=== PATIENT | female | born 1955 | race Caucasian/White ===

== ENCOUNTER 2025-01-21 02:40 | Inpatient (IN) | payer MEDICARE ==
--- NOTE | 2025-01-21 03:13 | ED ---
SOB HPI - General Chief Complaint: Shortness of Breath Stated Complaint: SOB,Chest Pain Time Seen by Provider: 01/21/25 02:54 Source: patient Mode of arrival: wheelchair Limitations: no limitations - History of Present Illness Initial Comments: This patient is a 69-year-old woman who arrives here to have shortness of breath. The patient states that the symptoms have been going on proximately 2 weeks, more or less since she had been admitted in the hospital to have stent graft of abdominal aortic aneurysm. This was reportedly performed at [facility] by . The patient has not noticed any difficulty with the graft. Patient's daughter is a nurse who states that the wounds have been clean and dry. No fevers. Patient denies abdominal pain. The patient does have some occasional cough but is a smoker. She has not noted change in sputum. No leg pain or swelling. No chest pain. MD Complaint: shortness of breath Onset/Timin -: week(s) Consistency: constant Improves With: nothing Worsens With: nothing Known History Of: COPD Associated Symptoms: fever, cough, sputum production Treatments Prior to Arrival: none - Related Data Home Oxygen Therapy: No Home Medications Medication Instructions Recorded Confirmed Aspirin EC [Ecotrin Low Dose] 81 mg PO DAILY 01/21/25 01/31/25 Cyclobenzaprine [Flexeril] 5 - 10 mg PO Q8H PRN 01/21/25 01/31/25 Fluticasone/Umeclidin/Vilanter 1 puff INHALATION RT-DAILY 01/21/25 01/31/25 [Trelegy Ellipta 200-62.5-25] Diclofenac Sodium [Voltaren] 75 mg PO BID PRN 01/31/25 01/31/25 HYDROcodone/APAP 7.5-325MG [[place] 1 tab PO Q6H PRN 01/31/25 01/31/25 7.5-325] Lidocaine 5% Patch [Lidoderm] 1 patch TRANSDERM DAILY PRN 01/31/25 01/31/25 Ondansetron [Zofran] 4 mg PO Q8H PRN 01/31/25 01/31/25 clonazePAM [KlonoPIN ODT] 0.25 mg PO DAILY PRN 01/31/25 01/31/25 Previous Rx's Medication Instructions Recorded Nicotine 14Mg/24Hr Patch [Habitrol] 1 patch TRANSDERM DAILY #10 patch 01/23/25 Pantoprazole [Protonix] 40 mg PO AC-BRKFST #30 01/23/25 Allergies Allergy/AdvReac Type Severity Reaction Status Date / Time No Known Allergies Allergy Verified 01/31/25 08:49 Review of Systems ROS Statement: Those systems with pertinent positive or pertinent negative responses have been documented in the HPI. ROS Other: All systems not noted in ROS Statement are negative. Constitutional: Reports: weakness. Denies: fever, chills Respiratory: Reports: cough, dyspnea, wheezes. Denies: hemoptysis Cardiovascular: Reports: orthopnea. Denies: chest pain, palpitations, edema Gastrointestinal: Denies: abdominal pain, nausea, vomiting, diarrhea Genitourinary: Denies: dysuria, hematuria Musculoskeletal: Denies: back pain Skin: Denies: rash Neurological: Reports: weakness. Denies: headache Psychiatric: Reports: anxiety. Denies: depression Past Medical History Past Medical History: COPD, Hypertension Additional Past Surgical History / Comment(s): Aortic Aneurysm Repair 2024 Smoking Status: Former smoker Past Alcohol Use History: None Reported Past Drug Use History: None Reported - Past Family History Mother Additional Family Medical History / Comment(s): respiratory failure, probably cancer but unsure. Father Additional Family Medical History / Comment(s): from stomach cancer General Exam General appearance: alert, in distress Head exam: Present: atraumatic, normocephalic Eye exam: Present: normal appearance. Absent: scleral icterus, conjunctival injection ENT exam: Present: mucous membranes dry Neck exam: Present: normal inspection, full ROM Respiratory exam: Present: respiratory distress, wheezes, accessory muscle use. Absent: rales, rhonchi, stridor Cardiovascular Exam: Present: regular rate, tachycardia, systolic murmur. Absent: diastolic murmur, rubs, gallop GI/Abdominal exam: Present: soft. Absent: distended, tenderness, guarding, rebound, rigid Extremities exam: Present: normal inspection, normal capillary refill. Absent: pedal edema, calf tenderness Back exam: Present: normal inspection. Absent: CVA tenderness (R), CVA tenderness (L) Neurological exam: Present: alert, CN II-XII intact. Absent: motor sensory deficit Skin exam: Present: warm, dry, intact, mottled. Absent: rash Course Vital Signs 01/21/25 01/21/25 01/21/25 02:42 04:14 06:14 Temperature 97.2 F L Pulse Rate 131 H 117 H 105 H Respiratory 24 22 18 Rate Blood Pressure 119/70 95/61 101/64 O2 Sat by Pulse 96 97 96 Oximetry 01/21/25 01/21/25 08:18 09:17 Temperature 97.8 F Pulse Rate 100 102 H Respiratory 16 Rate Blood Pressure 101/64 O2 Sat by Pulse 100 Oximetry Medical Decision Making - Medical Decision Making This patient is a 69-year-old woman presenting with dyspnea going on approximately 2 weeks. Exam does show probable exacerbation of COPD and the workup shows possible small infiltrate on the chest x-ray. The patient also with elevated D-dimer. The patient sent for CT scan that shows probable right lung mass, also some suspected bony metastases. Discussed findings with the patient and family and they are hoping to see oncology. The patient had chest x-ray that I interpreted as negative for acute infiltrate, pneumothorax, congestive heart failure CT scan by radiology Was pt. sent in by a medical professional or institution ([facility], [employer], urgent care, hospital, or care home...) When possible be specific @ -[No] Did you speak to anyone other than the patient for history (EMS, parent, family, police, friend...)? What history was obtained from this source @ -[No] Did you review nursing and triage notes (agree or disagree)? Why? @ -[I reviewed and agree with nursing and triage notes] Were old charts reviewed (outside hosp., previous admission, EMS record, old EKG, old radiological studies, urgent care reports/EKG's, care home records)? Report findings @ -[No old charts were reviewed] Differential Diagnosis (chest pain, altered mental status, abdominal pain women, abdominal pain men, vaginal bleeding, weakness, fever, dyspnea, syncope, headache, dizziness, GI bleed, back pain, seizure, CVA, palpatations, mental health, musculoskeletal)? @ -[Differential Dyspnea: Coronary syndrome, arrhythmia, tamponade, asthma, COPD, pulmonary embolism, pneumonia, pneumothorax, pulmonary effusion, anaphylaxis, diabetic ketoacidosis, flailed chest, pulmonary contusion, diaphragmatic rupture, anemia, neuromuscular, this is not meant to be an all-inclusive list. EKG interpreted by me (3pts min.). @ -[I interpreted as above] X-rays interpreted by me (1pt min.). @ -[I interpreted as above CT interpreted by me (1pt min.). @ -[None done] U/S interpreted by me (1pt. min.). @ -[None done] What testing was considered but not performed or refused? (CT, X-rays, U/S, labs)? Why? @ -[None] What meds were considered but not given or refused? Why? @ -[None] Did you discuss the management of the patient with other professionals (professionals i.e. DrFrederick, PA, [employer], lab, RT, psych nurse, health care social worker, executive vp, teacher, special weapons unit officer, telehealth case manager)? Give summary @ -[Case discussed with admitting physician and treatment recommendations are incorporated Was smoking cessation discussed for >3mins.? @ -[No] Was critical care preformed (if so, how long)? @ -[No] Were there social determinants of health that impacted care today? How? (Homelessness, low income, unemployed, alcoholism, drug addiction, transportation, low edu. Level, literacy, decrease access to med. care, halfway, rehab)? @ -[No] Was there de-escalation of care discussed even if they declined (Discuss DNR or withdrawal of care, Hospice)? DNR status @ -[No] What co-morbidities impacted this encounter? (DM, HTN, Smoking, COPD, CAD, Cancer, CVA, ARF, Chemo, Hep., AIDS, mental health diagnosis, sleep apnea, morbid obesity)? @ -COPD, smoking history Was patient admitted / discharged? Hospital course, mention meds given and route, prescriptions, significant lab abnormalities, going to OR and other pertinent info. @ -[As above Undiagnosed new problem with uncertain prognosis? @ -[No] Drug Therapy requiring intensive monitoring for toxicity (Heparin, Nitro, Insulin, Cardizem)? @ -[No] Were any procedures done? @ -[No] Diagnosis/symptom? @ -[Acute dyspnea Exacerbation of COPD Suspected metastatic lung cancer Acute, or Chronic, or Acute on Chronic? @ -[Acute dyspnea Uncomplicated (without systemic symptoms) or Complicated (systemic symptoms)? @ -[default] Side effects of treatment? @ -[No] Exacerbation, Progression, or Severe Exacerbation? @ -[COPD exacerbation Poses a threat to life or bodily function? How? (Chest pain, [place], [place], pneumonia, PE, COPD, DKA, ARF, appy, cholecystitis, CVA, Diverticulitis, Homicidal, Suicidal, threat to staff... and all critical care pts) @ -[Yes there is suspected cancer with threat to life All treatments are based on ideal body weight as in ED triage - Lab Data Result diagrams: 01/23/25 06:24 01/23/25 06:24 Lab Results 01/21/25 01/21/25 01/21/25 Range/Units 03:14 03:14 03:14 WBC 21.36 H (4.50-10.00) 10*3/uL RBC 4.09 L (4.10-5.20) 10*6/uL Hgb 11.8 L (12.0-15.0) g/dL Hct 36.6 L (37.2-46.3) % MCV 89.5 (80.0-97.0) fL MCH 28.9 (27.0-32.0) pg MCHC 32.2 (32.0-37.0) g/dL RDW (11.5-14.5) % Plt Count 358 (140-440) 10*3/uL MPV 10.2 (9.5-12.2) fL Immature Gran % (Auto) 1.3 % Absolute Nucleated RBC % Neutrophils % 79.3 % Lymphocytes % 9.6 % Monocytes % 7.4 % Eosinophils % 1.8 % Basophils % 0.6 % Immature Gran # 0.27 H (0.00-0.04) 10*3/uL Neutrophils # 16.95 H (1.80-7.70) 10*3/uL Lymphocytes # 2.06 (0.90-5.00) 10*3/uL Monocytes # 1.57 H (0.20-1.00) 10*3/uL Eosinophils # 0.39 H (0.04-0.35) 10*3/uL Basophils # 0.12 H (0.00-0.10) 10*3/uL NRBC/100 WBC Diff (0.00-0.01) X 10*3/uL PT 12.0 (10.0-12.5) sec INR 1.1 (<1.2) APTT 23.7 (22.0-30.0) sec D-Dimer 13.27 H (<0.60) mg/L FEU VBG pH (7.31-7.41) VBG pCO2 (37-51) mmHg VBG HCO3 (24-28) mmol/L Sodium 136 L (137-145) mmol/L Potassium 5.6 H (3.5-5.1) mmol/L Chloride 106 (98-107) mmol/L Carbon Dioxide 19 L (22-30) mmol/L Anion Gap 11 mmol/L BUN 21 H (7-17) mg/dL Creatinine 0.91 (0.52-1.04) mg/dL Est GFR (CKD-EPI) (>=60) Est GFR (CKD-EPI)AfAm 75 (>60 ml/min/1.73 sqM) Est GFR (CKD-EPI)NonAf 65 (>60 ml/min/1.73 sqM) BUN/Creatinine Ratio (12.00-20.00) Ratio Glucose 127 H (74-99) mg/dL Lactic Ac Sepsis Rflx Plasma Lactic Acid [place] (0.7-2.0) mmol/L Calcium 9.6 (8.4-10.2) mg/dL Magnesium (1.5-2.4) mg/dL Total Bilirubin 1.3 (0.2-1.3) mg/dL AST 30 (14-36) U/L ALT 13 (4-34) U/L Alkaline Phosphatase 174 H (38-126) U/L Troponin I (0.000-0.034) ng/mL NT-Pro-B Natriuret Pep 999 pg/mL Total Protein 7.3 (6.3-8.2) g/dL Albumin 3.3 L (3.5-5.0) g/dL Procalcitonin (0.02-0.50) ng/mL Urine Color Urine Appearance (Clear) Urine pH (5.0-8.0) Ur Specific [place] (1.001-1.035) Urine Protein (Negative) Urine Glucose (UA) (Negative) Urine Ketones (Negative) Urine Blood (Negative) Urine Nitrite (Negative) Urine Bilirubin (Negative) Urine Urobilinogen (<2.0) mg/dL Ur Leukocyte Esterase (Negative) Urine RBC (0-5) /hpf Urine WBC (0-5) /hpf Ur Squamous Epith Cells (0-4) /hpf Cellular Casts (0) /lpf Hyaline Casts (0-2) /lpf Granular Casts (0) /lpf Urine Mucus (None) /hpf Urine Yeast (Budding) (None) /hpf Urine Legionella Ag (Negative) 01/21/25 01/21/25 01/21/25 Range/Units 03:14 03:14 03:52 WBC (4.50-10.00) 10*3/uL RBC (4.10-5.20) 10*6/uL Hgb (12.0-15.0) g/dL Hct (37.2-46.3) % MCV (80.0-97.0) fL MCH (27.0-32.0) pg MCHC (32.0-37.0) g/dL RDW (11.5-14.5) % Plt Count (140-440) 10*3/uL MPV (9.5-12.2) fL Immature Gran % (Auto) % Absolute Nucleated RBC % Neutrophils % % Lymphocytes % % Monocytes % % Eosinophils % % Basophils % % Immature Gran # (0.00-0.04) 10*3/uL Neutrophils # (1.80-7.70) 10*3/uL Lymphocytes # (0.90-5.00) 10*3/uL Monocytes # (0.20-1.00) 10*3/uL Eosinophils # (0.04-0.35) 10*3/uL Basophils # (0.00-0.10) 10*3/uL NRBC/100 WBC Diff (0.00-0.01) X 10*3/uL PT (10.0-12.5) sec INR (<1.2) APTT (22.0-30.0) sec D-Dimer (<0.60) mg/L FEU VBG pH 7.42 H (7.31-7.41) VBG pCO2 30 L (37-51) mmHg VBG HCO3 19 L (24-28) mmol/L Sodium (137-145) mmol/L Potassium (3.5-5.1) mmol/L Chloride (98-107) mmol/L Carbon Dioxide (22-30) mmol/L Anion Gap mmol/L BUN (7-17) mg/dL Creatinine (0.52-1.04) mg/dL Est GFR (CKD-EPI) (>=60) Est GFR (CKD-EPI)AfAm (>60 ml/min/1.73 sqM) Est GFR (CKD-EPI)NonAf (>60 ml/min/1.73 sqM) BUN/Creatinine Ratio (12.00-20.00) Ratio Glucose (74-99) mg/dL Lactic Ac Sepsis Rflx Plasma Lactic Acid [place] 2.2 H* (0.7-2.0) mmol/L Calcium (8.4-10.2) mg/dL Magnesium (1.5-2.4) mg/dL Total Bilirubin (0.2-1.3) mg/dL AST (14-36) U/L ALT (4-34) U/L Alkaline Phosphatase (38-126) U/L Troponin I <0.012 (0.000-0.034) ng/mL NT-Pro-B Natriuret Pep pg/mL Total Protein (6.3-8.2) g/dL Albumin (3.5-5.0) g/dL Procalcitonin (0.02-0.50) ng/mL Urine Color Urine Appearance (Clear) Urine pH (5.0-8.0) Ur Specific [place] (1.001-1.035) Urine Protein (Negative) Urine Glucose (UA) (Negative) Urine Ketones (Negative) Urine Blood (Negative) Urine Nitrite (Negative) Urine Bilirubin (Negative) Urine Urobilinogen (<2.0) mg/dL Ur Leukocyte Esterase (Negative) Urine RBC (0-5) /hpf Urine WBC (0-5) /hpf Ur Squamous Epith Cells (0-4) /hpf Cellular Casts (0) /lpf Hyaline Casts (0-2) /lpf Granular Casts (0) /lpf Urine Mucus (None) /hpf Urine Yeast (Budding) (None) /hpf Urine Legionella Ag (Negative) 01/21/25 01/21/25 01/21/25 Range/Units 04:19 05:02 08:16 WBC (4.50-10.00) 10*3/uL RBC (4.10-5.20) 10*6/uL Hgb (12.0-15.0) g/dL Hct (37.2-46.3) % MCV (80.0-97.0) fL MCH (27.0-32.0) pg MCHC (32.0-37.0) g/dL RDW (11.5-14.5) % Plt Count (140-440) 10*3/uL MPV (9.5-12.2) fL Immature Gran % (Auto) % Absolute Nucleated RBC % Neutrophils % % Lymphocytes % % Monocytes % % Eosinophils % % Basophils % % Immature Gran # (0.00-0.04) 10*3/uL Neutrophils # (1.80-7.70) 10*3/uL Lymphocytes # (0.90-5.00) 10*3/uL Monocytes # (0.20-1.00) 10*3/uL Eosinophils # (0.04-0.35) 10*3/uL Basophils # (0.00-0.10) 10*3/uL NRBC/100 WBC Diff (0.00-0.01) X 10*3/uL PT (10.0-12.5) sec INR (<1.2) APTT (22.0-30.0) sec D-Dimer (<0.60) mg/L FEU VBG pH (7.31-7.41) VBG pCO2 (37-51) mmHg VBG HCO3 (24-28) mmol/L Sodium (137-145) mmol/L Potassium (3.5-5.1) mmol/L Chloride (98-107) mmol/L Carbon Dioxide (22-30) mmol/L Anion Gap mmol/L BUN (7-17) mg/dL Creatinine (0.52-1.04) mg/dL Est GFR (CKD-EPI) (>=60) Est GFR (CKD-EPI)AfAm (>60 ml/min/1.73 sqM) Est GFR (CKD-EPI)NonAf (>60 ml/min/1.73 sqM) BUN/Creatinine Ratio (12.00-20.00) Ratio Glucose (74-99) mg/dL Lactic Ac Sepsis Rflx Y Plasma Lactic Acid [place] (0.7-2.0) mmol/L Calcium (8.4-10.2) mg/dL Magnesium (1.5-2.4) mg/dL Total Bilirubin (0.2-1.3) mg/dL AST (14-36) U/L ALT (4-34) U/L Alkaline Phosphatase (38-126) U/L Troponin I (0.000-0.034) ng/mL NT-Pro-B Natriuret Pep pg/mL Total Protein (6.3-8.2) g/dL Albumin (3.5-5.0) g/dL Procalcitonin (0.02-0.50) ng/mL Urine Color Yellow Urine Appearance Cloudy H (Clear) Urine pH 5.5 (5.0-8.0) Ur Specific [place] 1.030 (1.001-1.035) Urine Protein 1+ H (Negative) Urine Glucose (UA) Negative (Negative) Urine Ketones Negative (Negative) Urine Blood Trace H (Negative) Urine Nitrite Negative (Negative) Urine Bilirubin Negative (Negative) Urine Urobilinogen 2.0 (<2.0) mg/dL Ur Leukocyte Esterase Negative (Negative) Urine RBC 3 (0-5) /hpf Urine WBC 22 H (0-5) /hpf Ur Squamous Epith Cells 4 (0-4) /hpf Cellular Casts 1 (0) /lpf Hyaline Casts 21 H (0-2) /lpf Granular Casts 1 (0) /lpf Urine Mucus Rare H (None) /hpf Urine Yeast (Budding) Rare H (None) /hpf Urine Legionella Ag Negative (Negative) 01/21/25 01/21/25 01/22/25 Range/Units 08:50 08:50 06:15 WBC 10.91 H (4.50-10.00) 10*3/uL RBC 3.26 L (4.10-5.20) 10*6/uL Hgb 9.2 L (12.0-15.0) g/dL Hct 30.5 L (37.2-46.3) % MCV 93.6 (80.0-97.0) fL MCH 28.2 (27.0-32.0) pg MCHC 30.2 L (32.0-37.0) g/dL RDW 15.7 H (11.5-14.5) % Plt Count 195 (140-440) 10*3/uL MPV 10.5 (9.5-12.2) fL Immature Gran % (Auto) % Absolute Nucleated RBC 0 % Neutrophils % % Lymphocytes % % Monocytes % % Eosinophils % % Basophils % % Immature Gran # (0.00-0.04) 10*3/uL Neutrophils # (1.80-7.70) 10*3/uL Lymphocytes # (0.90-5.00) 10*3/uL Monocytes # (0.20-1.00) 10*3/uL Eosinophils # (0.04-0.35) 10*3/uL Basophils # (0.00-0.10) 10*3/uL NRBC/100 WBC Diff 0 (0.00-0.01) X 10*3/uL PT (10.0-12.5) sec INR (<1.2) APTT (22.0-30.0) sec D-Dimer (<0.60) mg/L FEU VBG pH (7.31-7.41) VBG pCO2 (37-51) mmHg VBG HCO3 (24-28) mmol/L Sodium (137-145) mmol/L Potassium (3.5-5.1) mmol/L Chloride (98-107) mmol/L Carbon Dioxide (22-30) mmol/L Anion Gap mmol/L BUN (7-17) mg/dL Creatinine (0.52-1.04) mg/dL Est GFR (CKD-EPI) (>=60) Est GFR (CKD-EPI)AfAm (>60 ml/min/1.73 sqM) Est GFR (CKD-EPI)NonAf (>60 ml/min/1.73 sqM) BUN/Creatinine Ratio (12.00-20.00) Ratio Glucose (74-99) mg/dL Lactic Ac Sepsis Rflx Plasma Lactic Acid [place] 1.6 (0.7-2.0) mmol/L Calcium (8.4-10.2) mg/dL Magnesium (1.5-2.4) mg/dL Total Bilirubin (0.2-1.3) mg/dL AST (14-36) U/L ALT (4-34) U/L Alkaline Phosphatase (38-126) U/L Troponin I (0.000-0.034) ng/mL NT-Pro-B Natriuret Pep pg/mL Total Protein (6.3-8.2) g/dL Albumin (3.5-5.0) g/dL Procalcitonin 0.45 (0.02-0.50) ng/mL Urine Color Urine Appearance (Clear) Urine pH (5.0-8.0) Ur Specific [place] (1.001-1.035) Urine Protein (Negative) Urine Glucose (UA) (Negative) Urine Ketones (Negative) Urine Blood (Negative) Urine Nitrite (Negative) Urine Bilirubin (Negative) Urine Urobilinogen (<2.0) mg/dL Ur Leukocyte Esterase (Negative) Urine RBC (0-5) /hpf Urine WBC (0-5) /hpf Ur Squamous Epith Cells (0-4) /hpf Cellular Casts (0) /lpf Hyaline Casts (0-2) /lpf Granular Casts (0) /lpf Urine Mucus (None) /hpf Urine Yeast (Budding) (None) /hpf Urine Legionella Ag (Negative) 01/22/25 Range/Units 06:15 WBC (4.50-10.00) 10*3/uL RBC (4.10-5.20) 10*6/uL Hgb (12.0-15.0) g/dL Hct (37.2-46.3) % MCV (80.0-97.0) fL MCH (27.0-32.0) pg MCHC (32.0-37.0) g/dL RDW (11.5-14.5) % Plt Count (140-440) 10*3/uL MPV (9.5-12.2) fL Immature Gran % (Auto) % Absolute Nucleated RBC % Neutrophils % % Lymphocytes % % Monocytes % % Eosinophils % % Basophils % % Immature Gran # (0.00-0.04) 10*3/uL Neutrophils # (1.80-7.70) 10*3/uL Lymphocytes # (0.90-5.00) 10*3/uL Monocytes # (0.20-1.00) 10*3/uL Eosinophils # (0.04-0.35) 10*3/uL Basophils # (0.00-0.10) 10*3/uL NRBC/100 WBC Diff (0.00-0.01) X 10*3/uL PT (10.0-12.5) sec INR (<1.2) APTT (22.0-30.0) sec D-Dimer (<0.60) mg/L FEU VBG pH (7.31-7.41) VBG pCO2 (37-51) mmHg VBG HCO3 (24-28) mmol/L Sodium 139 (137-145) mmol/L Potassium 4.4 (3.5-5.1) mmol/L Chloride 103 (98-107) mmol/L Carbon Dioxide 23.8 (22-30) mmol/L Anion Gap 12.20 H mmol/L BUN 20.3 (7-17) mg/dL Creatinine 0.9 (0.52-1.04) mg/dL Est GFR (CKD-EPI) 70 (>=60) Est GFR (CKD-EPI)AfAm (>60 ml/min/1.73 sqM) Est GFR (CKD-EPI)NonAf (>60 ml/min/1.73 sqM) BUN/Creatinine Ratio 22.56 H (12.00-20.00) Ratio Glucose 82 (74-99) mg/dL Lactic Ac Sepsis Rflx Plasma Lactic Acid [place] (0.7-2.0) mmol/L Calcium 9.2 (8.4-10.2) mg/dL Magnesium 1.7 (1.5-2.4) mg/dL Total Bilirubin (0.2-1.3) mg/dL AST (14-36) U/L ALT (4-34) U/L Alkaline Phosphatase (38-126) U/L Troponin I (0.000-0.034) ng/mL NT-Pro-B Natriuret Pep pg/mL Total Protein (6.3-8.2) g/dL Albumin (3.5-5.0) g/dL Procalcitonin (0.02-0.50) ng/mL Urine Color Urine Appearance (Clear) Urine pH (5.0-8.0) Ur Specific [place] (1.001-1.035) Urine Protein (Negative) Urine Glucose (UA) (Negative) Urine Ketones (Negative) Urine Blood (Negative) Urine Nitrite (Negative) Urine Bilirubin (Negative) Urine Urobilinogen (<2.0) mg/dL Ur Leukocyte Esterase (Negative) Urine RBC (0-5) /hpf Urine WBC (0-5) /hpf Ur Squamous Epith Cells (0-4) /hpf Cellular Casts (0) /lpf Hyaline Casts (0-2) /lpf Granular Casts (0) /lpf Urine Mucus (None) /hpf Urine Yeast (Budding) (None) /hpf Urine Legionella Ag (Negative) - EKG Data EKG shows normal: sinus rhythm, axis (Normal), intervals, QRS complexes Rate: tachycardia (Rate 137 bpm) Disposition Clinical Impression: Shortness of breath, COPD (chronic obstructive pulmonary disease), Sepsis Disposition: ADMITTED IP TO THIS HOSP Condition: Fair Is patient prescribed a controlled substance at d/c from ED?: No
[2025-01-21 03:32] LABS: Basophils # (A) 0.12 10*3/uL (0.00-0.10); Basophils % (A) 0.6 %; Eosinophils # (A) 0.39 10*3/uL (0.04-0.35); Eosinophils % (A) 1.8 %; HCT 36.6 % (37.2-46.3); HGB 11.8 g/dL (12.0-15.0); Lymphocytes # (A) 2.06 10*3/uL (0.90-5.00); Lymphocytes % (A) 9.6 %; MCH 28.9 pg (27.0-32.0); MCHC 32.2 g/dL (32.0-37.0); MCV 89.5 fL (80.0-97.0); Mean Platelet Volume 10.2 fL (9.5-12.2); Monocytes # (A) 1.57 10*3/uL (0.20-1.00); Monocytes % (A) 7.4 %; Neutrophils # (A) 16.95 10*3/uL (1.80-7.70); Neutrophils % (A) 79.3 %; Platelet Count 358 10*3/uL (140-440); RBC 4.09 10*6/uL (4.10-5.20); RDW 15.2 % (11.5-14.5); WBC 21.36 10*3/uL (4.50-10.00)
[2025-01-21 03:55] LABS: ALT 13 U/L (4-34); AST 30 U/L (14-36); African American GFR (CKD) 75 (>60 ml/min/1.73 sqM); Albumin 3.3 g/dL (3.5-5.0); Alkaline Phosphatase 174 U/L (38-126); Anion Gap 11 mmol/L; Blood Urea Nitrogen 21 mg/dL (7-17); Calcium 9.6 mg/dL (8.4-10.2); Carbon Dioxide 19 mmol/L (22-30); Chloride 106 mmol/L (98-107); Glucose 127 mg/dL (74-99); Non-African American GFR(CKD) 65 (>60 ml/min/1.73 sqM); Sodium 136 mmol/L (137-145); Total Bilirubin 1.3 mg/dL (0.2-1.3); Total Protein 7.3 g/dL (6.3-8.2)
[2025-01-21 03:57] LABS: INR 1.1 (<1.2); Partial Thromboplastin Time 23.7 sec (22.0-30.0)
[2025-01-21 03:59] LABS: VBG PH 7.42 (7.31-7.41)
[2025-01-21 04:04] LABS: NT-Pro-B-Type Natriuretic Pept 999 pg/mL
[2025-01-21 04:18] LABS: Potassium 5.6 mmol/L (3.5-5.1)
[2025-01-21] MEDS: LACTATED RINGERS 1,000 ML IV ONE (04:56)
--- NOTE | 2025-01-21 05:13 | CT ---
EXAM: CT Angiography Chest With Intravenous Contrast CLINICAL HISTORY: ITS.REASON CT Reason: Dyspnea, possible PE TECHNIQUE: Axial computed tomographic angiography images of the chest with intravenous contrast. CTDI is 15.5 mGy and DLP is 445.1 mGy-cm. This CT exam was performed using one or more of the following dose reduction techniques: automated exposure control, adjustment of the mA and/or kV according to patient size, and/or use of iterative reconstruction technique. MIP reconstructed images were created and reviewed. COMPARISON: No relevant prior studies available. FINDINGS: Pulmonary arteries: Unremarkable. No pulmonary embolism. Aorta: Partial visualization of aneurysmal dilatation of the upper abdominal aorta measuring 7.2 cm. Calcifications are seen within a nondilated aorta. Lungs: Bilateral emphysematous changes. Narrowing of the right lower lobe bronchus. Likely atelectasis is seen within the posterior right upper lobe. No mass. Pleural space: Unremarkable. No significant effusion. No pneumothorax. Heart: Unremarkable. No cardiomegaly. No significant pericardial effusion. No evidence of RV dysfunction. Mediastinum: Base of neck and mediastinal lymphadenopathy with a represent a lymph node seen on series 401 image 65 measuring 2.9 cm. Bones/joints: 1.3 cm lucent lesion seen within the right scapula with question of a adjacent fracture. Posterior left 11th rib fracture. Expansile lesion seen within the anterior left lateral fifth rib. Diffuse degenerative endplate hypertrophy. Nonspecific sclerosis is seen within the T4 vertebral body. Motion artifact limits evaluation of the sternum. Likely old superior endplate fracture of T12. No dislocation. Soft tissues: Unremarkable. Lymph nodes: Right hilar lymphadenopathy. Lymphadenopathy is seen surrounding the aorta with a ambulatory service representative lymph node seen on series 401 image 104 measuring 2.1 cm. Right axillary lymphadenopathy. Liver: Simple cyst seen within the liver which does not require follow- up. Other findings: 1.3 cm nodule seen on series 401 image 61. IMPRESSION: 1. Lymphadenopathy seen throughout the chest as described above. This is highly concerning for malignancy. 2. Right lower lobe pulmonary nodule, underlying malignancy is not excluded. Recommend follow-up CT in 3 6 with's time Fleischner criteria. 3. Likely metastatic left rib lesion. 4. Left-sided posterior rib fracture without evidence of pneumothorax. 5. Concern for a osseous lesion and pathologic fracture seen within the scapula. 6. No pulmonary artery embolism. 7. Lymphadenopathy seen at the right hilum narrows the adjacent bronchi.
--- NOTE | 2025-01-21 05:15 | XR ---
EXAM: XR Chest, 1 View CLINICAL HISTORY: ITS.REASON XR Reason: dyspnea TECHNIQUE: Frontal view of the chest. COMPARISON: No relevant prior studies available. FINDINGS: Lungs: Unremarkable. No consolidation. Pleural space: Unremarkable. No pneumothorax. Heart: Unremarkable. No cardiomegaly. Mediastinum: Unremarkable. Normal mediastinal contour. Bones/joints: Degenerative changes are seen in the spine and shoulders. No acute fracture. Lymph nodes: Enlargement of the right hilum concerning for underlying lymphadenopathy. IMPRESSION: 1. Right hilar lymphadenopathy. 2. Otherwise no acute findings seen within the chest.
[2025-01-21 05:46] LABS: Appearance,Urine Cloudy (Clear); Bilirubin,Urine Negative (Negative); Blood,Urine Trace (Negative); Budding Yeast,Urine Rare /hpf; Cellular Casts,Urine 1 /lpf (0); Color,Urine Yellow; Glucose,Urine (UA) Negative (Negative); Granular Casts,Urine 1 /lpf (0); Hyaline Casts,Urine 21 /lpf (0-2); Ketones,Urine Negative (Negative); Leukocyte Esterase,Urine Negative (Negative); Mucus,Urine Rare /hpf; Nitrite,Urine Negative (Negative); PH, Urine 5.5 (5.0-8.0); Protein,Urine 1+ (Negative); RBC,Urine 3 /hpf (0-5); Squamous Epithelial Cell,Urine 4 /hpf (0-4); WBC,Urine 22 /hpf (0-5)
[2025-01-21] MEDS: MORPHINE SULFATE 4 MG/ML SYRINGE IV STA (06:11)
[2025-01-21] MEDS: LACTATED RINGERS 1,000 ML IV SCH (06:12)
[2025-01-21] MEDS ORDERED: PNEUMONIA PROTOCOL UTILIZED 1 EACH MISC PO PRN (07:03)
[2025-01-21] MEDS: AZITHROMYCIN 500 MG TAB PO SCH (09:21)
[2025-01-21] MEDS ORDERED: IOPAMIDOL CONTRAST (ORAL USE) VIAL PO PRN (11:33)
[2025-01-21] MEDS ORDERED: traMADol 50 MG TAB PO PRN (14:39)
--- NOTE | 2025-01-21 14:51 | P.CNPUL ---
History of Present Illness Consult date: 01/21/25 Requesting physician: Candido Rodríguez Reason for consult: abnormal CXR/CT Chief complaint: Shortness of breath History of present illness: This is a 69-year-old female patient with a known history of chronic and ongoing tobacco dependence of 50 years, chronic obstructive pulmonary disease, abdominal aortic aneurysm with recent stent placement in December 2024 at [facility]. Presented here to the emergency room early this morning with a 2-week history of worsening shortness of breath cough and congestion. No sputum productive. No hemoptysis. She also states she has lost about 20 pounds in the past month or 2. She also has been having significant right sided rib pain. Chest x-ray reveals right hilar lymphadenopathy. No acute findings. CT angiogram ruled out pulmonary embolism. However there is significant lymphadenopathy seen throughout the chest highly concerning for malignancy. A right lower lobe pulmonary nodule. Left metastatic rib lesion. Left-sided posterior rib fracture without evidence of pneumothorax. Lymphadenopathy is seen at the right hilum appears narrows the adjacent bronchi. Lesion to the right scapula. White count 21.3. Hemoglobin 11.8. Platelets 358. D-dimer 13.27. Sodium 136. Potassium 5.6. Bicarb 19. BUN 21. Creatinine 0.91. Glu cose 127. She is seen today in consultation on the regular medical floor. She is currently sitting up in a chair at the bedside. Awake and alert in no acute distress. Maintaining O2 saturations in the 90s on 2 L/min per nasal cannula. She has been afebrile. Hemodynamically stable. She is dyspneic with minimal exertion. Review of Systems REVIEW OF SYSTEMS: CONSTITUTIONAL: Positive for significant weight loss. EYES: Denies change in vision. EARS, NOSE, MOUTH, THROAT: Denies headaches, denies sore throat. CARDIOVASCULAR: Denies chest pain, palpitations or syncopal episodes. RESPIRATORY: Positive for shortness of breath, cough, congestion no hemoptysis. GASTROINTESTINAL: Denies change in appetite, denies abdominal pain GENITOURINARY: Denies hematuria, denies infections. MUSKULOSKELETAL: Positive for rib pain. INTEGUMENTARY: Denies rash, denies eczema. NEUROLOGICAL: Denies recent memory loss, no recent seizure activity. PSYCHIATRIC: Denies anxiety, denies depression. HEMATOLOGIC/LYMPHATIC: Denies anemia, denies enlarged lymph nodes. Past Medical History Past Medical History: COPD, Hypertension History of Any Multi-Drug Resistant Organisms: None Reported Past Surgical History: Cholecystectomy Additional Past Surgical History / Comment(s): Aortic Aneurysm Repair ( [facility] ) 2024 Additional Past Anesthesia/Blood Transfusion Reaction / Comment(s): na Past Psychological History: Anxiety Smoking Status: Former smoker Past Alcohol Use History: Rare Past Drug Use History: Marijuana Additional Drug Use History / Comment(s): hasnt used marijaua in years - Past Family History Mother Additional Family Medical History / Comment(s): respiratory failure, probably cancer but unsure. Father Additional Family Medical History / Comment(s): from stomach cancer Medications and Allergies Home Medications Medication Instructions Recorded Confirmed Type Aspirin EC [Ecotrin Low Dose] 81 mg PO DAILY 01/21/25 01/21/25 History Cyclobenzaprine [Flexeril] 5 - 10 mg PO Q8H PRN 01/21/25 01/21/25 History Fluticasone/Umeclidin/Vilanter 1 puff INHALATION RT-DAILY 01/21/25 01/21/25 History [Trelegy Ellipta 200-62.5-25] Allergies Allergy/AdvReac Type Severity Reaction Status Date / Time hydrocodone [From Vicodin] AdvReac Rash/Hives Verified 01/21/25 08:31 Physical Exam Vitals: Vital Signs Temp Pulse Pulse Resp BP BP Pulse Ox 01/21/25 10:11 97.6 F 99 20 93/61 94 L 01/21/25 09:17 97.8 F 102 H 16 101/64 100 01/21/25 08:18 100 01/21/25 06:14 105 H 18 101/64 96 01/21/25 04:14 117 H 22 95/61 97 01/21/25 02:42 97.2 F L 131 H 24 119/70 96 Intake and Output 01/20/25 01/21/25 01/21/25 22:59 06:59 14:59 Other: Voiding Method Toilet Weight 71.214 kg 71.214 kg GENERAL EXAM: Alert, pleasant, obese 69-year-old female, up in a chair, on 2 L nasal cannula, fairly comfortable in no apparent distress. HEAD: Normocephalic. EYES: Normal reaction of pupils, equal size. NOSE: Clear with pink turbinates. THROAT: No erythema or exudates. NECK: No masses, no JVD. CHEST: No chest wall deformity. LUNGS: Equal air entry with no crackles, wheeze, rhonchi or dullness. Diminished. CVS: S1 and S2 normal with no audible murmur, regular rhythm. ABDOMEN: No hepatosplenomegaly, normal bowel sounds, no guarding or rigidity. SPINE: No scoliosis or deformity SKIN: No rashes CENTRAL NERVOUS SYSTEM: No focal deficits, tone is normal in all 4 extremities. EXTREMITIES: There is no peripheral edema. No clubbing, no cyanosis. Peripheral pulses are intact. Results - Laboratory Findings CBC and BMP: 01/21/25 03:14 01/21/25 03:14 PT/INR, D-dimer PT 12.0 sec (10.0-12.5) 01/21/25 03:14 INR 1.1 (<1.2) 01/21/25 03:14 D-Dimer 13.27 mg/L FEU (<0.60) H 01/21/25 03:14 Abnormal lab findings: Abnormal Labs 01/21/25 01/21/25 01/21/25 03:14 03:14 03:14 WBC 21.36 H RBC 4.09 L Hgb 11.8 L Hct 36.6 L Immature Gran # 0.27 H Neutrophils # 16.95 H Monocytes # 1.57 H Eosinophils # 0.39 H Basophils # 0.12 H D-Dimer 13.27 H VBG pH VBG pCO2 VBG HCO3 Sodium 136 L Potassium 5.6 H Carbon Dioxide 19 L BUN 21 H Glucose 127 H Plasma Lactic Acid Roosevelt Alkaline Phosphatase 174 H Albumin 3.3 L Urine Appearance Urine Protein Urine Blood Urine WBC Hyaline Casts Urine Mucus Urine Yeast (Budding) 01/21/25 01/21/25 01/21/25 03:14 03:52 05:02 WBC RBC Hgb Hct Immature Gran # Neutrophils # Monocytes # Eosinophils # Basophils # D-Dimer VBG pH 7.42 H VBG pCO2 30 L VBG HCO3 19 L Sodium Potassium Carbon Dioxide BUN Glucose Plasma Lactic Acid Roosevelt 2.2 H* Alkaline Phosphatase Albumin Urine Appearance Cloudy H Urine Protein 1+ H Urine Blood Trace H Urine WBC 22 H Hyaline Casts 21 H Urine Mucus Rare H Urine Yeast (Budding) Rare H - Diagnostic Findings Chest x-ray: image reviewed CT scan - chest: image reviewed Assessment and Plan Assessment: Dyspnea secondary to hilar lymphadenopathy with narrowing of the adjacent bro nchi. Lymphadenopathy is seen surrounding the aorta with customer assistance representative lymph node measuring 2.1 cm. Right axillary lymphadenopathy. Right lower lobe pulmonary nodule Metastatic lesions to the bone including the right scapula and posterior left 11th rib Ongoing chronic tobacco dependence of 50 years Recent abdominal aortic aneurysm stent placement at [facility] December 2024 Suspected severe chronic obstructive pulmonary disease maintained on Trelegy, albuterol Significant weight loss of over 20 pounds in the past 1 to 2 months Hypertension Plan: The patient was seen and evaluated Imaging, labs and medications reviewed Discussed results with the patient Will plan for bronchoscopy with biopsies tomorrow Patient is agreeable to the plan Educated regarding complete smoking cessation NicoDerm patch will be offered Add DuoNeb inhalations Add Symbicort Continue antibiotics for now Procalcitonin pending Medical oncology consulted Further cancer workup pending Will continue to follow and make further recommendations based on her clinical status I have personally seen and examined the patient, performed the documentation and the assessment and plan as written. Number of minutes spent on the visit: 20 Dictation was produced using [employer] dictation software. Please excuse any grammatical, word or spelling errors. Time with Patient: Greater than 30
[2025-01-21] MEDS: IPRATROPIUM-ALBUTEROL 3 ML NEB INHALATION SCH (15:40)
[2025-01-21] MEDS: HYDROcodone/APAP 7.5-325MG 1 EACH TAB PO PRN (15:42)
[2025-01-21] MEDS: KETOROLAC 15 MG/ML 1 ML VIAL IVP PRN (15:43)
[2025-01-21] MEDS: PANTOPRAZOLE 40 MG TABLET PO SCH (15:43)
--- NOTE | 2025-01-21 16:16 | P.HPIM ---
History of Present Illness 69-year-old female came in with complaints of right-sided rib pain patient had a chest x-ray showed hilar lymphadenopathy. And patient also underwent CT angiogram to rule out pulmonary embolism which showed significant lymphadenopathy throughout the chest highly concerning for malignancy and there is a right lower lobe pulmonary nodule there is left-sided rib fracture but there is no pneumothorax there is a some lesions on the right scapula concerning for metastasis patient had 2 days of oxygen saturating 90% patient is afebrile at this time but does have leukocytosis of 20,000 CT is not consistent with pneumonia no other obvious source was evident urine is not significant for UTI GI patient denied any abdominal pain. Procalcitonin is not elevated patient was started on Rocephin and azithromycin this will be discontinued as there is no evidence of infection. Patient was complaining of severe pain at the lactic acid was 2.2 which has come down to 1.6 after IV fluids. REVIEW OF SYSTEMS: All other systems are negative except those mentioned in the HPI PHYSICAL EXAMINATION: GENERAL: The patient is alert and oriented x3, not in any acute distress. Well developed, well nourished. HEENT: Pupils are round and equally reacting to light. EOMI. No scleral icterus. No conjunctival pallor. Normocephalic, atraumatic. No pharyngeal erythema. No thyromegaly. CARDIOVASCULAR: S1 and S2 present. No murmurs, rubs, or gallops. PULMONARY: Chest is clear to auscultation, no wheezing or crackles. ABDOMEN: Soft, nontender, nondistended, normoactive bowel sounds. No palpable organomegaly. MUSCULOSKELETAL: No joint swelling or deformity. EXTREMITIES: No cyanosis, clubbing, or pedal edema. NEUROLOGICAL: Gross neurological examination did not reveal any focal deficits. SKIN: No rashes. Assessment and plan -Chest pain secondary to metastatic disease to the scapula and ribs, patient will be started on [place] and Toradol along with Protonix for pain. - COPD without any significant exacerbation patient quit smoking about 3 weeks ago - Hilar lymphadenopathy probably lung cancer patient will undergo bronchoscopy a nd biopsy - Leukocytosis reactive from cancer I did not see any infection procalcitonin is negative antibiotics will be discontinued - Lactic acidosis secondary to dehydration improved with IV fluids Unintentional significant weight loss secondary to cancer as mentioned above patient DVT prophylaxis: Lovenox Past Medical History Past Medical History: COPD, Hypertension History of Any Multi-Drug Resistant Organisms: None Reported Past Surgical History: Cholecystectomy Additional Past Surgical History / Comment(s): Aortic Aneurysm Repair ( [facility] ) 2024 Additional Past Anesthesia/Blood Transfusion Reaction / Comment(s): na Past Psychological History: Anxiety Smoking Status: Former smoker Past Alcohol Use History: Rare Past Drug Use History: Marijuana Additional Drug Use History / Comment(s): hasnt used marijaua in years - Past Family History Mother Additional Family Medical History / Comment(s): respiratory failure, probably cancer but unsure. Father Additional Family Medical History / Comment(s): from stomach cancer Medications and Allergies Home Medications Medication Instructions Recorded Confirmed Type Aspirin EC [Ecotrin Low Dose] 81 mg PO DAILY 01/21/25 01/21/25 History Cyclobenzaprine [Flexeril] 5 - 10 mg PO Q8H PRN 01/21/25 01/21/25 History Fluticasone/Umeclidin/Vilanter 1 puff INHALATION RT-DAILY 01/21/25 01/21/25 History [Trelegy Ellipta 200-62.5-25] Allergies Allergy/AdvReac Type Severity Reaction Status Date / Time hydrocodone [From Vicodin] AdvReac Rash/Hives Verified 01/21/25 08:31 Physical Exam Vitals: Vital Signs Temp Pulse Pulse Resp BP BP Pulse Ox 01/21/25 15:50 104 H 01/21/25 15:44 102 H 96 01/21/25 14:51 97.5 F L 105 H 20 95/63 91 L 01/21/25 10:11 97.6 F 99 20 93/61 94 L 01/21/25 09:17 97.8 F 102 H 16 101/64 100 01/21/25 08:18 100 01/21/25 06:14 105 H 18 101/64 96 01/21/25 04:14 117 H 22 95/61 97 01/21/25 02:42 97.2 F L 131 H 24 119/70 96 Intake and Output 01/21/25 01/21/25 01/21/25 06:59 14:59 22:59 Other: Voiding Method Toilet Weight 71.214 kg 71.214 kg Results CBC & Chem 7: 01/21/25 03:14 01/21/25 03:14 Labs: Abnormal Lab Results - Last 24 Hours (Table) 01/21/25 01/21/25 01/21/25 Range/Units 03:14 03:14 03:14 WBC 21.36 H (4.50-10.00) 10*3/uL RBC 4.09 L (4.10-5.20) 10*6/uL Hgb 11.8 L (12.0-15.0) g/dL Hct 36.6 L (37.2-46.3) % Immature Gran # 0.27 H (0.00-0.04) 10*3/uL Neutrophils # 16.95 H (1.80-7.70) 10*3/uL Monocytes # 1.57 H (0.20-1.00) 10*3/uL Eosinophils # 0.39 H (0.04-0.35) 10*3/uL Basophils # 0.12 H (0.00-0.10) 10*3/uL D-Dimer 13.27 H (<0.60) mg/L FEU VBG pH (7.31-7.41) VBG pCO2 (37-51) mmHg VBG HCO3 (24-28) mmol/L Sodium 136 L (137-145) mmol/L Potassium 5.6 H (3.5-5.1) mmol/L Carbon Dioxide 19 L (22-30) mmol/L BUN 21 H (7-17) mg/dL Glucose 127 H (74-99) mg/dL Plasma Lactic Acid Roosevelt (0.7-2.0) mmol/L Alkaline Phosphatase 174 H (38-126) U/L Albumin 3.3 L (3.5-5.0) g/dL Urine Appearance (Clear) Urine Protein (Negative) Urine Blood (Negative) Urine WBC (0-5) /hpf Hyaline Casts (0-2) /lpf Urine Mucus (None) /hpf Urine Yeast (Budding) (None) /hpf 01/21/25 01/21/25 01/21/25 Range/Units 03:14 03:52 05:02 WBC (4.50-10.00) 10*3/uL RBC (4.10-5.20) 10*6/uL Hgb (12.0-15.0) g/dL Hct (37.2-46.3) % Immature Gran # (0.00-0.04) 10*3/uL Neutrophils # (1.80-7.70) 10*3/uL Monocytes # (0.20-1.00) 10*3/uL Eosinophils # (0.04-0.35) 10*3/uL Basophils # (0.00-0.10) 10*3/uL D-Dimer (<0.60) mg/L FEU VBG pH 7.42 H (7.31-7.41) VBG pCO2 30 L (37-51) mmHg VBG HCO3 19 L (24-28) mmol/L Sodium (137-145) mmol/L Potassium (3.5-5.1) mmol/L Carbon Dioxide (22-30) mmol/L BUN (7-17) mg/dL Glucose (74-99) mg/dL Plasma Lactic Acid Roosevelt 2.2 H* (0.7-2.0) mmol/L Alkaline Phosphatase (38-126) U/L Albumin (3.5-5.0) g/dL Urine Appearance Cloudy H (Clear) Urine Protein 1+ H (Negative) Urine Blood Trace H (Negative) Urine WBC 22 H (0-5) /hpf Hyaline Casts 21 H (0-2) /lpf Urine Mucus Rare H (None) /hpf Urine Yeast (Budding) Rare H (None) /hpf Thrombosis Risk Factor Assmnt - Choose All That Apply Each Factor Represents 1 point: Abnormal pulmonary function (COPD) Each Risk Factor Represents 2 Points: Age 61-74 years, Malignancy Thrombosis Risk Factor Assessment Total Risk Factor Score: 5 Thrombosis Risk Factor Assessment Level: High Risk
--- NOTE | 2025-01-21 18:29 | P.CONS ---
History of Present Illness - Reason for Consult Consult date: 01/21/25 right lung mass Requesting physician: Madhu Gilmore - Chief Complaint SOB - History of Present Illness Patient is a 69-year-old female who presented to the emergency room with complaints of progressing shortness of breath. Patient has a history of COPD and reports of shortness of breath is chronic but over the last 2 weeks she has been having progressive shortness of breath and orthopnea since she has undergone stent graft of AAA at [facility]. Patient has history of smoking 1 to 2 packs daily for the last 50 years. She quit smoking approximately 2 weeks ago. Reports approximate 10 to 20 pound weight loss over the last 1 month. Denies night sweats. Patient states she was noted to have lung mass and lymphadenopathy while undergoing treatment [facility], however, denied further workup at that time. She was scheduled for outpatient follow-up and PET/CT. CTA chest negative for PE, showing right hilar lymphadenopathy which narrows the adjacent bronchi, lymphadenopathy surrounding the aorta and right axillary lymphadenopathy. Seen throughout the chest. Right lower lobe pulmonary nodule. Likely metastatic left rib lesion. Left sided posterior rib fracture. Concern for osseous lesion and pathological fracture seen within the scapula. Labs reviewed, WBC elevated at 21.3, hemoglobin 11.8, platelets 358,000. D-dimer 13.2. Lactic acid 2.2, creatinine 0.91, GFR 65. Bilirubin 1.3, AST 30, ALT 13, ALP 174. Calcium 9.6. Patient was started on rocephin and azithromycin. Review of Systems 10 point ROS is negative except as stated in the HPI Past Medical History Past Medical History: COPD, Hypertension History of Any Multi-Drug Resistant Organisms: None Reported Past Surgical History: Cholecystectomy Additional Past Surgical History / Comment(s): Aortic Aneurysm Repair ( [facility] ) 2024 Additional Past Anesthesia/Blood Transfusion Reaction / Comm: na Past Psychological History: Anxiety Smoking Status: Former smoker Past Alcohol Use History: Rare Past Drug Use History: Marijuana Additional Drug Use History / Comment(s): hasnt used marijaua in years - Past Family History Mother Additional Family Medical History / Comment(s): respiratory failure, probably cancer but unsure. Father Additional Family Medical History / Comment(s): from stomach cancer Medications and Allergies Home Medications Medication Instructions Recorded Confirmed Type Aspirin EC [Ecotrin Low Dose] 81 mg PO DAILY 01/21/25 01/21/25 History Cyclobenzaprine [Flexeril] 5 - 10 mg PO Q8H PRN 01/21/25 01/21/25 History Fluticasone/Umeclidin/Vilanter 1 puff INHALATION RT-DAILY 01/21/25 01/21/25 History [Trelegy Ellipta 200-62.5-25] Allergies Allergy/AdvReac Type Severity Reaction Status Date / Time hydrocodone [From Vicodin] AdvReac Rash/Hives Verified 01/21/25 08:31 Physical Exam Vitals: Vital Signs Temp Pulse Pulse Resp BP BP Pulse Ox 01/21/25 10:11 97.6 F 99 20 93/61 94 L 01/21/25 09:17 97.8 F 102 H 16 101/64 100 01/21/25 08:18 100 01/21/25 06:14 105 H 18 101/64 96 01/21/25 04:14 117 H 22 95/61 97 01/21/25 02:42 97.2 F L 131 H 24 119/70 96 Intake and Output 01/20/25 01/21/25 01/21/25 22:59 06:59 14:59 Other: Voiding Method Toilet Weight 71.214 kg 71.214 kg - Constitutional General appearance: average body habitus, no acute distress - EENT Eyes: anicteric sclerae ENT: hearing grossly normal - Respiratory Respiratory: bilateral: diminished - Cardiovascular Rhythm: regular - Gastrointestinal General gastrointestinal: soft, no tenderness - Integumentary Integumentary: no cyanotic - Neurologic Neurologic: CNII-XII intact - Psychiatric Psychiatric: A&O x's 3 Results CBC & Chem 7: 01/21/25 03:14 01/21/25 03:14 Labs: Abnormal Lab Results - Last 24 Hours (Table) 01/21/25 01/21/25 01/21/25 Range/Units 03:14 03:14 03:14 WBC 21.36 H (4.50-10.00) 10*3/uL RBC 4.09 L (4.10-5.20) 10*6/uL Hgb 11.8 L (12.0-15.0) g/dL Hct 36.6 L (37.2-46.3) % Immature Gran # 0.27 H (0.00-0.04) 10*3/uL Neutrophils # 16.95 H (1.80-7.70) 10*3/uL Monocytes # 1.57 H (0.20-1.00) 10*3/uL Eosinophils # 0.39 H (0.04-0.35) 10*3/uL Basophils # 0.12 H (0.00-0.10) 10*3/uL D-Dimer 13.27 H (<0.60) mg/L FEU VBG pH (7.31-7.41) VBG pCO2 (37-51) mmHg VBG HCO3 (24-28) mmol/L Sodium 136 L (137-145) mmol/L Potassium 5.6 H (3.5-5.1) mmol/L Carbon Dioxide 19 L (22-30) mmol/L BUN 21 H (7-17) mg/dL Glucose 127 H (74-99) mg/dL Plasma Lactic Acid Roosevelt (0.7-2.0) mmol/L Alkaline Phosphatase 174 H (38-126) U/L Albumin 3.3 L (3.5-5.0) g/dL Urine Appearance (Clear) Urine Protein (Negative) Urine Blood (Negative) Urine WBC (0-5) /hpf Hyaline Casts (0-2) /lpf Urine Mucus (None) /hpf Urine Yeast (Budding) (None) /hpf 01/21/25 01/21/25 01/21/25 Range/Units 03:14 03:52 05:02 WBC (4.50-10.00) 10*3/uL RBC (4.10-5.20) 10*6/uL Hgb (12.0-15.0) g/dL Hct (37.2-46.3) % Immature Gran # (0.00-0.04) 10*3/uL Neutrophils # (1.80-7.70) 10*3/uL Monocytes # (0.20-1.00) 10*3/uL Eosinophils # (0.04-0.35) 10*3/uL Basophils # (0.00-0.10) 10*3/uL D-Dimer (<0.60) mg/L FEU VBG pH 7.42 H (7.31-7.41) VBG pCO2 30 L (37-51) mmHg VBG HCO3 19 L (24-28) mmol/L Sodium (137-145) mmol/L Potassium (3.5-5.1) mmol/L Carbon Dioxide (22-30) mmol/L BUN (7-17) mg/dL Glucose (74-99) mg/dL Plasma Lactic Acid Roosevelt 2.2 H* (0.7-2.0) mmol/L Alkaline Phosphatase (38-126) U/L Albumin (3.5-5.0) g/dL Urine Appearance Cloudy H (Clear) Urine Protein 1+ H (Negative) Urine Blood Trace H (Negative) Urine WBC 22 H (0-5) /hpf Hyaline Casts 21 H (0-2) /lpf Urine Mucus Rare H (None) /hpf Urine Yeast (Budding) Rare H (None) /hpf Chest x-ray: report reviewed CT scan - chest: report reviewed Assessment and Plan (1) Lung mass Current Visit: Yes Status: Acute Priority: High Code(s): R91.8 - OTHER NONSPECIFIC ABNORMAL FINDING OF LUNG FIELD SNOMED Code(s): 546117468 (2) Lymphadenopathy, hilar Current Visit: Yes Status: Acute Priority: High Code(s): R59.0 - LOCALIZED ENLARGED LYMPH NODES SNOMED Code(s): 95856003 (3) Shortness of breath Current Visit: Yes Status: Acute Priority: High Code(s): R06.02 - SHORTNESS OF BREATH SNOMED Code(s): 321331522 Plan: Lung mass, LAD: Presented to the emergency room with complaints of progressing shortness of breath. Patient has a history of COPD and reports of shortness of breath is chronic but over the last 2 weeks she has been having progressive shortness of breath and orthopnea since she has undergone stent graft of AAA at [facility] 2 weeks ago. Patient has history of smoking 1 to 2 packs daily for the last 50 years. She quit smoking 2 weeks ago. Reports approximate 10 to 20 pound weight loss over the last 1 month. Denies night sweats. Patient states she was noted to have lung mass and lymphadenopathy while undergoing treatment at [facility], however, denied further workup at that time. She was scheduled for outpatient follow-up and PET/CT. -Upon admit CTA chest negative for PE, showing right hilar lymphadenopathy which narrows the adjacent bronchi, lymphadenopathy surrounding the aorta and right axillary lymphadenopathy. Right lower lobe pulmonary nodule. Likely metastatic left rib lesion. Left sided posterior rib fracture. Concern for osseous lesion and pathological fracture seen within the scapula. -Calcium 9.6. Due to poor dentition and need for tooth extraction, will hold zometa at this time -Will obtain CT AP, bone scan, and MRI brain to complete staging -Pulmonology consulted for evaluation for biopsy Discussed findings and concerns for metastatic lung cancer. Pt was agreeable with above plan. All questions and concerns were addressed
[2025-01-21] MEDS: SYMBICORT 160-4.5 MCG INHALER INHALATION SCH (20:09)
[2025-01-22] MEDS ORDERED: cefTRIAXone 2 GM in DEXTROSE 5% IN WATER 50 ML IVPB SCH (06:00)
[2025-01-22 10:15] LABS: HCT 30.5 % (37.2-46.3); HGB 9.2 g/dL (12.0-15.0); MCH 28.2 pg (27.0-32.0); MCHC 30.2 g/dL (32.0-37.0); MCV 93.6 FL (80.0-97.0); Mean Platelet Volume 10.5 FL (9.5-12.2); NRBC Per 100 WBC 0 X 10*3/uL (0.00-0.01); Platelet Count 195 X 10*3/uL (140-440); RBC 3.26 X 10*6/uL (4.10-5.20); RDW 15.7 % (11.5-14.5); WBC 10.91 X 10*3/uL (4.50-10.00)
[2025-01-22 10:29] LABS: BUN/Creat Ratio 22.56 Ratio (12.00-20.00); Blood Urea Nitrogen 20.3 mg/dL (9.0-27.0); Calcium 9.2 mg/dL (8.7-10.3); Carbon Dioxide 23.8 mmol/L (21.6-31.8); Chloride 103 mmol/L (96-109); Glucose 82 mg/dL (70-110); Magnesium 1.7 mg/dL (1.5-2.4); Potassium 4.4 mmol/L (3.5-5.5); Sodium 139 mmol/L (135-145)
[2025-01-22] MEDS ORDERED: PHENYLEPHRINE-0.9% NACL SYG 1,000 MCG/10 ML SYRINGE ONE (12:35)
[2025-01-22] MEDS ORDERED: LIDOCAINE 1% INJ 10MG/ML (20 ML MDV) ONE (12:35)
[2025-01-22] MEDS ORDERED: SUCCINYLCHOLINE CHLORIDE 200 MG/10 ML VIAL IV ONE (12:35)
[2025-01-22] MEDS ORDERED: PROPOFOL 10 MG/ML 20 ML VIAL IV ONE (12:35)
[2025-01-22] MEDS: IV FLUID CONTINUATION 1,000 ML IV ONE (12:35)
--- NOTE | 2025-01-22 12:42 | P.PN ---
Subjective Progress Note Date: 01/22/25 This is a 69-year-old female patient with a known history of chronic and ongoing tobacco dependence of 50 years, chronic obstructive pulmonary disease, abdominal aortic aneurysm with recent stent placement in December 2024 at [facility]. Presented here to the emergency room early this morning with a 2-week history of worsening shortness of breath cough and congestion. No sputum productive. No hemoptysis. She also states she has lost about 20 pounds in the past month or 2. She also has been having significant right sided rib pain. Chest x-ray reveals right hilar lymphadenopathy. No acute findings. CT angiogram ruled out pulmonary embolism. However there is significant lymphadenopathy seen throughout the chest highly concerning for malignancy. A right lower lobe pulmonary nodule. Left metastatic rib lesion. Left-sided posterior rib fracture without evidence of pneumothorax. Lymphadenopathy is seen at the right hilum appears narrows the adjacent bronchi. Lesion to the ri ght scapula. White count 21.3. Hemoglobin 11.8. Platelets 358. D-dimer 13.27. Sodium 136. Potassium 5.6. Bicarb 19. BUN 21. Creatinine 0.91. Glucose 127. She is seen today in consultation on the regular medical floor. She is currently sitting up in a chair at the bedside. Awake and alert in no acute distress. Maintaining O2 saturations in the 90s on 2 L/min per nasal cannula. She has been afebrile. Hemodynamically stable. She is dyspneic with minimal exertion. The patient is seen today January 22, 2025 in follow-up on the regular medical floor. She is currently sitting up in a chair. Awake and alert in no acute distress. Maintaining good O2 saturations in the upper 90s on 2 L/min per nasal cannula. She has been afebrile. Hemodynamically stable. White count 10.9. Hemoglobin 9.2. Platelets 195. Sodium 139. Potassium 4.4. Bicarb 24. BUN 20. Creatinine 0.9. Glucose 82. Procalcitonin was 0.45. Urine Legionella screen negative. She is continued on DuoNeb inhalations, Symbicort. Receiving [place] and Toradol for pain control. She is unable to lay flat due to back pain. Could not do the bone scan. Plan is for bronchoscopy and biopsies today. Objective - Vital Signs Vital signs: Vital Signs Temp 98.0 F 01/22/25 08:00 Pulse 99 01/22/25 08:26 Resp 20 01/22/25 08:00 BP 95/60 01/22/25 08:00 Pulse Ox 79 L 01/22/25 11:46 FiO2 Intake & Output 01/21/25 01/22/25 01/22/25 18:59 06:59 18:59 Weight 71.214 kg Other: Voiding Method Toilet Toilet Toilet # Voids 1 1 1 - Exam GENERAL EXAM: Alert, 69-year-old female, on 2 L nasal cannula, fairly comfortable in no apparent distress. HEAD: Normocephalic. EYES: Normal reaction of pupils, equal size. NOSE: Clear with pink turbinates. THROAT: No erythema or exudates. NECK: No masses, no JVD. CHEST: No chest wall deformity. LUNGS: Equal air entry with no crackles, wheeze, rhonchi or dullness. Diminished. CVS: S1 and S2 normal with no audible murmur, regular rhythm. ABDOMEN: No hepatosplenomegaly, normal bowel sounds, no guarding or rigidity. SPINE: No scoliosis or deformity SKIN: No rashes CENTRAL NERVOUS SYSTEM: No focal deficits, tone is normal in all 4 extremities. EXTREMITIES: There is no peripheral edema. No clubbing, no cyanosis. Peripheral pulses are intact. - Labs CBC & Chem 7: 01/22/25 06:15 01/22/25 06:15 Labs: Abnormal Lab Results - Last 24 Hours (Table) 01/22/25 01/22/25 Range/Units 06:15 06:15 WBC 10.91 H (4.50-10.00) X 10*3/uL RBC 3.26 L (4.10-5.20) X 10*6/uL Hgb 9.2 L (12.0-15.0) g/dL Hct 30.5 L (37.2-46.3) % MCHC 30.2 L (32.0-37.0) g/dL RDW 15.7 H (11.5-14.5) % Anion Gap 12.20 H (4.00-12.00) mmol/L BUN/Creatinine Ratio 22.56 H (12.00-20.00) Ratio Assessment and Plan Assessment: Dyspnea secondary to hilar lymphadenopathy with narrowing of the adjacent bro nchi. Lymphadenopathy is seen surrounding the aorta with b2b outside sales representative lymph node measuring 2.1 cm. Right axillary lymphadenopathy. Right lower lobe pulmonary nodule Metastatic lesions to the bone including the right scapula and posterior left 11th rib Ongoing chronic tobacco dependence of 50 years Recent abdominal aortic aneurysm stent placement at [facility] December 2024 Suspected severe chronic obstructive pulmonary disease maintained on Trelegy, albuterol Significant weight loss of over 20 pounds in the past 1 to 2 months Hypertension Plan: The patient was seen and evaluated Labs and medications reviewed Plan is for bronchoscopy with biopsies today Educated regarding complete smoking cessation NicoDerm patch will be offered Continue DuoNeb inhalations Continue Symbicort Discontinue antibiotics Procalcitonin negative Further cancer workup pending Will continue to follow I have personally seen and examined the patient, performed the documentation and the assessment and plan as written. Number of minutes spent on the visit: 10 Dictation was produced using [employer] dictation software. Please excuse any grammatical, word or spelling errors.
[2025-01-22] MEDS: IPRATROPIUM-ALBUTEROL 3 ML NEB INHALATION PRN (13:34)
[2025-01-22 14:39] VITALS: BMI 28.7
--- NOTE | 2025-01-22 17:46 | P.PN ---
Subjective Progress Note Date: 01/22/25 No acute events overnight. Patient is reporting breathing has improved. However still reporting shortness of breath when laying flat. Plan today for bronchoscopy with biopsy. Objective - Vital Signs Vital signs: Vital Signs Temp 98.0 F 01/22/25 08:00 Pulse 99 01/22/25 08:26 Resp 20 01/22/25 08:00 BP 95/60 01/22/25 08:00 Pulse Ox 99 01/22/25 08:15 FiO2 Intake & Output 01/21/25 01/22/25 01/22/25 18:59 06:59 18:59 Weight 71.214 kg Other: Voiding Method Toilet Toilet Toilet # Voids 1 1 1 - Constitutional General appearance: Present: average body habitus, no acute distress - EENT Eyes: Present: anicteric sclerae, EOMI ENT: Present: hearing grossly normal - Respiratory Details: breathing even and unlabored - Cardiovascular Details: skin warm and dry - Integumentary Integumentary: Absent: cyanotic, jaundiced - Psychiatric Psychiatric: Present: A&O x's 3 - Labs CBC & Chem 7: 01/22/25 06:15 01/22/25 06:15 Labs: Abnormal Lab Results - Last 24 Hours (Table) 01/22/25 01/22/25 Range/Units 06:15 06:15 WBC 10.91 H (4.50-10.00) X 10*3/uL RBC 3.26 L (4.10-5.20) X 10*6/uL Hgb 9.2 L (12.0-15.0) g/dL Hct 30.5 L (37.2-46.3) % MCHC 30.2 L (32.0-37.0) g/dL RDW 15.7 H (11.5-14.5) % Anion Gap 12.20 H (4.00-12.00) mmol/L BUN/Creatinine Ratio 22.56 H (12.00-20.00) Ratio Assessment and Plan (1) Lung mass Current Visit: Yes Status: Acute Priority: High Code(s): R91.8 - OTHER NONSPECIFIC ABNORMAL FINDING OF LUNG FIELD SNOMED Code(s): 915078936 (2) Lymphadenopathy, hilar Current Visit: Yes Status: Acute Priority: High Code(s): R59.0 - LOCALIZED ENLARGED LYMPH NODES SNOMED Code(s): 44200364 (3) Shortness of breath Current Visit: Yes Status: Acute Priority: High Code(s): R06.02 - SHORTNESS OF BREATH SNOMED Code(s): 008568724 Plan: Lung mass, LAD: Presented to the emergency room with complaints of progressing shortness of breath. Patient has a history of COPD and reports of shortness of breath is chronic but over the last 2 weeks she has been having progressive shortness of breath and orthopnea since she has undergone stent graft of AAA at [facility] 2 weeks ago. Patient has history of smoking 1 to 2 packs daily for the last 50 years. She quit smoking 2 weeks ago. Reports approximate 10 to 20 pound weight loss over the last 1 month. Denies night sweats. Patient states she was noted to have lung mass and lymphadenopathy while undergoing treatment at [facility], however, denied further workup at that time. She was scheduled for outpatient follow-up and PET/CT. -Upon admit CTA chest negative for PE, showing right hilar lymphadenopathy which narrows the adjacent bronchi, lymphadenopathy surrounding the aorta and right axillary lymphadenopathy. Right lower lobe pulmonary nodule. Likely metastatic left rib lesion. Left sided posterior rib fracture. Concern for osseous lesion and pathological fracture seen within the scapula. -Calcium 9.6. Due to poor dentition and need for tooth extraction, will hold zometa at this time -Will obtain CT AP, bone scan, and MRI brain to complete staging. Imaging currently pending -Pulmonology consulted for evaluation for biopsy. Plan for bronchoscopy today Discussed findings and concerns for metastatic lung cancer. Pt was agreeable with above plan. All questions and concerns were addressed Doctor attests: I performed a history and physical examination of this patient, developed impression and plan of care. Discussed with dictator. I agree with dictators note, documented as a scribe.
--- NOTE | 2025-01-22 20:26 | PCN ---
PROCEDURE NOTE PROCEDURES: Bronchoscopy, multiple endobronchial biopsies of the right middle lobe tumor completely obstructing right middle lobe, and multiple wind needle aspirates from station 4R and core biopsies from the precarinal area and bronchial washing/bronchoalveolar lavage of the right middle lobe. PREOPERATIVE DIAGNOSIS: Right lung mass. 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 ANESTHESIA USED: The patient underwent a general anesthetic for her procedure. DESCRIPTION OF PROCEDURE: The patient was brought into the bronchoscopy suite, she was intubated and placed on mechanical ventilator by VISUAL MERCHANDISING COORDINATOR. After adequate sedation, the bronchoscope was advanced through the adapter of the endotracheal tube, and as soon as we entered the distal trachea, there was minimal amount of blood noted to be oozing in the right mainstem bronchus. Going down further, I was able to see an endobronchial tumor involving the right middle lobe, completely occluding the right middle lobe, and there was some oozing of blood from the right middle lobe tumor. When examination was done of the right upper lobe, right lower lobe, left upper lobe lingula and left lower lobe, there were no other significant findings. Then, multiple biopsies were done from the endobronchial tumor in the right middle lobe and moved back up to the shu, and multiple Salas needle aspirates were done from station 4R and transcarinal area with core biopsies. No complications. Procedure was well tolerated. In addition to this, the patient had a BAL of the right middle lobe and that was sent for cytology also. The patient will be sent back to the floor today, and the results are expected to be back in 5 days. If the patient is to be discharged home tomorrow, we can see her on outpatient basis. MMODL / IJN: [id number] /
[2025-01-23 07:34] VITALS: RESP 18
--- NOTE | 2025-01-23 08:57 | P.PN ---
Subjective Progress Note Date: 01/22/25 69-year-old female came in with complaints of right-sided rib pain patient had a chest x-ray showed hilar lymphadenopathy. And patient also underwent CT angiogram to rule out pulmonary embolism which showed significant lymphadenopathy throughout the chest highly concerning for malignancy and there is a right lower lobe pulmonary nodule there is left-sided rib fracture but there is no pneumothorax there is a some lesions on the right scapula concerning for metastasis patient had 2 days of oxygen saturating 90% patient is afebrile at this time but does have leukocytosis of 20,000 CT is not consistent with pneumonia no other obvious source was evident urine is not significant for UTI GI patient denied any abdominal pain. Procalcitonin is not elevated patient was started on Rocephin and azithromycin this will be discontinued as there is no evidence of infection. Patient was complaining of severe pain at the lactic acid was 2.2 which has come down to 1.6 after IV fluids. 01/22/2025 Patient is seen in follow-up this morning currently n.p.o. as patient is scheduled to undergo bronchoscopy with biopsy with pulmonary. Patient being followed by oncology undergoing further staging workup including CT chest abdomen pelvis, bone scan which is not able to be done until Saturday, and MRI of the brain for further evaluation. Patient is requiring oxygen and does not normally wear oxygen at home and will perform home O2 test as patient will require this on discharge. Patient is afebrile with no reported chest pain or worsening shortness of breath. Patient reports her pain is better controlled and will continue on [facility] for now. Review of systems: Constitutional: No reports of fatigue, fever, or chills Cardiovascular: No reports of chest pain or palpitations Respiratory: No reports of worsening shortness of breath although is continuing to be short of breath with minimal exertion GI: No reports of nausea, vomiting, or diarrhea : No reports of dysuria or retention Neurovascular: No reports of weakness or numbness All medications have been reviewed PHYSICAL EXAMINATION: GENERAL: The patient is alert and oriented x3, not in any acute distress. Well developed, well nourished. Elderly appearing HEENT: Pupils are round and equally reacting to light. EOMI. No scleral icterus. No conjunctival pallor. Normocephalic, atraumatic. No pharyngeal erythema. No thyromegaly. CARDIOVASCULAR: S1 and S2 present. No murmurs, rubs, or gallops. PULMONARY: diminished breath sounds bilaterally otherwise Chest is clear to auscultation, no wheezing or crackles. ABDOMEN: Soft, nontender, nondistended, normoactive bowel sounds. No palpable organomegaly. MUSCULOSKELETAL: No joint swelling or deformity. EXTREMITIES: No cyanosis, clubbing, or pedal edema. NEUROLOGICAL: Gross neurological examination did not reveal any focal deficits. SKIN: No rashes. Assessment: -Chest wall pain secondary to metastatic disease to the scapula and ribs, improving - COPD without any significant exacerbation patient quit smoking about 3 weeks ago -Acute hypoxic respiratory failure secondary to COPD as well as likely lung cancer - Hilar lymphadenopathy, probably lung cancer status post bronchoscopy with biopsy with pulmonary today 01/22/2025 - Leukocytosis, reactive from cancer. Patient does not appear infectious - Lactic acidosis secondary to dehydration improved with IV fluids -Unintentional significant weight loss secondary to cancer GI prophylaxis DVT prophylaxis Full code Plan: Patient is scheduled to undergo bronchoscopy with biopsy with pulmonary today and did so having significant amounts of bleeding and pulmonary recommends monitoring and consider possible discharge planning in the next 24 hours Oncology following has scheduled MRI of the brain along with CT abdomen pelvis and bone scan for further staging. Per nursing staff bone scan unable to be performed until Saturday and may need to be outpatient if patient is discharged prior to this. Patient was evaluated for home oxygen and desats quickly into the high 70s on room air with minimal exertion. Patient will require oxygen on discharge and this is being arranged per social work. Prescription was provided Patient will require pain medication on discharge and is doing well with [facility]. Recommend stool softener and as needed bowel regimen Encouraged sitting up in the chair more frequently and increased activity as tolerated Will follow-up on repeat labs and monitor closely Will discuss with consultations regarding discharge planning possibly in the next 24 to 48 hours. Overall guarded prognosis The impression and plan of care has been dictated by Ciarra Machado, Nurse Practitioner as directed. Dr. Leonela MD I have performed a history and examination and MDM of this patient, discussed the same with the dictator, and agree with the dictator's assessment and plan as written ,documented as a scribe. Based on total visit time, I have performed more than 50% of the visit. Objective - Vital Signs Vital signs: Vital Signs Temp 98.0 F 01/22/25 08:00 Pulse 99 01/22/25 08:26 Resp 20 01/22/25 08:00 BP 95/60 01/22/25 08:00 Pulse Ox 99 01/22/25 08:15 FiO2 Intake & Output 01/21/25 01/22/25 01/22/25 18:59 06:59 18:59 Weight 71.214 kg Other: Voiding Method Toilet Toilet Toilet # Voids 1 1 1 - Labs CBC & Chem 7: 01/22/25 06:15 01/22/25 06:15
[2025-01-23] MEDS: NICOTINE 14MG/24HR PATCH TRANSDERM SCH (09:11)
[2025-01-23 10:01] LABS: Basophils # (A) 0.07 X 10*3/uL (0.00-0.10); Basophils % (A) 0.7 %; Eosinophils # (A) 0.22 X 10*3/uL (0.04-0.35); Eosinophils % (A) 2.1 %; HCT 29.5 % (37.2-46.3); Lymphocytes # (A) 0.68 X 10*3/uL (0.90-5.00); Lymphocytes % (A) 6.6 %; MCH 28.5 pg (27.0-32.0); MCHC 30.5 g/dL (32.0-37.0); MCV 93.4 FL (80.0-97.0); Monocytes # (A) 1.21 X 10*3/uL (0.20-1.00); Monocytes % (A) 11.7 %; NRBC Per 100 WBC 0 X 10*3/uL (0.00-0.01); Neutrophils # (A) 8.04 X 10*3/uL (1.80-7.70); Platelet Count 248 X 10*3/uL (140-440); RBC 3.16 X 10*6/uL (4.10-5.20); RDW 15.9 % (11.5-14.5); WBC 10.31 X 10*3/uL (4.50-10.00)
[2025-01-23 10:18] LABS: BUN/Creat Ratio 22.38 Ratio (12.00-20.00); Blood Urea Nitrogen 17.9 mg/dL (9.0-27.0); Calcium 9.1 mg/dL (8.7-10.3); Carbon Dioxide 25.1 mmol/L (21.6-31.8); Chloride 106 mmol/L (96-109); Glucose 94 mg/dL (70-110); Magnesium 1.6 mg/dL (1.5-2.4); Potassium 4.1 mmol/L (3.5-5.5); Sodium 141 mmol/L (135-145)
--- NOTE | 2025-01-23 11:54 | P.PN ---
Subjective Progress Note Date: 01/23/25 This is a 69-year-old female patient with a known history of chronic and ongoing tobacco dependence of 50 years, chronic obstructive pulmonary disease, abdominal aortic aneurysm with recent stent placement in December 2024 at [facility]. Presented here to the emergency room early this morning with a 2-week history of worsening shortness of breath cough and congestion. No sputum productive. No hemoptysis. She also states she has lost about 20 pounds in the past month or 2. She also has been having significant right sided rib pain. Chest x-ray reveals right hilar lymphadenopathy. No acute findings. CT angiogram ruled out pulmonary embolism. However there is significant lymphadenopathy seen throughout the chest highly concerning for malignancy. A right lower lobe pulmonary nodule. Left metastatic rib lesion. Left-sided posterior rib fracture without evidence of pneumothorax. Lymphadenopathy is seen at the right hilum appears narrows the adjacent bronchi. Lesion to the ri ght scapula. White count 21.3. Hemoglobin 11.8. Platelets 358. D-dimer 13.27. Sodium 136. Potassium 5.6. Bicarb 19. BUN 21. Creatinine 0.91. Glucose 127. She is seen today in consultation on the regular medical floor. She is currently sitting up in a chair at the bedside. Awake and alert in no acute distress. Maintaining O2 saturations in the 90s on 2 L/min per nasal cannula. She has been afebrile. Hemodynamically stable. She is dyspneic with minimal exertion. The patient is seen today January 22, 2025 in follow-up on the regular medical floor. She is currently sitting up in a chair. Awake and alert in no acute distress. Maintaining good O2 saturations in the upper 90s on 2 L/min per nasal cannula. She has been afebrile. Hemodynamically stable. White count 10.9. Hemoglobin 9.2. Platelets 195. Sodium 139. Potassium 4.4. Bicarb 24. BUN 20. Creatinine 0.9. Glucose 82. Procalcitonin was 0.45. Urine Legionella screen negative. She is continued on DuoNeb inhalations, Symbicort. Receiving [place] and Toradol for pain control. She is unable to lay flat due to back pain. Could not do the bone scan. Plan is for bronchoscopy and biopsies today. The patient is seen today January 23, 2025 in follow-up on the regular medical floor. She is awake and alert no acute distress. Sitting up in a chair at the bedside. Denies any worsening shortness of breath, cough or congestion. Continues to maintain good O2 saturation in the 90s on 2 L/min per nasal cannula. Denies any hemoptysis. She did undergo bronchoscopy with biopsies yesterday. Cytology pending. White count 10.3. Hemoglobin 9.0. Platelets 248. Sodium 141. Potassium 4.1. Bicarb 25. BUN 18. Creatinine 0.8. Glucose 94. She remains on DuoNeb inhalations, Symbicort, NicoDerm patch. Lactated Ri nger's at 75 mL/h. Objective - Vital Signs Vital signs: Vital Signs Temp 97.8 F 01/23/25 07:07 Pulse 94 01/23/25 08:38 Resp 18 01/23/25 07:07 BP 96/66 01/23/25 07:07 Pulse Ox 98 01/23/25 08:26 FiO2 Intake & Output 01/22/25 01/23/25 01/23/25 18:59 06:59 18:59 Intake Total 1820 Balance 1820 Weight 71.214 kg Intake: IV 300 Intake, IV Titration 1000 Amount Lactated Ringers 1,000 ml 1000 @ 75 mls/hr IV .[id number] RUTHIE Rx#:[id number] Oral 520 Other: Voiding Method Toilet # Voids 2 0 - Exam GENERAL EXAM: Alert, 69-year-old female, sitting up in a chair, on 2 L nasal cannula, comfortable in no apparent distress. HEAD: Normocephalic. EYES: Normal reaction of pupils, equal size. NOSE: Clear with pink turbinates. THROAT: No erythema or exudates. NECK: No masses, no JVD. CHEST: No chest wall deformity. LUNGS: Equal air entry with no crackles, wheeze, rhonchi or dullness. Diminishe d. CVS: S1 and S2 normal with no audible murmur, regular rhythm. ABDOMEN: No hepatosplenomegaly, normal bowel sounds, no guarding or rigidity. SPINE: No scoliosis or deformity SKIN: No rashes CENTRAL NERVOUS SYSTEM: No focal deficits, tone is normal in all 4 extremities. EXTREMITIES: There is no peripheral edema. No clubbing, no cyanosis. Peripheral pulses are intact. - Labs CBC & Chem 7: 01/23/25 06:24 01/23/25 06:24 Labs: Abnormal Lab Results - Last 24 Hours (Table) 01/23/25 01/23/25 Range/Units 06:24 06:24 WBC 10.31 H (4.50-10.00) X 10*3/uL RBC 3.16 L (4.10-5.20) X 10*6/uL Hgb 9.0 L (12.0-15.0) g/dL Hct 29.5 L (37.2-46.3) % MCHC 30.5 L (32.0-37.0) g/dL RDW 15.9 H (11.5-14.5) % Immature Gran # 0.09 H (0.00-0.04) X 10*3/uL Neutrophils # 8.04 H (1.80-7.70) X 10*3/uL Lymphocytes # 0.68 L (0.90-5.00) X 10*3/uL Monocytes # 1.21 H (0.20-1.00) X 10*3/uL BUN/Creatinine Ratio 22.38 H (12.00-20.00) Ratio Assessment and Plan Assessment: Dyspnea secondary to hilar lymphadenopathy with narrowing of the adjacent bronchi. Lymphadenopathy is seen surrounding the aorta with sales development representative lymph node measuring 2.1 cm. Right axillary lymphadenopathy. Right lower lobe pulmonary nodule. Status post bronchoscopy with biopsies 01/22/2025. Cytology pending Metastatic lesions to the bone including the right scapula and posterior left 11th rib Ongoing chronic tobacco dependence of 50 years Recent abdominal aortic aneurysm stent placement at [facility] December 2024 Suspected severe chronic obstructive pulmonary disease maintained on Trelegy, albuterol Significant weight loss of over 20 pounds in the past 1 to 2 months Hypertension Plan: The patient was seen and evaluated Labs and medications reviewed Bronchoscopy with biopsies yesterday Cytology pending Again educated regarding smoking cessation NicoDerm patch in place Patient is anxious to go home Cleared for discharge Continue her home Trelegy Qualifies for home oxygen Follow-up in our office in 1 week Follow-up closely with medical oncology Plan is for outpatient PET scan This patient was seen independently by the pulmonary nurse practitioner addressing pulmonary issues I have personally seen and examined the patient, performed the documentation and the assessment and plan as written. Number of minutes spent on the visit: 25 Dictation was produced using [employer] dictation software. Please excuse any grammatical, word or spelling errors.
[2025-01-23 12:59] VITALS: BP 101/65; PULSE 103; TEMP 97.2
--- NOTE | 2025-01-23 15:53 | P.DS ---
Providers Date of admission: 01/22/25 09:43 Attending physician: Sue Monae Consults: 01/21/25 07:03 Consult Physician Routine Consulting Provider: Tera Mustafa Consult Reason/Comments: R lung mass with metastasis Do you want consulting provider notified?: Yes 01/21/25 11:33 Consult Physician Routine Consulting Provider: Alvarado Brewer Consult Reason/Comments: lung nodule, LAD, eval for biopsy Do you want consulting provider notified?: Yes Primary care physician: Bernie Olivier Hospital Course: Final Diagnosis - Acute hypoxemic respiratory failure secondary to occlusive right middle lobe mass; COPD - Hilar lymphadenopathy, probably lung cancer status post bronchoscopy with biopsy with pulmonary today 01/22/2025 - Leukocytosis reactive improved - 1.3 lucent lesion within the right scapula with concern for an adjacent fracture, posterior left 11th rib fracture with an expansile lesion seen within the anterior left lateral fifth rib; this could be metastatic disease - COPD without any significant exacerbation patient quit smoking about 3 weeks ago - Lactic acidosis secondary to dehydration improved with IV fluids - Unintentional significant weight loss secondary to cancer - Chronic nicotine use Discharge Disposition For discharge home with overall guarded prognosis secondary to her hypoxia and concern for metastatic disease. Patient will discharge home with home oxygen at 2 L via nasal cannula. Patient does not wish to stay for any further testing and she was unable to tolerate the MRI. She has a PET scan scheduled as an outpatient on January 29. She will require close follow up with pulmonology and oncology on discharge an this was explained in extent to the patient. Additionally she needs to quit smoking and nicotine patches were sent in. Total time taken in discharge planning greater than 35 minutes. Hospital Course 69-year-old female came in with complaints of right-sided rib pain patient had a chest x-ray showed hilar lymphadenopathy. And patient also underwent CT a ngiogram to rule out pulmonary embolism; which showed significant lymphadenopathy throughout the chest highly concerning for malignancy and there is a right lower lobe pulmonary nodule. There is left-sided rib fracture but there is no pneumothorax. There is also a superior endplate fracture of T12. There is a some lesions on the right scapula concerning for metastasis. Patient has leukocytosis of 20,000, CT is not consistent with pneumonia, no other obvious source was evident. urine is not significant for UTI. Patient quit smoking a few weeks ago. She has not had any fever or chills. Procalcitonin is not elevated patient was started on Rocephin and azithromycin this will be discontinued as there is no evidence of infection. Patient was hypoxic requiring oxygen via nasal cannula at 2L. Patient underwent bronchoscopy with biopsy with findings of large tumor in the right middle lobe which is essentially obstructing the right middle lobe. Her white blood cell count is down to 10.91. Patient went for a brain MRI for staging and was able to tolerate lying flat secondary to her shortness of breath as well as back pain. She has refused all other staging imaging while inpatient and does not want to stay for the bone scan. She has a PET scan scheduled as an outpatient on January 29. Oxygen was delivered to the room and patient has been asking for discharge home. Please see medication reconciliation for a list of current medications. Thank you for allowing us to participate in the care of this patient. The impression and plan of care has been dictated by Nurse Anders Zhang as directed. Dr. Leonela MD I have performed a history and physical examination and medical decision making of this patient, discussed the same with the dictator, and agree with the dict ators assessment and plan as written, documented as a scribe. Based on total visit time, I have performed more than 50% of this visit. Patient Condition at Discharge: Fair Plan - Discharge Summary Discharge Rx Participant: No New Discharge Prescriptions: New Nicotine 14Mg/24Hr Patch [Habitrol] 1 patch TRANSDERM DAILY #10 patch HYDROcodone/APAP 7.5-325MG [Cornell 7.5-325] 1 each PO Q6HR PRN #20 tab PRN Reason: Severe Pain (Scale 7 To 10) Pantoprazole [Protonix] 40 mg PO AC-BRKFST #30 Continue Cyclobenzaprine [Flexeril] 5 - 10 mg PO Q8H PRN PRN Reason: Muscle Spasm Aspirin EC [Ecotrin Low Dose] 81 mg PO DAILY Fluticasone/Umeclidin/Vilanter [Trelegy Ellipta 200-62.5-25] 1 puff INHALATION RT-DAILY Discharge Medication List Aspirin EC [Ecotrin Low Dose] 81 mg PO DAILY 01/21/25 [History] Cyclobenzaprine [Flexeril] 5 - 10 mg PO Q8H PRN 01/21/25 [History] Fluticasone/Umeclidin/Vilanter [Trelegy Ellipta 200-62.5-25] 1 puff INHALATION RT-DAILY 01/21/25 [History] HYDROcodone/APAP 7.5-325MG [Cornell 7.5-325] 1 each PO Q6HR PRN #20 tab 01/23/25 [Rx] Nicotine 14Mg/24Hr Patch [Habitrol] 1 patch TRANSDERM DAILY #10 patch 01/23/25 [Rx] Pantoprazole [Protonix] 40 mg PO AC-BRKFST #30 01/23/25 [Rx] Follow up Appointment(s)/Referral(s): Kitty Vivas MD [STAFF PHYSICIAN] - 1 Week Candido Rodríguez NPC [Nurse Practitioner] - 1 Week Bernie Olivier DO [Primary Care Provider] - 1-2 days Patient Instructions/Handouts: Hydrocodone/Acetaminophen (By mouth), Nicotine (Absorbed through the skin), Pantoprazole (By mouth), Lymphadenopathy (ED), Using Oxygen at Home (DC), Air Travel With Oxygen (GEN) Activity/Diet/Wound Care/Special Instructions: Keep your PET scan appt for 01/29/2025 Oncology will see you in the office and order additional imaging to be done on an outpatient basis Discharge Disposition: HOME SELF-CARE
== END 2025-01-23 15:16 | disposition home or self-care (01) | DRG 166 ==
LOC: EC 02:40 → 5NMEDONC 07:07 → OBSVTOIN 01-22 09:43
PROVIDERS: ADMIT Hospitalist; ATTEND Hospitalist
PROC: 0BBD8ZX Excision of Right Middle Lung Lobe, Via Natural or Artificial Opening Endoscopic, Diagnostic (ICD-10-PCS; principal; 2025-01-22 12:30)
PROC: 07D78ZX Extraction of Thorax Lymphatic, Via Natural or Artificial Opening Endoscopic, Diagnostic (ICD-10-PCS; principal; 2025-01-22 12:30)
PROC: 0B9D8ZX Drainage of Right Middle Lung Lobe, Via Natural or Artificial Opening Endoscopic, Diagnostic (ICD-10-PCS; principal; 2025-01-22 12:30)
DX: C34.2 Malignant neoplasm of middle lobe, bronchus or lung (principal); J96.01 Acute respiratory failure with hypoxia; C79.51 Secondary malignant neoplasm of bone; C77.1 Secondary and unspecified malignant neoplasm of intrathoracic lymph nodes; E87.20 Acidosis, unspecified; M84.511A Pathological fracture in neoplastic disease, right shoulder, initial encounter for fracture; M84.58XA Pathological fracture in neoplastic disease, other specified site, initial encounter for fracture; J44.9 Chronic obstructive pulmonary disease, unspecified; Z95.828 Presence of other vascular implants and grafts; I10 Essential (primary) hypertension; E86.0 Dehydration; G89.3 Neoplasm related pain (acute) (chronic); D72.829 Elevated white blood cell count, unspecified; F41.9 Anxiety disorder, unspecified; S22.089D Unspecified fracture of T11-T12 vertebra, subsequent encounter for fracture with routine healing; Z79.82 Long term (current) use of aspirin; Z79.51 Long term (current) use of inhaled steroids; Z87.891 Personal history of nicotine dependence; Z88.5 Allergy status to narcotic agent
CPT/HCPCS: 31624; 31625; 31633; 36415; 71045; 71275; 80048; 80053; 81001; 82803; 83605; 83735; 83880; 84145; 84484; 85025; 85027; 85379; 85610; 85730; 87449; 88108; 88305; 88341; 88342; 93005; 94640; 94760; 96361; 96365; 96375; 99285

== ENCOUNTER → 2025-01-29 | Outpatient (CLI) | payer MEDICARE ==
--- NOTE | 2025-02-01 07:40 | PE ---
EXAMINATION TYPE: PET CT fusion skull to thigh DATE OF EXAM: 01/29/2025 COMPARISON: Chest CT January 21, 2025 HISTORY: Solitary pulmonary nodule, abnormal CT TECHNIQUE: Following the intravenous administration of 9.53 mCi of F-18 FDG, whole body images are p erformed from the skull base to the midthigh. Images are reviewed on the computer in the coronal, ax ial, and sagittal planes. Reconstructed rotating images are created on independent workstation and r eviewed on the computer. A localization and attenuation correction CT is performed in conjunction w ith the PET scan. Blood glucose level equals 93. SCAN: Initial Scan FINDINGS: SKULL BASE AND NECK: Multiple prominent hypermetabolic right supraclavicular lymph nodes, for refere nce is a 1.7 x 1.2 cm lymph node axial image 68. Max SUV is 6.18. CHEST, MEDIASTINUM, AND HILAR REGION: Hypermetabolic prominent right axillary lymph nodes, reference is a 1.7 x 1.4 cm lymph node axial image 86. Max SUV is 7.2. Prominent and enlarged right hilar and multiple mediastinal lymph nodes. Max SUV in the right hilar region is 10.3. There is an enlarged hypermetabolic subcarinal lymph node meera uring 3.3 x 2.2 cm, max SUV is 9.99. There are enlarged hypermetabolic lymph nodes adjacent to the de scending aorta in the retrocrural region. ABDOMEN AND PELVIS: Bilateral hypermetabolic adrenal masses are seen, max SUV is 8.88 in the left adr enal gland which measures 3.9 x 2.0 cm axial image 137. Nonspecific diffuse bowel uptake. Normal excr etion. OSSEOUS STRUCTURES: There is expansile hypermetabolic left anterolateral mid rib lesion axial image 1 12, max SUV is 8.09. There is destructive soft tissue mass right posterior fourth/fifth rib, max SUV is 8.65. There are additional scattered subtle hypermetabolic lytic lesions for reference right media l scapula axial image 81, max SUV is 6.05. Multifocal lesions throughout the spine and pelvis are pre sent. OTHER CT: There is suggestion of a mass in the right frontal lobe with surrounding hypodensity in the superior most axial images. Follow-up advised. Exaggerated kyphosis of the cervicothoracic spine is seen. A small right pleural effusion. There is m ild coronary artery calcification. There is mild to moderate underlying emphysematous change. There i s asymmetric skin thickening and trabeculation in the right breast. Scattered punctate calcifications throughout the spleen suggests prior granulomatous disease. There i s 2.0 cm simple thin-walled cyst in the anterior liver axial image 145. Stent graft in large AAA meera uring up to 7.7 cm. Sigmoid colonic diverticulosis is present. Mild height loss involving T12 vertebra superior endplate possibly subacute in age. IMPRESSION: 1. Metastatic neoplasm is identified. Prominent adenopathy throughout the thorax is seen without sign ificant adenopathy in the abdomen or pelvis. Osseous metastatic disease is present. Primary source un certain. Imaging guided biopsy can be performed for tissue analysis. 2. Suspicion for right frontal brain mass or neoplasm. Advise CT and/or MRI follow-up without and wit h contrast to further evaluate. [facility], , 02/01/2025 7:37 AM
== END | disposition home or self-care (01) ==
LOC: RADPETMAIN 14:27
PROVIDERS: ATTEND Internal Medicine Critical Care Medicine
DX: C79.51 Secondary malignant neoplasm of bone (principal); R91.1 Solitary pulmonary nodule; R59.9 Enlarged lymph nodes, unspecified
CPT/HCPCS: 78815; A9552

== ENCOUNTER 2025-01-31 01:14 | Inpatient (IN) | payer MEDICARE ==
[2025-01-31] MEDS: MORPHINE SULFATE 4 MG/ML SYRINGE IV STA ×2 (04:44→07:46)
[2025-01-31] MEDS: SODIUM CHLORIDE 0.9% 1,000 ML IV ONE (04:45)
[2025-01-31] MEDS: SODIUM CHLORIDE 0.9% 1,000 ML IV STA (04:46)
[2025-01-31] MEDS: ALBUTEROL NEBULIZED 2.5 MG/3 ML INHALATION STA (05:00)
[2025-01-31 06:44] LABS: ALT 12 U/L (4-34); AST 17 U/L (14-36); African American GFR (CKD) 90 (>60 ml/min/1.73 sqM); Albumin 2.5 g/dL (3.5-5.0); Alkaline Phosphatase 149 U/L (38-126); Anion Gap 10 mmol/L; Blood Urea Nitrogen 35 mg/dL (7-17); Calcium 8.5 mg/dL (8.4-10.2); Carbon Dioxide 23 mmol/L (22-30); Chloride 101 mmol/L (98-107); Glucose 111 mg/dL (74-99); Non-African American GFR(CKD) 78 (>60 ml/min/1.73 sqM); Potassium 3.6 mmol/L (3.5-5.1); Sodium 134 mmol/L (137-145); Total Bilirubin 0.6 mg/dL (0.2-1.3); Total Protein 5.6 g/dL (6.3-8.2)
[2025-01-31 06:56] LABS: HGB 9.1 g/dL (12.0-15.0); MCHC 31.4 g/dL (32.0-37.0); MCV 92.4 fL (80.0-97.0); Mean Platelet Volume 9.6 fL (9.5-12.2); Platelet Count 239 10*3/uL (140-440); RBC 3.14 10*6/uL (4.10-5.20); RDW 16.4 % (11.5-14.5); WBC 16.41 10*3/uL (4.50-10.00)
--- NOTE | 2025-01-31 07:06 | ED ---
Nausea/Vomiting/Diarrhea HPI - General Chief complaint: Nausea/Vomiting/Diarrhea Stated complaint: shortness of Breath, NVD Time Seen by Provider: 01/31/25 01:39 Source: patient, family Mode of arrival: wheelchair Limitations: no limitations - History of Present Illness Initial comments: This patient is 69-year-old woman with recent diagnosis of lung cancer. She presents today as she is having right lower quadrant and right groin pain, nausea, vomiting and diarrhea. The patient's family notes that it seemed to come on after she had the injection related to a bone scan. The patient has not had hematemesis. No dark or tarry stools. No fever or chills. MD complaint: nausea, vomiting, diarrhea, abdominal pain -: days(s) Description of Vomiting: food contents Location: RLQ Radiation: none Severity: moderate Quality: aching Consistency: constant Improves with: none Worsens with: none - Related Data Home Medications Medication Instructions Recorded Confirmed Aspirin EC [Ecotrin Low Dose] 81 mg PO DAILY 01/21/25 01/31/25 Cyclobenzaprine [Flexeril] 5 - 10 mg PO Q8H PRN 01/21/25 01/31/25 Fluticasone/Umeclidin/Vilanter 1 puff INHALATION RT-DAILY 01/21/25 01/31/25 [Trelegy Ellipta 200-62.5-25] Diclofenac Sodium [Voltaren] 75 mg PO BID PRN 01/31/25 01/31/25 HYDROcodone/APAP 7.5-325MG [Lovilia 1 tab PO Q6H PRN 01/31/25 01/31/25 7.5-325] Lidocaine 5% Patch [Lidoderm] 1 patch TRANSDERM DAILY PRN 01/31/25 01/31/25 Ondansetron [Zofran] 4 mg PO Q8H PRN 01/31/25 01/31/25 clonazePAM [KlonoPIN ODT] 0.25 mg PO DAILY PRN 01/31/25 01/31/25 Previous Rx's Medication Instructions Recorded Nicotine 14Mg/24Hr Patch [Habitrol] 1 patch TRANSDERM DAILY #10 patch 01/23/25 Pantoprazole [Protonix] 40 mg PO AC-BRKFST #30 01/23/25 Allergies Allergy/AdvReac Type Severity Reaction Status Date / Time No Known Allergies Allergy Verified 01/31/25 08:49 Review of Systems ROS Statement: Those systems with pertinent positive or pertinent negative responses have been documented in the HPI. ROS Other: All systems not noted in ROS Statement are negative. Constitutional: Denies: fever, chills, weakness Respiratory: Denies: cough, dyspnea Cardiovascular: Denies: chest pain, palpitations, edema Gastrointestinal: Reports: abdominal pain, nausea, vomiting, diarrhea. Denies: hematemesis, melena, hematochezia Genitourinary: Denies: dysuria, hematuria Musculoskeletal: Denies: back pain Skin: Denies: rash Neurological: Denies: headache, weakness, numbness Past Medical History Past Medical History: Cancer, COPD, Hypertension Additional Past Medical History / Comment(s): Lung nodules History of Any Multi-Drug Resistant Organisms: None Reported Past Surgical History: Cholecystectomy Additional Past Surgical History / Comment(s): Aortic Aneurysm Repair ( [place] daniel melissa ) 2024, lung biopsy Additional Past Anesthesia/Blood Transfusion Reaction / Comment(s): na Past Psychological History: Anxiety Smoking Status: Former smoker Past Alcohol Use History: Rare Past Drug Use History: Marijuana - Past Family History Mother Additional Family Medical History / Comment(s): respiratory failure, probably cancer but unsure. Father Additional Family Medical History / Comment(s): from stomach cancer General Exam Limitations: no limitations General appearance: alert, in no apparent distress Head exam: Present: atraumatic, normocephalic Eye exam: Present: normal appearance. Absent: scleral icterus, conjunctival injection ENT exam: Present: normal oropharynx Neck exam: Present: normal inspection Respiratory exam: Present: normal lung sounds bilaterally. Absent: respiratory distress, wheezes, rales, rhonchi, stridor, accessory muscle use Cardiovascular Exam: Present: regular rate, normal rhythm, normal heart sounds. Absent: systolic murmur, diastolic murmur, rubs, gallop GI/Abdominal exam: Present: soft, tenderness. Absent: distended, guarding, rebound, rigid, mass, pulsatile mass, hernia Extremities exam: Present: normal inspection, normal capillary refill. Absent: pedal edema, calf tenderness Back exam: Present: normal inspection. Absent: CVA tenderness (R), CVA tenderness (L) Neurological exam: Present: alert Skin exam: Present: warm, dry, intact, normal color. Absent: rash Course Vital Signs 01/31/25 01/31/25 01/31/25 01:27 02:12 04:49 Temperature 97.9 F Pulse Rate 72 113 H Respiratory 16 15 20 Rate Blood Pressure 95/66 124/66 O2 Sat by Pulse 98 98 Oximetry 01/31/25 01/31/25 01/31/25 05:00 05:06 07:24 Temperature Pulse Rate 109 H 105 H 109 H Respiratory 18 18 20 Rate Blood Pressure 115/64 O2 Sat by Pulse 97 Oximetry Medical Decision Making - Medical Decision Making This patient is 69-year-old woman with recent diagnosis of cancer, metastatic, and presenting with abdominal pain. The patient did have CT scan which may show some evidence of colitis. Also per the CT scan there may be evidence of endoleak of patient's recent aortic stent graft. The patient will be admitted to medical service with general surgery consult for abdominal pain and then also to have vascular consult regarding the recent graft though no clinical evidence of leak. The patient did have CT scan of the abdomen and pelvis which I interpreted as negative for free air, obstruction, or acute surgical condition Was pt. sent in by a medical professional or institution (, PA, TELETYPE OPERATOR, urgent care, hospital, or longterm...) When possible be specific @ -[No] Did you speak to anyone other than the patient for history (EMS, parent, family, police, friend...)? What history was obtained from this source @ -Patient's family did contribute history Did you review nursing and triage notes (agree or disagree)? Why? @ -[I reviewed and agree with nursing and triage notes] Were old charts reviewed (outside hosp., previous admission, EMS record, old EKG, old radiological studies, urgent care reports/EKG's, longterm records)? Report findings @ -[Yes, old charts were reviewed] Differential Diagnosis (chest pain, altered mental status, abdominal pain women, abdominal pain men, vaginal bleeding, weakness, fever, dyspnea, syncope, headache, dizziness, GI bleed, back pain, seizure, CVA, palpatations, mental health, musculoskeletal)? @ -[Differential Abdominal Pain Women: Appendicitis, Cholecystitis, diverticulosis, ischemic bowel, pancreatitis, hepatitis, UTI, gastroenteritis, AAA, incarcerated hernia, bowel obstruction, constipation, inflammatory bowel, hepatitis, peptic ulcer disease, splenic infarction, perforated viscus, vulvitis, ovarian torsion, PID, kidney stone, placenta abruption, this is not meant to be an all-inclusive list EKG interpreted by me (3pts min.). @ -[As above] X-rays interpreted by me (1pt min.). @ -[None done] CT interpreted by me (1pt min.). @ -[I interpreted as above U/S interpreted by me (1pt. min.). @ -[None done] What testing was considered but not performed or refused? (CT, X-rays, U/S, labs)? Why? @ -[None] What meds were considered but not given or refused? Why? @ -[None] Did you discuss the management of the patient with other professionals (professionals i.e. , PA, TELETYPE OPERATOR, lab, RT, psych nurse, social sciences department chair, arc welding machine operator, teacher, banking services officer, senior case manager)? Give summary @ -[No] Was smoking cessation discussed for >3mins.? @ -[No] Was critical care preformed (if so, how long)? @ -[No] Were there social determinants of health that impacted care today? How? (Ho melessness, low income, unemployed, alcoholism, drug addiction, transportation, low edu. Level, literacy, decrease access to med. care, care home, rehab)? @ -[No] Was there de-escalation of care discussed even if they declined (Discuss DNR or withdrawal of care, Hospice)? DNR status @ -[No] What co-morbidities impacted this encounter? (DM, HTN, Smoking, COPD, CAD, Cancer, CVA, ARF, Chemo, Hep., AIDS, mental health diagnosis, sleep apnea, morbid obesity)? @ -[Metastatic lung cancer. Recent stent graft for AAA Was patient admitted / discharged? Hospital course, mention meds given and route, prescriptions, significant lab abnormalities, going to OR and other pertinent info. @ -[See above Undiagnosed new problem with uncertain prognosis? @ -[No] Drug Therapy requiring intensive monitoring for toxicity (Heparin, Nitro, Insulin, Cardizem)? @ -[No] Were any procedures done? @ -[No] Diagnosis/symptom? @ -[Acute abdominal pain Possible acute colitis. Acute, or Chronic, or Acute on Chronic? @ -[Acute Uncomplicated (without systemic symptoms) or Complicated (systemic symptoms)? @ -[Uncomplicated Side effects of treatment? @ -[No] Exacerbation, Progression, or Severe Exacerbation? @ -[No] Poses a threat to life or bodily function? How? (Chest pain, USA, VT, pneumonia, PE, COPD, DKA, ARF, appy, cholecystitis, CVA, Diverticulitis, Homicidal, Suicidal, threat to staff... and all critical care pts) @ -[No] All treatments are based on ideal body weight as in ED triage - Lab Data Result diagrams: 02/07/25 03:20 02/07/25 03:20 Lab Results 01/31/25 01/31/25 01/31/25 Range/Units 06:00 06:07 09:38 WBC 16.41 H (4.50-10.00) 10*3/uL RBC 3.14 L (4.10-5.20) 10*6/uL Hgb 9.1 L D (12.0-15.0) g/dL Hct 29.0 L (37.2-46.3) % MCV 92.4 (80.0-97.0) fL MCH 29.0 (27.0-32.0) pg MCHC 31.4 L (32.0-37.0) g/dL RDW (11.5-14.5) % Plt Count 239 (140-440) 10*3/uL Estimated Plt Count (Adequate) MPV 9.6 (9.5-12.2) fL Immature Gran % (Auto) 1.0 % Absolute Nucleated RBC % Neutrophils % % Neutrophils % (Manual) 70 % Band Neuts % (Manual) 25 % Lymphocytes % % Lymphocytes % (Manual) 3 % Monocytes % % Monocytes % (Manual) 1 % Eosinophils % % Basophils % % Metamyelocytes % 1 % Immature Gran # 0.17 H (0.00-0.04) 10*3/uL Neutrophils # (1.80-7.70) X 10*3/uL Neutrophils # (Manual) 15.58 H (1.3-7.7) k/uL Lymphocytes # (0.90-5.00) X 10*3/uL Lymphocytes # (Manual) 0.49 L (1.0-4.8) k/uL Monocytes # (0.20-1.00) X 10*3/uL Monocytes # (Manual) 0.16 (0-1.0) k/uL Eosinophils # (0.04-0.35) X 10*3/uL Basophils # (0.00-0.10) X 10*3/uL Metamyelocytes # (Man) 0.16 H (0) k/uL Nucleated RBCs 0 (0-0) /100 WBC NRBC/100 WBC Diff (0.00-0.01) X 10*3/uL Manual Slide Review Performed Microcytosis (manual) (None Seen) Sodium 134 L 136 L (137-145) mmol/L Potassium 3.6 4.0 (3.5-5.1) mmol/L Chloride 101 105 (98-107) mmol/L Carbon Dioxide 23 19 L (22-30) mmol/L Anion Gap 10 12 mmol/L BUN 35 H 35 H (7-17) mg/dL Creatinine 0.79 0.81 (0.52-1.04) mg/dL Est GFR (CKD-EPI) (>=60) Est GFR (CKD-EPI)AfAm 90 87 (>60 ml/min/1.73 sqM) Est GFR (CKD-EPI)NonAf 78 75 (>60 ml/min/1.73 sqM) BUN/Creatinine Ratio Cancelled Glucose 111 H 101 H (74-99) mg/dL Calcium 8.5 8.5 (8.4-10.2) mg/dL Magnesium (1.5-2.4) mg/dL Total Bilirubin 0.6 (0.2-1.3) mg/dL AST 17 (14-36) U/L ALT 12 (4-34) U/L Alkaline Phosphatase 149 H (38-126) U/L Total Protein 5.6 L (6.3-8.2) g/dL Albumin 2.5 L (3.5-5.0) g/dL Globulin Cancelled Albumin/Globulin Ratio Cancelled Amylase Cancelled Lipase Cancelled 02/01/25 02/01/25 02/02/25 Range/Units 06:42 06:42 03:47 WBC 18.85 H 22.65 H (4.50-10.00) 10*3/uL RBC 3.16 L 3.04 L (4.10-5.20) 10*6/uL Hgb 9.1 L 8.7 L (12.0-15.0) g/dL Hct 30.1 L 28.4 L (37.2-46.3) % MCV 95.3 93.4 (80.0-97.0) fL MCH 28.8 28.6 (27.0-32.0) pg MCHC 30.2 L 30.6 L (32.0-37.0) g/dL RDW 16.7 H 17.0 H (11.5-14.5) % Plt Count 183 220 (140-440) 10*3/uL Estimated Plt Count Adequate (Adequate) MPV 10.4 10.2 (9.5-12.2) fL Immature Gran % (Auto) 1.50 1.80 % Absolute Nucleated RBC 0 0 % Neutrophils % 89.0 88.3 % Neutrophils % (Manual) % Band Neuts % (Manual) % Lymphocytes % 3.1 3.9 % Lymphocytes % (Manual) % Monocytes % 3.0 2.8 % Monocytes % (Manual) % Eosinophils % 2.9 2.8 % Basophils % 0.5 0.4 % Metamyelocytes % % Immature Gran # 0.29 H 0.40 H (0.00-0.04) 10*3/uL Neutrophils # 16.77 H 20.00 H (1.80-7.70) X 10*3/uL Neutrophils # (Manual) (1.3-7.7) k/uL Lymphocytes # 0.58 L 0.89 L (0.90-5.00) X 10*3/uL Lymphocytes # (Manual) (1.0-4.8) k/uL Monocytes # 0.57 0.64 (0.20-1.00) X 10*3/uL Monocytes # (Manual) (0-1.0) k/uL Eosinophils # 0.54 H 0.64 H (0.04-0.35) X 10*3/uL Basophils # 0.10 0.08 (0.00-0.10) X 10*3/uL Metamyelocytes # (Man) (0) k/uL Nucleated RBCs (0-0) /100 WBC NRBC/100 WBC Diff 0 0 (0.00-0.01) X 10*3/uL Manual Slide Review Morph Only Microcytosis (manual) 2+ A (None Seen) Sodium 137 (137-145) mmol/L Potassium 4.3 (3.5-5.1) mmol/L Chloride 103 (98-107) mmol/L Carbon Dioxide 18.6 L (22-30) mmol/L Anion Gap 15.40 H mmol/L BUN 37.1 H (7-17) mg/dL Creatinine 1.0 (0.52-1.04) mg/dL Est GFR (CKD-EPI) 61 (>=60) Est GFR (CKD-EPI)AfAm (>60 ml/min/1.73 sqM) Est GFR (CKD-EPI)NonAf (>60 ml/min/1.73 sqM) BUN/Creatinine Ratio 37.10 H Glucose 77 (74-99) mg/dL Calcium 8.1 L (8.4-10.2) mg/dL Magnesium (1.5-2.4) mg/dL Total Bilirubin (0.2-1.3) mg/dL AST (14-36) U/L ALT (4-34) U/L Alkaline Phosphatase (38-126) U/L Total Protein (6.3-8.2) g/dL Albumin (3.5-5.0) g/dL Globulin Albumin/Globulin Ratio Amylase Lipase 05/13/25 Range/Units 03:47 WBC (4.50-10.00) 10*3/uL RBC (4.10-5.20) 10*6/uL Hgb (12.0-15.0) g/dL Hct (37.2-46.3) % MCV (80.0-97.0) fL MCH (27.0-32.0) pg MCHC (32.0-37.0) g/dL RDW (11.5-14.5) % Plt Count (140-440) 10*3/uL Estimated Plt Count (Adequate) MPV (9.5-12.2) fL Immature Gran % (Auto) % Absolute Nucleated RBC % Neutrophils % % Neutrophils % (Manual) % Band Neuts % (Manual) % Lymphocytes % % Lymphocytes % (Manual) % Monocytes % % Monocytes % (Manual) % Eosinophils % % Basophils % % Metamyelocytes % % Immature Gran # (0.00-0.04) 10*3/uL Neutrophils # (1.80-7.70) X 10*3/uL Neutrophils # (Manual) (1.3-7.7) k/uL Lymphocytes # (0.90-5.00) X 10*3/uL Lymphocytes # (Manual) (1.0-4.8) k/uL Monocytes # (0.20-1.00) X 10*3/uL Monocytes # (Manual) (0-1.0) k/uL Eosinophils # (0.04-0.35) X 10*3/uL Basophils # (0.00-0.10) X 10*3/uL Metamyelocytes # (Man) (0) k/uL Nucleated RBCs (0-0) /100 WBC NRBC/100 WBC Diff (0.00-0.01) X 10*3/uL Manual Slide Review Microcytosis (manual) (None Seen) Sodium 137 (137-145) mmol/L Potassium 3.3 L (3.5-5.1) mmol/L Chloride 101 (98-107) mmol/L Carbon Dioxide 19.9 L (22-30) mmol/L Anion Gap 16.10 H mmol/L BUN 36.0 H (7-17) mg/dL Creatinine 0.9 (0.52-1.04) mg/dL Est GFR (CKD-EPI) 70 (>=60) Est GFR (CKD-EPI)AfAm (>60 ml/min/1.73 sqM) Est GFR (CKD-EPI)NonAf (>60 ml/min/1.73 sqM) BUN/Creatinine Ratio 40.00 H Glucose 91 (74-99) mg/dL Calcium 8.4 L (8.4-10.2) mg/dL Magnesium 1.7 (1.5-2.4) mg/dL Total Bilirubin 0.3 (0.2-1.3) mg/dL AST 16 (14-36) U/L ALT 10 (4-34) U/L Alkaline Phosphatase 152 H (38-126) U/L Total Protein 5.4 L (6.3-8.2) g/dL Albumin 2.5 L (3.5-5.0) g/dL Globulin 2.9 Albumin/Globulin Ratio 0.86 L Amylase Lipase Disposition Clinical Impression: Abdominal pain Disposition: ADMITTED IP TO THIS HOSP Condition: Fair Is patient prescribed a controlled substance at d/c from ED?: No
[2025-01-31] MEDS ORDERED: ONDANSETRON 4 MG/2 ML VIAL IVP PRN (07:08)
[2025-01-31] MEDS ORDERED: NALOXONE 0.4 MG/ML 1 ML VIAL IV PRN (07:08)
--- NOTE | 2025-01-31 07:39 | CT ---
EXAMINATION TYPE: CT abdomen pelvis wo con DATE OF EXAM: 01/31/2025 6:47 AM COMPARISON: Pet/CT 02/08/2025, 01/21/2025. CLINICAL INDICATION: Female, 69 years old with history of RLQ pain; TECHNIQUE: Axial CT abdomen pelvis wo con;Sagittal and coronal reformats were created on a separate workstation. Contrast used: mL of , (none if empty) Oral contrast used: (none if empty) CT DLP: 738.7 mGycm, Automated exposure control for dose reduction was used. FINDINGS: LOWER CHEST: Right lower lobe consolidation with trace pleural effusion. There remains masses and and lymphadenopathy as seen on 01/21 and 01/29/2025 exams compatible with malignancy involving the right per ihilar region and diffuse mediastinal lymphadenopathy as well as multiple lymph nodes near the mika o f the diaphragm. The largest lymph node near the esophagus and aorta measuring up to 17 mm in short a xis series 201 image 9. At least one expansile soft tissue mass noted series 201 image 7 of left rib 5 ABDOMEN LIVER: Focal fatty infiltration adjacent to the falciform ligament in segment IVb GALLBLADDER AND BILE DUCTS: Unremarkable. PANCREAS: Unremarkable. SPLEEN: Scattered calcified granulomas. ADRENAL GLANDS: Nodular contour to the adrenal glands with uptake seen on prior PET/CT possibly physi ologic. Malignancy not excluded. KIDNEYS AND URETERS: No evidence of hydronephrosis or obstructing renal calculus. The ureters are unr emarkable. PELVIS BLADDER: No evidence for wall thickening or mass given limitations of exam. REPRODUCTIVE: Unremarkable. ABDOMEN & PELVIS STOMACH AND BOWEL: No evidence of bowel obstruction. Fat stranding changes seen around the sigmoid co frank with a few diverticula. Series 202 image 72 and series 201 image 67. PERITONEUM/RETROPERITONEUM: No evidence of pneumoperitoneum or free fluid. VASCULATURE: Infrarenal abdominal aortic aneurysm with stent graft present. Excluded lumen measuring up to 8.0 cm. There is a small gap in the lumen of the biiliac stent graft in the aortic stent graft. MUSCULOSKELETAL: Scattered suspicious sclerotic foci are seen throughout the patient's osseous struct ures compatible with metastatic disease. Compression deformity to the T12 vertebral body with 25% hei ght loss no significant retropulsion. No significant spinal canal stenosis. Scattered lytic lesions s een throughout the osseous structures including the right iliac bone measuring 29 mm L3 measuring 20 mm T11 measuring 15 mm lung other lesions.. LYMPH NODES: No gross evidence for lymphadenopathy. SOFT TISSUE/ABDOMINAL WALL: Unremarkable IMPRESSION: 1. Evidence of malignancy with metastatic disease as seen on prior PET/CT 01/29/2025. There is increas ing consolidation in the right lung base possibly postobstructive consolidation from the masses. 2. Mild colitis/diverticulitis suggested in the pelvis correlate with pain. The appendix is not defi nitively visualized. No obstructive uropathy or calculus is visualized. 3. Infrarenal abdominal aortic aneurysm up to 8.0 cm with at least 2 stent grafts present. Small gap between the stent grafts possibly resulting endoleak may be present. Correlate with outside imaging for stability from prior than 01/21/2025. 4. T12 vertebral body compression fracture with 25% height loss. No significant retropulsion or spin al canal stenosis. [facility], , 01/31/2025 7:36 AM
[2025-01-31] MEDS: SODIUM CHLORIDE 0.9% 1,000 ML IV SCH (07:46)
--- NOTE | 2025-01-31 10:07 | P.GSCN ---
History of Present Illness Consult date: 01/31/25 History of present illness: CHIEF COMPLAINT: Abdominal pain HISTORY OF PRESENT ILLNESS: The patient is a 69-year-old female with recent diagnosis of lung cancer including large abdominal aortic aneurysm who presents with abdominal pain only with moving and bending over since her surgery 3 weeks ago. Additional history obtained by her daughters were at bedside. Patient had recent endovascular placement of abdominal aortic stent January 08, 2025, 3 weeks ago. Patient does report she has had abdominal pain since her surgery. She reports early satiety. Poor appetite. Family reports that she had poor appetite prior to surgery. Additionally, patient was recently diagnosed with lung cancer. Patient does not have her gallbladder as discussed with the patient's daughters. Additionally, patient did have constipation for 5 days prior to admission. Patient just had a bowel movement 3 minutes prior to my assessment with diarrhea. No reports of blood in stools. Patient reports she hates drinking any milk products. General surgery is consulted for abdominal pain. Patient's family report right lower abdominal pain however patient denied any current pain at the time of my assessment. PAST MEDICAL HISTORY: See list and reviewed PAST SURGICAL HISTORY: See list and reviewed MEDICATIONS: See list and reviewed ALLERGIES: See list and reviewed SOCIAL HISTORY: See list and reviewed FAMILY HISTORY: See list and reviewed REVIEW OF ORGAN SYSTEMS: CONSTITUTIONAL: No fevers or chills. EYES: Denies any trouble with vision. No glasses. HEENT: No difficulties with hearing. No nosebleeds. No difficulty swallowing. RESPIRATORY: Lung cancer diagnosis, new. Has chronic obstructive pulmonary disease. CARDIOVASCULAR: Recent abdominal aortic aneurysm stent placement. Tobacco abuse disorder. GASTROINTESTINAL: Prior constipation. New diarrhea. Gallbladder previously removed. GENITOURINARY: Denies any blood in urine or increased urinary frequency. NEUROLOGICAL: Denies any numbness or tingling along the distal extremities. No seizure disorders or headaches. MUSCULOSKELETAL: Has chronic pain syndrome. Has chronic back pain. SKIN: No current skin cancer. No rash. Has easy bruising. PSYCHIATRIC: Denies current depression or suicidal thoughts. ENDOCRINE: Denies current thyroid disorders. Denies any blood sugar glucose intolerance. HEME/LYMPHATIC: Denies any lumps and bumps around the neck. No recent deep venous thrombosis. ALLERGY/IMMUNOLOGY: No immunoglobulin therapy. No immune deficiencies. BREAST: Denies current breast lumps, pain or nipple discharge. PHYSICAL EXAM: VITALS: Reviewed CONSTITUTIONAL: Well developed and in no acute distress. EYES: Conjuctivae without sclera icterus. Extraocular movements grossly intact. HEAD, EARS, NOSE, THROAT: Moist buccal mucosa. Head is atraumatic, normocephalic. Hears conversational speech. No nasal drainage. NECK: Supple. No JV distention. No thyroidomegaly. RESPIRATORY: Non-labored respirations and equal bilateral excursions. No gross wheezes. CARDIOVASCULAR: Palpable 2+ radial pulses. ABDOMEN: No diffuse tenderness. No diffuse peritonitis. LYMPH: No neck lymphadenopathy. MUSCULOSKELETAL: No clubbing cyanosis or edema SKIN: Warm and well perfused with good skin turgor. NEUROLOGIC: Cranial nerves II through XII grossly intact. No focal or lateralizing signs. PSYCH: Appropriate affect. Alert and oriented to person, place and time. Displays appropriate insight. CLINCAL LABS: Reviewed. WBC elevated over 16,000. Hemoglobin low 9.1, anemia. Albumin low 2.5 IMAGING: Independently reviewed. CT of the abdomen pelvis demonstrates no small bowel or large bowel obstruction. Presence of right lung atelectasis with neoplastic process. Presence of large 8 cm abdominal aneurysm. Presence of endograft for abdominal aortic aneurysm found. Multiple masses lesions identified within the liver highly suspicious for metastatic disease. Presence of diverticulosis. No overt colitis identified. This is my independent interpretation. RADIOLOGY: Report reviewed. CT of the abdomen pelvis with questionable findings of early colitis versus mild diverticulitis. Right lower lobe malignancy. Presence of adrenal gland possible malignancy. T12 compression fracture 25% including sclerotic lesions along the spine highly suspicious for metastatic disease. ASSESSMENT: 1. Abdominal pain in the presence of a normal CT scan for colitis/diverticulitis 2. Abdominal aortic aneurysm status post endovascular graft 3. Metastatic lung cancer 4. Decreased appetite 5. Chronic obstructive pulmonary disease due to tobacco abuse disorder 6. Hypoalbuminemia 7. Moderate to severe protein malnutrition PLAN: 1. Agree with IV antibiotics to address possible colitis including right lower lobe consolidation. 2. No acute surgical invention at this time 3. Patient has low albumin with poor nutritional status. May benefit from dietary consultation. Will start Ensure clears for protein substitute 4. At this time, avoid regular diet due to patient's poor appetite and abdominal pain 5. Care plan reviewed with patient and family/daughters at bedside ADVANCE DIRECTIVE: CODE STATUS in chart Thank you for this kind consultation. Dictation was produced using Dragon dictation software. Please excuse any grammatical, word or spelling errors. Past Medical History Past Medical History: Cancer, COPD, Hypertension Additional Past Medical History / Comment(s): Lung nodules History of Any Multi-Drug Resistant Organisms: None Reported Past Surgical History: Cholecystectomy Additional Past Surgical History / Comment(s): Aortic Aneurysm Repair ( [facility] ) 2024, lung biopsy Additional Past Anesthesia/Blood Transfusion Reaction / Comm: na Past Psychological History: Anxiety Smoking Status: Former smoker Past Alcohol Use History: Rare Past Drug Use History: Marijuana - Past Family History Mother Additional Family Medical History / Comment(s): respiratory failure, probably cancer but unsure. Father Additional Family Medical History / Comment(s): from stomach cancer Medications and Allergies Home Medications Medication Instructions Recorded Confirmed Type Aspirin EC [Ecotrin Low Dose] 81 mg PO DAILY 01/21/25 01/31/25 History Cyclobenzaprine [Flexeril] 5 - 10 mg PO Q8H PRN 01/21/25 01/31/25 History Fluticasone/Umeclidin/Vilanter 1 puff INHALATION RT-DAILY 01/21/25 01/31/25 History [Trelegy Ellipta 200-62.5-25] Nicotine 14Mg/24Hr Patch [Habitrol] 1 patch TRANSDERM DAILY #10 patch 01/23/25 01/31/25 Rx Pantoprazole [Protonix] 40 mg PO AC-BRKFST #30 01/23/25 01/31/25 Rx Diclofenac Sodium [Voltaren] 75 mg PO BID PRN 01/31/25 01/31/25 History HYDROcodone/APAP 7.5-325MG [[place] 1 tab PO Q6H PRN 01/31/25 01/31/25 History 7.5-325] Lidocaine 5% Patch [Lidoderm] 1 patch TRANSDERM DAILY PRN 01/31/25 01/31/25 History Ondansetron [Zofran] 4 mg PO Q8H PRN 01/31/25 01/31/25 History clonazePAM [KlonoPIN ODT] 0.25 mg PO DAILY PRN 01/31/25 01/31/25 History Allergies Allergy/AdvReac Type Severity Reaction Status Date / Time No Known Allergies Allergy Verified 01/31/25 08:49 Surgical - Exam Vital Signs Temp Pulse Resp BP Pulse Ox 97.9 F 72 16 95/66 98 01/31/25 01:27 01/31/25 01:27 01/31/25 01:27 01/31/25 01:27 01/31/25 01:27 Results - Labs 01/31/25 06:07 01/31/25 06:00 Abnormal Lab Results - Last 24 Hours (Table) 01/31/25 01/31/25 Range/Units 06:00 06:07 WBC 16.41 H (4.50-10.00) 10*3/uL RBC 3.14 L (4.10-5.20) 10*6/uL Hgb 9.1 L D (12.0-15.0) g/dL Hct 29.0 L (37.2-46.3) % MCHC 31.4 L (32.0-37.0) g/dL Immature Gran # 0.17 H (0.00-0.04) 10*3/uL Sodium 134 L (137-145) mmol/L BUN 35 H (7-17) mg/dL Glucose 111 H (74-99) mg/dL Alkaline Phosphatase 149 H (38-126) U/L Total Protein 5.6 L (6.3-8.2) g/dL Albumin 2.5 L (3.5-5.0) g/dL Diabetes panel 01/31/25 Range/Units 06:00 Sodium 134 L (137-145) mmol/L Potassium 3.6 (3.5-5.1) mmol/L Chloride 101 (98-107) mmol/L Carbon Dioxide 23 (22-30) mmol/L BUN 35 H (7-17) mg/dL Creatinine 0.79 (0.52-1.04) mg/dL Glucose 111 H (74-99) mg/dL Calcium 8.5 (8.4-10.2) mg/dL AST 17 (14-36) U/L ALT 12 (4-34) U/L Alkaline Phosphatase 149 H (38-126) U/L Total Protein 5.6 L (6.3-8.2) g/dL Albumin 2.5 L (3.5-5.0) g/dL Calcium panel 01/31/25 Range/Units 06:00 Calcium 8.5 (8.4-10.2) mg/dL Albumin 2.5 L (3.5-5.0) g/dL Pituitary panel 01/31/25 Range/Units 06:00 Sodium 134 L (137-145) mmol/L Potassium 3.6 (3.5-5.1) mmol/L Chloride 101 (98-107) mmol/L Carbon Dioxide 23 (22-30) mmol/L BUN 35 H (7-17) mg/dL Creatinine 0.79 (0.52-1.04) mg/dL Glucose 111 H (74-99) mg/dL Calcium 8.5 (8.4-10.2) mg/dL Adrenal panel 01/31/25 Range/Units 06:00 Sodium 134 L (137-145) mmol/L Potassium 3.6 (3.5-5.1) mmol/L Chloride 101 (98-107) mmol/L Carbon Dioxide 23 (22-30) mmol/L BUN 35 H (7-17) mg/dL Creatinine 0.79 (0.52-1.04) mg/dL Glucose 111 H (74-99) mg/dL Calcium 8.5 (8.4-10.2) mg/dL Total Bilirubin 0.6 (0.2-1.3) mg/dL AST 17 (14-36) U/L ALT 12 (4-34) U/L Alkaline Phosphatase 149 H (38-126) U/L Total Protein 5.6 L (6.3-8.2) g/dL Albumin 2.5 L (3.5-5.0) g/dL
[2025-01-31 10:11] LABS: African American GFR (CKD) 87 (>60 ml/min/1.73 sqM); Anion Gap 12 mmol/L; Blood Urea Nitrogen 35 mg/dL (7-17); Calcium 8.5 mg/dL (8.4-10.2); Carbon Dioxide 19 mmol/L (22-30); Chloride 105 mmol/L (98-107); Glucose 101 mg/dL (74-99); Non-African American GFR(CKD) 75 (>60 ml/min/1.73 sqM); Sodium 136 mmol/L (137-145)
[2025-01-31] MEDS: PIPERACILLIN-TAZOBACTAM 3.375 GM in SODIUM CHLORIDE 0.9% 100 ML IVPB SCH (10:11)
[2025-01-31] MEDS ORDERED: ZINC OXIDE PASTE (Z-GUARD) 1 APPLIC TOPICAL PRN (10:21)
[2025-01-31 12:04] LABS: Band Neutrophils % 25 %; Lymphocytes # (M) 0.49 k/uL (1.0-4.8); Metamyelocytes # (M) 0.16 k/uL (0); Metamyelocytes % 1 %; Monocytes # (M) 0.16 k/uL (0-1.0); Neutrophils # (M) 15.58 k/uL (1.3-7.7); Neutrophils % (M) 70 %; Nucleated Red Blood Cells 0 /100 WBC (0-0); Total Cells Counted 100
[2025-01-31] MEDS: HYDROcodone/APAP 7.5-325MG 1 EACH TAB PO PRN (14:32)
--- NOTE | 2025-01-31 16:48 | P.HPIM ---
History of Present Illness H&P Date: 01/31/25 Chief Complaint: Nausea/vomiting/diarrhea 69-year-old woman with recent diagnosis of lung cancer, COPD and hypertension. She presents today as she is having right lower quadrant and right groin pain, nausea, vomiting and diarrhea. The patient's family notes that it seemed to come on after she had the injection related to a bone scan. The patient has not had hematemesis. No dark or tarry stools. No fever or chills. Patient had recent endovascular placement of abdominal aortic stent January 08, 2025, 3 weeks ago. Patient does report she has had abdominal pain since her surgery. She reports early satiety. Poor appetite. Family reports that she had poor appetite prior to surgery. CT of the abdomen pelvis with questionable findings of early colitis versus mild diverticulitis. Right lower lobe malignancy. Presence of adrenal gland possible malignancy. T12 compression fracture 25% including sclerotic lesions along the spine highly suspicious for metastatic disease. Blood work reveals WBC of 16.4, hemoglobin of 9.1 and platelet count of 239, sodium 134, potassium 3.6, BUN/creatinine 35/0.79 and alkaline phosphatase of 149 Patient has been admitted for possible ileus/colitis versus diverticulitis; surgery is consulted Review of Systems REVIEW OF SYSTEMS: CONSTITUTIONAL: No fever, no malaise, no fatigue. HEENT: No recent visual problems or hearing problems. Denied any sore throat. CARDIOVASCULAR: No chest pain, orthopnea, PND, no palpitations, no syncope. PULMONARY: No shortness of breath, no cough, no hemoptysis. GASTROINTESTINAL: No diarrhea, no nausea, no vomiting, no abdominal pain. NEUROLOGICAL: No headaches, no weakness, no numbness. HEMATOLOGICAL: Denies any bleeding or petechiae. GENITOURINARY: Denies any burning micturition, frequency, or urgency. MUSCULOSKELETAL/RHEUMATOLOGICAL: Denies any joint pain, swelling, or any muscle pain. ENDOCRINE: Denies any polyuria or polydipsia. The rest of the 14-point review of systems is negative. Past Medical History Past Medical History: Cancer, COPD, Hypertension Additional Past Medical History / Comment(s): Lung nodules History of Any Multi-Drug Resistant Organisms: None Reported Past Surgical History: Cholecystectomy Additional Past Surgical History / Comment(s): [facility], lung biopsy Additional Past Anesthesia/Blood Transfusion Reaction / Comment(s): na Past Psychological History: Anxiety Smoking Status: Former smoker Past Alcohol Use History: Rare Past Drug Use History: Marijuana - Past Family History Mother Additional Family Medical History / Comment(s): respiratory failure, probably cancer but unsure. Father Additional Family Medical History / Comment(s): from stomach cancer Medications and Allergies Home Medications Medication Instructions Recorded Confirmed Type Aspirin EC [Ecotrin Low Dose] 81 mg PO DAILY 01/21/25 01/31/25 History Cyclobenzaprine [Flexeril] 5 - 10 mg PO Q8H PRN 01/21/25 01/31/25 History Fluticasone/Umeclidin/Vilanter 1 puff INHALATION RT-DAILY 01/21/25 01/31/25 History [Trelegy Ellipta 200-62.5-25] Nicotine 14Mg/24Hr Patch [Habitrol] 1 patch TRANSDERM DAILY #10 patch 01/23/25 01/31/25 Rx Pantoprazole [Protonix] 40 mg PO AC-BRKFST #30 01/23/25 01/31/25 Rx Diclofenac Sodium [Voltaren] 75 mg PO BID PRN 01/31/25 01/31/25 History HYDROcodone/APAP 7.5-325MG [[place] 1 tab PO Q6H PRN 01/31/25 01/31/25 History 7.5-325] Lidocaine 5% Patch [Lidoderm] 1 patch TRANSDERM DAILY PRN 01/31/25 01/31/25 History Ondansetron [Zofran] 4 mg PO Q8H PRN 01/31/25 01/31/25 History clonazePAM [KlonoPIN ODT] 0.25 mg PO DAILY PRN 01/31/25 01/31/25 History Allergies Allergy/AdvReac Type Severity Reaction Status Date / Time No Known Allergies Allergy Verified 01/31/25 08:49 Physical Exam Vitals: Vital Signs Temp Pulse Resp BP Pulse Ox 01/31/25 09:01 98 01/31/25 08:31 78 16 104/60 96 01/31/25 07:24 109 H 20 115/64 97 01/31/25 05:06 105 H 18 01/31/25 05:00 109 H 18 01/31/25 04:49 113 H 20 124/66 98 01/31/25 02:12 15 01/31/25 01:27 97.9 F 72 16 95/66 98 Intake and Output 01/30/25 01/31/25 01/31/25 22:59 06:59 14:59 Other: Weight 71.214 kg General appearance: alert, in no apparent distress Head exam: Present: atraumatic, normocephalic Eye exam: Present: normal appearance. Absent: scleral icterus, conjunctival injection ENT exam: Present: normal oropharynx Neck exam: Present: normal inspection Respiratory exam: Present: normal lung sounds bilaterally. Absent: respiratory distress, wheezes, rales, rhonchi, stridor, accessory muscle use Cardiovascular Exam: Present: regular rate, normal rhythm, normal heart sounds. Absent: systolic murmur, diastolic murmur, rubs, gallop GI/Abdominal exam: Present: soft, tenderness. Absent: distended, guarding, rebound, rigid, mass, pulsatile mass, hernia Extremities exam: Present: normal inspection, normal capillary refill. Absent: pedal edema, calf tenderness Back exam: Present: normal inspection. Absent: CVA tenderness (R), CVA tenderness (L) Neurological exam: Present: alert Skin exam: Present: warm, dry, intact, normal color. Absent: rash Results CBC & Chem 7: 01/31/25 06:07 01/31/25 09:38 Labs: Abnormal Lab Results - Last 24 Hours (Table) 01/31/25 01/31/25 Range/Units 06:00 06:07 WBC 16.41 H (4.50-10.00) 10*3/uL RBC 3.14 L (4.10-5.20) 10*6/uL Hgb 9.1 L D (12.0-15.0) g/dL Hct 29.0 L (37.2-46.3) % MCHC 31.4 L (32.0-37.0) g/dL Immature Gran # 0.17 H (0.00-0.04) 10*3/uL Sodium 134 L (137-145) mmol/L BUN 35 H (7-17) mg/dL Glucose 111 H (74-99) mg/dL Alkaline Phosphatase 149 H (38-126) U/L Total Protein 5.6 L (6.3-8.2) g/dL Albumin 2.5 L (3.5-5.0) g/dL Assessment and Plan Assessment: 1. Abdominal pain -CT of the abdomen pelvis reveals early colitis/mild diverticulitis - We will start patient on IV antibiotics in form of Zosyn 3.375 g every 8 hours - IV fluid hydration with normal saline Monitor CBC, CRP and procalcitonin -General Surgery is consulted 2. Possible ileus - CT of the abdomen and pelvis does not reveal any small bowel or large bowel obstruction; multiple masses and lesions within the liver highly suspicious for metastatic disease - Patient has been made n.p.o.; surgery is consulted - Continue IV fluids as indicated above 3. COPD; not in exacerbation; continue with home inhaler therapy 4. Gastroesophageal reflux disease; PPI 5. Anxiety; continue Klonopin 0.25 mg daily 6. Chronic back pain; patient takes Flexeril and Voltaren which have been placed on hold till ileus resolves DVT prophylaxis; SCDs CODE STATUS; full code
--- NOTE | 2025-02-01 08:41 | P.PN ---
Subjective Progress Note Date: 02/01/25 CHIEF COMPLAINT: Abdominal pain HISTORY OF PRESENT ILLNESS: The patient is a 69-year-old female with recent diagnosis of lung cancer including large abdominal aortic aneurysm who presents with abdominal pain. Patient's family at bedside including her 3 daughters with the patient's is being changed after urinating. She had a bowel movement yesterday. She reports no moderate abdominal pain. REVIEW OF ORGAN SYSTEMS: No chest pain. No shortness of breath. PHYSICAL EXAM: VITALS: Reviewed CONSTITUTIONAL: Well developed and in no acute distress. EYES: Conjuctivae without sclera icterus. Extraocular movements grossly intact. HEAD, EARS, NOSE, THROAT: Moist buccal mucosa. Head is atraumatic, n ormocephalic. Hears conversational speech. No nasal drainage. RESPIRATORY: Non-labored respirations and equal bilateral excursions. No gross wheezes. CARDIOVASCULAR: Palpable 2+ radial pulses. ABDOMEN: No diffuse tenderness. No diffuse peritonitis. MUSCULOSKELETAL: No clubbing cyanosis or edema. Ambulates with walker. SKIN: Warm and well perfused with good skin turgor. Multiple bruising along the arms. NEUROLOGIC: Cranial nerves II through XII grossly intact. No focal or lateralizing signs. PSYCH: Appropriate affect. Alert and oriented to person, place and time. Displays appropriate insight. CLINCAL LABS: Reviewed. WBC elevated over 16,000, yesterday with current labs pending. ASSESSMENT: 1. Abdominal pain in the presence of a normal CT scan for colitis/diverticulitis 2. Abdominal aortic aneurysm status post endovascular graft 3. Metastatic lung cancer 4. Decreased appetite 5. Chronic obstructive pulmonary disease due to tobacco abuse disorder 6. Hypoalbuminemia 7. Moderate to severe protein malnutrition PLAN: 1. At this time, CBC pending. In the presence of colitis/diverticulitis, 3-day treatment of IV antibiotics should present with moderate improvement. Today will be day 1 of 24 hours of antibiotics. 2. With patient's multiple comorbidities, no acute surgical invention needed. 3. Recommend continue for liquid diet with Ensure protein shakes due to moderate to severe protein malnutrition. Dictation was produced using TerraPassation software. Please excuse any grammatical, word or spelling errors. Objective - Vital Signs Vital signs: Vital Signs Temp 97.6 F 02/01/25 01:12 Pulse 82 02/01/25 06:58 Resp 18 02/01/25 06:58 BP 92/59 02/01/25 06:58 Pulse Ox 97 02/01/25 06:58 FiO2 Intake & Output 01/31/25 02/01/25 02/01/25 18:59 06:59 18:59 Weight 71.214 kg Other: Voiding Method Diaper # Voids 3 3 # Bowel Movements 2 - Labs CBC & Chem 7: 01/31/25 06:07 01/31/25 09:38 Labs: Abnormal Lab Results - Last 24 Hours (Table) 01/31/25 01/31/25 01/31/25 Range/Units 06:00 06:07 09:38 Neutrophils # (Manual) 15.58 H (1.3-7.7) k/uL Lymphocytes # (Manual) 0.49 L (1.0-4.8) k/uL Metamyelocytes # (Man) 0.16 H (0) k/uL Sodium 134 L 136 L (137-145) mmol/L Carbon Dioxide 19 L (22-30) mmol/L BUN 35 H 35 H (7-17) mg/dL Glucose 111 H 101 H (74-99) mg/dL Alkaline Phosphatase 149 H (38-126) U/L Total Protein 5.6 L (6.3-8.2) g/dL Albumin 2.5 L (3.5-5.0) g/dL
[2025-02-01] MEDS: SYMBICORT 160-4.5 MCG INHALER INHALATION SCH (09:16)
[2025-02-01] MEDS: TIOTROPIUM 2.5 MCG INHALER INHALATION SCH (09:17)
[2025-02-01 10:18] LABS: HCT 30.1 % (37.2-46.3); HGB 9.1 g/dL (12.0-15.0); MCH 28.8 pg (27.0-32.0); MCHC 30.2 g/dL (32.0-37.0); MCV 95.3 FL (80.0-97.0); Mean Platelet Volume 10.4 FL (9.5-12.2); NRBC Per 100 WBC 0 X 10*3/uL (0.00-0.01); Platelet Count 183 X 10*3/uL (140-440); RBC 3.16 X 10*6/uL (4.10-5.20); RDW 16.7 % (11.5-14.5); WBC 18.85 X 10*3/uL (4.50-10.00)
[2025-02-01 10:51] LABS: Blood Urea Nitrogen 37.1 mg/dL (9.0-27.0); Calcium 8.1 mg/dL (8.7-10.3); Carbon Dioxide 18.6 mmol/L (21.6-31.8); Chloride 103 mmol/L (96-109); Glucose 77 mg/dL (70-110); Potassium 4.3 mmol/L (3.5-5.5); Sodium 137 mmol/L (135-145)
[2025-02-01 11:05] LABS: Basophils % (A) 0.5 %; Eosinophils # (A) 0.54 X 10*3/uL (0.04-0.35); Eosinophils % (A) 2.9 %; Lymphocytes # (A) 0.58 X 10*3/uL (0.90-5.00); Lymphocytes % (A) 3.1 %; Microcytosis (M) 2+ (None Seen); Monocytes # (A) 0.57 X 10*3/uL (0.20-1.00); Neutrophils # (A) 16.77 X 10*3/uL (1.80-7.70)
--- NOTE | 2025-02-02 06:16 | P.PN ---
Subjective Progress Note Date: 02/01/25 69-year-old woman with recent diagnosis of lung cancer, COPD and hypertension. She presents today as she is having right lower quadrant and right groin pain, nausea, vomiting and diarrhea. The patient's family notes that it seemed to come on after she had the injection related to a bone scan. The patient has not had hematemesis. No dark or tarry stools. No fever or chills. Patient had recent endovascular placement of abdominal aortic stent January 08, 2025, 3 weeks ago. Patient does report she has had abdominal pain since her surgery. She reports early satiety. Poor appetite. Family reports that she had poor appetite prior to surgery. CT of the abdomen pelvis with questionable findings of early colitis versus mild diverticulitis. Right lower lobe malignancy. Presence of adrenal gland possible malignancy. T12 compression fracture 25% including sclerotic lesions along the spine highly suspicious for metastatic disease. Blood work reveals WBC of 16.4, hemoglobin of 9.1 and platelet count of 239, sodium 134, potassium 3.6, BUN/creatinine 35/0.79 and alkaline phosphatase of 149 Patient has been admitted for possible ileus/colitis versus diverticulitis; surgery is consulted 02/01/2025 Patient seen and evaluated in follow-up today continues to report significant abdominal pain and general surgery following with no plans of surgical intervention at this time. White count is elevated at 18.85 and hemoglobin remains 9.1, platelets are 183. Sodium is 137 with a potassium of 4.3, BUN 37.1 with a creatinine of 1.0. Patient being started on antibiotics per general surgery for the colitis/diverticulitis and recommends minimum 3 days of IV antibiotics and to continue with clear liquids protein shakes. Patient with significant weakness recommend PT/OT therapy evaluation. Continued poor oral intake and not much of an appetite, consult to dietary. Review of systems: Constitutional: reports of fatigue, no fever, or chills Cardiovascular: No reports of chest pain or palpitations Respiratory: reports of mild shortness of breath or cough GI: No reports of nausea, vomiting, or diarrhea, reports had a bowel movement and reports no appetite : No reports of dysuria or retention Neurovascular: reports of generalized weakness All medications have been reviewed Physical exam: Gen: This is a 69-year-old female who is awake, alert and oriented x 3, well-developed, elderly appearing, ill-appearing HEENT: Head is atraumatic, normocephalic. Pupils equal, round. Sclerae is anicteric. NECK: Supple. No JVD. No lymphadenopathy. No thyromegaly. LUNGS: Diminished breath sounds bilaterally otherwise clear to auscultation. No wheezes or rhonchi. No intercostal retractions. HEART: S1, S2 are muffled ABDOMEN: Soft. Bowel sounds are present. No masses. Mild tenderness noted on palpation. EXTREMITIES: No pedal edema. No calf tenderness. NEUROLOGICAL: Patient is awake, alert and oriented x3. Cranial nerves 2 through 12 are grossly intact. Diffusely weak Assessment: -Abdominal pain, likely secondary to early colitis with mild diverticulitis as noted on CT image -Leukocytosis, secondary to above -Possible ileus, improving patient is having bowel movements -multiple masses and lesions within the liver highly suspicious for metastatic disease -COPD; not in exacerbation -Gastroesophageal reflux disease -Anxiety -Chronic back pain -Severe protein calorie malnutrition -History of recent abdominal aortic aneurysm status post endovascular graft -Recently diagnosed metastatic lung cancer GI prophylaxis DVT prophylaxis; SCDs full code Plan: Patient was admitted with concerns of early colitis and mild diverticulitis with abdominal pain and concerns of possible ileus. Patient evaluated by general surgery with no plans of surgical intervention at this time recommending bowel rest with clear liquids and IV antibiotic therapy of at least 3 days Continue clear liquid diet with Ensure protein shakes in between meals Follow-up on repeat labs, replace electrolytes per protocol monitor white count Encouraged increase activity as tolerated Recommend PT/OT therapy evaluation Consult with dietary Due to multiple complex medical issues, overall prognosis is guarded The impression and plan of care has been dictated by Ciarra Machado, Nurse Practitioner as directed. Dr. Christopher MD I have performed a history and examination and MDM of this patient, discussed the same with the dictator, and agree with the dictator's assessment and plan as written ,documented as a scribe. Based on total visit time, I have performed more than 50% of the visit. Objective - Vital Signs Vital signs: Vital Signs Temp 97.6 F 02/01/25 01:12 Pulse 82 02/01/25 06:58 Resp 18 02/01/25 06:58 BP 92/59 02/01/25 06:58 Pulse Ox 97 02/01/25 06:58 FiO2 Intake & Output 01/31/25 02/01/25 02/01/25 18:59 06:59 18:59 Weight 71.214 kg Other: Voiding Method Diaper # Voids 3 3 # Bowel Movements 2 - Labs CBC & Chem 7: 02/01/25 06:42 02/01/25 06:42 Labs: Abnormal Lab Results - Last 24 Hours (Table) 01/31/25 01/31/25 01/31/25 Range/Units 06:00 06:07 09:38 Neutrophils # (Manual) 15.58 H (1.3-7.7) k/uL Lymphocytes # (Manual) 0.49 L (1.0-4.8) k/uL Metamyelocytes # (Man) 0.16 H (0) k/uL Sodium 134 L 136 L (137-145) mmol/L Carbon Dioxide 19 L (22-30) mmol/L BUN 35 H 35 H (7-17) mg/dL Glucose 111 H 101 H (74-99) mg/dL Alkaline Phosphatase 149 H (38-126) U/L Total Protein 5.6 L (6.3-8.2) g/dL Albumin 2.5 L (3.5-5.0) g/dL
[2025-02-02 08:23] LABS: Basophils # (A) 0.08 X 10*3/uL (0.00-0.10); Basophils % (A) 0.4 %; Eosinophils # (A) 0.64 X 10*3/uL (0.04-0.35); Eosinophils % (A) 2.8 %; HCT 28.4 % (37.2-46.3); HGB 8.7 g/dL (12.0-15.0); Lymphocytes # (A) 0.89 X 10*3/uL (0.90-5.00); Lymphocytes % (A) 3.9 %; MCH 28.6 pg (27.0-32.0); MCHC 30.6 g/dL (32.0-37.0); MCV 93.4 FL (80.0-97.0); Mean Platelet Volume 10.2 FL (9.5-12.2); Monocytes # (A) 0.64 X 10*3/uL (0.20-1.00); Monocytes % (A) 2.8 %; NRBC Per 100 WBC 0 X 10*3/uL (0.00-0.01); Neutrophils % (A) 88.3 %; Platelet Count 220 X 10*3/uL (140-440); RBC 3.04 X 10*6/uL (4.10-5.20); WBC 22.65 X 10*3/uL (4.50-10.00)
[2025-02-02 08:46] LABS: ALT 10 U/L (8-44); AST 16 U/L (13-35); Albumin 2.5 g/dL (3.8-4.9); Albumin/Globulin Ratio 0.86 Ratio (1.60-3.17); Alkaline Phosphatase 152 U/L (41-126); Calcium 8.4 mg/dL (8.7-10.3); Carbon Dioxide 19.9 mmol/L (21.6-31.8); Chloride 101 mmol/L (96-109); Globulin 2.9 g/dL (1.6-3.3); Glucose 91 mg/dL (70-110); Magnesium 1.7 mg/dL (1.5-2.4); Potassium 3.3 mmol/L (3.5-5.5); Sodium 137 mmol/L (135-145); Total Bilirubin 0.3 mg/dL (0.3-1.2); Total Protein 5.4 g/dL (6.2-8.2)
--- NOTE | 2025-02-02 09:20 | P.PN ---
Subjective Progress Note Date: 02/02/25 CHIEF COMPLAINT: Abdominal pain HISTORY OF PRESENT ILLNESS: The patient is a 69-year-old female with recent diagnosis of lung cancer including large abdominal aortic aneurysm who presents with abdominal pain. Patient seen up in chair. She reports most of her pain is of the upper abdomen. She has moderate productive cough and sputum. She denies any lower abdominal pain. Patient also reports having prior multiple upper abdominal ultrasounds which were unremarkable. REVIEW OF ORGAN SYSTEMS: No chest pain. No shortness of breath. PHYSICAL EXAM: VITALS: Reviewed CONSTITUTIONAL: Well developed and in no acute distress. EYES: Conjuctivae without sclera icterus. Extraocular movements grossly intact. HEAD, EARS, NOSE, THROAT: Moist buccal mucosa. Head is atraumatic, normocephalic. Hears conversational speech. No nasal drainage. RESPIRATORY: Non-labored respirations and equal bilateral excursions. No gross wheezes. CARDIOVASCULAR: Palpable 2+ radial pulses. ABDOMEN: No diffuse tenderness. No diffuse peritonitis. Minimal bilateral upper abdominal pain. MUSCULOSKELETAL: No clubbing cyanosis or edema. Ambulates with walker. SKIN: Warm and well perfused with good skin turgor. Multiple bruising along the arms. NEUROLOGIC: Cranial nerves II through XII grossly intact. No focal or lateralizing signs. PSYCH: Appropriate affect. Alert and oriented to person, place and time. Displays appropriate insight. CLINCAL LABS: Reviewed. WBC increasing from 16,000-18,000 ASSESSMENT: 1. Abdominal pain in the presence of abnormal CT scan for colitis/diverticulitis 2. Abdominal aortic aneurysm status post endovascular graft 3. Metastatic lung cancer 4. Decreased appetite 5. Chronic obstructive pulmonary disease due to tobacco abuse disorder 6. Hypoalbuminemia 7. Moderate to severe protein malnutrition 8. Pneumonia PLAN: 1. Her white blood cell count continues to have upward trend with more so right upper quadrant abdominal pain also consistent with the area of her pneumonia/cancer. May benefit from pulmonary consultation due to her lung cancer and overlapping pneumonia. 2. Clinically, patient denies any lower abdominal pain associated with sigmoid diverticulitis from CT scan. Overall, leukocytosis likely secondary to pulmonary etiology. Recommend pulmonary consultation. Dictation was produced using better. dictation software. Please excuse any g rammatical, word or spelling errors. Objective - Vital Signs Vital signs: Vital Signs Temp 97.5 F L 02/02/25 07:42 Pulse 91 05/13/25 07:42 Resp 16 02/02/25 07:42 BP 92/61 02/02/25 07:42 Pulse Ox 98 02/02/25 07:42 FiO2 Intake & Output 02/01/25 02/02/25 02/02/25 18:59 06:59 18:59 Other: Voiding Method Diaper Diaper # Voids 2 2 - Labs CBC & Chem 7: 02/02/25 03:47 02/02/25 03:47 Labs: Abnormal Lab Results - Last 24 Hours (Table) 02/01/25 02/01/25 02/02/25 Range/Units 06:42 06:42 03:47 WBC 18.85 H 22.65 H (4.50-10.00) X 10*3/uL RBC 3.16 L 3.04 L (4.10-5.20) X 10*6/uL Hgb 9.1 L 8.7 L (12.0-15.0) g/dL Hct 30.1 L 28.4 L (37.2-46.3) % MCHC 30.2 L 30.6 L (32.0-37.0) g/dL RDW 16.7 H 17.0 H (11.5-14.5) % Immature Gran # 0.29 H 0.40 H (0.00-0.04) X 10*3/uL Neutrophils # 16.77 H 20.00 H (1.80-7.70) X 10*3/uL Lymphocytes # 0.58 L 0.89 L (0.90-5.00) X 10*3/uL Eosinophils # 0.54 H 0.64 H (0.04-0.35) X 10*3/uL Microcytosis (manual) 2+ A (None Seen) Potassium (3.5-5.5) mmol/L Carbon Dioxide 18.6 L (21.6-31.8) mmol/L Anion Gap 15.40 H (4.00-12.00) mmol/L BUN 37.1 H (9.0-27.0) mg/dL BUN/Creatinine Ratio 37.10 H (12.00-20.00) Ratio Calcium 8.1 L (8.7-10.3) mg/dL Alkaline Phosphatase (41-126) U/L Total Protein (6.2-8.2) g/dL Albumin (3.8-4.9) g/dL Albumin/Globulin Ratio (1.60-3.17) Ratio // Range/Units 03:47 WBC (4.50-10.00) X 10*3/uL RBC (4.10-5.20) X 10*6/uL Hgb (12.0-15.0) g/dL Hct (37.2-46.3) % MCHC (32.0-37.0) g/dL RDW (11.5-14.5) % Immature Gran # (0.00-0.04) X 10*3/uL Neutrophils # (1.80-7.70) X 10*3/uL Lymphocytes # (0.90-5.00) X 10*3/uL Eosinophils # (0.04-0.35) X 10*3/uL Microcytosis (manual) (None Seen) Potassium 3.3 L (3.5-5.5) mmol/L Carbon Dioxide 19.9 L (21.6-31.8) mmol/L Anion Gap 16.10 H (4.00-12.00) mmol/L BUN 36.0 H (9.0-27.0) mg/dL BUN/Creatinine Ratio 40.00 H (12.00-20.00) Ratio Calcium 8.4 L (8.7-10.3) mg/dL Alkaline Phosphatase 152 H (41-126) U/L Total Protein 5.4 L (6.2-8.2) g/dL Albumin 2.5 L (3.8-4.9) g/dL Albumin/Globulin Ratio 0.86 L (1.60-3.17) Ratio
[2025-02-02] MEDS ORDERED: Magnesium Replacement Protocol 1 EACH MISC MISCELLANE PRN (15:10)
[2025-02-02] MEDS ORDERED: Potassium Replacement Protocol 1 EACH MISC MISCELLANE PRN (15:10)
[2025-02-02] MEDS: MAGNESIUM SULFATE-D5W PMX 1 GM in DEXTROSE/WATER 1 100ML.BAG IVPB SCH (16:09)
[2025-02-02] MEDS: POTASSIUM CHLORIDE ER 20 MEQ TAB.ER PO SCH (16:09)
--- NOTE | 2025-02-02 22:14 | P.CONS ---
History of Present Illness - Reason for Consult Consult date: 02/02/25 Sepsis Requesting physician: Brigette Salamanca - Chief Complaint Abdominal pain and nausea vomiting x few days - History of Present Illness Patient is a 69-year-old female with a past medical history significant for COPD hypertension recent diagnosis of metastatic non-small cell lung cancer/pulmonary adenocarcinoma, anxiety patient presenting to the hospital 2 days ago for evaluation of right lower quadrant right groin pain with associated nausea vomiting and diarrhea patient symptom apparently started after the patient has received an injection related to the brown skin patient has felt nauseated and vomiting has been complaining of pain to the lower abdominal area describing it to be mostly dull aching to colicky moderate intensity without radiation patient denies high-grade fever any chills she also have a cough moderate intensity but able to bring up any sputum on presentation to the hospital the patient was afebrile and no fever have recorded subsequently patient was tachycardic but not hypotensive mildly hypoxic currently on 4 L nasal cannula oxygen patient did have a white count of 16.4 which is now up to 22.65 did have a creatinine 0.9 liver enzymes are normal patient did have a abdominal pelvis CT with right lower lobe consolidation with trace effusion and also shows mild colitis diverticulitis suggested in the pelvis T12 vertebral body compression fraction infectious he was consulted today concerning for possible sepsis Review of Systems Positive point and negatives has been mentioned in the HPI, complete review of systems was performed and all other systems are negative Past Medical History Past Medical History: Cancer (Metastatic non-small cell lung cancer, pulm adenocarcinoma), COPD, Hypertension Additional Past Medical History / Comment(s): Metastatic non-small cell lung cancer, pulm adenocarcinoma, abdominal aortic aneurysm post endovascular stent graft think, COPD History of Any Multi-Drug Resistant Organisms: None Reported Past Surgical History: Cholecystectomy Additional Past Surgical History / Comment(s): Aortic Aneurysm Repair ( [facility] ) 2024, lung biopsy Additional Past Anesthesia/Blood Transfusion Reaction / Comm: na Past Psychological History: Anxiety Smoking Status: Former smoker Past Alcohol Use History: Rare Past Drug Use History: Marijuana - Past Family History Mother Additional Family Medical History / Comment(s): respiratory failure, probably cancer but unsure. Father Additional Family Medical History / Comment(s): from stomach cancer Medications and Allergies Home Medications Medication Instructions Recorded Confirmed Type Aspirin EC [Ecotrin Low Dose] 81 mg PO DAILY 01/21/25 01/31/25 History Cyclobenzaprine [Flexeril] 5 - 10 mg PO Q8H PRN 01/21/25 01/31/25 History Fluticasone/Umeclidin/Vilanter 1 puff INHALATION RT-DAILY 01/21/25 01/31/25 History [Trelegy Ellipta 200-62.5-25] Nicotine 14Mg/24Hr Patch [Habitrol] 1 patch TRANSDERM DAILY #10 patch 01/23/25 01/31/25 Rx Pantoprazole [Protonix] 40 mg PO AC-BRKFST #30 01/23/25 01/31/25 Rx Diclofenac Sodium [Voltaren] 75 mg PO BID PRN 01/31/25 01/31/25 History HYDROcodone/APAP 7.5-325MG [[place] 1 tab PO Q6H PRN 01/31/25 01/31/25 History 7.5-325] Lidocaine 5% Patch [Lidoderm] 1 patch TRANSDERM DAILY PRN 01/31/25 01/31/25 History Ondansetron [Zofran] 4 mg PO Q8H PRN 01/31/25 01/31/25 History clonazePAM [KlonoPIN ODT] 0.25 mg PO DAILY PRN 01/31/25 01/31/25 History Allergies Allergy/AdvReac Type Severity Reaction Status Date / Time No Known Allergies Allergy Verified 01/31/25 08:49 Physical Exam Vitals: Vital Signs Temp Pulse Resp BP Pulse Ox 02/02/25 07:42 97.5 F L 91 16 92/61 98 02/02/25 00:32 98.3 F 102 H 19 98/64 98 02/01/25 21:07 94 87/59 02/01/25 19:25 97.6 F 97 19 89/51 96 02/01/25 14:00 97.6 F 91 18 81/52 97 Intake and Output 02/01/25 02/02/25 02/02/25 22:59 06:59 14:59 Other: Voiding Method Diaper # Voids 2 2 GENERAL DESCRIPTION: Elderly female up in the chair, no distress. No tachypnea or accessory muscle of respiration use. HEENT: Shows Pallor , no scleral icterus. Oral mucous membrane is dry. NECK: Trachea central, no thyromegaly. LUNGS: Unlabored breathing. Decreased breath sound at the base HEART: S1, S2, regular rate and rhythm. No loud murmur ABDOMEN: Soft, no tenderness , guarding or rigidity, no organomegaly EXTREMITIES: No edema of feet. SKIN: No rash, no masses palpable. NEUROLOGICAL: The patient is awake, alert, oriented x3, mood and affect normal. Results CBC & Chem 7: 02/02/25 03:47 02/02/25 03:47 Labs: Abnormal Lab Results - Last 24 Hours (Table) 02/02/25 02/02/25 Range/Units 03:47 03:47 WBC 22.65 H (4.50-10.00) X 10*3/uL RBC 3.04 L (4.10-5.20) X 10*6/uL Hgb 8.7 L (12.0-15.0) g/dL Hct 28.4 L (37.2-46.3) % MCHC 30.6 L (32.0-37.0) g/dL RDW 17.0 H (11.5-14.5) % Immature Gran # 0.40 H (0.00-0.04) X 10*3/uL Neutrophils # 20.00 H (1.80-7.70) X 10*3/uL Lymphocytes # 0.89 L (0.90-5.00) X 10*3/uL Eosinophils # 0.64 H (0.04-0.35) X 10*3/uL Potassium 3.3 L (3.5-5.5) mmol/L Carbon Dioxide 19.9 L (21.6-31.8) mmol/L Anion Gap 16.10 H (4.00-12.00) mmol/L BUN 36.0 H (9.0-27.0) mg/dL BUN/Creatinine Ratio 40.00 H (12.00-20.00) Ratio Calcium 8.4 L (8.7-10.3) mg/dL Alkaline Phosphatase 152 H (41-126) U/L Total Protein 5.4 L (6.2-8.2) g/dL Albumin 2.5 L (3.8-4.9) g/dL Albumin/Globulin Ratio 0.86 L (1.60-3.17) Ratio Assessment and Plan (1) Sepsis Current Visit: Yes Status: Acute Code(s): A41.9 - SEPSIS, UNSPECIFIED ORGA NISM SNOMED Code(s): 04519482 (2) Pneumonia Current Visit: Yes Status: Acute Code(s): J18.9 - PNEUMONIA, UNSPECIFIED ORGANISM SNOMED Code(s): 038468065 (3) Diverticulitis Current Visit: Yes Status: Acute Code(s): K57.92 - DVTRCLI OF INTEST, PART UNSP, W/O PERF OR ABSCESS W/O BLEED SNOMED Code(s): 980848144 Plan: 1patient presented to hospital with lower abdominal discomfort nausea vomiting in this patient who did have a tachycardia elevated white count meeting currently for SIRS concern for possible sepsis source could be right lower lobe pneumonia and evidence of diverticulitis on the CT and need to cover for the gram-negative aerobes and anaerobes. 2try to get a sputum for Gram stain culture and check inflammatory markers 3will empirically treat the patient with Zosyn while waiting for the workup to be completed Family at the bedside multiple question concern answered We will follow on clinical condition and cultures to further adjust medication if needed Thank you for this consultation we will follow the patient along with you Dictation was produced using [employer] dictation software. please excuse any grammatical, word or spelling errors. Time with Patient: Greater than 30
[2025-02-03] MEDS: HYDROcodone/APAP 7.5-325MG 1 EACH TAB PO PRN (01:23)
--- NOTE | 2025-02-03 04:33 | P.CNPUL ---
History of Present Illness Consult date: 02/03/25 Requesting physician: Brigette Salamanca Reason for consult: COPD, lung mass Chief complaint: Right lower quadrant abdominal pain History of present illness: Patient is a 69-year-old female with past medical history significant for COPD, former heavy tobacco smoker, recent diagnosis of non-small cell lung cancer. Also, had a recent hospitalization at [facility] in December for an abdominal a ortic aneurysm, did receive endovascular repair/stents. Patient admitted at our facility approximately 2 weeks ago. She was seen for a right hilar mass. Chest CT angiogram done at that time showing right hilar lymphadenopathy and narrowing of the adjacent bronchi. Additional lymphadenopathy noted throughout the chest, right lower lobe nodule, possible metastatic lesions to the left ribs and sc apula, with posterior 11th left rib fracture. Did undergo bronchoscopy with transbronchial biopsy of the right middle lobe endobronchial lesion, lymph node sampling and BAL performed by Dr. Vicente on 01/22/2025. Pathology was positive for non-small cell carcinoma. Follow-up PET scan done 01/29/2025 remarkable for metastatic disease throughout the thorax, diffuse osseous metastatic disease, and possible right frontal brain lesion. Patient recently established with oncology, not on any current systemic treatment. Patient returned to the emergency department back on 01/31/2025 with a chief complaint of right lower quadrant/groin abdominal pain. CT of the abdomen and pelvis showing increased consolidation in the right lung base, possible postobstructive consolidation, and small pleural effusion. Mild colitis/diverticulitis was suggested. Previously, noted infrarenal abdominal aortic aneurysm measuring 8 cm with at least 2 stent grafts present. Small gap between the stent graft possible endoleak. T12 vertebral compression fracture with 25% height loss. No retropulsion or spinal canal stenosis noted. Patient was admitted to the general medical floor. Pulmonary consultation was placed yesterday for possible postobstructive pneumonia and COPD. She is resting in the bedside recliner on 4 L/min nasal cannula. States she does wear 4 L of supplemental oxygen while at home. Intermittent coughing, but unable to bring up any sputum. Her chief complaint at this time is bilateral rib pain. Possibly secondary to her diffuse osseous metastasis. Denies any current nausea or vomiting, diarrhea, melena, hematochezia. She is having having bowel movements. Has remained afebrile. Currently on antibiotics in the form of Zosyn. Recent labs include a WBC count of 22.7, hemoglobin 8.7, platelets 220. CMP: Sodium 137, potassium 3.3, chloride 101, serum bicarb 20, BUN 36, creatinine 0.9, glucose 91. AST 16, ALT 10, ALP 152. Vital signs are stable. Review of Systems Constitutional: Reports fatigue, Reports weight loss (Approximately 20 pounds over the last couple months), Denies chills, Denies fever, Denies night sweats, Denies poor appetite, Denies weight gain Ears, nose, mouth and throat: Denies dysphagia, Denies headache, Denies nasal congestion, Denies nasal discharge, Denies neck lump, Denies post-nasal drip, Denies sinus pain, Denies sinus pressure, Denies sore throat, Denies voice changes Cardiovascular: Reports leg edema, Reports shortness of breath, Denies lightheadedness, Denies orthopnea, Denies palpitations, Denies paroxysmal nocturnal dyspnea, Denies syncope Respiratory: Reports congestion, Reports cough, Reports dyspnea, Reports pain on inspiration, Denies cough with sputum, Denies hemoptysis, Denies home oxygen Gastrointestinal: Reports as per HPI Genitourinary: Denies dysuria, Denies flank pain, Denies hematuria, Denies urinary frequency Musculoskeletal: Reports gait dysfunction (Ambulating with walker), Reports limitation of motion, Reports low back pain (No saddle anesthesia or loss of bowel/bladder continence) Integumentary: Denies rash Neurological: Reports paresthesias, Reports weakness (Involving bilateral lower extremities), Denies head injury, Denies headaches, Denies numbness, Denies para lysis, Denies seizures, Denies sensory deficit, Denies syncope, Denies tremors, Denies visual changes Psychiatric: Denies anxiety, Denies depression Past Medical History Past Medical History: Cancer (Metastatic non-small cell lung cancer, pulm adenocarcinoma), COPD, Hypertension Additional Past Medical History / Comment(s): Metastatic non-small cell lung cancer, pulm adenocarcinoma, abdominal aortic aneurysm post endovascular stent graft think, COPD History of Any Multi-Drug Resistant Organisms: None Reported Past Surgical History: Cholecystectomy Additional Past Surgical History / Comment(s): Aortic Aneurysm Repair ( roberto torres ) 2024, lung biopsy Additional Past Anesthesia/Blood Transfusion Reaction / Comment(s): na Past Psychological History: Anxiety Smoking Status: Former smoker Past Alcohol Use History: Rare Past Drug Use History: Marijuana - Past Family History Mother Additional Family Medical History / Comment(s): respiratory failure, probably cancer but unsure. Father Additional Family Medical History / Comment(s): from stomach cancer Medications and Allergies Home Medications Medication Instructions Recorded Confirmed Type Aspirin EC [Ecotrin Low Dose] 81 mg PO DAILY 01/21/25 01/31/25 History Cyclobenzaprine [Flexeril] 5 - 10 mg PO Q8H PRN 01/21/25 01/31/25 History Fluticasone/Umeclidin/Vilanter 1 puff INHALATION RT-DAILY 01/21/25 01/31/25 History [Trelegy Ellipta 200-62.5-25] Nicotine 14Mg/24Hr Patch [Habitrol] 1 patch TRANSDERM DAILY #10 patch 01/23/25 01/31/25 Rx Pantoprazole [Protonix] 40 mg PO AC-BRKFST #30 01/23/25 01/31/25 Rx Diclofenac Sodium [Voltaren] 75 mg PO BID PRN 01/31/25 01/31/25 History HYDROcodone/APAP 7.5-325MG [Bighorn 1 tab PO Q6H PRN 01/31/25 01/31/25 History 7.5-325] Lidocaine 5% Patch [Lidoderm] 1 patch TRANSDERM DAILY PRN 01/31/25 01/31/25 History Ondansetron [Zofran] 4 mg PO Q8H PRN 01/31/25 01/31/25 History clonazePAM [KlonoPIN ODT] 0.25 mg PO DAILY PRN 01/31/25 01/31/25 History Allergies Allergy/AdvReac Type Severity Reaction Status Date / Time No Known Allergies Allergy Verified 01/31/25 08:49 Physical Exam Vitals: Vital Signs Temp Pulse Resp BP Pulse Ox 02/03/25 00:34 98.7 F 96 16 97/62 99 02/02/25 19:07 97.7 F 86 16 88/58 96 02/02/25 13:43 97.5 F L 94 18 90/63 98 02/02/25 07:42 97.5 F L 91 16 92/61 98 02/02/25 07:40 91 16 Intake and Output 02/02/25 02/02/25 02/03/25 14:59 22:59 06:59 Intake Total 800 Balance 800 Intake: Intake, IV Titration 300 Amount Magnesium Sulfate-D5w Pmx 200 1 gm In Dextrose/Water 1 100ml.bag @ 100 mls/hr IVPB Q1H RUTHIE Rx#: [id number] Piperacillin-Tazobactam 3 100 .375 gm In Sodium Chloride 0.9% 100 ml @ 25 mls/hr IVPB Q8HR RUTHIE Rx# :[id number] Oral 500 Other: Voiding Method Diaper Diaper Incontinent # Voids 1 1 GENERAL EXAM: Alert, 69-year-old female, on 4 L/min nasal cannula, sitting in recliner leaning over bedside table. Not in any respiratory distress. HEAD: Normocephalic and atraumatic EYES: Normal reaction of pupils, equal size. NOSE: Clear with pink turbinates. THROAT: No erythema or exudates. NECK: No masses, no JVD. CHEST: No chest wall deformity. LUNGS: Equal air entry with coarse bilateral rhonchi. No conversational dyspnea or accessory muscle use while at rest CVS: S1 and S2 normal with no audible murmur, regular rhythm. No extra heart sounds ABDOMEN: No hepatosplenomegaly, active bowel sounds, no guarding or rigidity. SPINE: No scoliosis or deformity SKIN: No rashes CENTRAL NERVOUS SYSTEM: No focal deficits, tone is normal in all 4 extremities. EXTREMITIES: There is 23+ bilateral lower extremity edema. No clubbing or cyanosis. Peripheral pulses are intact. Results - Laboratory Findings CBC and BMP: 02/02/25 03:47 02/02/25 03:47 Abnormal lab findings: Abnormal Labs 01/31/25 01/31/25 01/31/25 06:00 06:07 09:38 WBC 16.41 H RBC 3.14 L Hgb 9.1 L D Hct 29.0 L MCHC 31.4 L RDW Immature Gran # 0.17 H Neutrophils # Neutrophils # (Manual) 15.58 H Lymphocytes # Lymphocytes # (Manual) 0.49 L Eosinophils # Metamyelocytes # (Man) 0.16 H Microcytosis (manual) Sodium 134 L 136 L Potassium Carbon Dioxide 19 L Anion Gap BUN 35 H 35 H BUN/Creatinine Ratio Glucose 111 H 101 H Calcium Alkaline Phosphatase 149 H Total Protein 5.6 L Albumin 2.5 L Albumin/Globulin Ratio 02/01/25 02/01/25 02/02/25 06:42 06:42 03:47 WBC 18.85 H 22.65 H RBC 3.16 L 3.04 L Hgb 9.1 L 8.7 L Hct 30.1 L 28.4 L MCHC 30.2 L 30.6 L RDW 16.7 H 17.0 H Immature Gran # 0.29 H 0.40 H Neutrophils # 16.77 H 20.00 H Neutrophils # (Manual) Lymphocytes # 0.58 L 0.89 L Lymphocytes # (Manual) Eosinophils # 0.54 H 0.64 H Metamyelocytes # (Man) Microcytosis (manual) 2+ A Sodium Potassium Carbon Dioxide 18.6 L Anion Gap 15.40 H BUN 37.1 H BUN/Creatinine Ratio 37.10 H Glucose Calcium 8.1 L Alkaline Phosphatase Total Protein Albumin Albumin/Globulin Ratio 02/02/25 03:47 WBC RBC Hgb Hct MCHC RDW Immature Gran # Neutrophils # Neutrophils # (Manual) Lymphocytes # Lymphocytes # (Manual) Eosinophils # Metamyelocytes # (Man) Microcytosis (manual) Sodium Potassium 3.3 L Carbon Dioxide 19.9 L Anion Gap 16.10 H BUN 36.0 H BUN/Creatinine Ratio 40.00 H Glucose Calcium 8.4 L Alkaline Phosphatase 152 H Total Protein 5.4 L Albumin 2.5 L Albumin/Globulin Ratio 0.86 L Assessment and Plan Assessment: Metastatic non-small cell lung cancer, recently diagnosed, did undergo bronchoscopy with transbronchial biopsy of the right middle lobe endobronchial lesion, lymph node sampling and BAL performed by Dr. Vicente on 01/22/2025. Pathology was positive for non-small cell carcinoma. PET scan concerning for diffuse metastasis throughout the thorax, osseous metastatic disease, and possible right frontal brain lesion. Right hilar mass and possible postobstructive atelectasis versus pneumonia Acute COPD exacerbation Acute on chronic dyspnea Acute on chronic hypoxemic respiratory failure, currently on 4 L/min nasal cannula Possible mild colitis/diverticulitis Acute leukocytosis Infrarenal abdominal aortic aneurysm, status post endovascular grafts, at [facility] December, Anemia Former heavy tobacco dependence Plan: CT of the abdomen and pelvis showing increased consolidation in the right lung base, possible postobstructive consolidation, and small pleural effusion. Mild colitis/diverticulitis was suggested. Previously, noted infrarenal abdominal aortic aneurysm measuring 8 cm with at least 2 stent grafts present. Small gap between the stent grafts, possible endoleak. Previous evaluated by general surgery. Obtain chest x-ray Continue supplemental oxygen Continue empiric Zosyn Check procalcitonin level Continue bronchodilators Continue Symbicort and Spiriva inhalers Oncology has been consulted Case to be reviewed with Dr. Mchugh I have personally seen and examined the patient, performed the documentation and the assessment and plan as written. Number of minutes spent on the visit:20 Time with Patient: Greater than 30
--- NOTE | 2025-02-03 05:58 | P.PN ---
Subjective Progress Note Date: 02/02/25 69-year-old woman with recent diagnosis of lung cancer, COPD and hypertension. She presents today as she is having right lower quadrant and right groin pain, nausea, vomiting and diarrhea. The patient's family notes that it seemed to come on after she had the injection related to a bone scan. The patient has not had hematemesis. No dark or tarry stools. No fever or chills. Patient had recent endovascular placement of abdominal aortic stent January 08, 2025, 3 weeks ago. Patient does report she has had abdominal pain since her surgery. She reports early satiety. Poor appetite. Family reports that she had poor appetite prior to surgery. CT of the abdomen pelvis with questionable findings of early colitis versus mild diverticulitis. Right lower lobe malignancy. Presence of adrenal gland possible malignancy. T12 compression fracture 25% including sclerotic lesions along the spine highly suspicious for metastatic disease. Blood work reveals WBC of 16.4, hemoglobin of 9.1 and platelet count of 239, sodium 134, potassium 3.6, BUN/creatinine 35/0.79 and alkaline phosphatase of 149 Patient has been admitted for possible ileus/colitis versus diverticulitis; surgery is consulted 02/01/2025 Patient seen and evaluated in follow-up today continues to report significant abdominal pain and general surgery following with no plans of surgical intervention at this time. White count is elevated at 18.85 and hemoglobin remains 9.1, platelets are 183. Sodium is 137 with a potassium of 4.3, BUN 37.1 with a creatinine of 1.0. Patient being started on antibiotics per general surgery for the colitis/diverticulitis and recommends minimum 3 days of IV antibiotics and to continue with clear liquids protein shakes. Patient with significant weakness recommend PT/OT therapy evaluation. Continued poor oral intake and not much of an appetite, consult to dietary. 02/02/2025 Patient evaluated in follow-up today with multiple consultations following including general surgery. Infectious disease has been consulted and patient is continued on antibiotics and white count is elevated with concerns of underlying infection. General surgery following with no immediate plans of surgical in tervention recommending to continue with conservative management and clear liquids. Patient reports has not had a bowel movement today and on assessment there are bowel sounds noted. Patient is tolerating the clear liquids with no reported nausea or vomiting although is asking for an advancing diet. Will await surgical recommendations regarding advancement. Pulmonary has been consulted as well regarding previous endoscopy with biopsy with multiple family members awaiting to speak further with pulmonary. Oncology will also be consulted. Review of systems: Constitutional: reports of fatigue, no fever, or chills Cardiovascular: No reports of chest pain or palpitations Respiratory: reports of mild shortness of breath or cough GI: No reports of nausea, vomiting, or diarrhea, reports no bowel movement today : No reports of dysuria or retention Neurovascular: reports of generalized weakness All medications have been reviewed Physical exam: Gen: This is a 69-year-old female who is awake, alert and oriented x 3, well- developed, elderly appearing, ill-appearing HEENT: Head is atraumatic, normocephalic. Pupils equal, round. Sclerae is anicteric. NECK: Supple. No JVD. No lymphadenopathy. No thyromegaly. LUNGS: Diminished breath sounds bilaterally otherwise clear to auscultation. Bronchial congestion noted and patient able to clear with strong cough. No wheezes or rhonchi. No intercostal retractions. HEART: S1, S2 are muffled ABDOMEN: Soft. Bowel sounds are present. No masses. Mild tenderness noted on palpation. EXTREMITIES: No pedal edema. No calf tenderness. NEUROLOGICAL: Patient is awake, alert and oriented x3. Cranial nerves 2 through 12 are grossly intact. Diffusely weak Assessment: -Abdominal pain, likely secondary to early colitis with mild diverticulitis as noted on CT image -Leukocytosis, secondary to above -Possible ileus, improving continuing conservative management per surgery -multiple masses and lesions within the liver highly suspicious for metastatic disease -COPD; not in exacerbation -Hypoxic respiratory failure, recently placed on oxygen since bronchoscopy likely secondary to non-small cell lung carcinoma -Gastroesophageal reflux disease -Anxiety -Chronic back pain -Severe protein calorie malnutrition -History of recent abdominal aortic aneurysm status post endovascular graft -Recently diagnosed metastatic lung cancer from bronchoscopy with BAL and biopsy on 01/22/2025. Pathology is positive for non-small cell lung carcinoma and PET scan showing diffuse metastasis throughout the thorax and osseous metastatic disease and a possible right frontal lobe lesion. On the brain GI prophylaxis DVT prophylaxis; SCDs full code Plan: Patient was admitted with concerns of early colitis and mild diverticulitis with abdominal pain and concerns of possible ileus. Patient evaluated by general surgery with no plans of surgical intervention at this time recommending bowel rest with clear liquids and IV antibiotic therapy of at least 3 days. White count remains elevated and infectious disease was consulted and appreciate input and recommendations Pulmonary and oncology were consulted as patient's recent bronchoscopy with BAL and biopsy on 01/22/2025 for non-small cell carcinoma and patient also had a recent PET scan concerning for diffuse metastasis throughout the thoracic area with metastatic disease and also noted right frontal brain lesion Continue clear liquid diet with Ensure protein shakes in between meals Follow-up on repeat labs, replace electrolytes per protocol monitor white count Encouraged increase activity as tolerated Recommend PT/OT therapy evaluation Consult with dietary Due to multiple complex medical issues, overall prognosis is guarded The impression and plan of care has been dictated by Ciarra Machado, Nurse Practitioner as directed. Dr. Christopher MD I have performed a history and examination and MDM of this patient, discussed the same with the dictator, and agree with the dictator's assessment and plan as written ,documented as a scribe. Based on total visit time, I have performed more than 50% of the visit. Objective - Vital Signs Vital signs: Vital Signs Temp 98.7 F 02/03/25 00:34 Pulse 96 02/03/25 00:34 Resp 16 02/03/25 00:34 BP 97/62 02/03/25 00:34 Pulse Ox 99 02/03/25 00:34 FiO2 Intake & Output 02/02/25 02/02/25 02/03/25 06:59 18:59 06:59 Intake Total 800 Balance 800 Intake: Intake, IV Titration 300 Amount Magnesium Sulfate-D5w Pmx 200 1 gm In Dextrose/Water 1 100ml.bag @ 100 mls/hr IVPB Q1H [facility] Rx#: [id number] Piperacillin-Tazobactam 3 100 .375 gm In Sodium Chloride 0.9% 100 ml @ 25 mls/hr IVPB Q8HR RUTHIE Rx# :[id number] Oral 500 Other: Voiding Method Diaper Diaper Diaper Incontinent # Voids 2 1 1 - Labs CBC & Chem 7: 02/02/25 03:47 02/02/25 03:47 Labs: Abnormal Lab Results - Last 24 Hours (Table) 02/02/25 02/02/25 Range/Units 03:47 03:47 WBC 22.65 H (4.50-10.00) X 10*3/uL RBC 3.04 L (4.10-5.20) X 10*6/uL Hgb 8.7 L (12.0-15.0) g/dL Hct 28.4 L (37.2-46.3) % MCHC 30.6 L (32.0-37.0) g/dL RDW 17.0 H (11.5-14.5) % Immature Gran # 0.40 H (0.00-0.04) X 10*3/uL Neutrophils # 20.00 H (1.80-7.70) X 10*3/uL Lymphocytes # 0.89 L (0.90-5.00) X 10*3/uL Eosinophils # 0.64 H (0.04-0.35) X 10*3/uL Potassium 3.3 L (3.5-5.5) mmol/L Carbon Dioxide 19.9 L (21.6-31.8) mmol/L Anion Gap 16.10 H (4.00-12.00) mmol/L BUN 36.0 H (9.0-27.0) mg/dL BUN/Creatinine Ratio 40.00 H (12.00-20.00) Ratio Calcium 8.4 L (8.7-10.3) mg/dL Alkaline Phosphatase 152 H (41-126) U/L Total Protein 5.4 L (6.2-8.2) g/dL Albumin 2.5 L (3.8-4.9) g/dL Albumin/Globulin Ratio 0.86 L (1.60-3.17) Ratio
--- NOTE | 2025-02-03 07:16 | P.CNPUL ---
History of Present Illness Consult date: 02/02/25 Reason for consult: COPD History of present illness: This is a 69-year-old female patient with known history of COPD and lung cancer, and known history of abdominal aortic aneurysm post endovascular stent placement and the procedure was done on 01/08/2025. The patient presented to the hospital because of right lower quadrant pain, nausea, emesis and diarrhea. No reported GI bleeding. The patient had diminished appetite. CAT scan of the abdomen and pelvis was done and it showed early colitis versus mild diverticulitis. There was T12 compression fraction of the spine with 25% involvement and there was also sclerotic lesion along the spine highly suspicious for metastatic disease. There was also suspected adrenal metastases and ongoing consolidation in the right lung base. As for the infrarenal abdominal aortic aneurysm, this was measuring up to 8 cm in size with at least 2 stent graft present. A small gap between the stent grafts possibly resulting endoleak. Noted, the patient's diagnosis of lung cancer is quite recent. The patient was seen in consultation on 01/21/2025 with worsening shortness of breath, weight loss and CAT scan of the chest was done on 01/21/2025 and a CAT scan showed lymphadenopathy throughout the chest concerning for malignancy and the right lower lobe pulmonary nodule, metastatic left rib lesion and left-sided posterior rib fracture without evidence of pneumothorax and concern of osseous lesions and pathologic fractures seen in the scapula. There was lymphadenopathy seen in the right hilum with narrowing of the adjacent bronchus. Based on that, the patient had a bronchoscopy done and the bronchoscopy showed significant obstruction of the right middle lobe bronchus with endobronchial tumor endobronchial biopsies performed in the involved area was consistent with pulmonary adenocarcinoma with squamous differentiation. The mediastinal lymph node sampling was hypocellular. Subsequently, the patient had a PET/CT that was done on an outpatient basis and the PET scan showed metastatic neoplasm, prominent lymphadenopathy involving the right thorax with osseous metastatic disease present. There was an expansile hypermetabolic left anterior lateral mid rib lesion and destructive soft tissue mass involving the right posterior 4th and 5th ribs and scattered additional metabolic reactive lytic lesions involving the right scapula and multiple lesions involving the spine and pelvis. There was also evidence of bilateral hypermetabolic adrenal masses consistent with metastases. For now, the patient is being seen by general surgery regarding the abdominal pain. The patient is currently on IV Zosyn. Patient is also on Spiriva and Symbicort and inhalers and normal saline at rate of 75 cc an hour. The patient is currently on oxygen at 4 L with a pulse ox of 98%. Hemodynamically stable. Review of Systems Constitutional: Reports poor appetite, Reports weakness, Reports weight loss Eyes: denies as per HPI, denies blurred vision, denies bulging eye, denies decreased vision, denies diplopia, denies discharge, denies dry eye, denies irritation, denies itching, denies pain, denies photophobia, denies loss of letty pheral vision, denies loss of vision, denies tunnel vision/blind spots Ears: deny: decreased hearing, ear discharge, earache, tinnitus Ears, nose, mouth and throat: Reports as per HPI Breasts: absent: as per HPI, change in shape, gynecomastia, masses, nipple discharge, pain, skin changes, swelling Cardiovascular: Reports decreased exercise tolerance, Reports dyspnea on exertion Respiratory: Reports cough, Reports dyspnea Gastrointestinal: Reports abdominal pain Genitourinary: Reports as per HPI Menstruation: Reports as per HPI Musculoskeletal: Reports as per HPI Musculoskeletal: absent: ankle pain, ankle stiffness, ankle swelling, as per HPI, elbow pain, elbow stiffness, elbow swelling, foot pain, foot stiffness, foot swelling, hand pain, hand stiffness, hand swelling, hip pain, hip stiffness, hip swelling, knee pain, knee stiffness, knee swelling, shoulder pain, shoulder stiffness, shoulder swelling, wrist pain, wrist stiffness, wrist swelling Integumentary: Reports as per HPI Neurological: Reports as per HPI Psychiatric: Reports as per HPI Endocrine: Reports as per HPI Past Medical History Past Medical History: Cancer (Metastatic non-small cell lung cancer, pulm adenocarcinoma), COPD, Hypertension Additional Past Medical History / Comment(s): Metastatic non-small cell lung cancer, pulm adenocarcinoma, abdominal aortic aneurysm post endovascular stent graft think, COPD History of Any Multi-Drug Resistant Organisms: None Reported Past Surgical History: Cholecystectomy Additional Past Surgical History / Comment(s): Aortic Aneurysm Repair ( [facility] ) 2024, lung biopsy Additional Past Anesthesia/Blood Transfusion Reaction / Comment(s): na Past Psychological History: Anxiety Smoking Status: Former smoker Past Alcohol Use History: Rare Past Drug Use History: Marijuana - Past Family History Mother Additional Family Medical History / Comment(s): respiratory failure, probably cancer but unsure. Father Additional Family Medical History / Comment(s): from stomach cancer Medications and Allergies Home Medications Medication Instructions Recorded Confirmed Type RX: Aspirin EC [Ecotrin Low Dose] 81 mg PO DAILY 01/21/25 01/31/25 History RX: Cyclobenzaprine [Flexeril] 5 - 10 mg PO Q8H PRN 01/21/25 01/31/25 History RX: Fluticasone/Umeclidin/Vilanter 1 puff INHALATION RT-DAILY 01/21/25 01/31/25 History [Trelegy Ellipta 200-62.5-25] RX: Nicotine 14Mg/24Hr Patch 1 patch TRANSDERM DAILY #10 patch 01/23/25 01/31/25 Rx [Habitrol] RX: Pantoprazole [Protonix] 40 mg PO AC-BRKFST #30 01/23/25 01/31/25 Rx Diclofenac Sodium [Voltaren] 75 mg PO BID PRN 01/31/25 01/31/25 History Lidocaine 5% Patch [Lidoderm] 1 patch TRANSDERM DAILY PRN 01/31/25 01/31/25 History Ondansetron [Zofran] 4 mg PO Q8H PRN 01/31/25 01/31/25 History RX: HYDROcodone/APAP 7.5-325MG 1 tab PO Q6H PRN 01/31/25 01/31/25 History [[place] 7.5-325] clonazePAM [KlonoPIN ODT] 0.25 mg PO DAILY PRN 01/31/25 01/31/25 History Allergies Allergy/AdvReac Type Severity Reaction Status Date / Time No Known Allergies Allergy Verified 01/31/25 08:49 Physical Exam Vitals: Vital Signs Temp Pulse Resp BP Pulse Ox 02/02/25 07:42 97.5 F L 91 16 92/61 98 02/02/25 00:32 98.3 F 102 H 19 98/64 98 02/01/25 21:07 94 87/59 02/01/25 19:25 97.6 F 97 19 89/51 96 02/01/25 14:00 97.6 F 91 18 81/52 97 Intake and Output 02/01/25 02/02/25 02/02/25 22:59 06:59 14:59 Other: Voiding Method Diaper # Voids 2 2 GENERAL EXAM: Alert, 69-year-old female, on 4 L nasal cannula, fairly comfortable in no apparent distress. HEAD: Normocephalic. EYES: Normal reaction of pupils, equal size. NOSE: Clear with pink turbinates. THROAT: No erythema or exudates. NECK: No masses, no JVD. CHEST: No chest wall deformity. LUNGS: Equal air entry with no crackles, wheeze, rhonchi or dullness. Diminished breath sounds right lung base CVS: S1 and S2 normal with no audible murmur, regular rhythm. ABDOMEN: No hepatosplenomegaly, normal bowel sounds, no guarding or rigidity. SPINE: No scoliosis or deformity SKIN: No rashes CENTRAL NERVOUS SYSTEM: No focal deficits, tone is normal in all 4 extremities. EXTREMITIES: There is no peripheral edema. No clubbing, no cyanosis. Peripheral pulses are intact. Results - Laboratory Findings CBC and BMP: 02/02/25 03:47 02/02/25 03:47 Abnormal lab findings: Abnormal Labs 01/31/25 01/31/25 01/31/25 06:00 06:07 09:38 WBC 16.41 H RBC 3.14 L Hgb 9.1 L D Hct 29.0 L MCHC 31.4 L RDW Immature Gran # 0.17 H Neutrophils # Neutrophils # (Manual) 15.58 H Lymphocytes # Lymphocytes # (Manual) 0.49 L Eosinophils # Metamyelocytes # (Man) 0.16 H Microcytosis (manual) Sodium 134 L 136 L Potassium Carbon Dioxide 19 L Anion Gap BUN 35 H 35 H BUN/Creatinine Ratio Glucose 111 H 101 H Calcium Alkaline Phosphatase 149 H Total Protein 5.6 L Albumin 2.5 L Albumin/Globulin Ratio 02/01/25 02/01/25 02/02/25 06:42 06:42 03:47 WBC 18.85 H 22.65 H RBC 3.16 L 3.04 L Hgb 9.1 L 8.7 L Hct 30.1 L 28.4 L MCHC 30.2 L 30.6 L RDW 16.7 H 17.0 H Immature Gran # 0.29 H 0.40 H Neutrophils # 16.77 H 20.00 H Neutrophils # (Manual) Lymphocytes # 0.58 L 0.89 L Lymphocytes # (Manual) Eosinophils # 0.54 H 0.64 H Metamyelocytes # (Man) Microcytosis (manual) 2+ A Sodium Potassium Carbon Dioxide 18.6 L Anion Gap 15.40 H BUN 37.1 H BUN/Creatinine Ratio 37.10 H Glucose Calcium 8.1 L Alkaline Phosphatase Total Protein Albumin Albumin/Globulin Ratio 02/02/25 03:47 WBC RBC Hgb Hct MCHC RDW Immature Gran # Neutrophils # Neutrophils # (Manual) Lymphocytes # Lymphocytes # (Manual) Eosinophils # Metamyelocytes # (Man) Microcytosis (manual) Sodium Potassium 3.3 L Carbon Dioxide 19.9 L Anion Gap 16.10 H BUN 36.0 H BUN/Creatinine Ratio 40.00 H Glucose Calcium 8.4 L Alkaline Phosphatase 152 H Total Protein 5.4 L Albumin 2.5 L Albumin/Globulin Ratio 0.86 L - Diagnostic Findings Chest x-ray: image reviewed CT scan - chest: image reviewed Assessment and Plan Plan: Stage IV non-small cell lung cancer. The patient has extensive lymphadenopathy along the right hemithorax causing mass effect on the right middle lobe and right lower lobe bronchus and the patient has atelectatic changes right lung base along with a small to moderate-sized right-sided pleural effusion. Postobstructive pneumonia is felt to be less likely. This is probably part of the natural progression of her underlying malignancy. Noted the patient has evidence of bilateral adrenal metastases, and skeletal metastases involving the ribs, scapula and spine. Please refer to the PET/CT done on 02/01/2025. The pathology is consistent with pulm adenocarcinoma with squamous differentiation. Metastatic lesions with expansile hypermetabolic left anterior lateral mid rib lesion and destructive soft tissue mass involving the right posterior 4th and 5th ribs and scattered additional metabolic reactive lytic lesions involving the right scapula and multiple lesions involving the spine and pelvis. Abdominal pain/colitis Acute leukocytosis Chronic smoker ongoing chronic tobacco dependence of 50 years Abdominal aortic aneurysm stent placement at [facility] December 2024 Severe chronic obstructive pulmonary disease maintained on Trelegy, albuterol Significant weight loss of over 20 pounds in the past 1 to 2 months Hypertension Plan Continue IV Zosyn Titrate oxygen flow to maintain saturation above 90% No need for thoracentesis of the right lung. The pleural effusion is small and there is atelectatic changes due to the extensive right hilar lymphadenopathy causing mass effect on the right lower lobe and right middle lobe bronchus Oncology consultation General Surgery consultation Check blood cultures Continue respiratory medications Will follow
--- NOTE | 2025-02-03 08:27 | XR ---
EXAMINATION TYPE: XR chest 1V portable DATE OF EXAM: 02/03/2025 6:38 AM COMPARISON: 01/21/2025 CLINICAL INDICATION: Female, 69 years old with history of Possible postobstructive pneumonia; hx lung cancer, , FINDINGS: Hyperinflation. Mild diffuse interstitial density. Tortuous/ectatic thoracic aorta. Right heart gadiel n obscured by adjacent pleural parenchymal opacity. Extensive new right lower lung opacity compared t o prior radiograph. Subtle density periphery of the left mid to lower lung in keeping with known ante rior left rib lesion. Some mediastinal widening compatible with known adenopathy. IMPRESSION: 1. COPD with new [id number] right pleural effusion with prominent adjacent atelectasis and/or consolidation compared to the 01/21/2025 radiograph. 2. Slight mediastinal widening in keeping with patient's known adenopathy. 3. Density corresponding to known anterior left rib lesion. [facility], Workstation: [facility]ITALG[facility] GroupKASIA, 02/03/2025 8:25 AM
[2025-02-03 08:30] LABS: Basophils # (A) 0.09 X 10*3/uL (0.00-0.10); Basophils % (A) 0.5 %; Eosinophils # (A) 0.43 X 10*3/uL (0.04-0.35); Eosinophils % (A) 2.4 %; HCT 28.6 % (37.2-46.3); HGB 8.7 g/dL (12.0-15.0); Lymphocytes # (A) 1.16 X 10*3/uL (0.90-5.00); Lymphocytes % (A) 6.5 %; MCH 28.3 pg (27.0-32.0); MCHC 30.4 g/dL (32.0-37.0); MCV 93.2 FL (80.0-97.0); Mean Platelet Volume 9.9 FL (9.5-12.2); Monocytes # (A) 0.62 X 10*3/uL (0.20-1.00); Monocytes % (A) 3.4 %; NRBC Per 100 WBC 0 X 10*3/uL (0.00-0.01); Neutrophils % (A) 83.4 %; Platelet Count 204 X 10*3/uL (140-440); RBC 3.07 X 10*6/uL (4.10-5.20); RDW 16.8 % (11.5-14.5); WBC 17.98 X 10*3/uL (4.50-10.00)
--- NOTE | 2025-02-03 08:42 | P.PN ---
Subjective Progress Note Date: 02/03/25 CHIEF COMPLAINT: Abdominal pain HISTORY OF PRESENT ILLNESS: The patient is a 69-year-old female with recent diagnosis of lung cancer including large abdominal aortic aneurysm who presents with abdominal pain. She sits up in chair. Since hospitalization, patient continues to have progressive hypotension. White blood cell count continues to elevate. No increased abdominal pain. Patient's concern is hypotension secondary to cancer. REVIEW OF ORGAN SYSTEMS: No chest pain. No shortness of breath. Productive sputum. PHYSICAL EXAM: VITALS: Reviewed CONSTITUTIONAL: Well developed and in no acute distress. EYES: Conjuctivae without sclera icterus. Extraocular movements grossly intact. HEAD, EARS, NOSE, THROAT: Moist buccal mucosa. Head is atraumatic, normocephalic. Hears conversational speech. No nasal drainage. RESPIRATORY: Gross wheezes. Wet cough. CARDIOVASCULAR: Palpable 2+ radial pulses. ABDOMEN: No peritonitis. Minimal bilateral upper abdominal pain. MUSCULOSKELETAL: No clubbing cyanosis or edema. Ambulates with walker. SKIN: Warm and well perfused with good skin turgor. Multiple bruising along the arms. NEUROLOGIC: Cranial nerves II through XII grossly intact. No focal or lateralizing signs. PSYCH: Appropriate affect. Alert and oriented to person, place and time. Displays appropriate insight. CLINCAL LABS: Reviewed. WBC was increasing from 18-23,000, today back down to 18,000. ASSESSMENT: 1. Abdominal pain in the presence of abnormal CT scan for col itis/diverticulitis 2. Abdominal aortic aneurysm status post endovascular graft 3. Metastatic lung cancer 4. Decreased appetite 5. Chronic obstructive pulmonary disease due to tobacco abuse disorder 6. Hypoalbuminemia 7. Moderate to severe protein malnutrition 8. Pneumonia 9. Hypotension PLAN: 1. Patient has persistent hypotension in the last 3+ days with systolic blood pressures under in light of her abdominal cancer aneurysm and clinical presentation, cardiology consultation was also obtained. 2. Appreciate pulmonary consultation due to lung cancer in light of possible pneumonia for persistent leukocytosis. 3. As she complains of bilateral upper abdominal pain, will obtain lipase level 4. Advance diet to full liquid diet 5. Care plan reviewed with patient and agrees with plan of care Dictation was produced using [employer]ge[employer] dictation software. Please excuse any grammatical, word or spelling errors. Objective - Vital Signs Vital signs: Vital Signs Temp 97.7 F 02/03/25 08:00 Pulse 81 02/03/25 08:00 Resp 19 02/03/25 08:00 BP 113/73 02/03/25 08:00 Pulse Ox 100 02/03/25 08:00 FiO2 Intake & Output 02/02/25 02/03/25 02/03/25 18:59 06:59 18:59 Intake Total 800 Balance 800 Intake: Intake, IV Titration 300 Amount Magnesium Sulfate-D5w Pmx 200 1 gm In Dextrose/Water 1 100ml.bag @ 100 mls/hr IVPB Q1H [facility]UTHIE Rx#: [id number] Piperacillin-Tazobactam 3 100 .375 gm In Sodium Chloride 0.9% 100 ml @ 25 mls/hr IVPB Q8HR [facility] Rx# :[id number] Oral 500 Other: Voiding Method Diaper Diaper Incontinent # Voids 1 1 - Labs CBC & Chem 7: 02/03/25 03:28 02/02/25 03:47 Labs: Abnormal Lab Results - Last 24 Hours (Table) 02/02/25 02/03/25 Range/Units 03:47 03:28 WBC 17.98 H (4.50-10.00) X 10*3/uL RBC 3.07 L (4.10-5.20) X 10*6/uL Hgb 8.7 L (12.0-15.0) g/dL Hct 28.6 L (37.2-46.3) % MCHC 30.4 L (32.0-37.0) g/dL RDW 16.8 H (11.5-14.5) % Immature Gran # 0.68 H (0.00-0.04) X 10*3/uL Neutrophils # 15.00 H (1.80-7.70) X 10*3/uL Eosinophils # 0.43 H (0.04-0.35) X 10*3/uL Potassium 3.3 L (3.5-5.5) mmol/L Carbon Dioxide 19.9 L (21.6-31.8) mmol/L Anion Gap 16.10 H (4.00-12.00) mmol/L BUN 36.0 H (9.0-27.0) mg/dL BUN/Creatinine Ratio 40.00 H (12.00-20.00) Ratio Calcium 8.4 L (8.7-10.3) mg/dL Alkaline Phosphatase 152 H (41-126) U/L Total Protein 5.4 L (6.2-8.2) g/dL Albumin 2.5 L (3.8-4.9) g/dL Albumin/Globulin Ratio 0.86 L (1.60-3.17) Ratio
[2025-02-03] MEDS: IPRATROPIUM-ALBUTEROL 3 ML NEB INHALATION SCH (10:12)
--- NOTE | 2025-02-03 10:15 | P.PN ---
Progress Note - Text Progress Note Date: 02/03/25 Notified by naphthalene operator helper, Dr. Zhou that patient refused any further management by cardiology team. As result, cardiology team no longer following patient per patient request.
[2025-02-03 10:27] LABS: ALT 10 U/L (8-44); AST 15 U/L (13-35); Albumin 2.5 g/dL (3.8-4.9); Albumin/Globulin Ratio 0.86 Ratio (1.60-3.17); Alkaline Phosphatase 158 U/L (41-126); Blood Urea Nitrogen 27.3 mg/dL (9.0-27.0); Calcium 8.2 mg/dL (8.7-10.3); Carbon Dioxide 21.1 mmol/L (21.6-31.8); Chloride 104 mmol/L (96-109); Globulin 2.9 g/dL (1.6-3.3); Glucose 80 mg/dL (70-110); Magnesium 2.1 mg/dL (1.5-2.4); Potassium 3.6 mmol/L (3.5-5.5); Sodium 139 mmol/L (135-145); Total Bilirubin 0.3 mg/dL (0.3-1.2); Total Protein 5.4 g/dL (6.2-8.2)
--- NOTE | 2025-02-03 10:59 | P.CRDCN ---
History of Present Illness History of present illness: HISTORY OF PRESENTING ILLNESS This is a pleasant 69-year-old female past medical history significant for chronic nicotine dependence, abdominal aortic aneurysm status post stent gr aft repair January 08, 2025 at [facility] with Dr. Farrell, lung cancer with metastasis and acid reflux. She does not follow in the office with a air commodore. We have been asked to see in consultation for hypotension. She presented to the hospital with symptoms of abdominal pain. She was found to have an ileus. CT imaging indicates lung cancer with metastasis which is newly diagnosed, she has yet to begin treatment. She indicates January 08 she underwent abdominal aortic stent graft repair at [facility]. She has yet to follow-up due to hospitalizations and doctors appointments in terms of her new oncology diagnosis. Her blood pressure on a couple of occasions was in the 80s systolic. She takes no antihypertensive agents. She denies dizziness or syncope. EKG reveals sinus tachycardia heart rate of [address] or T wave abnormalities noted. Laboratory data reviewed, WBC 17.9, hemoglobin 8.7, platelets 204, sodium 139, potassium 3.6, creatinine 0.7. REVIEW OF SYSTEMS At the time of my exam: CONSTITUTIONAL: Denies fever or chills. CARDIOVASCULAR: Complains of shortness of breath. Denies chest pain, orthopnea, PND or palpitations. RESPIRATORY: Complains of cough. GASTROINTESTINAL: Denies abdominal pain, diarrhea, constipation, nausea or v omiting. MUSCULOSKELETAL: Denies myalgias. NEUROLOGIC: Denies numbness, tingling, headache or weakness. ENDOCRINE: Denies fatigue, weight change, polydipsia or polyurina. GENITOURINARY: Denies burning, hematuria or urgency with micturation. HEMATOLOGIC: Denies history of anemia or bleeding. PHYSICAL EXAMINATION Blood pressure 113/73 heart rate 88 afebrile and maintaining oxygen saturation on nasal cannula. CONSTITUTIONAL: No apparent distress. HEENT: Head is normocephalic. Pupils are equal, round. Sclerae anicteric. Mucous membranes of the mouth are moist. No JVD. No carotid bruit. CHEST EXAMINATION: Scattered rhonchi and expiratory wheezes noted throughout. No rales. No chest wall tenderness is noted on palpation or with deep breathing. HEART EXAMINATION: Regular rate and rhythm. S1, S2 heard. No murmurs, gallops or rub. Distant heart sounds. ABDOMEN: Soft, nontender. EXTREMITIES: 2+ peripheral pulses, no lower extremity edema and no calf tenderness. NEUROLOGIC EXAMINATION: Patient is awake, alert and oriented x3. Appears older than stated age. ASSESSMENT Stage IV lung cancer with metastasis Acute exacerbation of COPD with chronic hypoxemic respiratory failure Abdominal aortic aneurysm status post stent graft repair Chronic nicotine dependence PLAN Continue current medical regimen. Obtain 2D echocardiogram and Doppler study to assess cardiac structure and function. Continue with septic workup. We will follow along as needed. Thank you kindly for this consultation. Nurse Practitioner note has been reviewed, I agree with a documented findings and plan of care. Patient was seen and examined. Past Medical History Past Medical History: Cancer (Metastatic non-small cell lung cancer, pulm adenocarcinoma), COPD, Hypertension Additional Past Medical History / Comment(s): Metastatic non-small cell lung cancer, pulm adenocarcinoma, abdominal aortic aneurysm post endovascular stent graft think, COPD History of Any Multi-Drug Resistant Organisms: None Reported Past Surgical History: Cholecystectomy Additional Past Surgical History / Comment(s): Aortic Aneurysm Repair ( [facility] ) 2024, lung biopsy Additional Past Anesthesia/Blood Transfusion Reaction / Comment(s): na Past Psychological History: Anxiety Smoking Status: Former smoker Past Alcohol Use History: Rare Past Drug Use History: Marijuana - Past Family History Mother Additional Family Medical History / Comment(s): respiratory failure, probably cancer but unsure. Father Additional Family Medical History / Comment(s): from stomach cancer Medications and Allergies Home Medications Medication Instructions Recorded Confirmed Type Aspirin EC [Ecotrin Low Dose] 81 mg PO DAILY 01/21/25 01/31/25 History Cyclobenzaprine [Flexeril] 5 - 10 mg PO Q8H PRN 01/21/25 01/31/25 History Fluticasone/Umeclidin/Vilanter 1 puff INHALATION RT-DAILY 01/21/25 01/31/25 History [Trelegy Ellipta 200-62.5-25] Nicotine 14Mg/24Hr Patch [Habitrol] 1 patch TRANSDERM DAILY #10 patch 01/23/25 01/31/25 Rx Pantoprazole [Protonix] 40 mg PO AC-BRKFST #30 01/23/25 01/31/25 Rx Diclofenac Sodium [Voltaren] 75 mg PO BID PRN 01/31/25 01/31/25 History HYDROcodone/APAP 7.5-325MG [[place] 1 tab PO Q6H PRN 01/31/25 01/31/25 History 7.5-325] Lidocaine 5% Patch [Lidoderm] 1 patch TRANSDERM DAILY PRN 01/31/25 01/31/25 History Ondansetron [Zofran] 4 mg PO Q8H PRN 01/31/25 01/31/25 History clonazePAM [KlonoPIN ODT] 0.25 mg PO DAILY PRN 01/31/25 01/31/25 History Allergies Allergy/AdvReac Type Severity Reaction Status Date / Time No Known Allergies Allergy Verified 01/31/25 08:49 Physical Exam Vitals: Vital Signs Temp Pulse Pulse Resp BP Pulse Ox 02/03/25 10:26 88 02/03/25 10:13 84 02/03/25 08:00 97.7 F 81 19 113/73 100 02/03/25 00:34 98.7 F 96 16 97/62 99 02/02/25 19:07 97.7 F 86 16 88/58 96 02/02/25 13:43 97.5 F L 94 18 90/63 98 Intake and Output 02/02/25 02/03/25 02/03/25 22:59 06:59 14:59 Intake Total 800 Balance 800 Intake: Intake, IV Titration 300 Amount Magnesium Sulfate-D5w Pmx 200 1 gm In Dextrose/Water 1 100ml.bag @ 100 mls/hr IVPB Q1H [facility] Rx#: [id number] Piperacillin-Tazobactam 3 100 .375 gm In Sodium Chloride 0.9% 100 ml @ 25 mls/hr IVPB Q8HR [facility] Rx# :[id number] Oral 500 Other: Voiding Method Diaper Incontinent # Voids 1 1 Results 02/03/25 03:28 02/03/25 03:28 Cardiac Enzymes 02/03/25 Range/Units 03:28 AST 15 (13-35) U/L CBC 02/03/25 Range/Units 03:28 WBC 17.98 H (4.50-10.00) X 10*3/uL RBC 3.07 L (4.10-5.20) X 10*6/uL Hgb 8.7 L (12.0-15.0) g/dL Hct 28.6 L (37.2-46.3) % Plt Count 204 (140-440) X 10*3/uL Comprehensive Metabolic Panel 02/03/25 Range/Units 03:28 Sodium 139 (135-145) mmol/L Potassium 3.6 (3.5-5.5) mmol/L Chloride 104 (96-109) mmol/L Carbon Dioxide 21.1 L (21.6-31.8) mmol/L BUN 27.3 H (9.0-27.0) mg/dL Creatinine 0.7 (0.6-1.5) mg/dL Glucose 80 (70-110) mg/dL Calcium 8.2 L (8.7-10.3) mg/dL AST 15 (13-35) U/L ALT 10 (8-44) U/L Alkaline Phosphatase 158 H (41-126) U/L Total Protein 5.4 L (6.2-8.2) g/dL Albumin 2.5 L (3.8-4.9) g/dL Current Medications Generic Name Dose Route Start Last Admin Trade Name Freq PRN Reason Stop Dose Admin Hydrocodone Bitart/Acetaminophen 1 each 02/02/25 21:16 02/03/25 09:08 Hydrocodone/Apap 7.5-325mg 1 Each Tab PO 1 each Q4H PRN Administration Severe Pain (Scale 7 to 10) Albuterol/Ipratropium 3 ml 02/03/25 08:00 02/03/25 10:12 Ipratropium-Albuterol 3 Ml Neb INHALATION 3 ml RT-QID [facility] Administration Budesonide/Formoterol Fumarate 2 puff 02/01/25 08:00 02/03/25 10:12 Symbicort 160-4.5 Mcg Inhaler INHALATION 2 puff RT-BID [facility] Administration Clonazepam 0.25 mg 01/31/25 09:14 Clonazepam 0.5 Mg Tab PO DAILY PRN Anxiety Sodium Chloride 1,000 mls @ 60 mls/hr 01/31/25 07:15 02/03/25 03:00 Saline 0.9% IV Not Given .[id number] [facility] Piperacillin Sod/Tazobactam 100 mls @ 25 mls/hr 01/31/25 09:30 02/03/25 07:44 Sod 3.375 gm/ Sodium Chloride IVPB 25 mls/hr Q8HR [facility] Administration Protocol Miscellaneous Information 1 each 02/02/25 15:10 Potassium Replacement Protocol 1 Each Misc MISCELLANE DAILY PRN Per Protocol Protocol Miscellaneous Information 1 each 02/02/25 15:10 Magnesium Replacement Protocol 1 Each Misc MISCELLANE DAILY PRN Per Protocol Protocol Naloxone HCl 0.2 mg 01/31/25 07:08 Naloxone 0.4 Mg/Ml 1 Ml Vial IV Q2M PRN Opioid Reversal Ondansetron HCl 4 mg 01/31/25 07:08 Ondansetron 4 Mg/2 Ml Vial IVP Q8HR PRN Nausea And Vomiting Petrolatum 1 applic 01/31/25 10:21 Zinc Oxide Paste (Z-Guard) 1 Applic TOPICAL BID PRN Wound Healing Protocol Tiotropium [place] 2 puff 02/01/25 08:00 02/03/25 10:12 Tiotropium 2.5 Mcg Inhaler INHALATION 2 puff RT-DAILY [facility] Administration Intake and Output 02/02/25 02/03/25 02/03/25 22:59 06:59 14:59 Intake Total 800 Balance 800 Intake: Intake, IV Titration 300 Amount Magnesium Sulfate-D5w Pmx 200 1 gm In Dextrose/Water 1 100ml.bag @ 100 mls/hr IVPB Q1H [facility] Rx#: [id number] Piperacillin-Tazobactam 3 100 .375 gm In Sodium Chloride 0.9% 100 ml @ 25 mls/hr IVPB Q8HR [facility] Rx# :[id number] Oral 500 Other: Voiding Method Diaper Incontinent # Voids 1 1 02/03/25 03:28 02/03/25 03:28
[2025-02-03] MEDS: FUROSEMIDE 10 MG/ML 2 ML VIAL IV SCH (11:29)
[2025-02-03] MEDS ORDERED: RX INFO: IV CONTRAST WAS GIVEN 1 EACH MISC MISCELLANE PRN (12:14)
[2025-02-03] MEDS: LORazepam 1 MG/0.5 ML VIAL IV STA (12:33)
--- NOTE | 2025-02-03 12:52 | P.GSCN ---
History of Present Illness Consult date: 02/03/25 Reason for Consult: Possible AAA endovascular leak Requesting physician: Brigette Salamanca History of present illness: This is a pleasant 69-year-old female with past medical history of 8 cm abdominal aortic aneurysm status post repair with graft with Dr. Farrell at [facility] 01/07/2025, COPD, hypertension, former smoker, and recent diagnosis of metastatic non-small cell lung carcinoma with pulmonary adenocarci noma. Patient had presented to the emergency department on 01/31/2025 with multiple complaints including shortness of breath, rib pain, right groin/lower abdominal pain, diarrhea with nausea and vomiting. She states that she had CAT scan that was done and he had contrast and following that she had nausea vomiting and diarrhea. She states that has all resolved as well as right inguinal pain. She continues to have rib pain. As part of her workup she had a CT of the abdomen pelvis without contrast 3 days ago that reported some possible mild colitis/diverticulitis suggested in the pelvis. Also reported infrarenal abdominal aortic aneurysm up to 8 cm with 2 stent graft persistent, small gap between the stent grafts possible resulting endoleak. Vascular surgery was consulted for possible endoleak. Currently patient denies any acute shortness of breath or chest pain, he has some discomfort along and below her rib cage, bilateral lower extremities with significant swelling with blisters that are weeping. States that the lower extremity swelling began during this hospitalization. She had been seen in the office with Dr. Frausto following her AAA repair secondary to ongoing pain, order for CTA chest abdomen pelvis was ordered however patient states that she never made it to get the test done. She was told during this hospitalization of her metastatic lung cancer, she had a PET scan done on 01/29/2025 with concerns of metastasis into rib cage and bones, as well as brain. Oncology is recommending MRI of the brain however patient is declining. She denies any acute pain in her lower extremities to states that they feel cold. Review of Systems A 14 point review systems was completed all pertinent positives and negatives as stated in the HPI. Past Medical History Past Medical History: Cancer (Metastatic non-small cell lung cancer, pulm adenocarcinoma), COPD, Hypertension Additional Past Medical History / Comment(s): Metastatic non-small cell lung cancer, pulm adenocarcinoma, abdominal aortic aneurysm post endovascular stent graft think, COPD History of Any Multi-Drug Resistant Organisms: None Reported Past Surgical History: Cholecystectomy Additional Past Surgical History / Comment(s): Aortic Aneurysm Repair ( [facility] ) 2024, lung biopsy Additional Past Anesthesia/Blood Transfusion Reaction / Comm: na Past Psychological History: Anxiety Smoking Status: Former smoker Past Alcohol Use History: Rare Past Drug Use History: Marijuana - Past Family History Mother Additional Family Medical History / Comment(s): respiratory failure, probably cancer but unsure. Father Additional Family Medical History / Comment(s): from stomach cancer Medications and Allergies Home Medications Medication Instructions Recorded Confirmed Type Aspirin EC [Ecotrin Low Dose] 81 mg PO DAILY 01/21/25 01/31/25 History Cyclobenzaprine [Flexeril] 5 - 10 mg PO Q8H PRN 01/21/25 01/31/25 History Fluticasone/Umeclidin/Vilanter 1 puff INHALATION RT-DAILY 01/21/25 01/31/25 History [Trelegy Ellipta 200-62.5-25] Nicotine 14Mg/24Hr Patch [Habitrol] 1 patch TRANSDERM DAILY #10 patch 01/23/25 01/31/25 Rx Pantoprazole [Protonix] 40 mg PO AC-BRKFST #30 01/23/25 01/31/25 Rx Diclofenac Sodium [Voltaren] 75 mg PO BID PRN 01/31/25 01/31/25 History HYDROcodone/APAP 7.5-325MG [[place] 1 tab PO Q6H PRN 01/31/25 01/31/25 History 7.5-325] Lidocaine 5% Patch [Lidoderm] 1 patch TRANSDERM DAILY PRN 01/31/25 01/31/25 History Ondansetron [Zofran] 4 mg PO Q8H PRN 01/31/25 01/31/25 History clonazePAM [KlonoPIN ODT] 0.25 mg PO DAILY PRN 01/31/25 01/31/25 History Allergies Allergy/AdvReac Type Severity Reaction Status Date / Time No Known Allergies Allergy Verified 01/31/25 08:49 Surgical - Exam Vital Signs Temp Pulse Resp BP Pulse Ox 97.9 F 72 16 95/66 98 01/31/25 01:27 01/31/25 01:27 01/31/25 01:27 01/31/25 01:27 01/31/25 01:27 General appearance: The patient is alert, oriented, appears in no acute distress. Obese. HET: Head is normocephalic and atraumatic. Pupils are equal and reactive. Neck: Supple. Heart: Regular. Lungs: Equal expansion, normal respiratory effort. Abdomen: Soft, nontender, nondistended. Extremities: Bilateral lower extremity pitting edema, with blisters along dorsal aspect of feet and toes. Patient's bilateral feet are cool to the touch, toes are pale, with purple discoloration on plantar aspect with blanching. Good capillary refill. Palpable bilateral femoral pulses. Unable to palpate DP or PT pulse likely secondary to swelling. Multiphasic PT and DP's Doppler signals. Neurological: No focal deficits. Strength and sensation are grossly intact. Results - Labs 02/03/25 03:28 02/03/25 03:28 Abnormal Lab Results - Last 24 Hours (Table) 02/03/25 02/03/25 02/03/25 Range/Units 03:28 03:28 03:28 WBC 17.98 H (4.50-10.00) X 10*3/uL RBC 3.07 L (4.10-5.20) X 10*6/uL Hgb 8.7 L (12.0-15.0) g/dL Hct 28.6 L (37.2-46.3) % MCHC 30.4 L (32.0-37.0) g/dL RDW 16.8 H (11.5-14.5) % Immature Gran # 0.68 H (0.00-0.04) X 10*3/uL Neutrophils # 15.00 H (1.80-7.70) X 10*3/uL Eosinophils # 0.43 H (0.04-0.35) X 10*3/uL Carbon Dioxide 21.1 L (21.6-31.8) mmol/L Anion Gap 13.90 H (4.00-12.00) mmol/L BUN 27.3 H (9.0-27.0) mg/dL BUN/Creatinine Ratio 39.00 H (12.00-20.00) Ratio Calcium 8.2 L (8.7-10.3) mg/dL Alkaline Phosphatase 158 H (41-126) U/L C-Reactive Protein 17.00 H (0.00-0.80) mg/dL Total Protein 5.4 L (6.2-8.2) g/dL Albumin 2.5 L (3.8-4.9) g/dL Albumin/Globulin Ratio 0.86 L (1.60-3.17) Ratio Lipase (14-63) U/L Procalcitonin 1.53 H (0.02-0.50) ng/mL 02/03/25 Range/Units 03:28 WBC (4.50-10.00) X 10*3/uL RBC (4.10-5.20) X 10*6/uL Hgb (12.0-15.0) g/dL Hct (37.2-46.3) % MCHC (32.0-37.0) g/dL RDW (11.5-14.5) % Immature Gran # (0.00-0.04) X 10*3/uL Neutrophils # (1.80-7.70) X 10*3/uL Eosinophils # (0.04-0.35) X 10*3/uL Carbon Dioxide (21.6-31.8) mmol/L Anion Gap (4.00-12.00) mmol/L BUN (9.0-27.0) mg/dL BUN/Creatinine Ratio (12.00-20.00) Ratio Calcium (8.7-10.3) mg/dL Alkaline Phosphatase (41-126) U/L C-Reactive Protein (0.00-0.80) mg/dL Total Protein (6.2-8.2) g/dL Albumin (3.8-4.9) g/dL Albumin/Globulin Ratio (1.60-3.17) Ratio Lipase 8 L (14-63) U/L Procalcitonin (0.02-0.50) ng/mL Diabetes panel 02/03/25 Range/Units 03:28 Sodium 139 (135-145) mmol/L Potassium 3.6 (3.5-5.5) mmol/L Chloride 104 (96-109) mmol/L Carbon Dioxide 21.1 L (21.6-31.8) mmol/L BUN 27.3 H (9.0-27.0) mg/dL Creatinine 0.7 (0.6-1.5) mg/dL Glucose 80 (70-110) mg/dL Calcium 8.2 L (8.7-10.3) mg/dL AST 15 (13-35) U/L ALT 10 (8-44) U/L Alkaline Phosphatase 158 H (41-126) U/L Total Protein 5.4 L (6.2-8.2) g/dL Albumin 2.5 L (3.8-4.9) g/dL Calcium panel 02/03/25 Range/Units 03:28 Calcium 8.2 L (8.7-10.3) mg/dL Albumin 2.5 L (3.8-4.9) g/dL Pituitary panel 02/03/25 Range/Units 03:28 Sodium 139 (135-145) mmol/L Potassium 3.6 (3.5-5.5) mmol/L Chloride 104 (96-109) mmol/L Carbon Dioxide 21.1 L (21.6-31.8) mmol/L BUN 27.3 H (9.0-27.0) mg/dL Creatinine 0.7 (0.6-1.5) mg/dL Glucose 80 (70-110) mg/dL Calcium 8.2 L (8.7-10.3) mg/dL Adrenal panel 02/03/25 Range/Units 03:28 Sodium 139 (135-145) mmol/L Potassium 3.6 (3.5-5.5) mmol/L Chloride 104 (96-109) mmol/L Carbon Dioxide 21.1 L (21.6-31.8) mmol/L BUN 27.3 H (9.0-27.0) mg/dL Creatinine 0.7 (0.6-1.5) mg/dL Glucose 80 (70-110) mg/dL Calcium 8.2 L (8.7-10.3) mg/dL Total Bilirubin 0.3 (0.3-1.2) mg/dL AST 15 (13-35) U/L ALT 10 (8-44) U/L Alkaline Phosphatase 158 H (41-126) U/L Total Protein 5.4 L (6.2-8.2) g/dL Albumin 2.5 L (3.8-4.9) g/dL - Imaging Comments: CT abdomen pelvis without contrast reports evidence of malignancy with metastatic disease as seen on prior PET/CT 01/29/2025. There is increasing consolidation in the right lung base possibly postobstructive consolidation from the masses. Mild colitis/diverticulitis suggested in the pelvis correlate with pain. The appendix is not definitively visualized. No obstructive uropathy or calculus visualized. Infrarenal abdominal aortic aneurysm up to 8 cm with at least 2 stent graft present small gap between the stent graft possibly resulting endoleak may be present. Correlate with outside imaging for stability from prior then 01/21/2025. T12 vertebral body compressed fracture with 25% height loss. No significant retropulsion or spinal canal stenosis. Assessment and Plan Assessment: 1. Recent infrarenal abdominal aortic aneurysm repair of 8 cm AAA with stent graft 2. Bilateral lower extremity edema with weeping 3. Bilateral toes with purple discoloration 4. Right lower abdominal pain/groin pain now resolved 5. Rib pain likely secondary to metastatic lung cancer/pulmonary adenocarcinoma with noted thoracic lesions and rib lesions on PET scan 6. Recent diagnosis of metastatic non-small cell lung cancer/pulmonary adenocarcinoma 7. Nausea vomiting and diarrhea resolved 8. COPD 9. Former smoker Plan: Recommend CT angiogram abdominal aorta with runoff to evaluate abdominal aortic aneurysm as well as arterial flow secondary to color changes toes, however patient has good Doppler signals bilaterally and may be secondary to venous compression secondary to possible lymph nodes. Also CT abdomen pelvis without contrast is inadequate for evaluation of AAA stent graft and likely Is secondary to stent grafts used and less likely endoleak. However patient is declining any imaging at this time. Venous duplex ordered, currently pending. Recommend lower extremity elevation and compression wraps to bilateral lower extremities. Continue with recommendations from multiple consultants. Thank you for this consultation. Vascular surgery will be on standby, if further needed, please do not hesitate to contact us. The impression and plan of care has been dictated as directed. I performed a history and examination of this patient, discussed the same with the dictator. I agree with the dictator's note ,documented as a scribe. Any additional findings or plans will be noted.
--- NOTE | 2025-02-03 13:47 | US ---
EXAMINATION TYPE: US venous doppler duplex LE DATE OF EXAM: 02/03/2025 11:20 AM COMPARISON: NONE CLINICAL INDICATION: Female, 69 years old with history of bilateral lower extremity swelling; bilater al leg swelling, Pain TECHNIQUE: The lower extremity deep venous system is examined utilizing real time linear array sonog eleni with graded compression, color doppler sonography, and spectral doppler. SIDE PERFORMED: Bilateral FINDINGS: VESSELS IMAGED: Common Femoral Vein Deep Femoral Vein Greater Saphenous Vein * Femoral Vein Popliteal Vein Small Saphenous Vein * Proximal Calf Veins (* superficial vessels) Popliteal veins limited due to pt unable to bend legs. Calf veins limited due to edema. Right Leg: No evidence for DVT. Edema noted in calf, Color Doppler imaging shows patency of the vess els. Spectral waveforms are within normal limits. Left Leg: No evidence for DVT. Edema noted in calf, Color Doppler imaging shows patency of the vesse ls. Spectral waveforms are within normal limits. IMPRESSION: No DVT identified within the bilateral lower extremities imaged from the groin to the knees. Soft tis марина edema at the calves. [facility], , 02/03/2025 1:45 PM
--- NOTE | 2025-02-03 16:12 | P.PN ---
Subjective Progress Note Date: 02/03/25 This is a 69-year-old female patient with known history of COPD and lung cancer, and known history of abdominal aortic aneurysm post endovascular stent placement and the procedure was done on 01/08/2025. The patient presented to the hospital because of right lower quadrant pain, nausea, emesis and diarrhea. No reported GI bleeding. The patient had diminished appetite. CAT scan of the abdomen and pelvis was done and it showed early colitis versus mild diverticulitis. There was T12 compression fraction of the spine with 25% involvement and there was also sclerotic lesion along the spine highly suspicious for metastatic disease. There was also suspected adrenal metastases and ongoing consolidation in the right lung base. As for the infrarenal abdominal aortic aneurysm, this was measuring up to 8 cm in size with at least 2 stent graft present. A small gap between the stent grafts possibly resulting endoleak. Noted, the patient's diagnosis of lung cancer is quite recent. The patient was seen in consultation on 01/21/2025 with worsening shortness of breath, weight loss and CAT scan of the chest was done on 01/21/2025 and a CAT scan showed lymphadenopathy throughout the chest concerning for malignancy and the right lower lobe pulmonary nodule, metastatic left rib lesion and left-sided posterior rib fracture without evidence of pneumothorax and concern of osseous lesions and pathologic fractures seen in the scapula. There was lymphadenopathy seen in the right hilum with narrowing of the adjacent bronchus. Based on that, the patient had a bronchoscopy done and the bronchoscopy showed significant obstruction of the right middle lobe bronchus with endobronchial tumor endobronchial biopsies performed in the involved area was consistent with pulmonary adenocarcinoma with squamous differentiation. The mediastinal lymph node sampling was hypocellular. Subsequently, the patient had a PET/CT that was done on an outpatient basis and the PET scan showed metastatic neoplasm, prominent lymphadenopathy involving the right thorax with osseous metastatic disease present. There was an expansile hypermetabolic left anterior lateral mid rib lesion and destructive soft tissue mass involving the right posterior 4th and 5th ribs and scattered additional metabolic reactive lytic lesions involving the right scapula and multiple lesions involving the spine and pelvis. There was also evidence of bilateral hypermetabolic adrenal masses consistent with metastases. For now, the patient is being seen by general surgery regarding the abdominal pain. The patient is currently on IV Zosyn. Patient is also on Spiriva and Symbicort and inhalers and normal saline at rate of 75 cc an hour. The patient is currently on oxygen at 4 L with a pulse ox of 98%. Hemodynamically stable. On 02/03/2025, patient is being seen for a follow-up. The patient is in poor condition. She continues to have cough and congestion. She continues to be short of breath even at rest. She has developed significant amount of edema in lower extremities bilaterally and there is fluid weeping from the skin surface in the feet bilaterally. There are diminished pulses in the legs and vascular surgery is on the case. I ordered a Doppler of the lower extremity to rule out underlying DVT. Noted the patient has undergone endovascular stent grafting for a large abdominal aortic aneurysm. A CT angiogram of the abdominal aorta and a runoff was recommended. However, the patient declined further testing. The patient's white cell count is at 17.9, hemoglobin of 8.7 and a platelet count of 204. Bicarb is at 21, BUN is 27 with a creatinine of 0.7. LFTs are normal. The lipase at 8, the albumin is at 2.5 with a total protein of 5.4. The patient was seen by hematology oncology and the patient is also to be seen by radiation oncology. Care is a very poor prognosis based on her metastatic pulm ad enocarcinoma. She remains on oxygen at 4 L. Diarrhea has subsided. No significant abdominal pain at this point. Objective - Vital Signs Vital signs: Vital Signs Temp 97.7 F 02/03/25 08:00 Pulse 80 02/03/25 13:41 Resp 19 02/03/25 08:00 BP 113/73 02/03/25 08:00 Pulse Ox 100 02/03/25 08:00 FiO2 Intake & Output 02/02/25 02/03/25 02/03/25 18:59 06:59 18:59 Intake Total 800 Balance 800 Intake: Intake, IV Titration 300 Amount Magnesium Sulfate-D5w Pmx 200 1 gm In Dextrose/Water 1 100ml.bag @ 100 mls/hr IVPB Q1H [facility] Rx#: [id number] Piperacillin-Tazobactam 3 100 .375 gm In Sodium Chloride 0.9% 100 ml @ 25 mls/hr IVPB Q8HR [facility] Rx# :[id number] Oral 500 Other: Voiding Method Diaper Diaper Incontinent # Voids 1 1 - Exam GENERAL EXAM: Alert, 69-year-old female, on 4 L nasal cannula, fairly comfortable in no apparent distress. HEAD: Normocephalic. EYES: Normal reaction of pupils, equal size. NOSE: Clear with pink turbinates. THROAT: No erythema or exudates. NECK: No masses, no JVD. CHEST: No chest wall deformity. LUNGS: Equal air entry with no crackles, wheeze, rhonchi or dullness. Diminished breath sounds right lung base CVS: S1 and S2 normal with no audible murmur, regular rhythm. ABDOMEN: No hepatosplenomegaly, normal bowel sounds, no guarding or rigidity. SPINE: No scoliosis or deformity SKIN: No rashes CENTRAL NERVOUS SYSTEM: No focal deficits, tone is normal in all 4 extremities. EXTREMITIES: There is extensive edema in the lower extremities bilaterally involving the thighs, below the knees and the feet and there is serous fluid seeping from the feet with areas of eschar formation. Pulses are quite diminis hed in lower extremities bilaterally.. - Labs CBC & Chem 7: 02/03/25 03:28 02/03/25 03:28 Labs: Abnormal Lab Results - Last 24 Hours (Table) 02/03/25 02/03/25 02/03/25 Range/Units 03:28 03:28 03:28 WBC 17.98 H (4.50-10.00) X 10*3/uL RBC 3.07 L (4.10-5.20) X 10*6/uL Hgb 8.7 L (12.0-15.0) g/dL Hct 28.6 L (37.2-46.3) % MCHC 30.4 L (32.0-37.0) g/dL RDW 16.8 H (11.5-14.5) % Immature Gran # 0.68 H (0.00-0.04) X 10*3/uL Neutrophils # 15.00 H (1.80-7.70) X 10*3/uL Eosinophils # 0.43 H (0.04-0.35) X 10*3/uL Carbon Dioxide 21.1 L (21.6-31.8) mmol/L Anion Gap 13.90 H (4.00-12.00) mmol/L BUN 27.3 H (9.0-27.0) mg/dL BUN/Creatinine Ratio 39.00 H (12.00-20.00) Ratio Calcium 8.2 L (8.7-10.3) mg/dL Alkaline Phosphatase 158 H (41-126) U/L C-Reactive Protein 17.00 H (0.00-0.80) mg/dL Total Protein 5.4 L (6.2-8.2) g/dL Albumin 2.5 L (3.8-4.9) g/dL Albumin/Globulin Ratio 0.86 L (1.60-3.17) Ratio Lipase (14-63) U/L Procalcitonin 1.53 H (0.02-0.50) ng/mL 02/03/25 Range/Units 03:28 WBC (4.50-10.00) X 10*3/uL RBC (4.10-5.20) X 10*6/uL Hgb (12.0-15.0) g/dL Hct (37.2-46.3) % MCHC (32.0-37.0) g/dL RDW (11.5-14.5) % Immature Gran # (0.00-0.04) X 10*3/uL Neutrophils # (1.80-7.70) X 10*3/uL Eosinophils # (0.04-0.35) X 10*3/uL Carbon Dioxide (21.6-31.8) mmol/L Anion Gap (4.00-12.00) mmol/L BUN (9.0-27.0) mg/dL BUN/Creatinine Ratio (12.00-20.00) Ratio Calcium (8.7-10.3) mg/dL Alkaline Phosphatase (41-126) U/L C-Reactive Protein (0.00-0.80) mg/dL Total Protein (6.2-8.2) g/dL Albumin (3.8-4.9) g/dL Albumin/Globulin Ratio (1.60-3.17) Ratio Lipase 8 L (14-63) U/L Procalcitonin (0.02-0.50) ng/mL Assessment and Plan Plan: Stage IV non-small cell lung cancer. The patient has extensive lymphadenopathy along the right hemithorax causing mass effect on the right middle lobe and right lower lobe bronchus and the patient has atelectatic changes right lung base along with a small to moderate-sized right-sided pleural effusion. Postobstructive pneumonia is felt to be less likely. This is probably part of the natural progression of her underlying malignancy. Noted the patient has evidence of bilateral adrenal metastases, and skeletal metastases involving the ribs, scapula and spine. Please refer to the PET/CT done on 02/01/2025. The pathology is consistent with pulm adenocarcinoma with squamous differentiation. Metastatic lesions with expansile hypermetabolic left anterior lateral mid rib lesion and destructive soft tissue mass involving the right posterior 4th and 5th ribs and scattered additional metabolic reactive lytic lesions involving the right scapula and multiple lesions involving the spine and pelvis. Abdominal pain/colitis, improving and the patient was able to produce a semisolid bowel movement today Acute leukocytosis Chronic smoker ongoing chronic tobacco dependence of 50 years Abdominal aortic aneurysm stent placement at [facility] December 2024 Severe chronic obstructive pulmonary disease maintained on Trelegy, albuterol Significant weight loss of over 20 pounds in the past 1 to 2 months Hypertension Lower extremity edema, extensive Plan Continue IV Zosyn Titrate oxygen flow to maintain saturation above 90% No need for thoracentesis of the right lung. The pleural effusion is small and there is atelectatic changes due to the extensive right hilar lymphadenopathy causing mass effect on the right lower lobe and right middle lobe bronchus Oncology consultation General Surgery consultation Consult radiation oncology Obtain Doppler lower extremities Start Lasix 20 mg IV every 12 hours Check blood cultures still pending Continue respiratory medications Will follow, very poor prognosis based on her impaired baseline performance and functional status and presence of metastatic pulm adenocarcinoma.
--- NOTE | 2025-02-03 18:20 | P.CONS ---
History of Present Illness - Reason for Consult Consult date: 02/03/25 lung adenocarcinoma Requesting physician: Bree Mchugh - Chief Complaint abd pain, SOB - History of Present Illness From Consult dated 13 days ago. Pt was due to be seen in [facility] today. Patient is a 69-year-old female who presented to the emergency room 01/21/25 with c/o progressive shortness of breath. She has a history of COPD and reports of shortness of breath is chronic but over the last 2 weeks it has been progressive, associated with orthopnea since she has undergone stent graft of AAA at [facility] in December. Patient has history of smoking 1 to 2 packs da baldemar for the last 50 years. She quit smoking approximately 4 weeks ago. Reports approximate 10 to 20 pound weight loss over the last 1 month. Denies night sweats. Patient states she was noted to have lung mass and lymphadenopathy while undergoing treatment [facility], however, denied further workup at that time. She was scheduled for outpatient follow-up and PET/CT. CTA chest negative for PE, showing right hilar lymphadenopathy which narrows the adjacent bronchi, lymphadenopathy surrounding the aorta and right axillary lymphadenopathy. Right lower lobe pulmonary nodule. Likely metastatic left rib lesion-pt reporting pain in the area. Left sided posterior rib fracture. Concern for osseous lesion and pathological fracture seen within the scapula. Patient had a bronchoscopy and transbronchial biopsy 01/22/[address] Vivas, pathology positive for non-small cell carcinoma. She had a PET scan 02/01/2025 that reports right supraclavicular lymph nodes, right axillary lymph nodes, enlarged right hilar and multiple mediastinal lymph nodes, bilateral adrenal masses, rib metastases, right medial scapula metastases multifocal lesions throughout the spine and pelvis, right frontal lobe mass. Patient is now admitted with shortness of breath, flank and abdominal pain. She also reports some vomiting and diarrhea since having dye from PET scan. Her legs are swollen. She was due to see Medical Oncologist today for prognosis and treatment options Review of Systems 10 point ROS is neg except as stated in HPI Past Medical History Past Medical History: Cancer (Metastatic non-small cell lung cancer, pulm adenocarcinoma), COPD, Hypertension Additional Past Medical History / Comment(s): Metastatic non-small cell lung cancer, pulm adenocarcinoma, abdominal aortic aneurysm post endovascular stent graft think, COPD History of Any Multi-Drug Resistant Organisms: None Reported Past Surgical History: Cholecystectomy Additional Past Surgical History / Comment(s): Aortic Aneurysm Repair ( [facility] ) 2024, lung biopsy Additional Past Anesthesia/Blood Transfusion Reaction / Comm: na Past Psychological History: Anxiety Smoking Status: Former smoker Past Alcohol Use History: Rare Past Drug Use History: Marijuana - Past Family History Mother Additional Family Medical History / Comment(s): respiratory failure, probably cancer but unsure. Father Additional Family Medical History / Comment(s): from stomach cancer Medications and Allergies Home Medications Medication Instructions Recorded Confirmed Type Aspirin EC [Ecotrin Low Dose] 81 mg PO DAILY 01/21/25 01/31/25 History Cyclobenzaprine [Flexeril] 5 - 10 mg PO Q8H PRN 01/21/25 01/31/25 History Fluticasone/Umeclidin/Vilanter 1 puff INHALATION RT-DAILY 01/21/25 01/31/25 History [Trelegy Ellipta 200-62.5-25] Nicotine 14Mg/24Hr Patch [Habitrol] 1 patch TRANSDERM DAILY #10 patch 01/23/25 01/31/25 Rx Pantoprazole [Protonix] 40 mg PO AC-BRKFST #30 01/23/25 01/31/25 Rx Diclofenac Sodium [Voltaren] 75 mg PO BID PRN 01/31/25 01/31/25 History HYDROcodone/APAP 7.5-325MG [Hymera 1 tab PO Q6H PRN 01/31/25 01/31/25 History 7.5-325] Lidocaine 5% Patch [Lidoderm] 1 patch TRANSDERM DAILY PRN 01/31/25 01/31/25 History Ondansetron [Zofran] 4 mg PO Q8H PRN 01/31/25 01/31/25 History clonazePAM [KlonoPIN ODT] 0.25 mg PO DAILY PRN 01/31/25 01/31/25 History Allergies Allergy/AdvReac Type Severity Reaction Status Date / Time No Known Allergies Allergy Verified 01/31/25 08:49 Physical Exam Vitals: Vital Signs Temp Pulse Pulse Resp BP Pulse Ox 02/03/25 10:26 88 02/03/25 10:13 84 02/03/25 08:00 97.7 F 81 19 113/73 100 02/03/25 00:34 98.7 F 96 16 97/62 99 02/02/25 19:07 97.7 F 86 16 88/58 96 02/02/25 13:43 97.5 F L 94 18 90/63 98 Intake and Output 02/02/25 02/03/25 02/03/25 22:59 06:59 14:59 Intake Total 800 Balance 800 Intake: Intake, IV Titration 300 Amount Magnesium Sulfate-D5w Pmx 200 1 gm In Dextrose/Water 1 100ml.bag @ 100 mls/hr IVPB Q1H [facility] Rx#: [id number] Piperacillin-Tazobactam 3 100 .375 gm In Sodium Chloride 0.9% 100 ml @ 25 mls/hr IVPB Q8HR [facility] Rx# :[id number] Oral 500 Other: Voiding Method Diaper Incontinent # Voids 1 1 - Constitutional General appearance: cooperative, no acute distress, obese - EENT Eyes: anicteric sclerae, EOMI, poor dentition ENT: hearing grossly normal - Neck Neck: no lymphadenopathy - Respiratory Respiratory: right: diminished, left: CTA - Cardiovascular Rhythm: regular Heart sounds: normal: S1, S2 Abnormal Heart Sounds: no systolic murmur, no diastolic murmur, no rub, no S3 Gallop, no S4 Gallop, no click, no other foot Peripheral Edema: bilateral: 3+ - Gastrointestinal General gastrointestinal: no absent bowel sounds, no decreased bowel sounds, no distended, no hepatomegaly, no hyperactive bowel sounds, normal bowel sounds, no organomegaly, no rigid, no scaphoid, soft, no splenomegaly, no tenderness, no umbilical hernia, no ventral hernia - Neurologic Neurologic: CNII-XII intact - Musculoskeletal Musculoskeletal: strength equal bilaterally - Psychiatric Psychiatric: A&O x's 3, appropriate affect, intact judgment & insight Results CBC & Chem 7: 02/03/25 03:28 02/03/25 03:28 Labs: Abnormal Lab Results - Last 24 Hours (Table) 02/03/25 02/03/25 02/03/25 Range/Units 03:28 03:28 03:28 WBC 17.98 H (4.50-10.00) X 10*3/uL RBC 3.07 L (4.10-5.20) X 10*6/uL Hgb 8.7 L (12.0-15.0) g/dL Hct 28.6 L (37.2-46.3) % MCHC 30.4 L (32.0-37.0) g/dL RDW 16.8 H (11.5-14.5) % Immature Gran # 0.68 H (0.00-0.04) X 10*3/uL Neutrophils # 15.00 H (1.80-7.70) X 10*3/uL Eosinophils # 0.43 H (0.04-0.35) X 10*3/uL Carbon Dioxide 21.1 L (21.6-31.8) mmol/L Anion Gap 13.90 H (4.00-12.00) mmol/L BUN 27.3 H (9.0-27.0) mg/dL BUN/Creatinine Ratio 39.00 H (12.00-20.00) Ratio Calcium 8.2 L (8.7-10.3) mg/dL Alkaline Phosphatase 158 H (41-126) U/L C-Reactive Protein 17.00 H (0.00-0.80) mg/dL Total Protein 5.4 L (6.2-8.2) g/dL Albumin 2.5 L (3.8-4.9) g/dL Albumin/Globulin Ratio 0.86 L (1.60-3.17) Ratio Lipase (14-63) U/L Procalcitonin 1.53 H (0.02-0.50) ng/mL 02/03/25 Range/Units 03:28 WBC (4.50-10.00) X 10*3/uL RBC (4.10-5.20) X 10*6/uL Hgb (12.0-15.0) g/dL Hct (37.2-46.3) % MCHC (32.0-37.0) g/dL RDW (11.5-14.5) % Immature Gran # (0.00-0.04) X 10*3/uL Neutrophils # (1.80-7.70) X 10*3/uL Eosinophils # (0.04-0.35) X 10*3/uL Carbon Dioxide (21.6-31.8) mmol/L Anion Gap (4.00-12.00) mmol/L BUN (9.0-27.0) mg/dL BUN/Creatinine Ratio (12.00-20.00) Ratio Calcium (8.7-10.3) mg/dL Alkaline Phosphatase (41-126) U/L C-Reactive Protein (0.00-0.80) mg/dL Total Protein (6.2-8.2) g/dL Albumin (3.8-4.9) g/dL Albumin/Globulin Ratio (1.60-3.17) Ratio Lipase 8 L (14-63) U/L Procalcitonin (0.02-0.50) ng/mL Comments: PET scan 02/01/25 report reviewed Chest x-ray: report reviewed CT scan - abdomen: report reviewed, image reviewed CT scan - pelvis: report reviewed, image reviewed Assessment and Plan (1) Shortness of breath Current Visit: Yes Status: Acute Priority: High Code(s): R06.02 - SHORTNESS OF BREATH SNOMED Code(s): 757149980 (2) Pain of metastatic malignancy Current Visit: Yes Status: Acute Priority: High Code(s): G89.3 - NEOPLASM RELATED PAIN (ACUTE) (CHRONIC) SNOMED Code(s): 142451589 (3) Non-small cell carcinoma of lung Current Visit: Yes Status: Acute Priority: High Code(s): C34.90 - MALIGNANT NEOPLASM OF UNSP PART OF UNSP BRONCHUS OR LUNG SNOMED Code(s): 437932584 Plan: Shortness of breath - Dr. Carvajal reviewed the images. Concerns for possible obstruction in the right lung. Will consult and discuss the case with Radiation Oncology. - Pulmonary is consulted and treating patient for possible COPD exacerbation. Pain of metastatic malignancy - Rib pain likely related to metastatic disease in the bones. This will also be reviewed with Radiation Oncology as a possible target for palliative radiation. Newly diagnosed non-small cell lung cancer, metastatic. -Biopsy 01/21/25 - Recent PET scan reporting metastatic disease in the lymph nodes on the right, mediastinum, adrenal glands, bones, also a concerning finding in the frontal lobe of the brain - Tissue specimen will be requested to be sent for NGS and PD-L1 testing - Patient was due to meet with Medical Oncologist today for prognosis and treatment options. This will be rescheduled. - Based on the PET scan imaging MRI of the brain was recommended. Patient cannot tolerate MRI. She was however, agreeable to CT of the brain with some Ativan. This has been ordered for her. Based on the results, may have to also have Radiation Oncology treat. Doctor attests: I performed a history and physical examination of this patient, developed impression and plan of care. Discussed with dictator. I agree with dictators note, documented as a scribe.
--- NOTE | 2025-02-04 03:16 | P.PN ---
Subjective Progress Note Date: 02/03/25 69-year-old woman with recent diagnosis of lung cancer, COPD and hypertension. She presents today as she is having right lower quadrant and right groin pain, nausea, vomiting and diarrhea. The patient's family notes that it seemed to come on after she had the injection related to a bone scan. The patient has not had hematemesis. No dark or tarry stools. No fever or chills. Patient had recent endovascular placement of abdominal aortic stent January 08, 2025, 3 weeks ago. Patient does report she has had abdominal pain since her surgery. She reports early satiety. Poor appetite. Family reports that she had poor appetite prior to surgery. CT of the abdomen pelvis with questionable findings of early colitis versus mild diverticulitis. Right lower lobe malignancy. Presence of adrenal gland possible malignancy. T12 compression fracture 25% including sclerotic lesions along the spine highly suspicious for metastatic disease. Blood work reveals WBC of 16.4, hemoglobin of 9.1 and platelet count of 239, sodium 134, potassium 3.6, BUN/creatinine 35/0.79 and alkaline phosphatase of 149 Patient has been admitted for possible ileus/colitis versus diverticulitis; surgery is consulted 02/01/2025 Patient seen and evaluated in follow-up today continues to report significant abdominal pain and general surgery following with no plans of surgical intervention at this time. White count is elevated at 18.85 and hemoglobin remains 9.1, platelets are 183. Sodium is 137 with a potassium of 4.3, BUN 37.1 with a creatinine of 1.0. Patient being started on antibiotics per general surgery for the colitis/diverticulitis and recommends minimum 3 days of IV antibiotics and to continue with clear liquids protein shakes. Patient with significant weakness recommend PT/OT therapy evaluation. Continued poor oral intake and not much of an appetite, consult to dietary. 02/02/2025 Patient evaluated in follow-up today with multiple consultations following including general surgery. Infectious disease has been consulted and patient is continued on antibiotics and white count is elevated with concerns of underlying infection. General surgery following with no immediate plans of surgical in tervention recommending to continue with conservative management and clear liquids. Patient reports has not had a bowel movement today and on assessment there are bowel sounds noted. Patient is tolerating the clear liquids with no reported nausea or vomiting although is asking for an advancing diet. Will await surgical recommendations regarding advancement. Pulmonary has been consulted as well regarding previous endoscopy with biopsy with multiple family members awaiting to speak further with pulmonary. Oncology will also be consulted. 02/03/2025 Patient seen in follow-up today currently obtaining a Doppler assess for DVT as patient has significant lower extremity swelling. Multiple consultations following including told was placed to oncology as recent bronchoscopy was positive for non-small cell lung carcinoma and likely metastasis. Patient white count remains elevated and is maintained on antibiotics. An MRI of the brain was ordered although patient is refusing. Radiation oncology has been consulted and pending to discuss possible palliative radiation. Patient continues to be significantly weak with shortness of breath maintained on oxygen via nasal cannula at 4 L. Encourage incentive spirometer use and wean FiO2 as tolerated. Overall prognosis is extremely poor and guarded. Review of systems: Constitutional: reports of fatigue, no fever, or chills Cardiovascular: No reports of chest pain or palpitations Respiratory: reports of mild shortness of breath or cough GI: No reports of nausea, vomiting, or diarrhea, reports bowel movement today : No reports of dysuria or retention Neurovascular: reports of generalized weakness and lower extremity swelling All medications have been reviewed Physical exam: Gen: This is a 69-year-old female who is awake, alert and oriented x 3, well- developed, elderly appearing, ill-appearing HEENT: Head is atraumatic, normocephalic. Pupils equal, round. Sclerae is anicteric. NECK: Supple. No JVD. No lymphadenopathy. No thyromegaly. LUNGS: Diminished breath sounds bilaterally otherwise clear to auscultation. Bronchial congestion noted and patient able to clear with strong cough. No wheezes or rhonchi. No intercostal retractions. HEART: S1, S2 are muffled ABDOMEN: Soft. Bowel sounds are present. No masses. Mild tenderness noted on palpation. EXTREMITIES: No pedal edema. No calf tenderness. Bilateral lower extremity edema NEUROLOGICAL: Patient is awake, alert and oriented x3. Cranial nerves 2 through 12 are grossly intact. Diffusely weak Assessment: -Abdominal pain, likely secondary to early colitis with mild diverticulitis as noted on CT image -Leukocytosis, secondary to above -Possible ileus, improving continuing conservative management per surgery, patient is having bowel movements -multiple masses and lesions within the liver highly suspicious for metastatic disease -COPD; not in exacerbation -Hypoxic respiratory failure, recently placed on oxygen since bronchoscopy likely secondary to non-small cell lung carcinoma -Gastroesophageal reflux disease -Anxiety -Chronic back pain -Severe protein calorie malnutrition -History of recent abdominal aortic aneurysm status post endovascular graft -Recently diagnosed metastatic lung cancer from bronchoscopy with BAL and biopsy on 01/22/2025. Pathology is positive for non-small cell lung carcinoma and PET scan showing diffuse metastasis throughout the thorax and osseous metastatic disease and a possible right frontal lobe lesion. On the brain GI prophylaxis DVT prophylaxis; SCDs full code Plan: Patient was admitted with concerns of early colitis and mild diverticulitis with abdominal pain and concerns of possible ileus. Patient evaluated by general surgery with no plans of surgical intervention at this time recommending bowel rest with clear liquids and IV antibiotic therapy of at least 3 days. White count remains elevated and infectious disease following making adjustments to medications Pulmonary and oncology were consulted as patient's recent bronchoscopy with BAL and biopsy on 01/22/2025 for non-small cell carcinoma and patient also had a recent PET scan concerning for diffuse metastasis throughout the thoracic area with metastatic disease and also noted right frontal brain lesion. Oncology ordered an MRI of the brain although patient is refusing. Radiation oncology consulted, plan is for palliative radiation Continue clear liquid diet with Ensure protein shakes in between meals Follow-up on repeat labs, replace electrolytes per protocol monitor white count Encouraged increase activity as tolerated Recommend PT/OT therapy evaluation Consult with dietary Due to multiple complex medical issues, overall prognosis is extremely poor and guarded The impression and plan of care has been dictated by Ciarra Machado, Nurse Practitioner as directed. Dr. Christopher MD I have performed a history and examination and MDM of this patient, discussed the same with the dictator, and agree with the dictator's assessment and plan as written ,documented as a scribe. Based on total visit time, I have performed more than 50% of the visit. Objective - Vital Signs Vital signs: Vital Signs Temp 97.9 F 02/04/25 00:29 Pulse 100 02/04/25 00:29 Resp 20 02/04/25 00:29 BP 93/64 02/04/25 00:29 Pulse Ox 97 02/04/25 00:29 FiO2 Intake & Output 02/03/25 02/03/25 02/04/25 06:59 18:59 06:59 Other: Voiding Method Diaper Diaper Incontinent Incontinent # Voids 1 6 # Bowel Movements 1 - Labs CBC & Chem 7: 05/14/25 03:28 02/03/25 03:28 Labs: Abnormal Lab Results - Last 24 Hours (Table) 02/03/25 02/03/25 02/03/25 Range/Units 03:28 03:28 03:28 WBC 17.98 H (4.50-10.00) X 10*3/uL RBC 3.07 L (4.10-5.20) X 10*6/uL Hgb 8.7 L (12.0-15.0) g/dL Hct 28.6 L (37.2-46.3) % MCHC 30.4 L (32.0-37.0) g/dL RDW 16.8 H (11.5-14.5) % Immature Gran # 0.68 H (0.00-0.04) X 10*3/uL Neutrophils # 15.00 H (1.80-7.70) X 10*3/uL Eosinophils # 0.43 H (0.04-0.35) X 10*3/uL Carbon Dioxide 21.1 L (21.6-31.8) mmol/L Anion Gap 13.90 H (4.00-12.00) mmol/L BUN 27.3 H (9.0-27.0) mg/dL BUN/Creatinine Ratio 39.00 H (12.00-20.00) Ratio Calcium 8.2 L (8.7-10.3) mg/dL Alkaline Phosphatase 158 H (41-126) U/L C-Reactive Protein 17.00 H (0.00-0.80) mg/dL Total Protein 5.4 L (6.2-8.2) g/dL Albumin 2.5 L (3.8-4.9) g/dL Albumin/Globulin Ratio 0.86 L (1.60-3.17) Ratio Lipase (14-63) U/L Procalcitonin 1.53 H (0.02-0.50) ng/mL 02/03/25 Range/Units 03:28 WBC (4.50-10.00) X 10*3/uL RBC (4.10-5.20) X 10*6/uL Hgb (12.0-15.0) g/dL Hct (37.2-46.3) % MCHC (32.0-37.0) g/dL RDW (11.5-14.5) % Immature Gran # (0.00-0.04) X 10*3/uL Neutrophils # (1.80-7.70) X 10*3/uL Eosinophils # (0.04-0.35) X 10*3/uL Carbon Dioxide (21.6-31.8) mmol/L Anion Gap (4.00-12.00) mmol/L BUN (9.0-27.0) mg/dL BUN/Creatinine Ratio (12.00-20.00) Ratio Calcium (8.7-10.3) mg/dL Alkaline Phosphatase (41-126) U/L C-Reactive Protein (0.00-0.80) mg/dL Total Protein (6.2-8.2) g/dL Albumin (3.8-4.9) g/dL Albumin/Globulin Ratio (1.60-3.17) Ratio Lipase 8 L (14-63) U/L Procalcitonin (0.02-0.50) ng/mL
--- NOTE | 2025-02-04 07:41 | P.PN ---
Subjective Progress Note Date: 02/04/25 CHIEF COMPLAINT: Abdominal pain HISTORY OF PRESENT ILLNESS: The patient is a 69-year-old female with recent diagnosis of lung cancer including large abdominal aortic aneurysm who presents with upper abdominal pain. She is tolerating full liquid diet. Her main concern includes lung cancer including troubles with breathing. Patient reports frustration for new diagnosis of metastatic brain lesions. Patient reports being fatigued and tired of multiple new findings in the past 5 to 6 weeks since her cancer diagnosis and abdominal aortic aneurysm management. Patient has been seen by vascular surgery as well. Patient has also been seen by oncology, pulmonary team as well. No fevers. No further hypotensive events. She reports bowel movement today. REVIEW OF ORGAN SYSTEMS: No chest pain. No shortness of breath. Productive sputum. PHYSICAL EXAM: VITALS: Reviewed CONSTITUTIONAL: Well developed and in no acute distress. EYES: Conjuctivae without sclera icterus. Extraocular movements grossly intact. HEAD, EARS, NOSE, THROAT: Moist buccal mucosa. Head is atraumatic, normocephalic. Hears conversational speech. No nasal drainage. RESPIRATORY: Gross wheezes. Wet cough. CARDIOVASCULAR: Palpable 2+ radial pulses. ABDOMEN: No peritonitis. Nontender. MUSCULOSKELETAL: No clubbing cyanosis or edema. Ambulates with walker. SKIN: Warm and well perfused with good skin turgor. Multiple bruising along the arms. NEUROLOGIC: Cranial nerves II through XII grossly intact. No focal or lateralizing signs. PSYCH: Appropriate affect. Alert and oriented to person, place and time. Dis plays appropriate insight. CLINCAL LABS: Reviewed. WBC decreasing from 22,000-17,000, today CBC and CMP not ordered. ASSESSMENT: 1. Abdominal pain in the presence of abnormal CT scan for colitis /diverticulitis 2. Abdominal aortic aneurysm status post endovascular graft 3. Metastatic lung cancer 4. Decreased appetite 5. Chronic obstructive pulmonary disease due to tobacco abuse disorder 6. Hypoalbuminemia 7. Moderate to severe protein malnutrition 8. Pneumonia 9. Hypotension PLAN: 1. Patient has multiple workup including echo for cardiology and hypotension pending. 2. Patient also being assessed for metastatic lesions including of the brain. Radiation oncology been consulted. 3. Overall, patient is having bowel movement and tolerating diet. No surgical management needed regarding abdominal pain. Patient has metastatic disease. 4. I have ordered a CBC and CMP for today including tomorrow to monitor leukocytosis. 5. No acute surgical invention in general surgery will follow as needed. Please reconsult if needed Dictation was produced using [email or web address] dictation software. Please excuse any grammatical, word or spelling errors. Objective - Vital Signs Vital signs: Vital Signs Temp 97.9 F 02/04/25 00:29 Pulse 100 02/04/25 00:29 Resp 20 02/04/25 00:29 BP 93/64 02/04/25 00:29 Pulse Ox 97 02/04/25 00:29 FiO2 Intake & Output 02/03/25 02/04/25 02/04/25 18:59 06:59 18:59 Other: Voiding Method Diaper Incontinent # Voids 6 3 # Bowel Movements 1 - Labs CBC & Chem 7: 02/03/25 03:28 02/03/25 03:28 Labs: Abnormal Lab Results - Last 24 Hours (Table) 02/03/25 02/03/25 02/03/25 Range/Units 03:28 03:28 03:28 WBC 17.98 H (4.50-10.00) X 10*3/uL RBC 3.07 L (4.10-5.20) X 10*6/uL Hgb 8.7 L (12.0-15.0) g/dL Hct 28.6 L (37.2-46.3) % MCHC 30.4 L (32.0-37.0) g/dL RDW 16.8 H (11.5-14.5) % Immature Gran # 0.68 H (0.00-0.04) X 10*3/uL Neutrophils # 15.00 H (1.80-7.70) X 10*3/uL Eosinophils # 0.43 H (0.04-0.35) X 10*3/uL Carbon Dioxide 21.1 L (21.6-31.8) mmol/L Anion Gap 13.90 H (4.00-12.00) mmol/L BUN 27.3 H (9.0-27.0) mg/dL BUN/Creatinine Ratio 39.00 H (12.00-20.00) Ratio Calcium 8.2 L (8.7-10.3) mg/dL Alkaline Phosphatase 158 H (41-126) U/L C-Reactive Protein 17.00 H (0.00-0.80) mg/dL Total Protein 5.4 L (6.2-8.2) g/dL Albumin 2.5 L (3.8-4.9) g/dL Albumin/Globulin Ratio 0.86 L (1.60-3.17) Ratio Lipase (14-63) U/L Procalcitonin 1.53 H (0.02-0.50) ng/mL 02/03/25 Range/Units 03:28 WBC (4.50-10.00) X 10*3/uL RBC (4.10-5.20) X 10*6/uL Hgb (12.0-15.0) g/dL Hct (37.2-46.3) % MCHC (32.0-37.0) g/dL RDW (11.5-14.5) % Immature Gran # (0.00-0.04) X 10*3/uL Neutrophils # (1.80-7.70) X 10*3/uL Eosinophils # (0.04-0.35) X 10*3/uL Carbon Dioxide (21.6-31.8) mmol/L Anion Gap (4.00-12.00) mmol/L BUN (9.0-27.0) mg/dL BUN/Creatinine Ratio (12.00-20.00) Ratio Calcium (8.7-10.3) mg/dL Alkaline Phosphatase (41-126) U/L C-Reactive Protein (0.00-0.80) mg/dL Total Protein (6.2-8.2) g/dL Albumin (3.8-4.9) g/dL Albumin/Globulin Ratio (1.60-3.17) Ratio Lipase 8 L (14-63) U/L Procalcitonin (0.02-0.50) ng/mL Microbiology - Last 24 Hours (Table) 02/02/25 22:40 Blood Culture - Preliminary Blood
[2025-02-04 08:23] LABS: ALT 12 U/L (4-34); AST 21 U/L (14-36); African American GFR (CKD) >90 (>60 ml/min/1.73 sqM); Albumin 2.6 g/dL (3.5-5.0); Albumin/Globulin Ratio 0.8; Alkaline Phosphatase 170 U/L (38-126); Anion Gap 8 mmol/L; Blood Urea Nitrogen 22 mg/dL (7-17); Calcium 8.4 mg/dL (8.4-10.2); Carbon Dioxide 29 mmol/L (22-30); Chloride 103 mmol/L (98-107); Globulin 3.2 g/dL; Glucose 93 mg/dL (74-99); Non-African American GFR(CKD) 90 (>60 ml/min/1.73 sqM); Potassium 3.3 mmol/L (3.5-5.1); Sodium 140 mmol/L (137-145); Total Bilirubin 0.7 mg/dL (0.2-1.3); Total Protein 5.8 g/dL (6.3-8.2)
[2025-02-04 08:25] LABS: HCT 29.1 % (37.2-46.3); HGB 9.1 g/dL (12.0-15.0); MCH 28.9 pg (27.0-32.0); MCHC 31.3 g/dL (32.0-37.0); MCV 92.4 fL (80.0-97.0); Platelet Count 206 10*3/uL (140-440); RBC 3.15 10*6/uL (4.10-5.20); RDW 16.8 % (11.5-14.5); WBC 17.08 10*3/uL (4.50-10.00)
--- NOTE | 2025-02-04 08:37 | P.CONS ---
History of Present Illness - Reason for Consult Consult date: 02/04/25 StageIV Lung Cancer - Chief Complaint Shortness of Breath - History of Present Illness Elizabeth is a 69 years old female who recently diagnosed with metastatic non-small lung cancer adenocarcinoma, she presented with metastatic lesions in the bones including pelvic bone, ribs, vertebral bodies and clavicles, lymphadenopathy in the mediastinum and abdomen, and adrenal glands. The patient admitted to the hospital for shortness of breath and hypoxia, she is on 4 L nasal cannula oxygen. The patient has a long history of smoking more than 50 years 1 to 2 pack a day she has COPD and recently a right perihilar lung cancer. In January 21, [address] scan of the chest revealed lymphadenopathy throughout the chest and right lower lobe pulmonary nodule with metastatic left rib lesion and left-sided posterior rib fracture multiple osseous lesions in the scapula. PET scan showed metastatic neoplasm in the right hilar and multiple mediastinal lymph nodes with a SUV 10.3 there is an enlarged hypermetabolic subcarinal lymph nodes and enlarged hypermetabolic lymph nodes adjacent to the descending aorta and the retrocrural region, bilateral hypermetabolic adrenal masses and osseous metastatic disease all over the body. The patient started on systemic chemotherapy, however her shortness of breath is getting worse in the last week. Chest x-ray revealed COPD with a small to moderate right pleural effusion and prominent adjacent atelectasis with consolidation in the right lower lobe. Today the patient is still having shortness of breath and has not improved even after admission to the hospital. Review of Systems Constitutional: Reports chronic pain, Reports fatigue, Reports malaise, Reports sweats Ears, nose, mouth and throat: Reports as per HPI Cardiovascular: Reports as per HPI Respiratory: Reports congestion, Reports cough, Reports cough with sputum, Reports dyspnea, Reports home oxygen, Reports wheezing Gastrointestinal: Reports as per HPI Genitourinary: Reports as per HPI Integumentary: Reports as per HPI Neurological: Reports as per HPI Psychiatric: Reports as per HPI Endocrine: Reports as per HPI Hematologic/Lymphatic: Reports as per HPI Allergic/Immunologic: Reports as per HPI Past Medical History Past Medical History: Cancer (Metastatic non-small cell lung cancer, pulm adenocarcinoma), COPD, Hypertension Additional Past Medical History / Comment(s): Metastatic non-small cell lung cancer, pulm adenocarcinoma, abdominal aortic aneurysm post endovascular stent graft think, COPD History of Any Multi-Drug Resistant Organisms: None Reported Past Surgical History: Cholecystectomy Additional Past Surgical History / Comment(s): Aortic Aneurysm Repair ( [facility] ) 2024, lung biopsy Additional Past Anesthesia/Blood Transfusion Reaction / Comm: na Past Psychological History: Anxiety Smoking Status: Former smoker Past Alcohol Use History: Rare Past Drug Use History: Marijuana - Past Family History Mother Additional Family Medical History / Comment(s): respiratory failure, probably cancer but unsure. Father Additional Family Medical History / Comment(s): from stomach cancer Medications and Allergies Home Medications Medication Instructions Recorded Confirmed Type Aspirin EC [Ecotrin Low Dose] 81 mg PO DAILY 01/21/25 01/31/25 History Cyclobenzaprine [Flexeril] 5 - 10 mg PO Q8H PRN 01/21/25 01/31/25 History Fluticasone/Umeclidin/Vilanter 1 puff INHALATION RT-DAILY 01/21/25 01/31/25 History [Trelegy Ellipta 200-62.5-25] Nicotine 14Mg/24Hr Patch [Habitrol] 1 patch TRANSDERM DAILY #10 patch 01/23/25 01/31/25 Rx Pantoprazole [Protonix] 40 mg PO AC-BRKFST #30 01/23/25 01/31/25 Rx Diclofenac Sodium [Voltaren] 75 mg PO BID PRN 01/31/25 01/31/25 History HYDROcodone/APAP 7.5-325MG [Dixon 1 tab PO Q6H PRN 01/31/25 01/31/25 History 7.5-325] Lidocaine 5% Patch [Lidoderm] 1 patch TRANSDERM DAILY PRN 01/31/25 01/31/25 History Ondansetron [Zofran] 4 mg PO Q8H PRN 01/31/25 01/31/25 History clonazePAM [KlonoPIN ODT] 0.25 mg PO DAILY PRN 01/31/25 01/31/25 History Allergies Allergy/AdvReac Type Severity Reaction Status Date / Time No Known Allergies Allergy Verified 01/31/25 08:49 Physical Exam Vitals: Vital Signs Temp Pulse Pulse Resp BP Pulse Ox 02/04/25 00:29 97.9 F 100 20 93/64 97 02/03/25 23:27 101 H 20 02/03/25 20:58 91 20 02/03/25 20:52 92 20 02/03/25 20:08 97.6 F 101 H 18 116/77 100 02/03/25 16:47 100 02/03/25 16:35 100 02/03/25 14:00 97.7 F 108 H 18 100/64 98 02/03/25 13:41 80 02/03/25 13:28 80 02/03/25 10:26 88 02/03/25 10:13 84 02/03/25 08:00 97.7 F 81 19 113/73 100 Intake and Output 02/03/25 02/04/25 02/04/25 22:59 06:59 14:59 Other: Voiding Method Diaper Incontinent # Voids 6 3 # Bowel Movements 1 - Constitutional General appearance: average body habitus, mild distress - EENT Eyes: PERRLA - Neck Neck: lymphadenopathy - Respiratory Respiratory: right: diminished, bilateral: rales, rhonchi - Cardiovascular Rhythm: regular - Gastrointestinal General gastrointestinal: absent bowel sounds, no organomegaly, soft, no tenderness - Psychiatric Psychiatric: A&O x's 3 Results CBC & Chem 7: 02/03/25 03:28 02/03/25 03:28 Labs: Abnormal Lab Results - Last 24 Hours (Table) 02/03/25 02/03/25 02/03/25 Range/Units 03:28 03:28 03:28 WBC 17.98 H (4.50-10.00) X 10*3/uL RBC 3.07 L (4.10-5.20) X 10*6/uL Hgb 8.7 L (12.0-15.0) g/dL Hct 28.6 L (37.2-46.3) % MCHC 30.4 L (32.0-37.0) g/dL RDW 16.8 H (11.5-14.5) % Immature Gran # 0.68 H (0.00-0.04) X 10*3/uL Neutrophils # 15.00 H (1.80-7.70) X 10*3/uL Eosinophils # 0.43 H (0.04-0.35) X 10*3/uL Carbon Dioxide 21.1 L (21.6-31.8) mmol/L Anion Gap 13.90 H (4.00-12.00) mmol/L BUN 27.3 H (9.0-27.0) mg/dL BUN/Creatinine Ratio 39.00 H (12.00-20.00) Ratio Calcium 8.2 L (8.7-10.3) mg/dL Alkaline Phosphatase 158 H (41-126) U/L C-Reactive Protein 17.00 H (0.00-0.80) mg/dL Total Protein 5.4 L (6.2-8.2) g/dL Albumin 2.5 L (3.8-4.9) g/dL Albumin/Globulin Ratio 0.86 L (1.60-3.17) Ratio Lipase (14-63) U/L Procalcitonin 1.53 H (0.02-0.50) ng/mL 02/03/25 Range/Units 03:28 WBC (4.50-10.00) X 10*3/uL RBC (4.10-5.20) X 10*6/uL Hgb (12.0-15.0) g/dL Hct (37.2-46.3) % MCHC (32.0-37.0) g/dL RDW (11.5-14.5) % Immature Gran # (0.00-0.04) X 10*3/uL Neutrophils # (1.80-7.70) X 10*3/uL Eosinophils # (0.04-0.35) X 10*3/uL Carbon Dioxide (21.6-31.8) mmol/L Anion Gap (4.00-12.00) mmol/L BUN (9.0-27.0) mg/dL BUN/Creatinine Ratio (12.00-20.00) Ratio Calcium (8.7-10.3) mg/dL Alkaline Phosphatase (41-126) U/L C-Reactive Protein (0.00-0.80) mg/dL Total Protein (6.2-8.2) g/dL Albumin (3.8-4.9) g/dL Albumin/Globulin Ratio (1.60-3.17) Ratio Lipase 8 L (14-63) U/L Procalcitonin (0.02-0.50) ng/mL Microbiology - Last 24 Hours (Table) 02/02/25 22:40 Blood Culture - Preliminary Blood CT scan - chest: pending Assessment and Plan Assessment: Stage IV non-small lung cancer with bone, adrenal and liver metastatic disease presented with progressive shortness of breath due to partial obstruction in the right lower lung due to perihilar mass and lymphadenopathy (1) Non-small cell carcinoma of lung Current Visit: Yes Status: Acute Priority: High Code(s): C34.90 - MA LIGNANT NEOPLASM OF UNSP PART OF UNSP BRONCHUS OR LUNG SNOMED Code(s): 25 8512104 (2) Shortness of breath Current Visit: Yes Status: Acute Priority: High Code(s): R06.02 - SHORTNESS OF BREATH SNOMED Code(s): 571189837 (3) Lymphadenopathy, hilar Current Visit: No Status: Acute Priority: High Code(s): R59.0 - LOCALIZED ENLARGED LYMPH NODES SNOMED Code(s): 99469352 Plan: Images reviewed and discussed with the patient, the patient is having p rogressive shortness of breath due to partial obstruction of right lower bronchus due to lymphadenopathy and right lower lobe perihilar mass. I recommended to have an urgent palliative external beam radiation therapy to the perihilar region with the intent of shrinking the mass and prevent complete obstruction of the airway. I talked to the patient about the rational, the technique, and the potential acute and late side effects of this treatment. We are planning to give 10 treatments of EBRT to perihilar right lower lung with palliative intent.
[2025-02-04 09:57] LABS: Band Neutrophils % 1 %; Eosinophils # (M) 0.34 k/uL (0-0.7); Lymphocytes # (M) 2.05 k/uL (1.0-4.8); Metamyelocytes # (M) 0.17 k/uL (0); Metamyelocytes % 1 %; Monocytes # (M) 0.34 k/uL (0-1.0); Neutrophils # (M) 14.34 k/uL (1.3-7.7); Neutrophils % (M) 83 %; Nucleated Red Blood Cells 0 /100 WBC (0-0); Total Cells Counted 200
[2025-02-04 09:58] LABS: Spherocytes Present
[2025-02-04] MEDS: HYDROmorphone 0.5 MG/0.5 ML SYRINGE IVP PRN (10:40)
--- NOTE | 2025-02-04 11:04 | P.PN ---
Subjective Progress Note Date: 02/04/25 Principal diagnosis: Patient is seen and examined today as a follow-up. She was seen by the radiation oncologist and is supposed to go for simulation test. Lower extremities are wrapped with steph wraps there is some improvement in her swelling. She denies any abdominal pain, nausea or vomiting.'s she is refusing brain MRI that was ordered yesterday, oncology discussed with patient and changed it to a CT of the brain however she is refusing that at this time as well and we had recommended CTA abdomen pelvis aorta with runoff which she is also refusing. She denies any pain in her feet other than pressure from swelling and tenderness where blisters were. Objective - Vital Signs Vital signs: Vital Signs Temp 97.9 F 02/04/25 00:29 Pulse 100 02/04/25 00:29 Resp 20 02/04/25 00:29 BP 93/64 02/04/25 00:29 Pulse Ox 97 02/04/25 00:29 FiO2 Intake & Output 02/03/25 02/04/25 02/04/25 18:59 06:59 18:59 Other: Voiding Method Diaper Incontinent # Voids 6 3 # Bowel Movements 1 - Exam General appearance: The patient is alert, oriented, appears in no acute distress. HET: Head is normocephalic and atraumatic. Pupils are equal and reactive. Neck: Supple. Heart: Regular. Lungs: Equal expansion, normal respiratory effort. Abdomen: Soft, nontender, nondistended. Extremities: Bilateral lower extremity edema, blisters on dorsal aspect of toes, toes are cool to the touch, discoloration is improved some. Sensorimotor intact. Neurological: No focal deficits. Strength and sensation are grossly intact. - Labs CBC & Chem 7: 02/04/25 07:50 02/04/25 07:50 Labs: Abnormal Lab Results - Last 24 Hours (Table) 02/03/25 02/03/25 02/03/25 Range/Units 03:28 03:28 03:28 WBC (4.50-10.00) 10*3/uL RBC (4.10-5.20) 10*6/uL Hgb (12.0-15.0) g/dL Hct (37.2-46.3) % MCHC (32.0-37.0) g/dL RDW (11.5-14.5) % Immature Gran # (0.00-0.04) 10*3/uL Potassium (3.5-5.1) mmol/L Carbon Dioxide 21.1 L (21.6-31.8) mmol/L Anion Gap 13.90 H (4.00-12.00) mmol/L BUN 27.3 H (9.0-27.0) mg/dL BUN/Creatinine Ratio 39.00 H (12.00-20.00) Ratio Calcium 8.2 L (8.7-10.3) mg/dL Alkaline Phosphatase 158 H (41-126) U/L C-Reactive Protein 17.00 H (0.00-0.80) mg/dL Total Protein 5.4 L (6.2-8.2) g/dL Albumin 2.5 L (3.8-4.9) g/dL Albumin/Globulin Ratio 0.86 L (1.60-3.17) Ratio Lipase 8 L (14-63) U/L Procalcitonin 1.53 H (0.02-0.50) ng/mL 02/04/25 02/04/25 Range/Units 07:50 07:50 WBC 17.08 H (4.50-10.00) 10*3/uL RBC 3.15 L (4.10-5.20) 10*6/uL Hgb 9.1 L (12.0-15.0) g/dL Hct 29.1 L (37.2-46.3) % MCHC 31.3 L (32.0-37.0) g/dL RDW 16.8 H (11.5-14.5) % Immature Gran # 0.92 H (0.00-0.04) 10*3/uL Potassium 3.3 L (3.5-5.1) mmol/L Carbon Dioxide (21.6-31.8) mmol/L Anion Gap (4.00-12.00) mmol/L BUN 22 H (9.0-27.0) mg/dL BUN/Creatinine Ratio (12.00-20.00) Ratio Calcium (8.7-10.3) mg/dL Alkaline Phosphatase 170 H (41-126) U/L C-Reactive Protein (0.00-0.80) mg/dL Total Protein 5.8 L (6.2-8.2) g/dL Albumin 2.6 L (3.8-4.9) g/dL Albumin/Globulin Ratio (1.60-3.17) Ratio Lipase (14-63) U/L Procalcitonin (0.02-0.50) ng/mL Microbiology - Last 24 Hours (Table) 02/02/25 22:40 Blood Culture - Preliminary Blood Assessment and Plan Assessment: 1. Recent infrarenal abdominal aortic aneurysm repair of 8 cm AAA with stent graft 2. Bilateral lower extremity edema with weeping 3. Bilateral toes with purple discoloration 4. Right lower abdominal pain/groin pain now resolved 5. Rib pain likely secondary to metastatic lung cancer/pulmonary adenocarcinoma with noted thoracic lesions and rib lesions on PET scan 6. Recent diagnosis of metastatic non-small cell lung cancer/pulmonary adenocarcinoma 7. Nausea vomiting and diarrhea resolved 8. COPD 9. Former smoker Plan: Recommend CT angiogram abdominal aorta with runoff to evaluate abdominal aortic aneurysm as well as arterial flow secondary to color changes toes, however patient has good Doppler signals bilaterally and may be secondary to venous compression secondary to possible lymph nodes. Also CT abdomen pelvis without contrast is inadequate for evaluation of AAA stent graft and likely reported Gap is secondary to stent grafts used and less likely endoleak. However patient is declining any imaging at this time. Venous duplex negative for DVT bilaterally. Recommend lower extremity elevation and compression wraps to bilateral lower extremities. Continue with recommendations from multiple consultants. Thank you for this consultation. Vascular surgery will sign off at this time. The impression and plan of care has been dictated as directed. Dr. Frausto I performed a history and examination of this patient, discussed the same with the dictator. I agree with the dictator's note ,documented as a scribe. Any additional findings or plans will be noted.
[2025-02-04] MEDS: HYDROcodone/APAP 7.5-325MG 1 EACH TAB PO SCH ×2 (13:06→16:31)
--- NOTE | 2025-02-04 14:53 | P.PN ---
Subjective Progress Note Date: 02/04/25 Principal diagnosis: NSCLC, SOB In f/u today pt is very tired, did not sleep well, has orthopnea. Family at bed side. She has been simulated for radiation Objective - Vital Signs Vital signs: Vital Signs Temp 97.6 F 02/04/25 07:15 Pulse 101 H 02/04/25 14:17 Resp 18 02/04/25 07:15 BP 106/70 02/04/25 07:15 Pulse Ox 98 02/04/25 14:10 FiO2 Intake & Output 02/03/25 02/04/25 02/04/25 18:59 06:59 18:59 Other: Voiding Method Diaper Incontinent # Voids 6 3 1 # Bowel Movements 1 1 - Constitutional General appearance: Present: average body habitus, no acute distress - Respiratory Details: mildly labored breathing while sleeping - Peripheral edema foot Peripheral Edema: bilateral: 2+ - Integumentary Integumentary: Present: pale - Musculoskeletal Musculoskeletal: Present: generalized weakness - Psychiatric Psychiatric: Present: A&O x's 3, appropriate affect, intact judgment & insight - Labs CBC & Chem 7: 02/04/25 07:50 02/04/25 07:50 Labs: Abnormal Lab Results - Last 24 Hours (Table) 02/04/25 02/04/25 Range/Units 07:50 07:50 WBC 17.08 H (4.50-10.00) 10*3/uL RBC 3.15 L (4.10-5.20) 10*6/uL Hgb 9.1 L (12.0-15.0) g/dL Hct 29.1 L (37.2-46.3) % MCHC 31.3 L (32.0-37.0) g/dL RDW 16.8 H (11.5-14.5) % Immature Gran # 0.92 H (0.00-0.04) 10*3/uL Neutrophils # (Manual) 14.34 H (1.3-7.7) k/uL Metamyelocytes # (Man) 0.17 H (0) k/uL Potassium 3.3 L (3.5-5.1) mmol/L BUN 22 H (7-17) mg/dL Alkaline Phosphatase 170 H (38-126) U/L Total Protein 5.8 L (6.3-8.2) g/dL Albumin 2.6 L (3.5-5.0) g/dL Microbiology - Last 24 Hours (Table) 02/02/25 22:40 Blood Culture - Preliminary Blood Assessment and Plan (1) Shortness of breath Current Visit: Yes Status: Acute Priority: High Code(s): R06.02 - SHORTNESS OF BREATH SNOMED Code(s): 047404202 (2) Pain of metastatic malignancy Current Visit: Yes Status: Acute Priority: High Code(s): G89.3 - NEOPLASM RELATED PAIN (ACUTE) (CHRONIC) SNOMED Code(s): 379073694 (3) Non-small cell carcinoma of lung Current Visit: Yes Status: Acute Priority: High Code(s): C34.90 - MALIGNANT NEOPLASM OF UNSP PART OF UNSP BRONCHUS OR LUNG SNOMED Code(s): 784985485 Plan: Shortness of breath -Radiation oncology has seen the patient. Plans for palliative treatment to r ight lung obstruction. - Pulmonary is consulted and treating patient for possible COPD exacerbation. Pain of metastatic malignancy - Rib pain likely related to metastatic disease in the bones. This will also be reviewed with Radiation Oncology as a possible target for palliative radiation. - Pain medications ordered, titrate for patient comfort Newly diagnosed non-small cell lung cancer, metastatic. -Biopsy 01/21/25 - Recent PET scan reporting metastatic disease in the lymph nodes on the right, mediastinum, adrenal glands, bones, also a concerning finding in the frontal lobe of the brain - Tissue specimen requested and sent for NGS and PD-L1 testing - Patient was due to meet with Medical Oncologist today for prognosis and treatment options. This has been rescheduled. Appointment date and time and discharge plan -Patient has refused imaging of the head, even with antianxiety medications. Reviewed with family that without brain imaging we cannot say for certain if there is, or is not, cancer present in the brain at this tiem. For now, if patient's behaviors, mental status and neurologic status appear to be intact we can assume that there is not any malignancy in the brain, at least any causing any symptoms. They verbalized understanding. - Family had a lot of questions about diagnosis, prognosis, treatment options. We discussed treatment options initially would likely include chemotherapy as patient is symptomatic and that is used to get ahead of the disease. Pending the NGS and PD-L1 for any possible mutations that may have a targeted treatment. Also, the use of immunotherapy, in the appropriate setting, for long-term disease control. Intent of treatment is palliation of disease/symptoms and prolongation of life. Prognosis without treatment would be 3 to 4 months, with treatment that can be extended to 1 to 2 years. All of this is based on the patient's tolerance of treatment as well as cancer response to those treatments. All of their questions were answered to their satisfaction to the best of my ability Patient is okay from Oncology standpoint to be discharged once she has been cleared by Attending and consulting Physicians. She will be followed up by the Medical Oncologist after she has completed palliative radiation therapy to discuss systemic therapy treatment options.
--- NOTE | 2025-02-04 15:21 | P.PN ---
Subjective Progress Note Date: 02/03/25 Principal diagnosis: Reason for follow-up is pneumonia/colitis Patient is a 69-year-old female with a past medical history significant for COPD hypertension recent diagnosis of metastatic non-small cell lung cancer/pulmonary adenocarcinoma, anxiety patient presenting to the hospital for evaluation of right lower quadrant right groin pain, patient did have a CT concerning for right lower lobe consolidation and with concern for possible colitis/diverticulitis prompted this consultation. On today's evaluation that is 02/03/2025, Patient is afebrile patient is curren tly on 4 L nasal oxygen and denies having any shortness of breath, the patient denies any chest pain she did have a cough but not able to bring up any sputum, the patient denies any nausea vomiting did not have any abdominal pain and no diarrhea complaining of significant swelling to bilateral lower extremity. Patient white count is down to 17.08, creatinine 0.69 Pro-Christiano's is 1.53 blood cultures pending Objective - Vital Signs Vital signs: Vital Signs Temp 97.7 F 02/03/25 08:00 Pulse 88 02/03/25 10:26 Resp 19 02/03/25 08:00 BP 113/73 02/03/25 08:00 Pulse Ox 100 02/03/25 08:00 FiO2 Intake & Output 02/02/25 02/03/25 02/03/25 18:59 06:59 18:59 Intake Total 800 Balance 800 Intake: Intake, IV Titration 300 Amount Magnesium Sulfate-D5w Pmx 200 1 gm In Dextrose/Water 1 100ml.bag @ 100 mls/hr IVPB Q1H [facility] Rx#: [id number] Piperacillin-Tazobactam 3 100 .375 gm In Sodium Chloride 0.9% 100 ml @ 25 mls/hr IVPB Q8HR [facility] Rx# :[id number] Oral 500 Other: Voiding Method Diaper Diaper Incontinent # Voids 1 1 - Exam GENERAL DESCRIPTION: An elderly male appears chair in no distress RESPIRATORY SYSTEM: Unlabored breathing , decreased breath sounds at bases HEART: S1 S2 regular rate and rhythm , ABDOMEN: Soft , no tenderness EXTREMITIES: Significant swelling to bilateral lower extremity no redness - Labs CBC & Chem 7: 02/04/25 07:50 02/04/25 07:50 Labs: Abnormal Lab Results - Last 24 Hours (Table) 0502/03/25 02/03/25 Range/Units 03:28 03:28 03:28 WBC 17.98 H (4.50-10.00) X 10*3/uL RBC 3.07 L (4.10-5.20) X 10*6/uL Hgb 8.7 L (12.0-15.0) g/dL Hct 28.6 L (37.2-46.3) % MCHC 30.4 L (32.0-37.0) g/dL RDW 16.8 H (11.5-14.5) % Immature Gran # 0.68 H (0.00-0.04) X 10*3/uL Neutrophils # 15.00 H (1.80-7.70) X 10*3/uL Eosinophils # 0.43 H (0.04-0.35) X 10*3/uL Carbon Dioxide 21.1 L (21.6-31.8) mmol/L Anion Gap 13.90 H (4.00-12.00) mmol/L BUN 27.3 H (9.0-27.0) mg/dL BUN/Creatinine Ratio 39.00 H (12.00-20.00) Ratio Calcium 8.2 L (8.7-10.3) mg/dL Alkaline Phosphatase 158 H (41-126) U/L C-Reactive Protein 17.00 H (0.00-0.80) mg/dL Total Protein 5.4 L (6.2-8.2) g/dL Albumin 2.5 L (3.8-4.9) g/dL Albumin/Globulin Ratio 0.86 L (1.60-3.17) Ratio Procalcitonin 1.53 H (0.02-0.50) ng/mL Assessment and Plan (1) Sepsis Current Visit: Yes Status: Acute Code(s): A41.9 - SEPSIS, UNSPECIFIED ORGANISM SNOMED Code(s): 41729464 (2) Pneumonia Current Visit: Yes Status: Acute Code(s): J18.9 - PNEUMONIA, UNSPECIFIED ORGANISM SNOMED Code(s): 450862969 (3) Diverticulitis Current Visit: Yes Status: Acute Code(s): K57.92 - DVTRCLI OF INTEST, PART UNSP, W/O PERF OR ABSCESS W/O BLEED SNOMED Code(s): 998246264 Plan: 1patient presented to hospital with lower abdominal discomfort nausea vomiting in this patient who did have a tachycardia elevated white count meeting currently for SIRS concern for possible sepsis source could be right lower lobe pneumonia and evidence of diverticulitis on the CT and need to cover for the gram-negative aerobes and anaerobes. 2try to get a sputum for Gram stain culture patient did have elevated procalcitonin 3patient was to continue with Zosyn 3.375 g every 8 hours follow-up with the lower extremity Dopplers Dictation was produced using [employer] dictation software. please excuse any grammatical, word or spelling errors. Time with Patient: Less than 30
--- NOTE | 2025-02-04 15:22 | P.PN ---
Subjective Progress Note Date: 02/04/25 Principal diagnosis: Reason for follow-up is pneumonia/colitis Patient is a 69-year-old female with a past medical history significant for COPD hypertension recent diagnosis of metastatic non-small cell lung cancer/pulmonary adenocarcinoma, anxiety patient presenting to the hospital for evaluation of right lower quadrant right groin pain, patient did have a CT concerning for right lower lobe consolidation and with concern for possible colitis/diverticulitis prompted this consultation. On today's evaluation that is 02/04/2025, patient has been afebrile, patient is breathing comfortably and is currently on 4 L nasal oxygen, patient denies having any chest pain and continue to have cough but not bringing up any sputum, patient denies nausea vomiting or diarrhea and no abdominal pain lower extremity swelling has decreased with Wale wrap's. No new labs has been obtained today blood cultures are pending lower extremity Doppler negative for DVT Objective - Vital Signs Vital signs: Vital Signs Temp 97.6 F 02/04/25 07:15 Pulse 97 02/04/25 07:15 Resp 18 02/04/25 07:15 BP 106/70 02/04/25 07:15 Pulse Ox 100 02/04/25 07:15 FiO2 Intake & Output 02/03/25 02/04/25 02/04/25 18:59 06:59 18:59 Other: Voiding Method Diaper Incontinent # Voids 6 3 1 # Bowel Movements 1 1 - Exam GENERAL DESCRIPTION: An elderly female up in the chair in no distress RESPIRATORY SYSTEM: Unlabored breathing , breath sounds bilaterally HEART: S1 S2 regular rate and rhythm , ABDOMEN: Soft , no tenderness EXTREMITIES: Bilateral lower extremity currently wrapped in the Wale wrap - Labs CBC & Chem 7: 02/04/25 07:50 02/04/25 07:50 Labs: Abnormal Lab Results - Last 24 Hours (Table) 02/04/25 02/04/25 Range/Units 07:50 07:50 WBC 17.08 H (4.50-10.00) 10*3/uL RBC 3.15 L (4.10-5.20) 10*6/uL Hgb 9.1 L (12.0-15.0) g/dL Hct 29.1 L (37.2-46.3) % MCHC 31.3 L (32.0-37.0) g/dL RDW 16.8 H (11.5-14.5) % Immature Gran # 0.92 H (0.00-0.04) 10*3/uL Neutrophils # (Manual) 14.34 H (1.3-7.7) k/uL Metamyelocytes # (Man) 0.17 H (0) k/uL Potassium 3.3 L (3.5-5.1) mmol/L BUN 22 H (7-17) mg/dL Alkaline Phosphatase 170 H (38-126) U/L Total Protein 5.8 L (6.3-8.2) g/dL Albumin 2.6 L (3.5-5.0) g/dL Microbiology - Last 24 Hours (Table) 02/02/25 22:40 Blood Culture - Preliminary Blood Assessment and Plan (1) Sepsis Current Visit: Yes Status: Acute Code(s): A41.9 - SEPSIS, UNSPECIFIED ORGANISM SNOMED Code(s): 66674435 (2) Pneumonia Current Visit: Yes Status: Acute Code(s): J18.9 - PNEUMONIA, UNSPECIFIED O RGANISM SNOMED Code(s): 978124063 (3) Diverticulitis Current Visit: Yes Status: Acute Code(s): K57.92 - DVTRCLI OF INTEST, PART UNSP, W/O PERF OR ABSCESS W/O BLEED SNOMED Code(s): 356226472 Plan: 1patient presented to hospital with lower abdominal discomfort nausea vomiting in this patient who did have a tachycardia elevated white count meeting currently for SIRS concern for possible sepsis source could be right lower lobe pneumonia and evidence of diverticulitis on the CT and need to cover for the gram-negative aerobes and anaerobes. 2patient is afebrile white count trending down as of yesterday did have mild elevated procalcitonin lower extremity Doppler negative for DVT 3patient currently being treated with Zosyn 3.375 g every 8 hours and monitor clinical course closely family at the bedside question answered Dictation was produced using [employer] dictation software. please excuse any grammatical, word or spelling errors. Time with Patient: Less than 30
--- NOTE | 2025-02-04 15:43 | P.PN ---
Subjective Progress Note Date: 02/04/25 This is a 69-year-old female patient with known history of COPD and lung cancer, and known history of abdominal aortic aneurysm post endovascular stent placement and the procedure was done on 01/08/2025. The patient presented to the hospital because of right lower quadrant pain, nausea, emesis and diarrhea. No reported GI bleeding. The patient had diminished appetite. CAT scan of the abdomen and pelvis was done and it showed early colitis versus mild diverticulitis. There was T12 compression fraction of the spine with 25% involvement and there was also sclerotic lesion along the spine highly suspicious for metastatic disease. There was also suspected adrenal metastases and ongoing consolidation in the right lung base. As for the infrarenal abdominal aortic aneurysm, this was measuring up to 8 cm in size with at least 2 stent graft present. A small gap between the stent grafts possibly resulting endoleak. Noted, the patient's diagnosis of lung cancer is quite recent. The patient was seen in consultation on 01/21/2025 with worsening shortness of breath, weight loss and CAT scan of the chest was done on 01/21/2025 and a CAT scan showed lymphadenopathy throughout the chest concerning for malignancy and the right lower lobe pulmonary nodule, metastatic left rib lesion and left-sided posterior rib fracture without evidence of pneumothorax and concern of osseous lesions and pathologic fractures seen in the scapula. There was lymphadenopathy seen in the right hilum with narrowing of the adjacent bronchus. Based on that, the patient had a bronchoscopy done and the bronchoscopy showed significant obstruction of the right middle lobe bronchus with endobronchial tumor endobronchial biopsies performed in the involved area was consistent with pulmonary adenocarcinoma with squamous differentiation. The mediastinal lymph node sampling was hypocellular. Subsequently, the patient had a PET/CT that was done on an outpatient basis and the PET scan showed metastatic neoplasm, prominent lymphadenopathy involving the right thorax with osseous metastatic disease present. There was an expansile hypermetabolic left anterior lateral mid rib lesion and destructive soft tissue mass involving the right posterior 4th and 5th ribs and scattered additional metabolic reactive lytic lesions involving the right scapula and multiple lesions involving the spine and pelvis. There was also evidence of bilateral hypermetabolic adrenal masses consistent with metastases. For now, the patient is being seen by general surgery regarding the abdominal pain. The patient is currently on IV Zosyn. Patient is also on Spiriva and Symbicort and inhalers and normal saline at rate of 75 cc an hour. The patient is currently on oxygen at 4 L with a pulse ox of 98%. Hemodynamically stable. On 02/03/2025, patient is being seen for a follow-up. The patient is in poor condition. She continues to have cough and congestion. She continues to be short of breath even at rest. She has developed significant amount of edema in lower extremities bilaterally and there is fluid weeping from the skin surface in the feet bilaterally. There are diminished pulses in the legs and vascular surgery is on the case. I ordered a Doppler of the lower extremity to rule out underlying DVT. Noted the patient has undergone endovascular stent grafting for a large abdominal aortic aneurysm. A CT angiogram of the abdominal aorta and a runoff was recommended. However, the patient declined further testing. The patient's white cell count is at 17.9, hemoglobin of 8.7 and a platelet count of 204. Bicarb is at 21, BUN is 27 with a creatinine of 0.7. LFTs are normal. The lipase at 8, the albumin is at 2.5 with a total protein of 5.4. The patient was seen by hematology oncology and the patient is also to be seen by radiation oncology. Care is a very poor prognosis based on her metastatic pulm ad enocarcinoma. She remains on oxygen at 4 L. Diarrhea has subsided. No significant abdominal pain at this point. 02/04/2025, the patient is sitting up in a chair and the patient remains on oxygen at 4 L. She was seen by radiation oncology and the patient underwent simulation and she is going to receive palliative radiation therapy for pain control. She is feeling quite tired and she has very limited exercise capacity in addition to ongoing edema in lower extremities bilaterally. Doppler was negative for any DVTs and the patient was given IV Lasix and the patient is producing adequate amount of urine output with some limited improvement in lower extremity edema compared to yesterday. Sodium is at 140, potassium is at 3.3, BUN is 22 with a creatinine of 0.6 and a bicarb level of 29. Glucose 93. White cell count is at 17 with a hemoglobin of 9.1. The patient is seen by medical oncology and radiation oncology. Objective - Vital Signs Vital signs: Vital Signs Temp 97.6 F 02/04/25 07:15 Pulse 97 02/04/25 07:15 Resp 18 02/04/25 07:15 BP 106/70 02/04/25 07:15 Pulse Ox 100 02/04/25 07:15 FiO2 Intake & Output 02/03/25 02/04/25 02/04/25 18:59 06:59 18:59 Other: Voiding Method Diaper Incontinent # Voids 6 3 1 # Bowel Movements 1 1 - Exam GENERAL EXAM: Alert, 69-year-old female, on 4 L nasal cannula, fairly comforta ble in no apparent distress. HEAD: Normocephalic. EYES: Normal reaction of pupils, equal size. NOSE: Clear with pink turbinates. THROAT: No erythema or exudates. NECK: No masses, no JVD. CHEST: No chest wall deformity. LUNGS: Equal air entry with no crackles, wheeze, rhonchi or dullness. Diminished breath sounds right lung base CVS: S1 and S2 normal with no audible murmur, regular rhythm. ABDOMEN: No hepatosplenomegaly, normal bowel sounds, no guarding or rigidity. SPINE: No scoliosis or deformity SKIN: No rashes CENTRAL NERVOUS SYSTEM: No focal deficits, tone is normal in all 4 extremities. EXTREMITIES: There is extensive edema in the lower extremities bilaterally involving the thighs, below the knees and the feet and there is serous fluid seeping from the feet with areas of eschar formation. Pulses are quite diminished in lower extremities bilaterally.. - Labs CBC & Chem 7: 02/04/25 07:50 02/04/25 07:50 Labs: Abnormal Lab Results - Last 24 Hours (Table) 02/03/25 02/03/25 02/04/25 Range/Units 03:28 03:28 07:50 WBC 17.08 H (4.50-10.00) 10*3/uL RBC 3.15 L (4.10-5.20) 10*6/uL Hgb 9.1 L (12.0-15.0) g/dL Hct 29.1 L (37.2-46.3) % MCHC 31.3 L (32.0-37.0) g/dL RDW 16.8 H (11.5-14.5) % Immature Gran # 0.92 H (0.00-0.04) 10*3/uL Neutrophils # (Manual) 14.34 H (1.3-7.7) k/uL Metamyelocytes # (Man) 0.17 H (0) k/uL Potassium (3.5-5.1) mmol/L BUN (7-17) mg/dL Alkaline Phosphatase (38-126) U/L Total Protein (6.3-8.2) g/dL Albumin (3.5-5.0) g/dL Lipase 8 L (14-63) U/L Procalcitonin 1.53 H (0.02-0.50) ng/mL 02/04/25 Range/Units 07:50 WBC (4.50-10.00) 10*3/uL RBC (4.10-5.20) 10*6/uL Hgb (12.0-15.0) g/dL Hct (37.2-46.3) % MCHC (32.0-37.0) g/dL RDW (11.5-14.5) % Immature Gran # (0.00-0.04) 10*3/uL Neutrophils # (Manual) (1.3-7.7) k/uL Metamyelocytes # (Man) (0) k/uL Potassium 3.3 L (3.5-5.1) mmol/L BUN 22 H (7-17) mg/dL Alkaline Phosphatase 170 H (38-126) U/L Total Protein 5.8 L (6.3-8.2) g/dL Albumin 2.6 L (3.5-5.0) g/dL Lipase (14-63) U/L Procalcitonin (0.02-0.50) ng/mL Microbiology - Last 24 Hours (Table) 02/02/25 22:40 Blood Culture - Preliminary Blood Assessment and Plan Plan: Stage IV non-small cell lung cancer. The patient has extensive lymphadenopathy along the right hemithorax causing mass effect on the right middle lobe and right lower lobe bronchus and the patient has atelectatic changes right lung ba se along with a small to moderate-sized right-sided pleural effusion. Postobstructive pneumonia is felt to be less likely. This is probably part of the natural progression of her underlying malignancy. Noted the patient has evidence of bilateral adrenal metastases, and skeletal metastases involving the ribs, scapula and spine. Please refer to the PET/CT done on 02/01/2025. The pathology is consistent with pulm adenocarcinoma with squamous differentiation. Metastatic lesions with expansile hypermetabolic left anterior lateral mid rib lesion and destructive soft tissue mass involving the right posterior 4th and 5th ribs and scattered additional metabolic reactive lytic lesions involving the right scapula and multiple lesions involving the spine and pelvis. Abdominal pain/colitis, improving Acute leukocytosis Chronic smoker ongoing chronic tobacco dependence of 50 years Abdominal aortic aneurysm stent placement at [facility] December 2024 Severe chronic obstructive pulmonary disease maintained on Trelegy, albuterol Significant weight loss of over 20 pounds in the past 1 to 2 months Hypertension Lower extremity edema, extensive, currently on Lasix and Doppler lower extr emities were negative Plan Continue IV Zosyn Titrate oxygen flow to maintain saturation above 90% No need for thoracentesis of the right lung. The pleural effusion is small and there is atelectatic changes due to the extensive right hilar lymphadenopathy causing mass effect on the right lower lobe and right middle lobe bronchus Palliative radiation therapy to the chest and the skeletal system for pain control Oncology consultation General Surgery consultation Consult radiation oncology Doppler of the lower extremities was negative Continue Lasix 20 mg IV every 12 hours Awaiting NGS and PD-1 evaluation for subsequent treatments. Will follow, very poor prognosis based on her impaired baseline performance and functional status and presence of metastatic pulm adenocarcinoma. Time with Patient: Greater than 30
[2025-02-05 08:18] LABS: ALT 12 U/L (8-44); AST 19 U/L (13-35); Albumin 2.5 g/dL (3.8-4.9); Albumin/Globulin Ratio 0.78 Ratio (1.60-3.17); Alkaline Phosphatase 165 U/L (41-126); Blood Urea Nitrogen 16.5 mg/dL (9.0-27.0); Calcium 8.2 mg/dL (8.7-10.3); Carbon Dioxide 24.7 mmol/L (21.6-31.8); Chloride 100 mmol/L (96-109); Globulin 3.2 g/dL (1.6-3.3); Glucose 95 mg/dL (70-110); Potassium 2.9 mmol/L (3.5-5.5); Sodium 141 mmol/L (135-145); Total Bilirubin 0.3 mg/dL (0.3-1.2); Total Protein 5.7 g/dL (6.2-8.2)
--- NOTE | 2025-02-05 08:50 | P.PN ---
Subjective Progress Note Date: 02/04/25 69-year-old woman with recent diagnosis of lung cancer, COPD and hypertension. She presents today as she is having right lower quadrant and right groin pain, nausea, vomiting and diarrhea. The patient's family notes that it seemed to come on after she had the injection related to a bone scan. The patient has not had hematemesis. No dark or tarry stools. No fever or chills. Patient had recent endovascular placement of abdominal aortic stent January 08, 2025, 3 weeks ago. Patient does report she has had abdominal pain since her surgery. She reports early satiety. Poor appetite. Family reports that she had poor appetite prior to surgery. CT of the abdomen pelvis with questionable findings of early colitis versus mild diverticulitis. Right lower lobe malignancy. Presence of adrenal gland possible malignancy. T12 compression fracture 25% including sclerotic lesions along the spine highly suspicious for metastatic disease. Blood work reveals WBC of 16.4, hemoglobin of 9.1 and platelet count of 239, sodium 134, potassium 3.6, BUN/creatinine 35/0.79 and alkaline phosphatase of 149 Patient has been admitted for possible ileus/colitis versus diverticulitis; surgery is consulted 02/01/2025 Patient seen and evaluated in follow-up today continues to report significant abdominal pain and general surgery following with no plans of surgical intervention at this time. White count is elevated at 18.85 and hemoglobin remains 9.1, platelets are 183. Sodium is 137 with a potassium of 4.3, BUN 37.1 with a creatinine of 1.0. Patient being started on antibiotics per general surgery for the colitis/diverticulitis and recommends minimum 3 days of IV antibiotics and to continue with clear liquids protein shakes. Patient with significant weakness recommend PT/OT therapy evaluation. Continued poor oral intake and not much of an appetite, consult to dietary. 02/02/2025 Patient evaluated in follow-up today with multiple consultations following including general surgery. Infectious disease has been consulted and patient is continued on antibiotics and white count is elevated with concerns of underlying infection. General surgery following with no immediate plans of surgical in tervention recommending to continue with conservative management and clear liquids. Patient reports has not had a bowel movement today and on assessment there are bowel sounds noted. Patient is tolerating the clear liquids with no reported nausea or vomiting although is asking for an advancing diet. Will await surgical recommendations regarding advancement. Pulmonary has been consulted as well regarding previous endoscopy with biopsy with multiple family members awaiting to speak further with pulmonary. Oncology will also be consulted. 02/03/2025 Patient seen in follow-up today currently obtaining a Doppler assess for DVT as patient has significant lower extremity swelling. Multiple consultations following including told was placed to oncology as recent bronchoscopy was positive for non-small cell lung carcinoma and likely metastasis. Patient white count remains elevated and is maintained on antibiotics. An MRI of the brain was ordered although patient is refusing. Radiation oncology has been consulted and pending to discuss possible palliative radiation. Patient continues to be significantly weak with shortness of breath maintained on oxygen via nasal cannula at 4 L. Encourage incentive spirometer use and wean FiO2 as tolerated. Overall prognosis is extremely poor and guarded. 02/04/2025 Patient is seen in follow-up today currently resting and patient was evaluated by radiation oncology undergoing mapping today to initiate palliative radiation. Patient continues to refuse MRI of the brain and oncology is following and aware. Multiple other consultations following and patient will be continued on current diet not tolerating much oral intake and has no real appetite with continued diffuse abdominal pain. No surgical intervention planned at this time. Patient is afebrile white count remains elevated although slightly improved with infectious disease following maintained on antibiotics and will continue. Continue to wean FiO2 as tolerated although continues on 4 L via nasal cannula. Pulmonary is following. Review of systems: Constitutional: reports of fatigue, no fever, or chills Cardiovascular: No reports of chest pain or palpitations Respiratory: reports of mild shortness of breath or cough GI: No reports of nausea, vomiting, or diarrhea, reports bowel movement yesterday continued diffuse abdominal pain : No reports of dysuria or retention Neurovascular: reports of generalized weakness and lower extremity swelling All medications have been reviewed Physical exam: Gen: This is a 69-year-old female who is awake, alert and oriented x 3, well- developed, elderly appearing, ill-appearing HEENT: Head is atraumatic, normocephalic. Pupils equal, round. Sclerae is anicteric. NECK: Supple. No JVD. No lymphadenopathy. No thyromegaly. LUNGS: Diminished breath sounds bilaterally otherwise clear to auscultation. Bronchial congestion noted and patient able to clear with strong cough. No wheezes or rhonchi. No intercostal retractions. HEART: S1, S2 are muffled ABDOMEN: Soft. Bowel sounds are present. No masses. Mild tenderness noted on palpation. EXTREMITIES: No pedal edema. No calf tenderness. Bilateral lower extremity tereso ma NEUROLOGICAL: Patient is awake, alert and oriented x3. Cranial nerves 2 through 12 are grossly intact. Diffusely weak Assessment: -Abdominal pain, likely secondary to early colitis with mild diverticulitis as noted on CT image -Leukocytosis, secondary to above -Possible ileus, improving continuing conservative management per surgery, patient is having bowel movements -multiple masses and lesions within the liver highly suspicious for metastatic disease -COPD; not in exacerbation -Hypoxic respiratory failure, recently placed on oxygen since bronchoscopy likely secondary to non-small cell lung carcinoma -Gastroesophageal reflux disease -Anxiety -Chronic back pain -Severe protein calorie malnutrition -History of recent abdominal aortic aneurysm status post endovascular graft -Recently diagnosed metastatic lung cancer from bronchoscopy with BAL and biopsy on 01/22/2025. Pathology is positive for non-small cell lung carcinoma and PET scan showing diffuse metastasis throughout the thorax and osseous metastatic disease and a possible right frontal lobe lesion. On the brain GI prophylaxis DVT prophylaxis; SCDs full code Plan: Patient was admitted with concerns of early colitis and mild diverticulitis with abdominal pain and concerns of possible ileus. Patient evaluated by general surgery with no plans of surgical intervention at this time recommending bowel rest with clear liquids and IV antibiotic therapy of at least 3 days. White count remains elevated and infectious disease following making adjustments to medications. Continue antibiotics for now and monitor white count, procalcitonin is elevated as well Pulmonary and oncology following as patient's recent bronchoscopy with BAL and biopsy on 01/22/2025 for non-small cell carcinoma and patient also had a recent PET scan concerning for diffuse metastasis throughout the thoracic area with metastatic disease and also noted right frontal brain lesion. Oncology ordered an MRI of the brain although patient is refusing. Radiation oncology consulted and following and patient is undergoing mapping to initiate radiation on 02/05/2025 Continue clear liquid diet with Ensure protein shakes in between meals Follow-up on repeat labs, replace electrolytes per protocol monitor white count Encouraged increase activity as tolerated Recommend PT/OT therapy evaluation Consult with dietary Due to multiple complex medical issues, overall prognosis is extremely poor and guarded The impression and plan of care has been dictated by Ciarra Machado, Nurse Practitioner as directed. Dr. Christopher MD I have performed a history and examination and MDM of this patient, discussed the same with the dictator, and agree with the dictator's assessment and plan as written ,documented as a scribe. Based on total visit time, I have performed more than 50% of the visit. Objective - Vital Signs Vital signs: Vital Signs Temp 97.6 F 02/04/25 07:15 Pulse 97 02/04/25 07:15 Resp 18 02/04/25 07:15 BP 106/70 02/04/25 07:15 Pulse Ox 100 02/04/25 07:15 FiO2 Intake & Output 02/03/25 02/04/25 02/04/25 18:59 06:59 18:59 Other: Voiding Method Diaper Incontinent # Voids 6 3 1 # Bowel Movements 1 1 - Labs CBC & Chem 7: 02/04/25 07:50 02/05/25 03:13 Labs: Abnormal Lab Results - Last 24 Hours (Table) 02/03/25 02/03/25 02/03/25 Range/Units 03:28 03:28 03:28 WBC (4.50-10.00) 10*3/uL RBC (4.10-5.20) 10*6/uL Hgb (12.0-15.0) g/dL Hct (37.2-46.3) % MCHC (32.0-37.0) g/dL RDW (11.5-14.5) % Immature Gran # (0.00-0.04) 10*3/uL Potassium (3.5-5.1) mmol/L Carbon Dioxide 21.1 L (21.6-31.8) mmol/L Anion Gap 13.90 H (4.00-12.00) mmol/L BUN 27.3 H (9.0-27.0) mg/dL BUN/Creatinine Ratio 39.00 H (12.00-20.00) Ratio Calcium 8.2 L (8.7-10.3) mg/dL Alkaline Phosphatase 158 H (41-126) U/L C-Reactive Protein 17.00 H (0.00-0.80) mg/dL Total Protein 5.4 L (6.2-8.2) g/dL Albumin 2.5 L (3.8-4.9) g/dL Albumin/Globulin Ratio 0.86 L (1.60-3.17) Ratio Lipase 8 L (14-63) U/L Procalcitonin 1.53 H (0.02-0.50) ng/mL 02/04/25 02/04/25 Range/Units 07:50 07:50 WBC 17.08 H (4.50-10.00) 10*3/uL RBC 3.15 L (4.10-5.20) 10*6/uL Hgb 9.1 L (12.0-15.0) g/dL Hct 29.1 L (37.2-46.3) % MCHC 31.3 L (32.0-37.0) g/dL RDW 16.8 H (11.5-14.5) % Immature Gran # 0.92 H (0.00-0.04) 10*3/uL Potassium 3.3 L (3.5-5.1) mmol/L Carbon Dioxide (21.6-31.8) mmol/L Anion Gap (4.00-12.00) mmol/L BUN 22 H (9.0-27.0) mg/dL BUN/Creatinine Ratio (12.00-20.00) Ratio Calcium (8.7-10.3) mg/dL Alkaline Phosphatase 170 H (41-126) U/L C-Reactive Protein (0.00-0.80) mg/dL Total Protein 5.8 L (6.2-8.2) g/dL Albumin 2.6 L (3.8-4.9) g/dL Albumin/Globulin Ratio (1.60-3.17) Ratio Lipase (14-63) U/L Procalcitonin (0.02-0.50) ng/mL Microbiology - Last 24 Hours (Table) 02/02/25 22:40 Blood Culture - Preliminary Blood
[2025-02-05 09:51] LABS: Basophils # (M) 0 X 10*3/uL (0.00-0.10); Eosinophils # (M) 0 X 10*3/uL (0.04-0.35); HCT 29.3 % (37.2-46.3); HGB 8.8 g/dL (12.0-15.0); Lymphocytes # (M) 0.76 X 10*3/uL (0.90-5.00); MCV 93.3 FL (80.0-97.0); Macrocytosis (M) 2+ (None Seen); Mean Platelet Volume 9.9 FL (9.5-12.2); Monocytes # (M) 0.57 X 10*3/uL (0.20-1.00); Myelocytes % 3 % (0-0); NRBC Per 100 WBC 0 X 10*3/uL (0.00-0.01); Neutrophils # (M) 17.08 X 10*3/uL (1.80-7.70); Neutrophils % (M) 90 %; Platelet Count 165 X 10*3/uL (140-440); RBC 3.14 X 10*6/uL (4.10-5.20); RDW 16.7 % (11.5-14.5); WBC 18.98 X 10*3/uL (4.50-10.00)
--- NOTE | 2025-02-05 15:17 | P.PN ---
Subjective Progress Note Date: 02/05/25 Principal diagnosis: Reason for follow-up is pneumonia/colitis Patient is a 69-year-old female with a past medical history significant for COPD hypertension recent diagnosis of metastatic non-small cell lung cancer/pulmonary adenocarcinoma, anxiety patient presenting to the hospital for evaluation of right lower quadrant right groin pain, patient did have a CT concerning for right lower lobe consolidation and with concern for possible colitis/diverticulitis prompted this consultation. On today's evaluation that is 02/05/2025, Patient is afebrile this morning rosi ent denies having any chest pain breathing more comfortably continue to have a cough but not bringing up any sputum patient is currently on 4 L nasal oxygen no nausea vomiting abdominal pain or diarrhea. Patient white count is 18.98 creatinine 0.6 blood culture negative sputum not collected Objective - Vital Signs Vital signs: Vital Signs Temp 97.9 F 02/05/25 14:24 Pulse 98 02/05/25 14:24 Resp 20 02/05/25 14:24 BP 99/66 02/05/25 14:24 Pulse Ox 96 02/05/25 14:24 FiO2 Intake & Output 02/04/25 02/05/25 02/05/25 18:59 06:59 18:59 Other: Voiding Method Diaper Diaper Diaper Incontinent Incontinent Incontinent # Voids 4 2 # Bowel Movements 1 - Exam GENERAL DESCRIPTION: An elderly female up in the chair in no distress RESPIRATORY SYSTEM: Unlabored breathing , breath sounds bilaterally HEART: S1 S2 regular rate and rhythm , ABDOMEN: Soft , no tenderness EXTREMITIES: Bilateral lower extremity currently wrapped in the Wale wrap - Labs CBC & Chem 7: 02/05/25 03:13 02/05/25 03:13 Labs: Abnormal Lab Results - Last 24 Hours (Table) 02/05/25 02/05/25 Range/Units 03:13 03:13 WBC 18.98 H (4.50-10.00) X 10*3/uL RBC 3.14 L (4.10-5.20) X 10*6/uL Hgb 8.8 L (12.0-15.0) g/dL Hct 29.3 L (37.2-46.3) % MCHC 30.0 L (32.0-37.0) g/dL RDW 16.7 H (11.5-14.5) % Neutrophils # (Manual) 17.08 H (1.80-7.70) X 10*3/uL Lymphocytes # (Manual) 0.76 L (0.90-5.00) X 10*3/uL Eosinophils # (Manual) 0 L (0.04-0.35) X 10*3/uL Macrocytosis (manual) 2+ A (None Seen) Potassium 2.9 L (3.5-5.5) mmol/L Anion Gap 16.30 H (4.00-12.00) mmol/L BUN/Creatinine Ratio 27.50 H (12.00-20.00) Ratio Calcium 8.2 L (8.7-10.3) mg/dL Alkaline Phosphatase 165 H (41-126) U/L Total Protein 5.7 L (6.2-8.2) g/dL Albumin 2.5 L (3.8-4.9) g/dL Albumin/Globulin Ratio 0.78 L (1.60-3.17) Ratio Microbiology - Last 24 Hours (Table) 02/02/25 22:40 Blood Culture - Preliminary Blood Assessment and Plan (1) Sepsis Current Visit: Yes Status: Acute Code(s): A41.9 - SEPSIS, UNSPECIFIED ORGANISM SNOMED Code(s): 28446811 (2) Pneumonia Current Visit: Yes Status: Acute Code(s): J18.9 - PNEUMONIA, UNSPECIFIED ORGANISM SNOMED Code(s): 337827007 (3) Diverticulitis Current Visit: Yes Status: Acute Code(s): K57.92 - DVTRCLI OF INTEST, PART UNSP, W/O PERF OR ABSCESS W/O BLEED SNOMED Code(s): 059332944 Plan: 1patient presented to hospital with lower abdominal discomfort nausea vomiting in this patient who did have a tachycardia elevated white count meeting currently for SIRS concern for possible sepsis source could be right lower lobe pneumonia and evidence of diverticulitis on the CT and need to cover for the gram-negative aerobes and anaerobes. 2patient is afebrile white count trending down as of yesterday did have mild elevated procalcitonin lower extremity Doppler negative for DVT 3patient is afebrile slight worsening of the white count will monitor closely for now continue with Zosyn Dictation was produced using [employer] software. please excuse any grammatical, word or spelling errors. Time with Patient: Less than 30
--- NOTE | 2025-02-05 16:54 | P.PN ---
Subjective Progress Note Date: 02/05/25 This is a 69-year-old female patient with known history of COPD and lung cancer, and known history of abdominal aortic aneurysm post endovascular stent placement and the procedure was done on 01/08/2025. The patient presented to the hospital because of right lower quadrant pain, nausea, emesis and diarrhea. No reported GI bleeding. The patient had diminished appetite. CAT scan of the abdomen and pelvis was done and it showed early colitis versus mild diverticulitis. There was T12 compression fraction of the spine with 25% involvement and there was also sclerotic lesion along the spine highly suspicious for metastatic disease. There was also suspected adrenal metastases and ongoing consolidation in the right lung base. As for the infrarenal abdominal aortic aneurysm, this was measuring up to 8 cm in size with at least 2 stent graft present. A small gap between the stent grafts possibly resulting endoleak. Noted, the patient's diagnosis of lung cancer is quite recent. The patient was seen in consultation on 01/21/2025 with worsening shortness of breath, weight loss and CAT scan of the chest was done on 01/21/2025 and a CAT scan showed lymphadenopathy throughout the chest concerning for malignancy and the right lower lobe pulmonary nodule, metastatic left rib lesion and left-sided posterior rib fracture without evidence of pneumothorax and concern of osseous lesions and pathologic fractures seen in the scapula. There was lymphadenopathy seen in the right hilum with narrowing of the adjacent bronchus. Based on that, the patient had a bronchoscopy done and the bronchoscopy showed significant obstruction of the right middle lobe bronchus with endobronchial tumor endobronchial biopsies performed in the involved area was consistent with pulmonary adenocarcinoma with squamous differentiation. The mediastinal lymph node sampling was hypocellular. Subsequently, the patient had a PET/CT that was done on an outpatient basis and the PET scan showed metastatic neoplasm, prominent lymphadenopathy involving the right thorax with osseous metastatic disease present. There was an expansile hypermetabolic left anterior lateral mid rib lesion and destructive soft tissue mass involving the right posterior 4th and 5th ribs and scattered additional metabolic reactive lytic lesions involving the right scapula and multiple lesions involving the spine and pelvis. There was also evidence of bilateral hypermetabolic adrenal masses consistent with metastases. For now, the patient is being seen by general surgery regarding the abdominal pain. The patient is currently on IV Zosyn. Patient is also on Spiriva and Symbicort and inhalers and normal saline at rate of 75 cc an hour. The patient is currently on oxygen at 4 L with a pulse ox of 98%. Hemodynamically stable. On 02/03/2025, patient is being seen for a follow-up. The patient is in poor condition. She continues to have cough and congestion. She continues to be short of breath even at rest. She has developed significant amount of edema in lower extremities bilaterally and there is fluid weeping from the skin surface in the feet bilaterally. There are diminished pulses in the legs and vascular surgery is on the case. I ordered a Doppler of the lower extremity to rule out underlying DVT. Noted the patient has undergone endovascular stent grafting for a large abdominal aortic aneurysm. A CT angiogram of the abdominal aorta and a runoff was recommended. However, the patient declined further testing. The patient's white cell count is at 17.9, hemoglobin of 8.7 and a platelet count of 204. Bicarb is at 21, BUN is 27 with a creatinine of 0.7. LFTs are normal. The lipase at 8, the albumin is at 2.5 with a total protein of 5.4. The patient was seen by hematology oncology and the patient is also to be seen by radiation oncology. Care is a very poor prognosis based on her metastatic pulm ad enocarcinoma. She remains on oxygen at 4 L. Diarrhea has subsided. No significant abdominal pain at this point. 02/04/2025, the patient is sitting up in a chair and the patient remains on oxygen at 4 L. She was seen by radiation oncology and the patient underwent simulation and she is going to receive palliative radiation therapy for pain control. She is feeling quite tired and she has very limited exercise capacity in addition to ongoing edema in lower extremities bilaterally. Doppler was negative for any DVTs and the patient was given IV Lasix and the patient is producing adequate amount of urine output with some limited improvement in lower extremity edema compared to yesterday. Sodium is at 140, potassium is at 3.3, BUN is 22 with a creatinine of 0.6 and a bicarb level of 29. Glucose 93. White cell count is at 17 with a hemoglobin of 9.1. The patient is seen by medical oncology and radiation oncology. On 02/05/2025, the patient reports improvement in lower extremity edema. She responded to Lasix. However, she continues to have significant amount of edema still in her legs. She will proceed with palliative radiation therapy. She feels very tired. She continues to have a congested cough. She continues to have chest wall pain especially with coughing episodes. The white cell count is 18 with a hemoglobin of 8.8 and a platelet count of 165. Sodium is at 141, K is at 2.9, electrolytes were noted and the serum bicarb is at 24. Procalcitonin is at 1.53. The blood cultures been negative. Patient is empirically on IV Zosyn. The patient has Spiriva, Symbicort and DuoNeb neb regiment [id number]. 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 Objective - Vital Signs Vital signs: Vital Signs Temp 97.9 F 02/05/25 14:24 Pulse 98 02/05/25 14:24 Resp 20 02/05/25 14:24 BP 99/66 02/05/25 14:24 Pulse Ox 96 02/05/25 14:24 FiO2 Intake & Output 02/04/25 02/05/25 02/05/25 18:59 06:59 18:59 Other: Voiding Method Diaper Diaper Diaper Incontinent Incontinent Incontinent # Voids 4 2 # Bowel Movements 1 - Exam GENERAL EXAM: Alert, 69-year-old female, on 4 L nasal cannula, fairly comfortable in no apparent distress. HEAD: Normocephalic. EYES: Normal reaction of pupils, equal size. NOSE: Clear with pink turbinates. THROAT: No erythema or exudates. NECK: No masses, no JVD. CHEST: No chest wall deformity. LUNGS: Equal air entry with no crackles, wheeze, rhonchi or dullness. Diminished breath sounds right lung base CVS: S1 and S2 normal with no audible murmur, regular rhythm. ABDOMEN: No hepatosplenomegaly, normal bowel sounds, no guarding or rigidity. SPINE: No scoliosis or deformity SKIN: No rashes CENTRAL NERVOUS SYSTEM: No focal deficits, tone is normal in all 4 extremities. EXTREMITIES: There is extensive edema in the lower extremities bilaterally involving the thighs, below the knees and the feet and there is serous fluid seeping from the feet with areas of eschar formation. Pulses are quite diminished in lower extremities bilaterally.. - Labs CBC & Chem 7: 02/05/25 03:13 02/05/25 03:13 Labs: Abnormal Lab Results - Last 24 Hours (Table) 02/05/25 02/05/25 Range/Units 03:13 03:13 WBC 18.98 H (4.50-10.00) X 10*3/uL RBC 3.14 L (4.10-5.20) X 10*6/uL Hgb 8.8 L (12.0-15.0) g/dL Hct 29.3 L (37.2-46.3) % MCHC 30.0 L (32.0-37.0) g/dL RDW 16.7 H (11.5-14.5) % Neutrophils # (Manual) 17.08 H (1.80-7.70) X 10*3/uL Lymphocytes # (Manual) 0.76 L (0.90-5.00) X 10*3/uL Eosinophils # (Manual) 0 L (0.04-0.35) X 10*3/uL Macrocytosis (manual) 2+ A (None Seen) Potassium 2.9 L (3.5-5.5) mmol/L Anion Gap 16.30 H (4.00-12.00) mmol/L BUN/Creatinine Ratio 27.50 H (12.00-20.00) Ratio Calcium 8.2 L (8.7-10.3) mg/dL Alkaline Phosphatase 165 H (41-126) U/L Total Protein 5.7 L (6.2-8.2) g/dL Albumin 2.5 L (3.8-4.9) g/dL Albumin/Globulin Ratio 0.78 L (1.60-3.17) Ratio Microbiology - Last 24 Hours (Table) 02/02/25 22:40 Blood Culture - Preliminary Blood Assessment and Plan Plan: Stage IV non-small cell lung cancer. The patient has extensive lymphadenopathy along the right hemithorax causing mass effect on the right middle lobe and right lower lobe bronchus and the patient has atelectatic changes right lung base along with a small to moderate-sized right-sided pleural effusion. Postobstructive pneumonia is felt to be less likely. This is probably part of the natural progression of her underlying malignancy. Noted the patient has evidence of bilateral adrenal metastases, and skeletal metastases involving the ribs, scapula and spine. Please refer to the PET/CT done on 02/01/2025. The pathology is consistent with pulm adenocarcinoma with squamous differentiation. Metastatic lesions with expansile hypermetabolic left anterior lateral mid rib lesion and destructive soft tissue mass involving the right posterior 4th and 5th ribs and scattered additional metabolic reactive lytic lesions involving the right scapula and multiple lesions involving the spine and pelvis. Abdominal pain/colitis, improving Acute leukocytosis Chronic smoker ongoing chronic tobacco dependence of 50 years Abdominal aortic aneurysm stent placement at [facility] December 2024 Severe chronic obstructive pulmonary disease maintained on Trelegy, albuterol Significant weight loss of over 20 pounds in the past 1 to 2 months Hypertension Lower extremity edema, extensive, currently on Lasix and Doppler lower extremities were negative Plan Continue same management Continue IV Zosyn, empiric versus postobstructive changes in the right lung related to underlying pulm adenocarcinoma. Procalcitonin level was mildly elevated. Titrate oxygen flow to maintain saturation above 90% No need for thoracentesis of the right lung. The pleural effusion is small and there is atelectatic changes due to the extensive right hilar lymphadenopathy causing mass effect on the right lower lobe and right middle lobe bronchus Palliative radiation therapy to the chest and the skeletal system for pain control Oncology consultation General Surgery consultation Consult radiation oncology Doppler of the lower extremities was negative Continue Lasix 20 mg IV every 12 hours Awaiting NGS and PD-1 evaluation for subsequent treatments. Will follow, very poor prognosis based on her impaired baseline performance and functional status and presence of metastatic pulm adenocarcinoma. Time with Patient: Greater than 30
[2025-02-05] MEDS: POTASSIUM CHLORIDE ER 20 MEQ TAB.ER PO SCH (19:45)
[2025-02-06] MEDS: POTASSIUM CHLORIDE ER 20 MEQ TAB.ER PO SCH (01:00)
--- NOTE | 2025-02-06 08:22 | P.PN ---
Subjective Progress Note Date: 02/05/25 69-year-old woman with recent diagnosis of lung cancer, COPD and hypertension. She presents today as she is having right lower quadrant and right groin pain, nausea, vomiting and diarrhea. The patient's family notes that it seemed to come on after she had the injection related to a bone scan. The patient has not had hematemesis. No dark or tarry stools. No fever or chills. Patient had recent endovascular placement of abdominal aortic stent January 08, 2025, 3 weeks ago. Patient does report she has had abdominal pain since her surgery. She reports early satiety. Poor appetite. Family reports that she had poor appetite prior to surgery. CT of the abdomen pelvis with questionable findings of early colitis versus mild diverticulitis. Right lower lobe malignancy. Presence of adrenal gland possible malignancy. T12 compression fracture 25% including sclerotic lesions along the spine highly suspicious for metastatic disease. Blood work reveals WBC of 16.4, hemoglobin of 9.1 and platelet count of 239, sodium 134, potassium 3.6, BUN/creatinine 35/0.79 and alkaline phosphatase of 149 Patient has been admitted for possible ileus/colitis versus diverticulitis; surgery is consulted 02/01/2025 Patient seen and evaluated in follow-up today continues to report significant abdominal pain and general surgery following with no plans of surgical intervention at this time. White count is elevated at 18.85 and hemoglobin remains 9.1, platelets are 183. Sodium is 137 with a potassium of 4.3, BUN 37.1 with a creatinine of 1.0. Patient being started on antibiotics per general surgery for the colitis/diverticulitis and recommends minimum 3 days of IV antibiotics and to continue with clear liquids protein shakes. Patient with significant weakness recommend PT/OT therapy evaluation. Continued poor oral intake and not much of an appetite, consult to dietary. 02/02/2025 Patient evaluated in follow-up today with multiple consultations following including general surgery. Infectious disease has been consulted and patient is continued on antibiotics and white count is elevated with concerns of underlying infection. General surgery following with no immediate plans of surgical in tervention recommending to continue with conservative management and clear liquids. Patient reports has not had a bowel movement today and on assessment there are bowel sounds noted. Patient is tolerating the clear liquids with no reported nausea or vomiting although is asking for an advancing diet. Will await surgical recommendations regarding advancement. Pulmonary has been consulted as well regarding previous endoscopy with biopsy with multiple family members awaiting to speak further with pulmonary. Oncology will also be consulted. 02/03/2025 Patient seen in follow-up today currently obtaining a Doppler assess for DVT as patient has significant lower extremity swelling. Multiple consultations following including told was placed to oncology as recent bronchoscopy was positive for non-small cell lung carcinoma and likely metastasis. Patient white count remains elevated and is maintained on antibiotics. An MRI of the brain was ordered although patient is refusing. Radiation oncology has been consulted and pending to discuss possible palliative radiation. Patient continues to be significantly weak with shortness of breath maintained on oxygen via nasal cannula at 4 L. Encourage incentive spirometer use and wean FiO2 as tolerated. Overall prognosis is extremely poor and guarded. 02/04/2025 Patient is seen in follow-up today currently resting and patient was evaluated by radiation oncology undergoing mapping today to initiate palliative radiation. Patient continues to refuse MRI of the brain and oncology is following and aware. Multiple other consultations following and patient will be continued on current diet not tolerating much oral intake and has no real appetite with continued diffuse abdominal pain. No surgical intervention planned at this time. Patient is afebrile white count remains elevated although slightly improved with infectious disease following maintained on antibiotics and will continue. Continue to wean FiO2 as tolerated although continues on 4 L via nasal cannula. Pulmonary is following. 02/05/2025 Patient is seen in follow-up today remains sitting up in the chair and per patient unable to lie down any further than 30 degrees as patient reports significant shortness of breath and abdominal pain. Patient reports is tolerating current diet and having bowel movements and passing gas. Patient continues with lower extremity edema maintained on Lasix and will continue. Patient did receive mapping on the right chest wall with radiation oncology with plans of starting radiation today. Patient continues with shortness of breath maintained on 4 L. Patient to continue with antibiotics with infectious disease following as white count remains elevated, concerns for postobstructive. Follow-up on repeat labs and replace electrolytes per protocol. Review of systems: Constitutional: reports of fatigue, no fever, or chills Cardiovascular: No reports of chest pain or palpitations Respiratory: reports of mild shortness of breath or cough, reports of increased work of breathing and difficulty in breathing with movement GI: No reports of nausea, vomiting, or diarrhea, reports having bowel movements, continues to report diffuse abdominal pain : No reports of dysuria or retention Neurovascular: reports of generalized weakness and lower extremity swelling All medications have been reviewed Physical exam: Gen: This is a 69-year-old female who is awake, alert and oriented x 3, well- developed, elderly appearing, ill-appearing HEENT: Head is atraumatic, normocephalic. Pupils equal, round. Sclerae is anicteric. NECK: Supple. No JVD. No lymphadenopathy. No thyromegaly. LUNGS: Diminished breath sounds bilaterally otherwise clear to auscultation. Bronchial congestion noted and patient able to clear with strong cough. No wheezes or rhonchi. No intercostal retractions. HEART: S1, S2 are muffled ABDOMEN: Soft. Bowel sounds are present. No masses. Mild tenderness noted on palpation. EXTREMITIES: No pedal edema. No calf tenderness. Bilateral lower extremity edema NEUROLOGICAL: Patient is awake, alert and oriented x3. Cranial nerves 2 through 12 are grossly intact. Diffusely weak Assessment: -Abdominal pain, likely secondary to early colitis with mild diverticulitis as noted on CT image -Leukocytosis, secondary to above -Possible ileus, improving continuing conservative management per surgery, patient is having bowel movements -multiple masses and lesions within the liver highly suspicious for metastatic disease -COPD; not in exacerbation -Hypoxic respiratory failure, recently placed on oxygen since bronchoscopy likely secondary to non-small cell lung carcinoma -Gastroesophageal reflux disease -Anxiety -Chronic back pain -Severe protein calorie malnutrition -History of recent abdominal aortic aneurysm status post endovascular graft -Recently diagnosed metastatic lung cancer from bronchoscopy with BAL and biopsy on 01/22/2025. Pathology is positive for non-small cell lung carcinoma and PET scan showing diffuse metastasis throughout the thorax and osseous metastatic disease and a possible right frontal lobe lesion. On the brain GI prophylaxis DVT prophylaxis; SCDs full code Plan: Patient was admitted with concerns of early colitis and mild diverticulitis with abdominal pain and concerns of possible ileus. Patient evaluated by general surgery with no plans of surgical intervention at this time recommending bowel rest with clear liquids and IV antibiotic therapy. White count remains elevated and infectious disease following making adjustments to medications. Continue an tibiotics for now and monitor white count, procalcitonin is elevated as well Pulmonary and oncology following as patient's recent bronchoscopy with BAL and biopsy on 01/22/2025 for non-small cell carcinoma and patient also had a recent PET scan concerning for diffuse metastasis throughout the thoracic area with metastatic disease and also noted right frontal brain lesion. Oncology ordered an MRI of the brain although patient is refusing. Radiation oncology following and has undergone mapping and starting radiation treatment to the right chest today 02/05/2025 Continue clear liquid diet with Ensure protein shakes in between meals Follow-up on repeat labs, replace electrolytes per protocol monitor white count Encouraged increase activity as tolerated Recommend PT/OT therapy evaluation Consult with dietary Due to multiple complex medical issues, overall prognosis is extremely poor and guarded The impression and plan of care has been dictated by Ciarra Machado, Nurse Practitioner as directed. Dr. Christopher MD I have performed a history and examination and MDM of this patient, discussed the same with the dictator, and agree with the dictator's assessment and plan as written ,documented as a scribe. Based on total visit time, I have performed more than 50% of the visit. Objective - Vital Signs Vital signs: Vital Signs Temp 97.9 F 02/05/25 07:43 Pulse 91 02/05/25 08:45 Resp 18 02/05/25 07:43 BP 105/70 02/05/25 07:43 Pulse Ox 99 02/05/25 08:45 FiO2 Intake & Output 02/04/25 02/05/25 02/05/25 18:59 06:59 18:59 Other: Voiding Method Diaper Diaper Incontinent Incontinent # Voids 4 2 # Bowel Movements 1 - Labs CBC & Chem 7: 02/05/25 03:13 02/06/25 05:32 Labs: Abnormal Lab Results - Last 24 Hours (Table) 02/04/25 02/05/25 Range/Units 07:50 03:13 Neutrophils # (Manual) 14.34 H (1.3-7.7) k/uL Metamyelocytes # (Man) 0.17 H (0) k/uL Potassium 2.9 L (3.5-5.5) mmol/L Anion Gap 16.30 H (4.00-12.00) mmol/L BUN/Creatinine Ratio 27.50 H (12.00-20.00) Ratio Calcium 8.2 L (8.7-10.3) mg/dL Alkaline Phosphatase 165 H (41-126) U/L Total Protein 5.7 L (6.2-8.2) g/dL Albumin 2.5 L (3.8-4.9) g/dL Albumin/Globulin Ratio 0.78 L (1.60-3.17) Ratio Microbiology - Last 24 Hours (Table) 02/02/25 22:40 Blood Culture - Preliminary Blood
[2025-02-06 10:07] LABS: HCT 30.9 % (37.2-46.3); HGB 9.2 g/dL (12.0-15.0); MCH 28.1 pg (27.0-32.0); MCHC 29.8 g/dL (32.0-37.0); MCV 94.5 FL (80.0-97.0); NRBC Per 100 WBC 0 X 10*3/uL (0.00-0.01); Platelet Count 192 X 10*3/uL (140-440); RBC 3.27 X 10*6/uL (4.10-5.20); RDW 16.8 % (11.5-14.5); WBC 18.81 X 10*3/uL (4.50-10.00)
[2025-02-06 11:06] LABS: Magnesium 2.2 mg/dL (1.5-2.4)
[2025-02-06 11:21] LABS: Basophils # (M) 0 X 10*3/uL (0.00-0.10); Eosinophils # (M) 0.94 X 10*3/uL (0.04-0.35); Lymphocytes # (M) 0.94 X 10*3/uL (0.90-5.00); Metamyelocytes % 1 % (0-0); Monocytes # (M) 0.75 X 10*3/uL (0.20-1.00); Neutrophils # (M) 15.99 X 10*3/uL (1.80-7.70); Neutrophils % (M) 85 %; Nucleated Red Blood Cells 3 /100 WBCS
[2025-02-06 12:21] LABS: Blood Urea Nitrogen 15.4 mg/dL (9.0-27.0); Calcium 8.5 mg/dL (8.7-10.3); Carbon Dioxide 23.4 mmol/L (21.6-31.8); Chloride 102 mmol/L (96-109); Glucose 98 mg/dL (70-110); Potassium 4.3 mmol/L (3.5-5.5); Sodium 142 mmol/L (135-145)
--- NOTE | 2025-02-06 16:51 | P.PN ---
Subjective Progress Note Date: 02/06/25 Principal diagnosis: Reason for follow-up is pneumonia/colitis Patient is a 69-year-old female with a past medical history significant for COPD hypertension recent diagnosis of metastatic non-small cell lung cancer/pulmonary adenocarcinoma, anxiety patient presenting to the hospital for evaluation of right lower quadrant right groin pain, patient did have a CT concerning for right lower lobe consolidation and with concern for possible colitis/diverticulitis prompted this consultation. On today's evaluation that is 02/06/2025,the patient denies any fever or any ch ills, patient is complaining of some shortness of breath she also have a cough but not bringing up any sputum patient is currently on 3 L nasal cannula oxygen no nausea vomiting no abdominal pain or diarrhea. Patient white count is 18.81 creatinine 0.7 blood cultures are pending Objective - Vital Signs Vital signs: Vital Signs Temp 97.6 F 02/06/25 08:00 Pulse 101 H 02/06/25 11:56 Resp 18 02/06/25 11:56 BP 123/75 02/06/25 08:00 Pulse Ox 98 02/06/25 08:00 FiO2 Intake & Output 02/05/25 02/06/25 02/06/25 18:59 06:59 18:59 Other: Voiding Method Diaper Bedside Commode Incontinent Diaper Incontinent # Voids 1 1 3 - Exam GENERAL DESCRIPTION: An elderly female up in the chair in no distress RESPIRATORY SYSTEM: Unlabored breathing , breath sounds bilaterally HEART: S1 S2 regular rate and rhythm , ABDOMEN: Soft , no tenderness EXTREMITIES: Bilateral lower extremity currently wrapped in the Wale wrap - Labs CBC & Chem 7: 02/06/25 05:32 02/06/25 05:32 Labs: Abnormal Lab Results - Last 24 Hours (Table) 02/05/25 02/06/25 02/06/25 Range/Units 23:55 05:32 05:32 WBC 18.81 H (4.50-10.00) X 10*3/uL RBC 3.27 L (4.10-5.20) X 10*6/uL Hgb 9.2 L (12.0-15.0) g/dL Hct 30.9 L (37.2-46.3) % MCHC 29.8 L (32.0-37.0) g/dL RDW 16.8 H (11.5-14.5) % Neutrophils # (Manual) 15.99 H (1.80-7.70) X 10*3/uL Eosinophils # (Manual) 0.94 H (0.04-0.35) X 10*3/uL Potassium 3.0 L (3.5-5.1) mmol/L Anion Gap 16.60 H (4.00-12.00) mmol/L BUN/Creatinine Ratio 22.00 H (12.00-20.00) Ratio Calcium 8.5 L (8.7-10.3) mg/dL Microbiology - Last 24 Hours (Table) 02/02/25 22:40 Blood Culture - Preliminary Blood Assessment and Plan (1) Sepsis Current Visit: Yes Status: Acute Code(s): A41.9 - SEPSIS, UNSPECIFIED ORGANISM SNOMED Code(s): 13326781 (2) Pneumonia Current Visit: Yes Status: Acute Code(s): J18.9 - PNEUMONIA, UNSPECIFIED ORGANISM SNOMED Code(s): 090230199 (3) Diverticulitis Current Visit: Yes Status: Acute Code(s): K57.92 - DVTRCLI OF INTEST, PART UNSP, W/O PERF OR ABSCESS W/O BLEED SNOMED Code(s): 810438974 Plan: 1patient presented to hospital with lower abdominal discomfort nausea vomiting in this patient who did have a tachycardia elevated white count meeting currently for SIRS concern for possible sepsis source could be right lower lobe pneumonia and evidence of diverticulitis on the CT and need to cover for the gram-negative aerobes and anaerobes. 2patient is afebrile white count trending down as of yesterday did have mild el evated procalcitonin lower extremity Doppler negative for DVT 3patient is afebrile, blood culture has been negative sputum could not be collected for now continue with Zosyn and monitor clinical course closely Dictation was produced using [employer] dictation software. please excuse any grammatical, word or spelling errors. Time with Patient: Less than 30
--- NOTE | 2025-02-06 19:53 | P.PN ---
Subjective Progress Note Date: 02/06/25 This is a 69-year-old female patient with known history of COPD and lung cancer, and known history of abdominal aortic aneurysm post endovascular stent placement and the procedure was done on 01/08/2025. The patient presented to the hospital because of right lower quadrant pain, nausea, emesis and diarrhea. No reported GI bleeding. The patient had diminished appetite. CAT scan of the abdomen and pelvis was done and it showed early colitis versus mild diverticulitis. There was T12 compression fraction of the spine with 25% involvement and there was also sclerotic lesion along the spine highly suspicious for metastatic disease. There was also suspected adrenal metastases and ongoing consolidation in the right lung base. As for the infrarenal abdominal aortic aneurysm, this was measuring up to 8 cm in size with at least 2 stent graft present. A small gap between the stent grafts possibly resulting endoleak. Noted, the patient's diagnosis of lung cancer is quite recent. The patient was seen in consultation on 01/21/2025 with worsening shortness of breath, weight loss and CAT scan of the chest was done on 01/21/2025 and a CAT scan showed lymphadenopathy throughout the chest concerning for malignancy and the right lower lobe pulmonary nodule, metastatic left rib lesion and left-sided posterior rib fracture without evidence of pneumothorax and concern of osseous lesions and pathologic fractures seen in the scapula. There was lymphadenopathy seen in the right hilum with narrowing of the adjacent bronchus. Based on that, the patient had a bronchoscopy done and the bronchoscopy showed significant obstruction of the right middle lobe bronchus with endobronchial tumor endobronchial biopsies performed in the involved area was consistent with pulmonary adenocarcinoma with squamous differentiation. The mediastinal lymph node sampling was hypocellular. Subsequently, the patient had a PET/CT that was done on an outpatient basis and the PET scan showed metastatic neoplasm, prominent lymphadenopathy involving the right thorax with osseous metastatic disease present. There was an expansile hypermetabolic left anterior lateral mid rib lesion and destructive soft tissue mass involving the right posterior 4th and 5th ribs and scattered additional metabolic reactive lytic lesions involving the right scapula and multiple lesions involving the spine and pelvis. There was also evidence of bilateral hypermetabolic adrenal masses consistent with metastases. For now, the patient is being seen by general surgery regarding the abdominal pain. The patient is currently on IV Zosyn. Patient is also on Spiriva and Symbicort and inhalers and normal saline at rate of 75 cc an hour. The patient is currently on oxygen at 4 L with a pulse ox of 98%. Hemodynamically stable. On 02/03/2025, patient is being seen for a follow-up. The patient is in poor condition. She continues to have cough and congestion. She continues to be short of breath even at rest. She has developed significant amount of edema in lower extremities bilaterally and there is fluid weeping from the skin surface in the feet bilaterally. There are diminished pulses in the legs and vascular surgery is on the case. I ordered a Doppler of the lower extremity to rule out underlying DVT. Noted the patient has undergone endovascular stent grafting for a large abdominal aortic aneurysm. A CT angiogram of the abdominal aorta and a runoff was recommended. However, the patient declined further testing. The patient's white cell count is at 17.9, hemoglobin of 8.7 and a platelet count of 204. Bicarb is at 21, BUN is 27 with a creatinine of 0.7. LFTs are normal. The lipase at 8, the albumin is at 2.5 with a total protein of 5.4. The patient was seen by hematology oncology and the patient is also to be seen by radiation oncology. Care is a very poor prognosis based on her metastatic pulm ad enocarcinoma. She remains on oxygen at 4 L. Diarrhea has subsided. No significant abdominal pain at this point. 02/04/2025, the patient is sitting up in a chair and the patient remains on oxygen at 4 L. She was seen by radiation oncology and the patient underwent simulation and she is going to receive palliative radiation therapy for pain control. She is feeling quite tired and she has very limited exercise capacity in addition to ongoing edema in lower extremities bilaterally. Doppler was negative for any DVTs and the patient was given IV Lasix and the patient is producing adequate amount of urine output with some limited improvement in lower extremity edema compared to yesterday. Sodium is at 140, potassium is at 3.3, BUN is 22 with a creatinine of 0.6 and a bicarb level of 29. Glucose 93. White cell count is at 17 with a hemoglobin of 9.1. The patient is seen by medical oncology and radiation oncology. On 02/05/2025, the patient reports improvement in lower extremity edema. She responded to Lasix. However, she continues to have significant amount of edema still in her legs. She will proceed with palliative radiation therapy. She feels very tired. She continues to have a congested cough. She continues to have chest wall pain especially with coughing episodes. The white cell count is 18 with a hemoglobin of 8.8 and a platelet count of 165. Sodium is at 141, K is at 2.9, electrolytes were noted and the serum bicarb is at 24. Procalcitonin is at 1.53. The blood cultures been negative. Patient is empirically on IV Zosyn. The patient has Spiriva, Symbicort and DuoNeb neb regiment [id number]. 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 02/06/2025, the patient's condition essentially the same and unchanged. She remains on oxygen at 4 L with a pulse ox of 98%. Afebrile. Main complaint remains pain and the patient is currently receiving p.o. radiation therapy. Remains on IV Zosyn. Remains on Lasix 20 mg IV push every 12 hours. Continues to have lower extremity edema. No altered mentation. Feels quite weak and debilitated. The white cell count is 18 with a hemoglobin 9.2 and a platelet count of 192. Sodium is at 142, potassium is 3.9, BUN is 15 with a creatinine o f 0.7. Objective - Vital Signs Vital signs: Vital Signs Temp 97.6 F 02/06/25 08:00 Pulse 99 02/06/25 08:36 Resp 18 02/06/25 08:36 BP 123/75 02/06/25 08:00 Pulse Ox 98 02/06/25 08:00 FiO2 Intake & Output 02/05/25 02/06/25 02/06/25 18:59 06:59 18:59 Other: Voiding Method Diaper Bedside Commode Incontinent Diaper Incontinent # Voids 1 1 - Exam GENERAL EXAM: Alert, 69-year-old female, on 4 L nasal cannula, fairly comfortable in no apparent distress. HEAD: Normocephalic. EYES: Normal reaction of pupils, equal size. NOSE: Clear with pink turbinates. THROAT: No erythema or exudates. NECK: No masses, no JVD. CHEST: No chest wall deformity. LUNGS: Equal air entry with no crackles, wheeze, rhonchi or dullness. Diminished breath sounds right lung base CVS: S1 and S2 normal with no audible murmur, regular rhythm. ABDOMEN: No hepatosplenomegaly, normal bowel sounds, no guarding or rigidity. SPINE: No scoliosis or deformity SKIN: No rashes CENTRAL NERVOUS SYSTEM: No focal deficits, tone is normal in all 4 extremities. EXTREMITIES: There is extensive edema in the lower extremities bilaterally involving the thighs, below the knees and the feet and there is serous fluid seeping from the feet with areas of eschar formation. Pulses are quite diminished in lower extremities bilaterally.. - Labs CBC & Chem 7: 02/06/25 05:32 02/06/25 05:32 Labs: Abnormal Lab Results - Last 24 Hours (Table) 02/05/25 02/06/25 Range/Units 23:55 05:32 WBC 18.81 H (4.50-10.00) X 10*3/uL RBC 3.27 L (4.10-5.20) X 10*6/uL Hgb 9.2 L (12.0-15.0) g/dL Hct 30.9 L (37.2-46.3) % MCHC 29.8 L (32.0-37.0) g/dL RDW 16.8 H (11.5-14.5) % Neutrophils # (Manual) 15.99 H (1.80-7.70) X 10*3/uL Eosinophils # (Manual) 0.94 H (0.04-0.35) X 10*3/uL Potassium 3.0 L (3.5-5.1) mmol/L Microbiology - Last 24 Hours (Table) 02/02/25 22:40 Blood Culture - Preliminary Blood Assessment and Plan Plan: Stage IV non-small cell lung cancer. The patient has extensive lymphadenopathy along the right hemithorax causing mass effect on the right middle lobe and right lower lobe bronchus and the patient has atelectatic changes right lung base along with a small to moderate-sized right-sided pleural effusion. Postobstructive pneumonia is felt to be less likely. This is probably part of the natural progression of her underlying malignancy. Noted the patient has evidence of bilateral adrenal metastases, and skeletal metastases involving the ribs, scapula and spine. Please refer to the PET/CT done on 02/01/2025. The pathology is consistent with pulm adenocarcinoma with squamous differentiation. Metastatic lesions with expansile hypermetabolic left anterior lateral mid rib lesion and destructive soft tissue mass involving the right posterior 4th and 5th ribs and scattered additional metabolic reactive lytic lesions involving the right scapula and multiple lesions involving the spine and pelvis. Abdominal pain/colitis, improving Acute leukocytosis Chronic smoker ongoing chronic tobacco dependence of 50 years Abdominal aortic aneurysm stent placement at [facility] December 2024 Severe chronic obstructive pulmonary disease maintained on Trelegy, albuterol Significant weight loss of over 20 pounds in the past 1 to 2 months Hypertension Lower extremity edema, extensive, currently on Lasix and Doppler lower extremities were negative Plan Patient remains quite debilitated and her main concern remains pain related to metastatic disease. Continue same management, oxygen therapy, pain management, antibiotic treatment. Also continue diuretics. Continue IV Zosyn, empiric versus postobstructive changes in the right lung related to underlying pulm adenocarcinoma. Procalcitonin level was mildly elevated. Titrate oxygen flow to maintain saturation above 90% No need for thoracentesis of the right lung. The pleural effusion is small and there is atelectatic changes due to the extensive right hilar lymphadenopathy causing mass effect on the right lower lobe and right middle lobe bronchus Palliative radiation therapy to the chest and the skeletal system for pain control Oncology consultation is appreciated Radiation oncology consult is appreciated Doppler of the lower extremities was negative Continue Lasix 20 mg IV every 12 hours, continues to have lower extremity edema Awaiting NGS and PD-1 evaluation for subsequent treatments. Will follow, very poor prognosis based on her impaired baseline performance and functional status and presence of metastatic pulm adenocarcinoma. Time with Patient: Greater than 30
[2025-02-06] MEDS: clonazePAM 0.5 MG TAB PO PRN (21:30)
--- NOTE | 2025-02-06 23:53 | P.PN ---
Subjective Progress Note Date: 02/06/25 69-year-old woman with recent diagnosis of lung cancer, COPD and hypertension. She presents today as she is having right lower quadrant and right groin pain, nausea, vomiting and diarrhea. The patient's family notes that it seemed to come on after she had the injection related to a bone scan. The patient has not had hematemesis. No dark or tarry stools. No fever or chills. Patient had recent endovascular placement of abdominal aortic stent January 08, 2025, 3 weeks ago. Patient does report she has had abdominal pain since her surgery. She reports early satiety. Poor appetite. Family reports that she had poor appetite prior to surgery. CT of the abdomen pelvis with questionable findings of early colitis versus mild diverticulitis. Right lower lobe malignancy. Presence of adrenal gland possible malignancy. T12 compression fracture 25% including sclerotic lesions along the spine highly suspicious for metastatic disease. Blood work reveals WBC of 16.4, hemoglobin of 9.1 and platelet count of 239, sodium 134, potassium 3.6, BUN/creatinine 35/0.79 and alkaline phosphatase of 149 Patient has been admitted for possible ileus/colitis versus diverticulitis; surgery is consulted 02/01/2025 Patient seen and evaluated in follow-up today continues to report significant abdominal pain and general surgery following with no plans of surgical intervention at this time. White count is elevated at 18.85 and hemoglobin remains 9.1, platelets are 183. Sodium is 137 with a potassium of 4.3, BUN 37.1 with a creatinine of 1.0. Patient being started on antibiotics per general surgery for the colitis/diverticulitis and recommends minimum 3 days of IV antibiotics and to continue with clear liquids protein shakes. Patient with significant weakness recommend PT/OT therapy evaluation. Continued poor oral intake and not much of an appetite, consult to dietary. 02/02/2025 Patient evaluated in follow-up today with multiple consultations following including general surgery. Infectious disease has been consulted and patient is continued on antibiotics and white count is elevated with concerns of underlying infection. General surgery following with no immediate plans of surgical in tervention recommending to continue with conservative management and clear liquids. Patient reports has not had a bowel movement today and on assessment there are bowel sounds noted. Patient is tolerating the clear liquids with no reported nausea or vomiting although is asking for an advancing diet. Will await surgical recommendations regarding advancement. Pulmonary has been consulted as well regarding previous endoscopy with biopsy with multiple family members awaiting to speak further with pulmonary. Oncology will also be consulted. 02/03/2025 Patient seen in follow-up today currently obtaining a Doppler assess for DVT as patient has significant lower extremity swelling. Multiple consultations following including told was placed to oncology as recent bronchoscopy was positive for non-small cell lung carcinoma and likely metastasis. Patient white count remains elevated and is maintained on antibiotics. An MRI of the brain was ordered although patient is refusing. Radiation oncology has been consulted and pending to discuss possible palliative radiation. Patient continues to be significantly weak with shortness of breath maintained on oxygen via nasal cannula at 4 L. Encourage incentive spirometer use and wean FiO2 as tolerated. Overall prognosis is extremely poor and guarded. 02/04/2025 Patient is seen in follow-up today currently resting and patient was evaluated by radiation oncology undergoing mapping today to initiate palliative radiation. Patient continues to refuse MRI of the brain and oncology is following and aware. Multiple other consultations following and patient will be continued on current diet not tolerating much oral intake and has no real appetite with continued diffuse abdominal pain. No surgical intervention planned at this time. Patient is afebrile white count remains elevated although slightly improved with infectious disease following maintained on antibiotics and will continue. Continue to wean FiO2 as tolerated although continues on 4 L via nasal cannula. Pulmonary is following. 02/05/2025 Patient is seen in follow-up today remains sitting up in the chair and per patient unable to lie down any further than 30 degrees as patient reports significant shortness of breath and abdominal pain. Patient reports is tolerating current diet and having bowel movements and passing gas. Patient continues with lower extremity edema maintained on Lasix and will continue. Patient did receive mapping on the right chest wall with radiation oncology with plans of starting radiation today. Patient continues with shortness of breath maintained on 4 L. Patient to continue with antibiotics with infectious disease following as white count remains elevated, concerns for postobstructive. Follow-up on repeat labs and replace electrolytes per protocol. 02/06/2025 Patient is seen in follow-up today with multiple consultations following. Patient is status post palliative radiation yesterday with radiation oncology and will resume on Saturday and continue daily as tolerated. Patient continues on 4 L and continues to report shortness of breath. Patient having intermittent diffuse abdominal pain although much improved compared to previous. Patient is not tolerating much diet and is not eating much and needs encouragement and may continue supplements between meals. White count remains elevated and appreciate input and recommendations from infectious disease. Will continue Zosyn for now. Encourage incentive spirometer use and increase activity as tolerated. Review of systems: Constitutional: reports of fatigue, no fever, or chills Cardiovascular: No reports of chest pain or palpitations Respiratory: reports of mild shortness of breath or cough, reports of increased work of breathing and difficulty in breathing with movement GI: No reports of nausea, vomiting, or diarrhea, reports having bowel movements, continues to report diffuse abdominal pain : No reports of dysuria or retention Neurovascular: reports of generalized weakness and lower extremity swelling All medications have been reviewed Physical exam: Gen: This is a 69-year-old female who is lethargic although arousable, fatigues easily, alert and oriented x 3, well-developed, elderly appearing, ill-appearing HEENT: Head is atraumatic, normocephalic. Pupils equal, round. Sclerae is anicteric. NECK: Supple. No JVD. No lymphadenopathy. No thyromegaly. LUNGS: Diminished breath sounds bilaterally with bronchial congestion noted and patient able to clear with strong cough. No wheezes coarse scattered rhonchi noted. No intercostal retractions. HEART: S1, S2 are muffled ABDOMEN: Soft. Bowel sounds are present. No masses. Mild tenderness noted on palpation. EXTREMITIES: No pedal edema. No calf tenderness. Bilateral lower extremity edema NEUROLOGICAL: Patient is awake, alert and oriented x3. Cranial nerves 2 through 12 are grossly intact. Diffusely weak Assessment: -Abdominal pain, likely secondary to early colitis with mild diverticulitis as noted on CT image -Leukocytosis, secondary to above -Possible ileus, improving continuing conservative management per surgery, patient is having bowel movements -multiple masses and lesions within the liver highly suspicious for metastatic disease -COPD; not in exacerbation -Hypoxic respiratory failure, recently placed on oxygen since bronchoscopy likely secondary to non-small cell lung carcinoma -Gastroesophageal reflux disease -Anxiety -Chronic back pain -Severe protein calorie malnutrition -History of recent abdominal aortic aneurysm status post endovascular graft -Recently diagnosed metastatic lung cancer from bronchoscopy with BAL and biopsy on 01/22/2025. Pathology is positive for non-small cell lung carcinoma and PET scan showing diffuse metastasis throughout the thorax and osseous metastatic disease and a possible right frontal lobe lesion. On the brain GI prophylaxis DVT prophylaxis; SCDs full code Plan: Patient was admitted with concerns of early colitis and mild diverticulitis with abdominal pain and concerns of possible ileus. Patient evaluated by general surgery with no plans of surgical intervention at this time recommending bowel rest with clear liquids and IV antibiotic therapy. White count remains elevated and infectious disease following making adjustments to medications. Continue antibiotics for now and monitor white count, procalcitonin is elevated as well Pulmonary and oncology following as patient's recent bronchoscopy with BAL and biopsy on 01/22/2025 for non-small cell carcinoma and patient also had a recent PET scan concerning for diffuse metastasis throughout the thoracic area with metastatic disease and also noted right frontal brain lesion. Oncology ordered an MRI of the brain although patient is refusing. Radiation oncology following and has undergone mapping and started radiation 02/05/2025, will resume again on Saturday Continue clear liquid diet with Ensure protein shakes in between meals Follow-up on repeat labs, replace electrolytes per protocol monitor white count Encouraged increase activity as tolerated Recommend PT/OT therapy evaluation as she has been hospitalized for quite some time and continuing to become more weak Consult with dietary Due to multiple complex medical issues, overall prognosis is extremely poor and guarded The impression and plan of care has been dictated as a scribe by Ciarra Machado, Nurse Practitioner as directed. Dr. Christopher MD I have performed a history and examination and MDM of this patient, discussed the same with the dictator, and agree with the dictator's assessment and plan as written ,documented as a scribe. Based on total visit time, I have performed more than 50% of the visit. Objective - Vital Signs Vital signs: Vital Signs Temp 97.7 F 02/06/25 14:00 Pulse 101 H 02/06/25 16:12 Resp 22 02/06/25 16:12 BP 91/60 02/06/25 14:00 Pulse Ox 98 02/06/25 14:00 FiO2 Intake & Output 02/06/25 02/06/25 02/07/25 06:59 18:59 06:59 Other: Voiding Method Bedside Commode Diaper Incontinent # Voids 1 3 - Labs CBC & Chem 7: 02/06/25 05:32 02/06/25 05:32 Labs: Abnormal Lab Results - Last 24 Hours (Table) 02/05/25 02/06/2525 Range/Units 23:55 05:32 05:32 WBC 18.81 H (4.50-10.00) X 10*3/uL RBC 3.27 L (4.10-5.20) X 10*6/uL Hgb 9.2 L (12.0-15.0) g/dL Hct 30.9 L (37.2-46.3) % MCHC 29.8 L (32.0-37.0) g/dL RDW 16.8 H (11.5-14.5) % Neutrophils # (Manual) 15.99 H (1.80-7.70) X 10*3/uL Eosinophils # (Manual) 0.94 H (0.04-0.35) X 10*3/uL Potassium 3.0 L (3.5-5.1) mmol/L Anion Gap 16.60 H (4.00-12.00) mmol/L BUN/Creatinine Ratio 22.00 H (12.00-20.00) Ratio Calcium 8.5 L (8.7-10.3) mg/dL Microbiology - Last 24 Hours (Table) 02/02/25 22:40 Blood Culture - Preliminary Blood
[2025-02-07 03:56] LABS: Basophils # (A) 0.11 10*3/uL (0.00-0.10); Basophils % (A) 0.5 %; Eosinophils % (A) 0.5 %; HCT 29.3 % (37.2-46.3); HGB 9.3 g/dL (12.0-15.0); Lymphocytes # (A) 1.59 10*3/uL (0.90-5.00); Lymphocytes % (A) 7.7 %; MCHC 31.7 g/dL (32.0-37.0); MCV 91.3 fL (80.0-97.0); Mean Platelet Volume 9.6 fL (9.5-12.2); Monocytes # (A) 1.02 10*3/uL (0.20-1.00); Monocytes % (A) 4.9 %; Neutrophils # (A) 16.81 10*3/uL (1.80-7.70); Neutrophils % (A) 81.3 %; Platelet Count 144 10*3/uL (140-440); RBC 3.21 10*6/uL (4.10-5.20); RDW 16.7 % (11.5-14.5); WBC 20.68 10*3/uL (4.50-10.00)
[2025-02-07 04:18] LABS: African American GFR (CKD) >90 (>60 ml/min/1.73 sqM); Anion Gap 12 mmol/L; Blood Urea Nitrogen 16 mg/dL (7-17); Calcium 8.7 mg/dL (8.4-10.2); Carbon Dioxide 25 mmol/L (22-30); Chloride 102 mmol/L (98-107); Glucose 91 mg/dL (74-99); Non-African American GFR(CKD) 85 (>60 ml/min/1.73 sqM); Sodium 139 mmol/L (137-145)
[2025-02-07 04:20] LABS: Magnesium 1.8 mg/dL (1.6-2.3); Potassium 4.3 mmol/L (3.5-5.1)
[2025-02-07 04:43] LABS: Anisocytosis (M) Present
--- NOTE | 2025-02-07 14:41 | P.PN ---
Subjective Progress Note Date: 02/07/25 This is a 69-year-old female patient with known history of COPD and lung cancer, and known history of abdominal aortic aneurysm post endovascular stent placement and the procedure was done on 01/08/2025. The patient presented to the hospital because of right lower quadrant pain, nausea, emesis and diarrhea. No reported GI bleeding. The patient had diminished appetite. CAT scan of the abdomen and pelvis was done and it showed early colitis versus mild diverticulitis. There was T12 compression fraction of the spine with 25% involvement and there was also sclerotic lesion along the spine highly suspicious for metastatic disease. There was also suspected adrenal metastases and ongoing consolidation in the right lung base. As for the infrarenal abdominal aortic aneurysm, this was measuring up to 8 cm in size with at least 2 stent graft present. A small gap between the stent grafts possibly resulting endoleak. Noted, the patient's diagnosis of lung cancer is quite recent. The patient was seen in consultation on 01/21/2025 with worsening shortness of breath, weight loss and CAT scan of the chest was done on 01/21/2025 and a CAT scan showed lymphadenopathy throughout the chest concerning for malignancy and the right lower lobe pulmonary nodule, metastatic left rib lesion and left-sided posterior rib fracture without evidence of pneumothorax and concern of osseous lesions and pathologic fractures seen in the scapula. There was lymphadenopathy seen in the right hilum with narrowing of the adjacent bronchus. Based on that, the patient had a bronchoscopy done and the bronchoscopy showed significant obstruction of the right middle lobe bronchus with endobronchial tumor endobronchial biopsies performed in the involved area was consistent with pulmonary adenocarcinoma with squamous differentiation. The mediastinal lymph node sampling was hypocellular. Subsequently, the patient had a PET/CT that was done on an outpatient basis and the PET scan showed metastatic neoplasm, prominent lymphadenopathy involving the right thorax with osseous metastatic disease present. There was an expansile hypermetabolic left anterior lateral mid rib lesion and destructive soft tissue mass involving the right posterior 4th and 5th ribs and scattered additional metabolic reactive lytic lesions involving the right scapula and multiple lesions involving the spine and pelvis. There was also evidence of bilateral hypermetabolic adrenal masses consistent with metastases. For now, the patient is being seen by general surgery regarding the abdominal pain. The patient is currently on IV Zosyn. Patient is also on Spiriva and Symbicort and inhalers and normal saline at rate of 75 cc an hour. The patient is currently on oxygen at 4 L with a pulse ox of 98%. Hemodynamically stable. On 02/03/2025, patient is being seen for a follow-up. The patient is in poor condition. She continues to have cough and congestion. She continues to be short of breath even at rest. She has developed significant amount of edema in lower extremities bilaterally and there is fluid weeping from the skin surface in the feet bilaterally. There are diminished pulses in the legs and vascular surgery is on the case. I ordered a Doppler of the lower extremity to rule out underlying DVT. Noted the patient has undergone endovascular stent grafting for a large abdominal aortic aneurysm. A CT angiogram of the abdominal aorta and a runoff was recommended. However, the patient declined further testing. The patient's white cell count is at 17.9, hemoglobin of 8.7 and a platelet count of 204. Bicarb is at 21, BUN is 27 with a creatinine of 0.7. LFTs are normal. The lipase at 8, the albumin is at 2.5 with a total protein of 5.4. The patient was seen by hematology oncology and the patient is also to be seen by radiation oncology. Care is a very poor prognosis based on her metastatic pulm ad enocarcinoma. She remains on oxygen at 4 L. Diarrhea has subsided. No significant abdominal pain at this point. 02/04/2025, the patient is sitting up in a chair and the patient remains on oxygen at 4 L. She was seen by radiation oncology and the patient underwent simulation and she is going to receive palliative radiation therapy for pain control. She is feeling quite tired and she has very limited exercise capacity in addition to ongoing edema in lower extremities bilaterally. Doppler was negative for any DVTs and the patient was given IV Lasix and the patient is producing adequate amount of urine output with some limited improvement in lower extremity edema compared to yesterday. Sodium is at 140, potassium is at 3.3, BUN is 22 with a creatinine of 0.6 and a bicarb level of 29. Glucose 93. White cell count is at 17 with a hemoglobin of 9.1. The patient is seen by medical oncology and radiation oncology. On 02/05/2025, the patient reports improvement in lower extremity edema. She responded to Lasix. However, she continues to have significant amount of edema still in her legs. She will proceed with palliative radiation therapy. She feels very tired. She continues to have a congested cough. She continues to have chest wall pain especially with coughing episodes. The white cell count is 18 with a hemoglobin of 8.8 and a platelet count of 165. Sodium is at 141, K is at 2.9, electrolytes were noted and the serum bicarb is at 24. Procalcitonin is at 1.53. The blood cultures been negative. Patient is empirically on IV Zosyn. The patient has Spiriva, Symbicort and DuoNeb neb regiment [id number]. 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 02/06/2025, the patient's condition essentially the same and unchanged. She remains on oxygen at 4 L with a pulse ox of 98%. Afebrile. Main complaint remains pain and the patient is currently receiving p.o. radiation therapy. Remains on IV Zosyn. Remains on Lasix 20 mg IV push every 12 hours. Continues to have lower extremity edema. No altered mentation. Feels quite weak and debilitated. The white cell count is 18 with a hemoglobin 9.2 and a platelet count of 192. Sodium is at 142, potassium is 3.9, BUN is 15 with a creatinine o f 0.7. On 02/07/2025, condition remains essentially unchanged. Remains on 4 days of oxygen by nasal cannula. Complaints are essentially the same including ongoing pain involving the chest and the back and throughout the body. Continues to have lower extremity edema. Continues to be on IV Lasix. Continues to have a white cell count of 20 with a hemoglobin 9.3 and a platelet count of 144. Elec trolytes are all within normal limits. Remains on IV Zosyn as an empiric antibiotic coverage. She does have chronic atelectatic changes and consolidation of the right lower lobe related to extensive mediastinal lymphadenopathy/tumor consistent with pulm adenocarcinoma. She is receiving palliative radiation therapy which is currently on hold over the weekend. This is to be resumed in a.m. Objective - Vital Signs Vital signs: Vital Signs Temp 97.5 F L 02/07/25 08:00 Pulse 104 H 02/07/25 09:22 Resp 18 02/07/25 08:00 BP 117/67 02/07/25 08:00 Pulse Ox 99 02/07/25 09:10 FiO2 Intake & Output 05/17/25 05/18/25 05/18/25 18:59 06:59 18:59 Intake Total 1650 Balance 1650 Intake: Oral 1650 Other: Voiding Method Diaper # Voids 3 5 2 # Bowel Movements 1 2 - Exam GENERAL EXAM: Alert, 69-year-old female, on 4 L nasal cannula, fairly comfortable in no apparent distress. HEAD: Normocephalic. EYES: Normal reaction of pupils, equal size. NOSE: Clear with pink turbinates. THROAT: No erythema or exudates. NECK: No masses, no JVD. CHEST: No chest wall deformity. LUNGS: Equal air entry with no crackles, wheeze, rhonchi or dullness. Diminished breath sounds right lung base CVS: S1 and S2 normal with no audible murmur, regular rhythm. ABDOMEN: No hepatosplenomegaly, normal bowel sounds, no guarding or rigidity. SPINE: No scoliosis or deformity SKIN: No rashes CENTRAL NERVOUS SYSTEM: No focal deficits, tone is normal in all 4 extremities. EXTREMITIES: There is extensive edema in the lower extremities bilaterally invol ving the thighs, below the knees and the feet and there is serous fluid seeping from the feet with areas of eschar formation. Pulses are quite diminished in lower extremities bilaterally.. - Labs CBC & Chem 7: 02/07/25 03:20 02/07/25 03:20 Labs: Abnormal Lab Results - Last 24 Hours (Table) 02/06/25 02/06/25 02/07/25 Range/Units 05:32 05:32 03:20 WBC 20.68 H (4.50-10.00) 10*3/uL RBC 3.21 L (4.10-5.20) 10*6/uL Hgb 9.3 L (12.0-15.0) g/dL Hct 29.3 L (37.2-46.3) % MCHC 31.7 L (32.0-37.0) g/dL RDW 16.7 H (11.5-14.5) % Immature Gran # 1.05 H (0.00-0.04) 10*3/uL Neutrophils # 16.81 H (1.80-7.70) 10*3/uL Neutrophils # (Manual) 15.99 H (1.80-7.70) X 10*3/uL Monocytes # 1.02 H (0.20-1.00) 10*3/uL Eosinophils # (Manual) 0.94 H (0.04-0.35) X 10*3/uL Basophils # 0.11 H (0.00-0.10) 10*3/uL Anion Gap 16.60 H (4.00-12.00) mmol/L BUN/Creatinine Ratio 22.00 H (12.00-20.00) Ratio Calcium 8.5 L (8.7-10.3) mg/dL Assessment and Plan Plan: Stage IV non-small cell lung cancer. The patient has extensive lymphadenopathy along the right hemithorax causing mass effect on the right middle lobe and right lower lobe bronchus and the patient has atelectatic changes right lung base along with a small to moderate-sized right-sided pleural effusion. Postobstructive pneumonia is felt to be less likely. This is probably part of the natural progression of her underlying malignancy. Noted the patient has evidence of bilateral adrenal metastases, and skeletal metastases involving the ribs, scapula and spine. Please refer to the PET/CT done on 02/01/2025. The pathology is consistent with pulm adenocarcinoma with squamous differentiation. Metastatic lesions with expansile hypermetabolic left anterior lateral mid rib lesion and destructive soft tissue mass involving the right posterior 4th and 5th ribs and scattered additional metabolic reactive lytic lesions involving the right scapula and multiple lesions involving the spine and pelvis. Abdominal pain/colitis, improving Acute leukocytosis Chronic smoker ongoing chronic tobacco dependence of 50 years Abdominal aortic aneurysm stent placement at [facility] December 2024 Severe chronic obstructive pulmonary disease maintained on Trelegy, albuterol Significant weight loss of over 20 pounds in the past 1 to 2 months Hypertension Lower extremity edema, extensive, currently on Lasix and Doppler lower extremi ties were negative Plan Patient remains quite debilitated and her main concern remains pain related to metastatic disease. Continue same management, oxygen therapy, pain management, antibiotic treatment. Also continue diuretics. Continue IV Zosyn, empiric versus postobstructive changes in the right lung related to underlying pulm adenocarcinoma. Procalcitonin level was mildly elevated. Titrate oxygen flow to maintain saturation above 90% No need for thoracentesis of the right lung. The pleural effusion is small and there is atelectatic changes due to the extensive right hilar lymphadenopathy causing mass effect on the right lower lobe and right middle lobe bronchus Palliative radiation therapy to the chest and the skeletal system for pain control Oncology consultation is appreciated Radiation oncology consult is appreciated Doppler of the lower extremities was negative Continue Lasix 20 mg IV every 12 hours, continues to have lower extremity edema Awaiting NGS and PD-1 evaluation for subsequent treatments. Will follow, very poor prognosis based on her impaired baseline performance and functional status and presence of metastatic pulm adenocarcinoma. Time with Patient: Greater than 30
--- NOTE | 2025-02-07 16:53 | P.PN ---
Subjective Progress Note Date: 02/07/25 Principal diagnosis: Reason for follow-up is pneumonia/colitis Patient is a 69-year-old female with a past medical history significant for COPD hypertension recent diagnosis of metastatic non-small cell lung cancer/pulmonary adenocarcinoma, anxiety patient presenting to the hospital for evaluation of right lower quadrant right groin pain, patient did have a CT concerning for right lower lobe consolidation and with concern for possible colitis/diverticulitis prompted this consultation. On today's evaluation that is 02/07/2025,the patient remains to be afebrile, amira sherman is on 4 L cannula supplemental oxygen and denies any worsening shortness of breath or cough not bringing up any sputum no nausea vomiting abdominal pain or diarrhea. Patient white count is 20.68 creatinine 0.73 Objective - Vital Signs Vital signs: Vital Signs Temp 97.5 F L 02/07/25 08:00 Pulse 92 02/07/25 12:35 Resp 18 02/07/25 08:00 BP 117/67 02/07/25 08:00 Pulse Ox 99 02/07/25 09:10 FiO2 Intake & Output 02/06/25 02/07/25 02/07/25 18:59 06:59 18:59 Intake Total 1650 Balance 1650 Intake: Oral 1650 Other: Voiding Method Diaper # Voids 3 5 2 # Bowel Movements 1 2 - Exam GENERAL DESCRIPTION: An elderly female up in the chair in no distress RESPIRATORY SYSTEM: Unlabored breathing , breath sounds bilaterally HEART: S1 S2 regular rate and rhythm , ABDOMEN: Soft , no tenderness EXTREMITIES: Bilateral lower extremity currently wrapped in the Wale wrap - Labs CBC & Chem 7: 02/07/25 03:20 02/07/25 03:20 Labs: Abnormal Lab Results - Last 24 Hours (Table) 02/07/25 Range/Units 03:20 WBC 20.68 H (4.50-10.00) 10*3/uL RBC 3.21 L (4.10-5.20) 10*6/uL Hgb 9.3 L (12.0-15.0) g/dL Hct 29.3 L (37.2-46.3) % MCHC 31.7 L (32.0-37.0) g/dL RDW 16.7 H (11.5-14.5) % Immature Gran # 1.05 H (0.00-0.04) 10*3/uL Neutrophils # 16.81 H (1.80-7.70) 10*3/uL Monocytes # 1.02 H (0.20-1.00) 10*3/uL Basophils # 0.11 H (0.00-0.10) 10*3/uL Assessment and Plan (1) Sepsis Current Visit: Yes Status: Acute Code(s): A41.9 - SEPSIS, UNSPECIFIED ORGANISM SNOMED Code(s): 66140439 (2) Pneumonia Current Visit: Yes Status: Acute Code(s): J18.9 - PNEUMONIA, UNSPECIFIED ORGANISM SNOMED Code(s): 057683108 (3) Diverticulitis Current Visit: Yes Status: Acute Code(s): K57.92 - DVTRCLI OF INTEST, PART UNSP, W/O PERF OR ABSCESS W/O BLEED SNOMED Code(s): 500597694 Plan: 1patient presented to hospital with lower abdominal discomfort nausea vomiting in this patient who did have a tachycardia elevated white count meeting currently for SIRS concern for possible sepsis source could be right lower lobe pneumonia and evidence of diverticulitis on the CT and need to cover for the gram-negative aerobes and anaerobes. 2patient did have mild elevated procalcitonin lower extremity Doppler negative for DVT 3patient is afebrile, white count is elevated questionably due to necrosis and no evidence of any worsening infection clinically, for now continue with Zosyn and monitor clinical course closely Dictation was produced using [employer] dictation software. please excuse any grammatical, word or spelling errors. Time with Patient: Less than 30
--- NOTE | 2025-02-07 23:06 | P.PN ---
Subjective Progress Note Date: 02/07/25 69-year-old woman with recent diagnosis of lung cancer, COPD and hypertension. She presents today as she is having right lower quadrant and right groin pain, nausea, vomiting and diarrhea. The patient's family notes that it seemed to come on after she had the injection related to a bone scan. The patient has not had hematemesis. No dark or tarry stools. No fever or chills. Patient had recent endovascular placement of abdominal aortic stent January 08, 2025, 3 weeks ago. Patient does report she has had abdominal pain since her surgery. She reports early satiety. Poor appetite. Family reports that she had poor appetite prior to surgery. CT of the abdomen pelvis with questionable findings of early colitis versus mild diverticulitis. Right lower lobe malignancy. Presence of adrenal gland possible malignancy. T12 compression fracture 25% including sclerotic lesions along the spine highly suspicious for metastatic disease. Blood work reveals WBC of 16.4, hemoglobin of 9.1 and platelet count of 239, sodium 134, potassium 3.6, BUN/creatinine 35/0.79 and alkaline phosphatase of 149 Patient has been admitted for possible ileus/colitis versus diverticulitis; surgery is consulted 02/01/2025 Patient seen and evaluated in follow-up today continues to report significant abdominal pain and general surgery following with no plans of surgical intervention at this time. White count is elevated at 18.85 and hemoglobin remains 9.1, platelets are 183. Sodium is 137 with a potassium of 4.3, BUN 37.1 with a creatinine of 1.0. Patient being started on antibiotics per general surgery for the colitis/diverticulitis and recommends minimum 3 days of IV antibiotics and to continue with clear liquids protein shakes. Patient with significant weakness recommend PT/OT therapy evaluation. Continued poor oral intake and not much of an appetite, consult to dietary. 02/02/2025 Patient evaluated in follow-up today with multiple consultations following including general surgery. Infectious disease has been consulted and patient is continued on antibiotics and white count is elevated with concerns of underlying infection. General surgery following with no immediate plans of surgical in tervention recommending to continue with conservative management and clear liquids. Patient reports has not had a bowel movement today and on assessment there are bowel sounds noted. Patient is tolerating the clear liquids with no reported nausea or vomiting although is asking for an advancing diet. Will await surgical recommendations regarding advancement. Pulmonary has been consulted as well regarding previous endoscopy with biopsy with multiple family members awaiting to speak further with pulmonary. Oncology will also be consulted. 02/03/2025 Patient seen in follow-up today currently obtaining a Doppler assess for DVT as patient has significant lower extremity swelling. Multiple consultations following including told was placed to oncology as recent bronchoscopy was positive for non-small cell lung carcinoma and likely metastasis. Patient white count remains elevated and is maintained on antibiotics. An MRI of the brain was ordered although patient is refusing. Radiation oncology has been consulted and pending to discuss possible palliative radiation. Patient continues to be significantly weak with shortness of breath maintained on oxygen via nasal cannula at 4 L. Encourage incentive spirometer use and wean FiO2 as tolerated. Overall prognosis is extremely poor and guarded. 02/04/2025 Patient is seen in follow-up today currently resting and patient was evaluated by radiation oncology undergoing mapping today to initiate palliative radiation. Patient continues to refuse MRI of the brain and oncology is following and aware. Multiple other consultations following and patient will be continued on current diet not tolerating much oral intake and has no real appetite with continued diffuse abdominal pain. No surgical intervention planned at this time. Patient is afebrile white count remains elevated although slightly improved with infectious disease following maintained on antibiotics and will continue. Continue to wean FiO2 as tolerated although continues on 4 L via nasal cannula. Pulmonary is following. 02/05/2025 Patient is seen in follow-up today remains sitting up in the chair and per patient unable to lie down any further than 30 degrees as patient reports significant shortness of breath and abdominal pain. Patient reports is tolerating current diet and having bowel movements and passing gas. Patient continues with lower extremity edema maintained on Lasix and will continue. Patient did receive mapping on the right chest wall with radiation oncology with plans of starting radiation today. Patient continues with shortness of breath maintained on 4 L. Patient to continue with antibiotics with infectious disease following as white count remains elevated, concerns for postobstructive. Follow-up on repeat labs and replace electrolytes per protocol. 02/06/2025 Patient is seen in follow-up today with multiple consultations following. Patient is status post palliative radiation yesterday with radiation oncology and will resume on Saturday and continue daily as tolerated. Patient continues on 4 L and continues to report shortness of breath. Patient having intermittent diffuse abdominal pain although much improved compared to previous. Patient is not tolerating much diet and is not eating much and needs encouragement and may continue supplements between meals. White count remains elevated and appreciate input and recommendations from infectious disease. Will continue Zosyn for now. Encourage incentive spirometer use and increase activity as tolerated. 02/07/2025 Patient is seen in follow-up today continues to report significant pain and continued on current pain regimen. Plan is for radiation oncology to follow-up for repeat radiation on Saturday throughout the week. Infectious disease following and white count is elevated above 20 and maintained on antibiotics we will follow-up on repeat labs. Encouraged increase activity as tolerated and incentive spirometer use. Continue with breathing treatments. Prognosis guarded at this time Review of systems: Constitutional: reports of fatigue, no fever, or chills Cardiovascular: No reports of chest pain or palpitations Respiratory: reports of mild shortness of breath or cough, reports of increased work of breathing and difficulty in breathing with movement GI: No reports of nausea, vomiting, or diarrhea, reports having bowel movements, continues to report diffuse abdominal pain : No reports of dysuria or retention Neurovascular: reports of generalized weakness and lower extremity swelling All medications have been reviewed Physical exam: Gen: This is a 69-year-old female who is awake although, fatigues easily, alert and oriented x 3, well-developed, elderly appearing, ill-appearing HEENT: Head is atraumatic, normocephalic. Pupils equal, round. Sclerae is anicteric. NECK: Supple. No JVD. No lymphadenopathy. No thyromegaly. LUNGS: Diminished breath sounds bilaterally with bronchial congestion noted and patient able to clear with strong cough. No wheezes coarse scattered rhonchi noted. No intercostal retractions. HEART: S1, S2 are muffled ABDOMEN: Soft. Bowel sounds are present. No masses. Mild tenderness noted on palpation. EXTREMITIES: No pedal edema. No calf tenderness. Bilateral lower extremity edema NEUROLOGICAL: Patient is awake, alert and oriented x3. Cranial nerves 2 through 12 are grossly intact. Diffusely weak Assessment: -Abdominal pain, likely secondary to early colitis with mild diverticulitis as n oted on CT image -Leukocytosis, secondary to above -Possible ileus, improving continuing conservative management per surgery, patient is having bowel movements -multiple masses and lesions within the liver highly suspicious for metastatic disease -COPD; not in exacerbation -Hypoxic respiratory failure, recently placed on oxygen since bronchoscopy likely secondary to non-small cell lung carcinoma -Gastroesophageal reflux disease -Anxiety -Chronic back pain -Severe protein calorie malnutrition -History of recent abdominal aortic aneurysm status post endovascular graft -Recently diagnosed metastatic lung cancer from bronchoscopy with BAL and biopsy on 01/22/2025. Pathology is positive for non-small cell lung carcinoma and PET scan showing diffuse metastasis throughout the thorax and osseous metastatic disease and a possible right frontal lobe lesion. On the brain GI prophylaxis DVT prophylaxis; SCDs full code Plan: Patient was admitted with concerns of early colitis and mild diverticulitis with abdominal pain and concerns of possible ileus. Patient evaluated by general surgery with no plans of surgical intervention at this time recommending bowel rest with clear liquids and IV antibiotic therapy. White count remains elevated and infectious disease following making adjustments to medications. Continue antibiotics for now and monitor white count, procalcitonin is elevated as well Pulmonary and oncology following as patient's recent bronchoscopy with BAL and biopsy on 01/22/2025 for non-small cell carcinoma and patient also had a recent PET scan concerning for diffuse metastasis throughout the thoracic area with metastatic disease and also noted right frontal brain lesion. Oncology ordered an MRI of the brain although patient is refusing. Radiation oncology following and has undergone mapping and started radiation 02/05/2025, will resume again tomorrow on Saturday Continue clear liquid diet with Ensure protein shakes in between meals Follow-up on repeat labs, replace electrolytes per protocol monitor white count is trending up Encouraged increase activity as tolerated Recommend PT/OT therapy evaluation as she has been hospitalized for quite some time and continuing to become more weak Due to multiple complex medical issues, overall prognosis is extremely poor and guarded The impression and plan of care has been dictated as a scribe by Ciarra Machado, Nurse Practitioner as directed. Dr. Christopher MD I have performed a history and examination and MDM of this patient, discussed the same with the dictator, and agree with the dictator's assessment and plan as written ,documented as a scribe. Based on total visit time, I have performed more than 50% of the visit. Objective - Vital Signs Vital signs: Vital Signs Temp 97.5 F L 02/07/25 08:00 Pulse 104 H 02/07/25 09:22 Resp 18 02/07/25 08:00 BP 117/67 02/07/25 08:00 Pulse Ox 99 02/07/25 09:10 FiO2 Intake & Output 02/06/25 02/07/25 02/07/25 18:59 06:59 18:59 Intake Total 1650 Balance 1650 Intake: Oral 1650 Other: Voiding Method Diaper # Voids 3 5 2 # Bowel Movements 1 2 - Labs CBC & Chem 7: 02/07/25 03:20 02/07/25 03:20 Labs: Abnormal Lab Results - Last 24 Hours (Table) 02/06/25 02/07/25 Range/Units 05:32 03:20 WBC 20.68 H (4.50-10.00) 10*3/uL RBC 3.21 L (4.10-5.20) 10*6/uL Hgb 9.3 L (12.0-15.0) g/dL Hct 29.3 L (37.2-46.3) % MCHC 31.7 L (32.0-37.0) g/dL RDW 16.7 H (11.5-14.5) % Immature Gran # 1.05 H (0.00-0.04) 10*3/uL Neutrophils # 16.81 H (1.80-7.70) 10*3/uL Monocytes # 1.02 H (0.20-1.00) 10*3/uL Basophils # 0.11 H (0.00-0.10) 10*3/uL Anion Gap 16.60 H (4.00-12.00) mmol/L BUN/Creatinine Ratio 22.00 H (12.00-20.00) Ratio Calcium 8.5 L (8.7-10.3) mg/dL
--- NOTE | 2025-02-08 13:16 | P.PN ---
Subjective Progress Note Date: 02/08/25 This is a 69-year-old female patient with known history of COPD and lung cancer, and known history of abdominal aortic aneurysm post endovascular stent placement and the procedure was done on 01/08/2025. The patient presented to the hospital because of right lower quadrant pain, nausea, emesis and diarrhea. No reported GI bleeding. The patient had diminished appetite. CAT scan of the abdomen and pelvis was done and it showed early colitis versus mild diverticulitis. There was T12 compression fraction of the spine with 25% involvement and there was also sclerotic lesion along the spine highly suspicious for metastatic disease. There was also suspected adrenal metastases and ongoing consolidation in the right lung base. As for the infrarenal abdominal aortic aneurysm, this was measuring up to 8 cm in size with at least 2 stent graft present. A small gap between the stent grafts possibly resulting endoleak. Noted, the patient's diagnosis of lung cancer is quite recent. The patient was seen in consultation on 01/21/2025 with worsening shortness of breath, weight loss and CAT scan of the chest was done on 01/21/2025 and a CAT scan showed lymphadenopathy throughout the chest concerning for malignancy and the right lower lobe pulmonary nodule, metastatic left rib lesion and left-sided posterior rib fracture without evidence of pneumothorax and concern of osseous lesions and pathologic fractures seen in the scapula. There was lymphadenopathy seen in the right hilum with narrowing of the adjacent bronchus. Based on that, the patient had a bronchoscopy done and the bronchoscopy showed significant obstruction of the right middle lobe bronchus with endobronchial tumor endobronchial biopsies performed in the involved area was consistent with pulmonary adenocarcinoma with squamous differentiation. The mediastinal lymph node sampling was hypocellular. Subsequently, the patient had a PET/CT that was done on an outpatient basis and the PET scan showed metastatic neoplasm, prominent lymphadenopathy involving the right thorax with osseous metastatic disease present. There was an expansile hypermetabolic left anterior lateral mid rib lesion and destructive soft tissue mass involving the right posterior 4th and 5th ribs and scattered additional metabolic reactive lytic lesions involving the right scapula and multiple lesions involving the spine and pelvis. There was also evidence of bilateral hypermetabolic adrenal masses consistent with metastases. For now, the patient is being seen by general surgery regarding the abdominal pain. The patient is currently on IV Zosyn. Patient is also on Spiriva and Symbicort and inhalers and normal saline at rate of 75 cc an hour. The patient is currently on oxygen at 4 L with a pulse ox of 98%. Hemodynamically stable. On 02/03/2025, patient is being seen for a follow-up. The patient is in poor condition. She continues to have cough and congestion. She continues to be short of breath even at rest. She has developed significant amount of edema in lower extremities bilaterally and there is fluid weeping from the skin surface in the feet bilaterally. There are diminished pulses in the legs and vascular surgery is on the case. I ordered a Doppler of the lower extremity to rule out underlying DVT. Noted the patient has undergone endovascular stent grafting for a large abdominal aortic aneurysm. A CT angiogram of the abdominal aorta and a runoff was recommended. However, the patient declined further testing. The patient's white cell count is at 17.9, hemoglobin of 8.7 and a platelet count of 204. Bicarb is at 21, BUN is 27 with a creatinine of 0.7. LFTs are normal. The lipase at 8, the albumin is at 2.5 with a total protein of 5.4. The patient was seen by hematology oncology and the patient is also to be seen by radiation oncology. Care is a very poor prognosis based on her metastatic pulm katja nocarcinoma. She remains on oxygen at 4 L. Diarrhea has subsided. No significant abdominal pain at this point. 02/04/2025, the patient is sitting up in a chair and the patient remains on oxygen at 4 L. She was seen by radiation oncology and the patient underwent simulation and she is going to receive palliative radiation therapy for pain control. She is feeling quite tired and she has very limited exercise capacity in addition to ongoing edema in lower extremities bilaterally. Doppler was negative for any DVTs and the patient was given IV Lasix and the patient is producing adequate amount of urine output with some limited improvement in lower extremity edema compared to yesterday. Sodium is at 140, potassium is at 3.3, BUN is 22 with a creatinine of 0.6 and a bicarb level of 29. Glucose 93. White cell count is at 17 with a hemoglobin of 9.1. The patient is seen by medical oncology and radiation oncology. On 02/05/2025, the patient reports improvement in lower extremity edema. She responded to Lasix. However, she continues to have significant amount of edema still in her legs. She will proceed with palliative radiation therapy. She feels very tired. She continues to have a congested cough. She continues to have chest wall pain especially with coughing episodes. The white cell count is 18 with a hemoglobin of 8.8 and a platelet count of 165. Sodium is at 141, K is at 2.9, electrolytes were noted and the serum bicarb is at 24. Procalcitonin is at 1.53. The blood cultures been negative. Patient is empirically on IV Zosyn. The patient has Spiriva, Symbicort and DuoNeb neb regiment [id number]. 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 02/06/2025, the patient's condition essentially the same and unchanged. She remains on oxygen at 4 L with a pulse ox of 98%. Afebrile. Main complaint remains pain and the patient is currently receiving p.o. radiation therapy. Remains on IV Zosyn. Remains on Lasix 20 mg IV push every 12 hours. Continues to have lower extremity edema. No altered mentation. Feels quite weak and debilitated. The white cell count is 18 with a hemoglobin 9.2 and a platelet count of 192. Sodium is at 142, potassium is 3.9, BUN is 15 with a creatinine of 0.7. On 02/07/2025, condition remains essentially unchanged. Remains on 4 days of oxygen by nasal cannula. Complaints are essentially the same including ongoing pain involving the chest and the back and throughout the body. Continues to have lower extremity edema. Continues to be on IV Lasix. Continues to have a white cell count of 20 with a hemoglobin 9.3 and a platelet count of 144. Elect rolytes are all within normal limits. Remains on IV Zosyn as an empiric antibiotic coverage. She does have chronic atelectatic changes and consolidation of the right lower lobe related to extensive mediastinal lymphadenopathy/tumor consistent with pulm adenocarcinoma. She is receiving palliative radiation therapy which is currently on hold over the weekend. This is to be resumed in a.m. The patient is seen today February 08, 2025 in follow-up on the regular medical floor. She is currently sitting up in a chair at the bedside. Awake and alert in no acute distress. Maintaining O2 saturations in the 90s on 4 L/min per nasal cannula. She is afebrile. Hemodynamically stable. Blood culture r evealed no growth. She remains on IV diuretics. Continued on DuoNeb inhalations, Symbicort. Antibiotics in the form of Zosyn. Objective - Vital Signs Vital signs: Vital Signs Temp 97.4 F L 02/08/25 08:00 Pulse 104 H 02/08/25 09:48 Resp 19 02/08/25 08:00 BP 112/75 02/08/25 08:00 Pulse Ox 97 02/08/25 09:36 FiO2 Intake & Output 02/07/25 02/08/25 02/08/25 18:59 06:59 18:59 Intake Total 540 200 Balance 540 200 Intake: Oral 540 200 Other: Voiding Method Diaper Diaper Diaper # Voids 4 3 2 # Bowel Movements 2 1 1 - Exam GENERAL EXAM: Alert, 69-year-old female, appears older than stated age, on 4 L nasal cannula, comfortable in no apparent distress. HEAD: Normocephalic. EYES: Normal reaction of pupils, equal size. NOSE: Clear with pink turbinates. THROAT: No erythema or exudates. NECK: No masses, no JVD. CHEST: No chest wall deformity. LUNGS: Equal air entry with few scattered rhonchi. CVS: S1 and S2 normal with no audible murmur, regular rhythm. ABDOMEN: No hepatosplenomegaly, normal bowel sounds, no guarding or rigidity. SPINE: No scoliosis or deformity SKIN: No rashes CENTRAL NERVOUS SYSTEM: No focal deficits, tone is normal in all 4 extremities. EXTREMITIES: There is 1+ peripheral edema. No clubbing, no cyanosis. Peripheral pulses are intact. - Labs CBC & Chem 7: 02/07/25 03:20 02/07/25 03:20 Labs: Microbiology - Last 24 Hours (Table) 02/02/25 22:40 Blood Culture - Final Blood Assessment and Plan Assessment: Stage IV non-small cell lung cancer. The patient has extensive lymphadenopathy along the right hemithorax causing mass effect on the right middle lobe and right lower lobe bronchus and the patient has atelectatic changes right lung base along with a small to moderate-sized right-sided pleural effusion. Postobstructive pneumonia is felt to be less likely. This is probably part of the natural progression of her underlying malignancy. Noted the patient has evidence of bilateral adrenal metastases, and skeletal metastases involving the ribs, scapula and spine. PET/CT done on 02/01/2025. The pathology is consistent with pulm adenocarcinoma with squamous differentiation. Metastatic lesions with expansile hypermetabolic left anterior lateral mid rib lesion and destructive soft tissue mass involving the right posterior 4th and 5th ribs and scattered additional metabolic reactive lytic lesions involving the right scapula and multiple lesions involving the spine and pelvis Abdominal pain/colitis, improving Acute leukocytosis Chronic smoker ongoing chronic tobacco dependence of 50 years Abdominal aortic aneurysm stent placement at [facility] December 2024 Severe chronic obstructive pulmonary disease maintained on Trelegy, albuterol Significant weight loss of over 20 pounds in the past 1 to 2 months Hypertension Lower extremity edema, extensive, currently on Lasix and Doppler lower extremities were negative Plan: The patient was seen and evaluated Labs and medications reviewed Remains on Zosyn Continued on DuoNeb inhalations Continued on Symbicort Continued on IV diuretics Plan is to continue with radiation therapy Plan is for 10 treatments of EBRT to the perihilar right lower lung Treatment is palliative in nature Medical oncology following as well Educated regarding smoking cessation NicoDerm patch will be offered We will continue to follow I have personally seen and examined the patient, performed the documentation and the assessment and plan as written. Number of minutes spent on the visit: 10 Dictation was produced using [employer] dictation software. Please excuse any grammatical, word or spelling errors.
[2025-02-08] MEDS: MORPHINE SULFATE ER 15 MG TABLET PO SCH (15:20)
--- NOTE | 2025-02-08 17:20 | P.PN ---
Subjective Progress Note Date: 02/08/25 Principal diagnosis: Reason for follow-up is pneumonia/colitis Patient is a 69-year-old female with a past medical history significant for COPD hypertension recent diagnosis of metastatic non-small cell lung cancer/pulmonary adenocarcinoma, anxiety patient presenting to the hospital for evaluation of right lower quadrant right groin pain, patient did have a CT concerning for right lower lobe consolidation and with concern for possible colitis/diverticulitis prompted this consultation. On today's evaluation that is 02/08/2025, the patient continues to be afebrile, the patient is on 4 L nasal oxygen and breathing slightly comfortably, the Pt denies having any chest pain or any worsening cough, the patient denies having any abdominal pain no vomiting or any diarrhea. Patient did not have a lab draw today blood culture negative Objective - Vital Signs Vital signs: Vital Signs Temp 97.2 F L 02/08/25 14:00 Pulse 106 H 02/08/25 15:59 Resp 19 02/08/25 14:00 BP 111/77 02/08/25 14:00 Pulse Ox 99 02/08/25 14:00 FiO2 Intake & Output 02/07/25 02/08/25 02/08/25 18:59 06:59 18:59 Intake Total 540 200 Balance 540 200 Intake: Oral 540 200 Other: Voiding Method Diaper Diaper Diaper # Voids 4 3 2 # Bowel Movements 2 1 1 - Exam GENERAL DESCRIPTION: An elderly female up in the chair in no distress RESPIRATORY SYSTEM: Unlabored breathing , breath sounds bilaterally HEART: S1 S2 regular rate and rhythm , ABDOMEN: Soft , no tenderness EXTREMITIES: Bilateral lower extremity currently wrapped in the Wale wrap - Labs CBC & Chem 7: 02/07/25 03:20 02/07/25 03:20 Labs: Microbiology - Last 24 Hours (Table) 02/02/25 22:40 Blood Culture - Final Blood Assessment and Plan (1) Sepsis Current Visit: No Status: Acute Code(s): A41.9 - SEPSIS, UNSPECIFIED ORGANISM SNOMED Code(s): 57070800 (2) Pneumonia Current Visit: Yes Status: Acute Code(s): J18.9 - PNEUMONIA, UNSPECIFIED ORGANISM SNOMED Code(s): 728361277 (3) Diverticulitis Current Visit: Yes Status: Acute Code(s): K57.92 - DVTRCLI OF INTEST, PART UNSP, W/O PERF OR ABSCESS W/O BLEED SNOMED Code(s): 753905435 Plan: 1patient presented to hospital with lower abdominal discomfort nausea vomiting in this patient who did have a tachycardia elevated white count meeting currently for SIRS concern for possible sepsis source could be right lower lobe pneumonia and evidence of diverticulitis on the CT and need to cover for the gram-negative aerobes and anaerobes. 2patient did have mild elevated procalcitonin lower extremity Doppler negative for DVT 3patient is afebrile, white count is elevated questionably due to tumor necrosis as no evidence of any worsening infection clinically, 4for now continue with Zosyn and continue supportive care Dictation was produced using [employer] dictation software. please excuse any grammatical, word or spelling errors.
--- NOTE | 2025-02-08 17:58 | P.PN ---
Subjective Progress Note Date: 02/08/25 Patient was reporting persisting pain in chest. Current pain meds are helping manage pain. Pt had BM this morning. Continues with palliative RT. Objective - Vital Signs Vital signs: Vital Signs Temp 97.4 F L 02/08/25 08:00 Pulse 104 H 02/08/25 09:48 Resp 19 02/08/25 08:00 BP 112/75 02/08/25 08:00 Pulse Ox 97 02/08/25 09:36 FiO2 Intake & Output 02/07/25 02/08/25 02/08/25 18:59 06:59 18:59 Intake Total 540 200 Balance 540 200 Intake: Oral 540 200 Other: Voiding Method Diaper Diaper Diaper # Voids 4 3 2 # Bowel Movements 2 1 1 - Constitutional General appearance: Present: average body habitus, no acute distress - EENT Eyes: Present: anicteric sclerae, EOMI ENT: Present: hearing grossly normal - Respiratory Details: breathing is even and unlabored - Cardiovascular Details: skin warm and dry - Integumentary Integumentary: Absent: cyanotic - Neurologic Neurologic: Present: CNII-XII intact - Psychiatric Psychiatric: Present: A&O x's 3 - Labs CBC & Chem 7: 02/07/25 03:20 02/07/25 03:20 Labs: Microbiology - Last 24 Hours (Table) 02/02/25 22:40 Blood Culture - Final Blood Assessment and Plan (1) Diverticulitis Current Visit: Yes Status: Acute Code(s): K57.92 - DVTRCLI OF INTEST, PART UNSP, W/O PERF OR ABSCESS W/O BLEED SNOMED Code(s): 089387439 (2) Non-small cell carcinoma of lung Current Visit: Yes Status: Acute Priority: High Code(s): C34.90 - MALIGNANT NEOPLASM OF UNSP PART OF UNSP BRONCHUS OR LUNG SNOMED Code(s): 650739631 (3) Pain of metastatic malignancy Current Visit: Yes Status: Acute Priority: High Code(s): G89.3 - NEOPLASM RELATED PAIN (ACUTE) (CHRONIC) SNOMED Code(s): 552251088 (4) Pneumonia Current Visit: Yes Status: Acute Code(s): J18.9 - PNEUMONIA, UNSPECIFIED ORGANISM SNOMED Code(s): 190307497 Plan: Shortness of breath -Radiation oncology has seen the patient. Palliative RT has been started - Pulmonary is consulted and treating patient for possible COPD exacerbation, pneumonia. Pain of metastatic malignancy - Rib pain likely related to metastatic disease in the bones. This will also be reviewed with Radiation Oncology as a possible target for palliative radiation. - Pain medications ordered. Pt still requiring IV pain meds 5-6 times daily. Will transition to oral regimen with long and shorting pain meds. Discussed with PharmD for conversion of IV pain meds to PO long acting meds Newly diagnosed non-small cell lung cancer, metastatic. -Biopsy 01/21/25 - Recent PET scan reporting metastatic disease in the lymph nodes on the right, mediastinum, adrenal glands, bones, also a concerning finding in the frontal lobe of the brain - Tissue specimen requested and sent for NGS and PD-L1 testing - Patient was due to meet with Medical Oncologist today for prognosis and treatment options. This has been rescheduled. Appointment date and time and discharge plan -Patient has refused imaging of the head, even with antianxiety medications. Reviewed with family that without brain imaging we cannot say for certain if there is, or is not, cancer present in the brain at this time. For now, if patient's behaviors, mental status and neurologic status appear to be intact we can assume that there is not any malignancy in the brain, at least any causing any symptoms. They verbalized understanding. - Family had a lot of questions about diagnosis, prognosis, treatment options. We discussed treatment options initially would likely include chemotherapy as patient is symptomatic and that is used to get ahead of the disease. Pending the NGS and PD-L1 for any possible mutations that may have a targeted treatment. Also, the use of immunotherapy, in the appropriate setting, for long-term disease control. Intent of treatment is palliation of disease/symptoms and prolongation of life. Prognosis without treatment would be 3 to 4 months, with treatment that can be extended to 1 to 2 years. All of this is based on the p atient's tolerance of treatment as well as cancer response to those treatments. All of their questions were answered to their satisfaction to the best of my ability Patient is okay from Oncology standpoint to be discharged once she has been cleared by Attending and consulting Physicians. She will be followed up by the Medical Oncologist after she has completed palliative radiation therapy to discuss systemic therapy treatment options.
[2025-02-08] MEDS: HYDROcodone/APAP 7.5-325MG 1 EACH TAB PO PRN (21:04)
--- NOTE | 2025-02-09 04:48 | P.PN ---
Subjective Progress Note Date: 02/08/25 69-year-old woman with recent diagnosis of lung cancer, COPD and hypertension. She presents today as she is having right lower quadrant and right groin pain, nausea, vomiting and diarrhea. The patient's family notes that it seemed to come on after she had the injection related to a bone scan. The patient has not had hematemesis. No dark or tarry stools. No fever or chills. Patient had recent endovascular placement of abdominal aortic stent January 08, 2025, 3 weeks ago. Patient does report she has had abdominal pain since her surgery. She reports early satiety. Poor appetite. Family reports that she had poor appetite prior to surgery. CT of the abdomen pelvis with questionable findings of early colitis versus mild diverticulitis. Right lower lobe malignancy. Presence of adrenal gland possible malignancy. T12 compression fracture 25% including sclerotic lesions along the spine highly suspicious for metastatic disease. Blood work reveals WBC of 16.4, hemoglobin of 9.1 and platelet count of 239, sodium 134, potassium 3.6, BUN/creatinine 35/0.79 and alkaline phosphatase of 149 Patient has been admitted for possible ileus/colitis versus diverticulitis; surgery is consulted 02/01/2025 Patient seen and evaluated in follow-up today continues to report significant abdominal pain and general surgery following with no plans of surgical intervention at this time. White count is elevated at 18.85 and hemoglobin remains 9.1, platelets are 183. Sodium is 137 with a potassium of 4.3, BUN 37.1 with a creatinine of 1.0. Patient being started on antibiotics per general surgery for the colitis/diverticulitis and recommends minimum 3 days of IV antibiotics and to continue with clear liquids protein shakes. Patient with significant weakness recommend PT/OT therapy evaluation. Continued poor oral intake and not much of an appetite, consult to dietary. 02/02/2025 Patient evaluated in follow-up today with multiple consultations following including general surgery. Infectious disease has been consulted and patient is continued on antibiotics and white count is elevated with concerns of underlying infection. General surgery following with no immediate plans of surgical in tervention recommending to continue with conservative management and clear liquids. Patient reports has not had a bowel movement today and on assessment there are bowel sounds noted. Patient is tolerating the clear liquids with no reported nausea or vomiting although is asking for an advancing diet. Will await surgical recommendations regarding advancement. Pulmonary has been consulted as well regarding previous endoscopy with biopsy with multiple family members awaiting to speak further with pulmonary. Oncology will also be consulted. 02/03/2025 Patient seen in follow-up today currently obtaining a Doppler assess for DVT as patient has significant lower extremity swelling. Multiple consultations following including told was placed to oncology as recent bronchoscopy was positive for non-small cell lung carcinoma and likely metastasis. Patient white count remains elevated and is maintained on antibiotics. An MRI of the brain was ordered although patient is refusing. Radiation oncology has been consulted and pending to discuss possible palliative radiation. Patient continues to be significantly weak with shortness of breath maintained on oxygen via nasal cannula at 4 L. Encourage incentive spirometer use and wean FiO2 as tolerated. Overall prognosis is extremely poor and guarded. 02/04/2025 Patient is seen in follow-up today currently resting and patient was evaluated by radiation oncology undergoing mapping today to initiate palliative radiation. Patient continues to refuse MRI of the brain and oncology is following and aware. Multiple other consultations following and patient will be continued on current diet not tolerating much oral intake and has no real appetite with continued diffuse abdominal pain. No surgical intervention planned at this time. Patient is afebrile white count remains elevated although slightly improved with infectious disease following maintained on antibiotics and will continue. Continue to wean FiO2 as tolerated although continues on 4 L via nasal cannula. Pulmonary is following. 02/05/2025 Patient is seen in follow-up today remains sitting up in the chair and per patient unable to lie down any further than 30 degrees as patient reports significant shortness of breath and abdominal pain. Patient reports is tolerating current diet and having bowel movements and passing gas. Patient continues with lower extremity edema maintained on Lasix and will continue. Patient did receive mapping on the right chest wall with radiation oncology with plans of starting radiation today. Patient continues with shortness of breath maintained on 4 L. Patient to continue with antibiotics with infectious disease following as white count remains elevated, concerns for postobstructive. Follow-up on repeat labs and replace electrolytes per protocol. 02/06/2025 Patient is seen in follow-up today with multiple consultations following. Patient is status post palliative radiation yesterday with radiation oncology and will resume on Saturday and continue daily as tolerated. Patient continues on 4 L and continues to report shortness of breath. Patient having intermittent diffuse abdominal pain although much improved compared to previous. Patient is not tolerating much diet and is not eating much and needs encouragement and may continue supplements between meals. White count remains elevated and appreciate input and recommendations from infectious disease. Will continue Zosyn for now. Encourage incentive spirometer use and increase activity as tolerated. 02/07/2025 Patient is seen in follow-up today continues to report significant pain and continued on current pain regimen. Plan is for radiation oncology to follow-up for repeat radiation on Saturday throughout the week. Infectious disease following and white count is elevated above 20 and maintained on antibiotics we will follow-up on repeat labs. Encouraged increase activity as tolerated and incentive spirometer use. Continue with breathing treatments. Prognosis guarded at this time 02/08/2025 Patient is seen in follow-up today with multiple consultations following. Patient to resume radiation treatment for palliative therapy today and patient continues to report shortness of breath and difficulty in breathing and maintained on 4 L via nasal cannula. Oxygen saturations are above 95% on oxygen and recommend weaning FiO2 as tolerated and continued incentive spirometer use. Patient white count remains elevated with infectious disease following and is continued on antibiotics. Per nursing staff patient was having some confusion overnight and recommend monitoring closely especially given her medication regimen with narcotics. Encouraged oral intake and will continue current diet. Recommend PT/OT therapy evaluation once respiratory status has improved as patient is significantly weak and has had prolonged hospitalization. Review of systems: Constitutional: reports of fatigue, no fever, or chills Cardiovascular: No reports of chest pain or palpitations Respiratory: reports of mild shortness of breath , reports of increased work of breathing and difficulty in breathing with movement GI: No reports of nausea, vomiting, or diarrhea, reports having bowel movements, continues to report diffuse abdominal pain : No reports of dysuria or retention Neurovascular: reports of generalized weakness and lower extremity swelling All medications have been reviewed Physical exam: Gen: This is a 69-year-old female who is awake although, fatigues easily, alert and oriented x 2-3, well-developed, elderly appearing, ill-appearing HEENT: Head is atraumatic, normocephalic. Pupils equal, round. Sclerae is anicteric. NECK: Supple. No JVD. No lymphadenopathy. No thyromegaly. LUNGS: Diminished breath sounds bilaterally with bronchial congestion noted and patient able to clear with strong cough. No wheezes coarse scattered rhonchi noted. No intercostal retractions. HEART: S1, S2 are muffled ABDOMEN: Soft. Bowel sounds are present. No masses. Mild tenderness noted on palpation. EXTREMITIES: No pedal edema. No calf tenderness. Bilateral lower extremity edema NEUROLOGICAL: Patient is awake, alert and oriented x3. Cranial nerves 2 through 12 are grossly intact. Diffusely weak Assessment: -Abdominal pain, likely secondary to early colitis with mild diverticulitis as noted on CT image -Leukocytosis, secondary to above -Possible ileus, improving continuing conservative management per surgery, patient is having bowel movements -multiple masses and lesions within the liver highly suspicious for metastatic disease -COPD; not in exacerbation -Hypoxic respiratory failure, recently placed on oxygen since bronchoscopy l ikely secondary to non-small cell lung carcinoma -Gastroesophageal reflux disease -Anxiety -Chronic back pain -Severe protein calorie malnutrition -History of recent abdominal aortic aneurysm status post endovascular graft -Recently diagnosed metastatic lung cancer from bronchoscopy with BAL and biopsy on 01/22/2025. Pathology is positive for non-small cell lung carcinoma and PET scan showing diffuse metastasis throughout the thorax and osseous metastatic disease and a possible right frontal lobe lesion. On the brain GI prophylaxis DVT prophylaxis; SCDs full code Plan: Patient was admitted with concerns of early colitis and mild diverticulitis with abdominal pain and concerns of possible ileus. Patient evaluated by general surgery with no plans of surgical intervention at this time recommending bowel rest with slowly advancing diet as tolerated Infectious disease following and will continue IV antibiotic therapy. White count remains elevated and will continue current regimen. Continue antibiotics for now and monitor white count, procalcitonin is elevated as well Pulmonary and oncology following as patient's recent bronchoscopy with BAL and biopsy on 01/22/2025 for non-small cell carcinoma and patient also had a recent PET scan concerning for diffuse metastasis throughout the thoracic area with metastatic disease and also noted right frontal brain lesion. Oncology ordered an MRI of the brain although patient is refusing. Radiation oncology following and has undergone mapping and started radiation 02/05/2025, patient to receive radiation therapy today and will discuss with radiation oncology as well as oncology regarding continued treatment. Patient is scheduled to receive 10 radiation doses palliatively Continue clear liquid diet with Ensure protein shakes in between meals Follow-up on repeat labs, replace electrolytes per protocol monitor white count is trending up Encouraged increase activity as tolerated Recommend PT/OT therapy evaluation as she has been hospitalized for quite some time and continuing to become more weak Due to multiple complex medical issues, overall prognosis is extremely poor and guarded The impression and plan of care has been dictated by Ciarra Machado, Nurse Practitioner as directed. Dr. Dov MD I have performed a history and examination and MDM of this patient, discussed the same with the dictator, and agree with the dictator's assessment and plan as written ,documented as a scribe. Based on total visit time, I have performed more than 50% of the visit. Objective - Vital Signs Vital signs: Vital Signs Temp 97.9 F 02/09/25 01:02 Pulse 108 H 02/09/25 01:02 Resp 20 02/09/25 01:02 BP 105/71 02/09/25 01:02 Pulse Ox 96 02/09/25 01:02 FiO2 Intake & Output 02/08/25 02/08/25 02/09/25 06:59 18:59 06:59 Intake Total 540 200 50 Balance 540 200 50 Intake: Oral 540 200 50 Other: Voiding Method Diaper Diaper Bedside Commode # Voids 3 2 # Bowel Movements 1 1 - Labs CBC & Chem 7: 02/07/25 03:20 02/07/25 03:20 Labs: Microbiology - Last 24 Hours (Table) 02/02/25 22:40 Blood Culture - Final Blood
[2025-02-09 07:05] LABS: African American GFR (CKD) >90 (>60 ml/min/1.73 sqM); Anion Gap 11 mmol/L; Blood Urea Nitrogen 18 mg/dL (7-17); Calcium 8.6 mg/dL (8.4-10.2); Carbon Dioxide 30 mmol/L (22-30); Chloride 97 mmol/L (98-107); Glucose 81 mg/dL (74-99); Non-African American GFR(CKD) >90 (>60 ml/min/1.73 sqM); Potassium 3.1 mmol/L (3.5-5.1); Sodium 138 mmol/L (137-145)
[2025-02-09] MEDS: NICOTINE 14MG/24HR PATCH TRANSDERM SCH (07:49)
[2025-02-09 09:57] LABS: HCT 33.4 % (37.2-46.3); HGB 10.3 g/dL (12.0-15.0); MCHC 30.8 g/dL (32.0-37.0); MCV 90.8 fL (80.0-97.0); Mean Platelet Volume 9.9 fL (9.5-12.2); Platelet Count 140 10*3/uL (140-440); RBC 3.68 10*6/uL (4.10-5.20); RDW 16.8 % (11.5-14.5); WBC 29.24 10*3/uL (4.50-10.00)
[2025-02-09] MEDS: HYDROcodone/APAP 10-325MG 1 EACH TAB PO ONE (12:00)
--- NOTE | 2025-02-09 13:59 | P.PN ---
Subjective Progress Note Date: 02/09/25 This is a 69-year-old female patient with known history of COPD and lung cancer, and known history of abdominal aortic aneurysm post endovascular stent placement and the procedure was done on 01/08/2025. The patient presented to the hospital because of right lower quadrant pain, nausea, emesis and diarrhea. No reported GI bleeding. The patient had diminished appetite. CAT scan of the abdomen and pelvis was done and it showed early colitis versus mild diverticulitis. There was T12 compression fraction of the spine with 25% involvement and there was also sclerotic lesion along the spine highly suspicious for metastatic disease. There was also suspected adrenal metastases and ongoing consolidation in the right lung base. As for the infrarenal abdominal aortic aneurysm, this was measuring up to 8 cm in size with at least 2 stent graft present. A small gap between the stent grafts possibly resulting endoleak. Noted, the patient's diagnosis of lung cancer is quite recent. The patient was seen in consultation on 01/21/2025 with worsening shortness of breath, weight loss and CAT scan of the chest was done on 01/21/2025 and a CAT scan showed lymphadenopathy throughout the chest concerning for malignancy and the right lower lobe pulmonary nodule, metastatic left rib lesion and left-sided posterior rib fracture without evidence of pneumothorax and concern of osseous lesions and pathologic fractures seen in the scapula. There was lymphadenopathy seen in the right hilum with narrowing of the adjacent bronchus. Based on that, the patient had a bronchoscopy done and the bronchoscopy showed significant obstruction of the right middle lobe bronchus with endobronchial tumor endobronchial biopsies performed in the involved area was consistent with pulmonary adenocarcinoma with squamous differentiation. The mediastinal lymph node sampling was hypocellular. Subsequently, the patient had a PET/CT that was done on an outpatient basis and the PET scan showed metastatic neoplasm, prominent lymphadenopathy involving the right thorax with osseous metastatic disease present. There was an expansile hypermetabolic left anterior lateral mid rib lesion and destructive soft tissue mass involving the right posterior 4th and 5th ribs and scattered additional metabolic reactive lytic lesions involving the right scapula and multiple lesions involving the spine and pelvis. There was also evidence of bilateral hypermetabolic adrenal masses consistent with metastases. For now, the patient is being seen by general surgery regarding the abdominal pain. The patient is currently on IV Zosyn. Patient is also on Spiriva and Symbicort and inhalers and normal saline at rate of 75 cc an hour. The patient is currently on oxygen at 4 L with a pulse ox of 98%. Hemodynamically stable. On 02/03/2025, patient is being seen for a follow-up. The patient is in poor condition. She continues to have cough and congestion. She continues to be short of breath even at rest. She has developed significant amount of edema in lower extremities bilaterally and there is fluid weeping from the skin surface in the feet bilaterally. There are diminished pulses in the legs and vascular surgery is on the case. I ordered a Doppler of the lower extremity to rule out underlying DVT. Noted the patient has undergone endovascular stent grafting for a large abdominal aortic aneurysm. A CT angiogram of the abdominal aorta and a runoff was recommended. However, the patient declined further testing. The patient's white cell count is at 17.9, hemoglobin of 8.7 and a platelet count of 204. Bicarb is at 21, BUN is 27 with a creatinine of 0.7. LFTs are normal. The lipase at 8, the albumin is at 2.5 with a total protein of 5.4. The patient was seen by hematology oncology and the patient is also to be seen by radiation oncology. Care is a very poor prognosis based on her metastatic pulm katja nocarcinoma. She remains on oxygen at 4 L. Diarrhea has subsided. No significant abdominal pain at this point. 02/04/2025, the patient is sitting up in a chair and the patient remains on oxygen at 4 L. She was seen by radiation oncology and the patient underwent simulation and she is going to receive palliative radiation therapy for pain control. She is feeling quite tired and she has very limited exercise capacity in addition to ongoing edema in lower extremities bilaterally. Doppler was negative for any DVTs and the patient was given IV Lasix and the patient is producing adequate amount of urine output with some limited improvement in lower extremity edema compared to yesterday. Sodium is at 140, potassium is at 3.3, BUN is 22 with a creatinine of 0.6 and a bicarb level of 29. Glucose 93. White cell count is at 17 with a hemoglobin of 9.1. The patient is seen by medical oncology and radiation oncology. On 02/05/2025, the patient reports improvement in lower extremity edema. She responded to Lasix. However, she continues to have significant amount of edema still in her legs. She will proceed with palliative radiation therapy. She feels very tired. She continues to have a congested cough. She continues to have chest wall pain especially with coughing episodes. The white cell count is 18 with a hemoglobin of 8.8 and a platelet count of 165. Sodium is at 141, K is at 2.9, electrolytes were noted and the serum bicarb is at 24. Procalcitonin is at 1.53. The blood cultures been negative. Patient is empirically on IV Zosyn. The patient has Spiriva, Symbicort and DuoNeb neb regiment [id number]. 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 02/06/2025, the patient's condition essentially the same and unchanged. She remains on oxygen at 4 L with a pulse ox of 98%. Afebrile. Main complaint remains pain and the patient is currently receiving p.o. radiation therapy. Remains on IV Zosyn. Remains on Lasix 20 mg IV push every 12 hours. Continues to have lower extremity edema. No altered mentation. Feels quite weak and debilitated. The white cell count is 18 with a hemoglobin 9.2 and a platelet count of 192. Sodium is at 142, potassium is 3.9, BUN is 15 with a creatinine of 0.7. On 02/07/2025, condition remains essentially unchanged. Remains on 4 days of oxygen by nasal cannula. Complaints are essentially the same including ongoing pain involving the chest and the back and throughout the body. Continues to have lower extremity edema. Continues to be on IV Lasix. Continues to have a white cell count of 20 with a hemoglobin 9.3 and a platelet count of 144. Elect rolytes are all within normal limits. Remains on IV Zosyn as an empiric antibiotic coverage. She does have chronic atelectatic changes and consolidation of the right lower lobe related to extensive mediastinal lymphadenopathy/tumor consistent with pulm adenocarcinoma. She is receiving palliative radiation therapy which is currently on hold over the weekend. This is to be resumed in a.m. The patient is seen today February 08, 2025 in follow-up on the regular medical floor. She is currently sitting up in a chair at the bedside. Awake and alert in no acute distress. Maintaining O2 saturations in the 90s on 4 L/min per nasal cannula. She is afebrile. Hemodynamically stable. Blood culture r evealed no growth. She remains on IV diuretics. Continued on DuoNeb inhalations, Symbicort. Antibiotics in the form of Zosyn. The patient is seen today February 09, 2025 in follow-up on the regular medical floor. She is awake and alert in no acute distress. Sitting up at the the bedside. She remains quite weak. She is maintaining O2 saturation in the low 90s on 4 L/min per nasal cannula. She has been afebrile. Hemodynamically stable. She is currently receiving radiation treatments daily. Blood culture revealed no growth. White count 29.2. Hemoglobin 10.3. Sodium 138. Potassium 3.1. Bicarb 30. BUN 18. Creatinine 0.6. Glucose 81. She is continued on DuoNeb inhalations, Symbicort, Zosyn. NicoDerm patch in place. Remains on IV diuretics. Objective - Vital Signs Vital signs: Vital Signs Temp 98.4 F 02/09/25 08:00 Pulse 99 02/09/25 12:14 Resp 20 02/09/25 10:21 BP 111/53 02/09/25 08:00 Pulse Ox 90 L 02/09/25 09:14 FiO2 Intake & Output 02/08/25 02/09/25 02/09/25 18:59 06:59 18:59 Intake Total 200 590 500 Balance 200 590 500 Intake: Oral 200 590 500 Other: Voiding Method Diaper Bedside Commode Bedside Commode # Voids 2 2 2 # Bowel Movements 1 1 - Exam GENERAL EXAM: Alert, weak 69-year-old female, appears older than stated age, up in a chair, on 4 L nasal cannula, in no apparent distress. HEAD: Normocephalic. EYES: Normal reaction of pupils, equal size. NOSE: Clear with pink turbinates. THROAT: No erythema or exudates. NECK: No masses, no JVD. CHEST: No chest wall deformity. LUNGS: Equal air entry with few scattered rhonchi. CVS: S1 and S2 normal with no audible murmur, regular rhythm. ABDOMEN: No hepatosplenomegaly, normal bowel sounds, no guarding or rigidity. SPINE: No scoliosis or deformity SKIN: No rashes CENTRAL NERVOUS SYSTEM: No focal deficits, tone is normal in all 4 extremities. EXTREMITIES: There is 1+ peripheral edema. No clubbing, no cyanosis. Peripheral pulses are intact. - Labs CBC & Chem 7: 02/09/25 06:12 02/09/25 06:12 Labs: Abnormal Lab Results - Last 24 Hours (Table) 02/09/25 02/09/25 Range/Units 06:12 06:12 WBC 29.24 H (4.50-10.00) 10*3/uL RBC 3.68 L (4.10-5.20) 10*6/uL Hgb 10.3 L (12.0-15.0) g/dL Hct 33.4 L (37.2-46.3) % MCHC 30.8 L (32.0-37.0) g/dL RDW 16.8 H (11.5-14.5) % Immature Gran # 0.76 H (0.00-0.04) 10*3/uL Potassium 3.1 L (3.5-5.1) mmol/L Chloride 97 L (98-107) mmol/L BUN 18 H (7-17) mg/dL Assessment and Plan Assessment: Stage IV non-small cell lung cancer. The patient has extensive lymphadenopathy along the right hemithorax causing mass effect on the right middle lobe and right lower lobe bronchus and the patient has atelectatic changes right lung base along with a small to moderate-sized right-sided pleural effusion. Postobstructive pneumonia is felt to be less likely. This is probably part of the natural progression of her underlying malignancy. Noted the patient has evidence of bilateral adrenal metastases, and skeletal metastases involving the ribs, scapula and spine. PET/CT done on 02/01/2025. The pathology is consistent with pulmonary adenocarcinoma with squamous differentiation Metastatic lesions with expansile hypermetabolic left anterior lateral mid rib lesion and destructive soft tissue mass involving the right posterior 4th and 5th ribs and scattered additional metabolic reactive lytic lesions involving the right scapula and multiple lesions involving the spine and pelvis Abdominal pain/colitis, improving Acute leukocytosis Chronic smoker ongoing chronic tobacco dependence of 50 years Abdominal aortic aneurysm stent placement at [facility] December 2024 Severe chronic obstructive pulmonary disease maintained on Trelegy, albuterol Significant weight loss of over 20 pounds in the past 1 to 2 months Hypertension Lower extremity edema, extensive, currently on Lasix and Doppler lower extremities were negative Plan: The patient was seen and evaluated Labs and medications reviewed Remains on Zosyn Continued on DuoNeb inhalations, Symbicort Discontinue IV diuretics Lasix 20 mg p.o. daily Plan is to continue with radiation therapy Treatment is palliative in nature Medical oncology plans outpatient follow-up Educated regarding smoking cessation NicoDerm patch in place Plan is for home with her daughter at discharge I have personally seen and examined the patient, performed the documentation and the assessment and plan as written. Number of minutes spent on the visit: 10 Dictation was produced using [employer] dictation software. Please excuse any grammatical, word or spelling errors.
[2025-02-09 15:41] LABS: Eosinophils # (M) 0.29 k/uL (0-0.7); Lymphocytes # (M) 1.17 k/uL (1.0-4.8); Monocytes # (M) 0.88 k/uL (0-1.0); Neutrophils % (M) 92 %; Nucleated Red Blood Cells 0 /100 WBC (0-0); RBC Morphology Normal; Total Cells Counted 100
[2025-02-09 15:57] VITALS: BMI 28.7
--- NOTE | 2025-02-09 15:59 | P.PN ---
Subjective Progress Note Date: 02/09/25 Principal diagnosis: Reason for follow-up is pneumonia/colitis Patient is a 69-year-old female with a past medical history significant for COPD hypertension recent diagnosis of metastatic non-small cell lung cancer/pulmonary adenocarcinoma, anxiety patient presenting to the hospital for evaluation of right lower quadrant right groin pain, patient did have a CT concerning for right lower lobe consolidation and with concern for possible colitis/diverticulitis prompted this consultation. On today's evaluation that is 02/09/2025, Patient is afebrile patient is curren tly on 4 L nasal oxygen breathing slightly comfortably P denies having any chest pain did not have a cough but not bring up any sputum no nausea vomiting no abdominal pain or diarrhea. Patient white count is up to 29.24, creatinine 0.60 Objective - Vital Signs Vital signs: Vital Signs Temp 98.4 F 02/09/25 08:00 Pulse 99 02/09/25 12:14 Resp 20 02/09/25 10:21 BP 111/53 02/09/25 08:00 Pulse Ox 90 L 02/09/25 09:14 FiO2 Intake & Output 02/08/25 02/09/25 02/09/25 18:59 06:59 18:59 Intake Total 200 590 800 Balance 200 590 800 Intake: Oral 200 590 800 Other: Voiding Method Diaper Bedside Commode Bedside Commode # Voids 2 2 2 # Bowel Movements 1 1 - Exam GENERAL DESCRIPTION: An elderly female up in the chair in no distress RESPIRATORY SYSTEM: Unlabored breathing , breath sounds bilaterally HEART: S1 S2 regular rate and rhythm , ABDOMEN: Soft , no tenderness EXTREMITIES: Bilateral lower extremity currently wrapped in the Wale wrap - Labs CBC & Chem 7: 02/09/25 06:12 02/09/25 06:12 Labs: Abnormal Lab Results - Last 24 Hours (Table) 02/09/25 02/09/25 Range/Units 06:12 06:12 WBC 29.24 H (4.50-10.00) 10*3/uL RBC 3.68 L (4.10-5.20) 10*6/uL Hgb 10.3 L (12.0-15.0) g/dL Hct 33.4 L (37.2-46.3) % MCHC 30.8 L (32.0-37.0) g/dL RDW 16.8 H (11.5-14.5) % Immature Gran # 0.76 H (0.00-0.04) 10*3/uL Potassium 3.1 L (3.5-5.1) mmol/L Chloride 97 L (98-107) mmol/L BUN 18 H (7-17) mg/dL Assessment and Plan (1) Sepsis Current Visit: No Status: Acute Code(s): A41.9 - SEPSIS, UNSPECIFIED ORGANISM SNOMED Code(s): 96887827 (2) Pneumonia Current Visit: Yes Status: Acute Code(s): J18.9 - PNEUMONIA, UNSPECIFIED ORGANISM SNOMED Code(s): 802277875 (3) Diverticulitis Current Visit: Yes Status: Acute Code(s): K57.92 - DVTRCLI OF INTEST, PART U NSP, W/O PERF OR ABSCESS W/O BLEED SNOMED Code(s): 365629345 Plan: 1patient presented to hospital with lower abdominal discomfort nausea vomiting in this patient who did have a tachycardia elevated white count meeting currently for SIRS concern for possible sepsis source could be right lower lobe pneumonia and evidence of diverticulitis on the CT and need to cover for the gram-negative aerobes and anaerobes. 2patient did have mild elevated procalcitonin lower extremity Doppler negative for DVT 3patient is afebrile, white count is elevated started post radiation and with a question of possible tumor necrosis patient is covered with the Zosyn we will add Diflucan for possible component of oropharyngeal candidiasis and repeat his CBC with a.m. lab Dictation was produced using [employer] dictation software. please excuse any grammatical, word or spelling errors.
[2025-02-09] MEDS: FLUCONAZOLE 100 MG TAB PO ONE (16:20)
--- NOTE | 2025-02-09 17:39 | P.PN ---
Subjective Progress Note Date: 02/09/25 Patient reporting pain is currently controlled on long acting and short acting pain meds, however nursing states pt keeps reporting when pain is reassessed pt reports pain is between 8-10. Will increase norco to 10/325 q4hrs prn. Pt had BM this morning. Continues with palliative RT. Objective - Vital Signs Vital signs: Vital Signs Temp 98.1 F 02/09/25 16:30 Pulse 109 H 02/09/25 17:22 Resp 18 02/09/25 16:30 BP 94/65 02/09/25 17:22 Pulse Ox 97 02/09/25 16:30 FiO2 Intake & Output 02/08/25 02/09/25 02/09/25 18:59 06:59 18:59 Intake Total 200 590 800 Balance 200 590 800 Weight 71.214 kg Intake: Oral 200 590 800 Other: Voiding Method Diaper Bedside Commode Bedside Commode # Voids 2 2 2 # Bowel Movements 1 1 - Constitutional General appearance: Present: average body habitus, no acute distress - EENT Eyes: Present: anicteric sclerae, EOMI ENT: Present: hearing grossly normal - Respiratory Details: breathing is even and unlabored - Cardiovascular Details: skin warm and dry - Integumentary Integumentary: Absent: cyanotic - Psychiatric Psychiatric: Present: A&O x's 3 - Labs CBC & Chem 7: 02/09/25 06:12 02/09/25 06:12 Labs: Abnormal Lab Results - Last 24 Hours (Table) 02/09/25 02/09/25 Range/Units 06:12 06:12 WBC 29.24 H (4.50-10.00) 10*3/uL RBC 3.68 L (4.10-5.20) 10*6/uL Hgb 10.3 L (12.0-15.0) g/dL Hct 33.4 L (37.2-46.3) % MCHC 30.8 L (32.0-37.0) g/dL RDW 16.8 H (11.5-14.5) % Immature Gran # 0.76 H (0.00-0.04) 10*3/uL Neutrophils # (Manual) 26.90 H (1.3-7.7) k/uL Potassium 3.1 L (3.5-5.1) mmol/L Chloride 97 L (98-107) mmol/L BUN 18 H (7-17) mg/dL Assessment and Plan (1) Diverticulitis Current Visit: Yes Status: Acute Code(s): K57.92 - DVTRCLI OF INTEST, PART UNSP, W/O PERF OR ABSCESS W/O BLEED SNOMED Code(s): 106367745 (2) Non-small cell carcinoma of lung Current Visit: Yes Status: Acute Priority: High Code(s): C34.90 - MALIGNANT NEOPLASM OF UNSP PART OF UNSP BRONCHUS OR LUNG SNOMED Code(s): 675684425 (3) Pain of metastatic malignancy Current Visit: Yes Status: Acute Priority: High Code(s): G89.3 - NEOPLASM RELATED PAIN (ACUTE) (CHRONIC) SNOMED Code(s): 434166641 (4) Pneumonia Current Visit: Yes Status: Acute Code(s): J18.9 - PNEUMONIA, UNSPECIFIED ORGANISM SNOMED Code(s): 500001674 Plan: Shortness of breath -Radiation oncology has seen the patient. Palliative RT has been started - Pulmonary is consulted and treating patient for possible COPD exacerbation, pneumonia. Pain of metastatic malignancy - Rib pain likely related to metastatic disease in the bones. This will also be reviewed with Radiation Oncology as a possible target for palliative radiation. - Pain medications transitioned to oral regimen with long and shorting pain meds, with dilaudid prn for severe breakthrough pain. Pt reporting pain is controlled on current regimen with use of as needed meds Newly diagnosed non-small cell lung cancer, metastatic. -Biopsy 01/21/25 - Recent PET scan reporting metastatic disease in the lymph nodes on the right, mediastinum, adrenal glands, bones, also a concerning finding in the frontal lobe of the brain - Tissue specimen requested and sent for NGS and PD-L1 testing - Patient was due to meet with Medical Oncologist today for prognosis and treatment options. This has been rescheduled. Appointment date and time and discharge plan -Patient has refused imaging of the head, even with antianxiety medications. Reviewed with family that without brain imaging we cannot say for certain if there is, or is not, cancer present in the brain at this time. For now, if patient's behaviors, mental status and neurologic status appear to be intact we can assume that there is not any malignancy in the brain, at least any causing any symptoms. They verbalized understanding. - Family had a lot of questions about diagnosis, prognosis, treatment options. We discussed treatment options initially would likely include chemotherapy as patient is symptomatic and that is used to get ahead of the disease. Pending the NGS and PD-L1 for any possible mutations that may have a targeted treatment. Also, the use of immunotherapy, in the appropriate setting, for long-term disease control. Intent of treatment is palliation of disease/symptoms and prolongation of life. Prognosis without treatment would be 3 to 4 months, with treatment that can be extended to 1 to 2 years. All of this is based on the patient's tolerance of treatment as well as cancer response to those treatments. All of their questions were answered to their satisfaction to the best of my ability Patient is okay from Oncology standpoint to be discharged once she has been cleared by Attending and consulting Physicians. She will be followed up by the Medical Oncologist after she has completed palliative radiation therapy to discuss systemic therapy treatment options.
[2025-02-09] MEDS: HYDROcodone/APAP 10-325MG 1 EACH TAB PO PRN (18:39)
--- NOTE | 2025-02-10 05:06 | P.PN ---
Subjective Progress Note Date: 02/09/25 69-year-old woman with recent diagnosis of lung cancer, COPD and hypertension. She presents today as she is having right lower quadrant and right groin pain, nausea, vomiting and diarrhea. The patient's family notes that it seemed to come on after she had the injection related to a bone scan. The patient has not had hematemesis. No dark or tarry stools. No fever or chills. Patient had recent endovascular placement of abdominal aortic stent January 08, 2025, 3 weeks ago. Patient does report she has had abdominal pain since her surgery. She reports early satiety. Poor appetite. Family reports that she had poor appetite prior to surgery. CT of the abdomen pelvis with questionable findings of early colitis versus mild diverticulitis. Right lower lobe malignancy. Presence of adrenal gland possible malignancy. T12 compression fracture 25% including sclerotic lesions along the spine highly suspicious for metastatic disease. Blood work reveals WBC of 16.4, hemoglobin of 9.1 and platelet count of 239, sodium 134, potassium 3.6, BUN/creatinine 35/0.79 and alkaline phosphatase of 149 Patient has been admitted for possible ileus/colitis versus diverticulitis; surgery is consulted 02/01/2025 Patient seen and evaluated in follow-up today continues to report significant abdominal pain and general surgery following with no plans of surgical intervention at this time. White count is elevated at 18.85 and hemoglobin remains 9.1, platelets are 183. Sodium is 137 with a potassium of 4.3, BUN 37.1 with a creatinine of 1.0. Patient being started on antibiotics per general surgery for the colitis/diverticulitis and recommends minimum 3 days of IV antibiotics and to continue with clear liquids protein shakes. Patient with significant weakness recommend PT/OT therapy evaluation. Continued poor oral intake and not much of an appetite, consult to dietary. 02/02/2025 Patient evaluated in follow-up today with multiple consultations following including general surgery. Infectious disease has been consulted and patient is continued on antibiotics and white count is elevated with concerns of underlying infection. General surgery following with no immediate plans of surgical in tervention recommending to continue with conservative management and clear liquids. Patient reports has not had a bowel movement today and on assessment there are bowel sounds noted. Patient is tolerating the clear liquids with no reported nausea or vomiting although is asking for an advancing diet. Will await surgical recommendations regarding advancement. Pulmonary has been consulted as well regarding previous endoscopy with biopsy with multiple family members awaiting to speak further with pulmonary. Oncology will also be consulted. 02/03/2025 Patient seen in follow-up today currently obtaining a Doppler assess for DVT as patient has significant lower extremity swelling. Multiple consultations following including told was placed to oncology as recent bronchoscopy was positive for non-small cell lung carcinoma and likely metastasis. Patient white count remains elevated and is maintained on antibiotics. An MRI of the brain was ordered although patient is refusing. Radiation oncology has been consulted and pending to discuss possible palliative radiation. Patient continues to be significantly weak with shortness of breath maintained on oxygen via nasal cannula at 4 L. Encourage incentive spirometer use and wean FiO2 as tolerated. Overall prognosis is extremely poor and guarded. 02/04/2025 Patient is seen in follow-up today currently resting and patient was evaluated by radiation oncology undergoing mapping today to initiate palliative radiation. Patient continues to refuse MRI of the brain and oncology is following and aware. Multiple other consultations following and patient will be continued on current diet not tolerating much oral intake and has no real appetite with continued diffuse abdominal pain. No surgical intervention planned at this time. Patient is afebrile white count remains elevated although slightly improved with infectious disease following maintained on antibiotics and will continue. Continue to wean FiO2 as tolerated although continues on 4 L via nasal cannula. Pulmonary is following. 02/05/2025 Patient is seen in follow-up today remains sitting up in the chair and per patient unable to lie down any further than 30 degrees as patient reports significant shortness of breath and abdominal pain. Patient reports is tolerating current diet and having bowel movements and passing gas. Patient continues with lower extremity edema maintained on Lasix and will continue. Patient did receive mapping on the right chest wall with radiation oncology with plans of starting radiation today. Patient continues with shortness of breath maintained on 4 L. Patient to continue with antibiotics with infectious disease following as white count remains elevated, concerns for postobstructive. Follow-up on repeat labs and replace electrolytes per protocol. 02/06/2025 Patient is seen in follow-up today with multiple consultations following. Patient is status post palliative radiation yesterday with radiation oncology and will resume on Saturday and continue daily as tolerated. Patient continues on 4 L and continues to report shortness of breath. Patient having intermittent diffuse abdominal pain although much improved compared to previous. Patient is not tolerating much diet and is not eating much and needs encouragement and may continue supplements between meals. White count remains elevated and appreciate input and recommendations from infectious disease. Will continue Zosyn for now. Encourage incentive spirometer use and increase activity as tolerated. 02/07/2025 Patient is seen in follow-up today continues to report significant pain and continued on current pain regimen. Plan is for radiation oncology to follow-up for repeat radiation on Saturday throughout the week. Infectious disease following and white count is elevated above 20 and maintained on antibiotics we will follow-up on repeat labs. Encouraged increase activity as tolerated and incentive spirometer use. Continue with breathing treatments. Prognosis guarded at this time 02/08/2025 Patient is seen in follow-up today with multiple consultations following. Patient to resume radiation treatment for palliative therapy today and patient continues to report shortness of breath and difficulty in breathing and maintained on 4 L via nasal cannula. Oxygen saturations are above 95% on oxygen and recommend weaning FiO2 as tolerated and continued incentive spirometer use. Patient white count remains elevated with infectious disease following and is continued on antibiotics. Per nursing staff patient was having some confusion overnight and recommend monitoring closely especially given her medication regimen with narcotics. Encouraged oral intake and will continue current diet. Recommend PT/OT therapy evaluation once respiratory status has improved as patient is significantly weak and has had prolonged hospitalization. 02/09/2025 Patient is seen in follow-up this morning currently sitting up in the chair and extremely weak continuing to report significant pain. Pain medications are being adjusted per oncology and is receiving palliative radiation. Will need to discuss discharge planning with multiple consultations and also with infectious disease as patient is maintained on IV antibiotics and continues to have an elevated white count. Patient continues with shortness of breath maintained on 4 L via nasal cannula. Patient reports is eating some not much of an appetite and did have a bowel movement. Recommend PT/OT therapy evaluation prior to discharge. Prognosis remains guarded. Review of systems: Constitutional: reports of fatigue, no fever, or chills Cardiovascular: No reports of chest pain or palpitations Respiratory: reports of mild shortness of breath , reports of increased work of breathing and difficulty in breathing with movement GI: No reports of nausea, vomiting, or diarrhea, reports having bowel movements, continues to report diffuse abdominal pain : No reports of dysuria or retention Neurovascular: reports of generalized weakness and lower extremity swelling All medications have been reviewed Physical exam: Gen: This is a 69-year-old female who is awake although, alert and oriented x 2- 3, well-developed, elderly appearing, ill-appearing HEENT: Head is atraumatic, normocephalic. Pupils equal, round. Sclerae is anicteric. NECK: Supple. No JVD. No lymphadenopathy. No thyromegaly. LUNGS: Diminished breath sounds bilaterally with bronchial congestion noted and patient able to clear with strong cough. No wheezes coarse scattered rhonchi noted. No intercostal retractions. HEART: S1, S2 are muffled ABDOMEN: Soft. Bowel sounds are present. No masses. Mild tenderness noted on palpation. EXTREMITIES: No pedal edema. No calf tenderness. Bilateral lower extremity edema NEUROLOGICAL: Patient is awake, alert and oriented x3. Cranial nerves 2 through 12 are grossly intact. Diffusely weak Assessment: -Abdominal pain, likely secondary to early colitis with mild diverticulitis as noted on CT image -Leukocytosis, secondary to above -Possible ileus, improving continuing conservative management per surgery, patient is having bowel movements -multiple masses and lesions within the liver highly suspicious for metastatic disease -COPD; not in exacerbation -Hypoxic respiratory failure, recently placed on oxygen since bronchoscopy likely secondary to non-small cell lung carcinoma -Gastroesophageal reflux disease -Anxiety -Chronic back pain -Severe protein calorie malnutrition -History of recent abdominal aortic aneurysm status post endovascular graft -Recently diagnosed metastatic lung cancer from bronchoscopy with BAL and biopsy on 01/22/2025. Pathology is positive for non-small cell lung carcinoma and PET scan showing diffuse metastasis throughout the thorax and osseous metastatic disease and a possible right frontal lobe lesion. On the brain GI prophylaxis DVT prophylaxis; SCDs full code Plan: Patient was admitted with concerns of early colitis and mild diverticulitis with abdominal pain and concerns of possible ileus. Patient evaluated by general cote rgery with no plans of surgical intervention at this time recommending bowel rest with slowly advancing diet as tolerated Infectious disease following and will continue IV antibiotic therapy. White c ount remains elevated and will continue current regimen. Continue antibiotics for now and monitor white count, procalcitonin is elevated as well Pulmonary and oncology following as patient's recent bronchoscopy with BAL and biopsy on 01/22/2025 for non-small cell carcinoma and patient also had a recent PET scan concerning for diffuse metastasis throughout the thoracic area with metastatic disease and also noted right frontal brain lesion. Oncology ordered an MRI of the brain although patient is refusing. Radiation oncology following and has undergone mapping and started radiation 02/05/2025, patient to receive radiation therapy today and will discuss with radiation oncology as well as oncology regarding continued treatment. Patient is scheduled to receive 10 radiation doses palliatively Continue advancing diet as tolerated and continue with Ensure protein shakes in between meals Follow-up on repeat labs, replace electrolytes per protocol monitor white count is trending up Encouraged increase activity as tolerated Recommend PT/OT therapy evaluation as she has been hospitalized for quite some time and continuing to become more weak Will need to discuss with other consultations regarding possible discharge planning. Due to multiple complex medical issues, overall prognosis is extremely poor and guarded The impression and plan of care has been dictated by Ciarra Machado, Nurse Practitioner as directed. Dr. Dov MD I have performed a history and examination and MDM of this patient, discussed the same with the dictator, and agree with the dictator's assessment and plan as written ,documented as a scribe. Based on total visit time, I have performed more than 50% of the visit. Objective - Vital Signs Vital signs: Vital Signs Temp 97.6 F 02/10/25 02:05 Pulse 105 H 02/10/25 02:05 Resp 18 02/10/25 02:05 BP 100/68 02/10/25 02:05 Pulse Ox 96 02/10/25 02:05 FiO2 Intake & Output 02/09/25 02/09/25 02/10/25 06:59 18:59 06:59 Intake Total 590 800 Balance 590 800 Weight 71.214 kg Intake: Oral 590 800 Other: Voiding Method Bedside Commode Bedside Commode Bedside Commode # Voids 2 2 # Bowel Movements 1 - Labs CBC & Chem 7: 02/09/25 06:12 02/09/25 06:12 Labs: Abnormal Lab Results - Last 24 Hours (Table) 02/09/25 02/09/25 Range/Units 06:12 06:12 WBC 29.24 H (4.50-10.00) 10*3/uL RBC 3.68 L (4.10-5.20) 10*6/uL Hgb 10.3 L (12.0-15.0) g/dL Hct 33.4 L (37.2-46.3) % MCHC 30.8 L (32.0-37.0) g/dL RDW 16.8 H (11.5-14.5) % Immature Gran # 0.76 H (0.00-0.04) 10*3/uL Neutrophils # (Manual) 26.90 H (1.3-7.7) k/uL Potassium 3.1 L (3.5-5.1) mmol/L Chloride 97 L (98-107) mmol/L BUN 18 H (7-17) mg/dL
[2025-02-10] MEDS: FLUCONAZOLE 100 MG TAB PO SCH (08:04)
[2025-02-10 08:15] LABS: HCT 28.8 % (37.2-46.3); HGB 8.6 g/dL (12.0-15.0); MCH 28.6 pg (27.0-32.0); MCHC 29.9 g/dL (32.0-37.0); MCV 95.7 FL (80.0-97.0); Mean Platelet Volume 10.3 FL (9.5-12.2); NRBC Per 100 WBC 0 X 10*3/uL (0.00-0.01); Platelet Count 134 X 10*3/uL (140-440); RBC 3.01 X 10*6/uL (4.10-5.20); RDW 16.7 % (11.5-14.5); WBC 22.13 X 10*3/uL (4.50-10.00)
[2025-02-10] MEDS: FUROSEMIDE 20 MG TAB PO SCH (09:37)
[2025-02-10 09:38] LABS: ALT 9 U/L (8-44); AST 18 U/L (13-35); Albumin 2.4 g/dL (3.8-4.9); Albumin/Globulin Ratio 0.77 Ratio (1.60-3.17); Alkaline Phosphatase 190 U/L (41-126); BUN/Creat Ratio 29.33 Ratio (12.00-20.00); Blood Urea Nitrogen 17.6 mg/dL (9.0-27.0); Calcium 8.4 mg/dL (8.7-10.3); Carbon Dioxide 28.3 mmol/L (21.6-31.8); Chloride 97 mmol/L (96-109); Globulin 3.1 g/dL (1.6-3.3); Glucose 88 mg/dL (70-110); Sodium 140 mmol/L (135-145); Total Bilirubin 0.4 mg/dL (0.3-1.2); Total Protein 5.5 g/dL (6.2-8.2)
[2025-02-10] MEDS: POTASSIUM CHLORIDE ER 20 MEQ TAB.ER PO SCH ×2 (10:07→20:45)
[2025-02-10] MEDS ORDERED: Potassium Replacement Protocol 1 EACH MISC MISCELLANE PRN (10:31)
[2025-02-10 11:57] LABS: Basophils # (A) 0.08 X 10*3/uL (0.00-0.10); Basophils % (A) 0.4 %; Eosinophils # (A) 0.06 X 10*3/uL (0.04-0.35); Eosinophils % (A) 0.3 %; Lymphocytes # (A) 0.89 X 10*3/uL (0.90-5.00); Monocytes # (A) 0.61 X 10*3/uL (0.20-1.00); Monocytes % (A) 2.8 %; Neutrophils # (A) 20.21 X 10*3/uL (1.80-7.70); Neutrophils % (A) 91.2 %; RBC Morphology Normal (Normal)
--- NOTE | 2025-02-10 12:25 | P.PN ---
Subjective Progress Note Date: 02/10/25 This is a 69-year-old female patient with known history of COPD and lung cancer, and known history of abdominal aortic aneurysm post endovascular stent placement and the procedure was done on 01/08/2025. The patient presented to the hospital because of right lower quadrant pain, nausea, emesis and diarrhea. No reported GI bleeding. The patient had diminished appetite. CAT scan of the abdomen and pelvis was done and it showed early colitis versus mild diverticulitis. There was T12 compression fraction of the spine with 25% involvement and there was also sclerotic lesion along the spine highly suspicious for metastatic disease. There was also suspected adrenal metastases and ongoing consolidation in the right lung base. As for the infrarenal abdominal aortic aneurysm, this was measuring up to 8 cm in size with at least 2 stent graft present. A small gap between the stent grafts possibly resulting endoleak. Noted, the patient's diagnosis of lung cancer is quite recent. The patient was seen in consultation on 01/21/2025 with worsening shortness of breath, weight loss and CAT scan of the chest was done on 01/21/2025 and a CAT scan showed lymphadenopathy throughout the chest concerning for malignancy and the right lower lobe pulmonary nodule, metastatic left rib lesion and left-sided posterior rib fracture without evidence of pneumothorax and concern of osseous lesions and pathologic fractures seen in the scapula. There was lymphadenopathy seen in the right hilum with narrowing of the adjacent bronchus. Based on that, the patient had a bronchoscopy done and the bronchoscopy showed significant obstruction of the right middle lobe bronchus with endobronchial tumor endobronchial biopsies performed in the involved area was consistent with pulmonary adenocarcinoma with squamous differentiation. The mediastinal lymph node sampling was hypocellular. Subsequently, the patient had a PET/CT that was done on an outpatient basis and the PET scan showed metastatic neoplasm, prominent lymphadenopathy involving the right thorax with osseous metastatic disease present. There was an expansile hypermetabolic left anterior lateral mid rib lesion and destructive soft tissue mass involving the right posterior 4th and 5th ribs and scattered additional metabolic reactive lytic lesions involving the right scapula and multiple lesions involving the spine and pelvis. There was also evidence of bilateral hypermetabolic adrenal masses consistent with metastases. For now, the patient is being seen by general surgery regarding the abdominal pain. The patient is currently on IV Zosyn. Patient is also on Spiriva and Symbicort and inhalers and normal saline at rate of 75 cc an hour. The patient is currently on oxygen at 4 L with a pulse ox of 98%. Hemodynamically stable. On 02/03/2025, patient is being seen for a follow-up. The patient is in poor condition. She continues to have cough and congestion. She continues to be short of breath even at rest. She has developed significant amount of edema in lower extremities bilaterally and there is fluid weeping from the skin surface in the feet bilaterally. There are diminished pulses in the legs and vascular surgery is on the case. I ordered a Doppler of the lower extremity to rule out underlying DVT. Noted the patient has undergone endovascular stent grafting for a large abdominal aortic aneurysm. A CT angiogram of the abdominal aorta and a runoff was recommended. However, the patient declined further testing. The patient's white cell count is at 17.9, hemoglobin of 8.7 and a platelet count of 204. Bicarb is at 21, BUN is 27 with a creatinine of 0.7. LFTs are normal. The lipase at 8, the albumin is at 2.5 with a total protein of 5.4. The patient was seen by hematology oncology and the patient is also to be seen by radiation oncology. Care is a very poor prognosis based on her metastatic pulm katja nocarcinoma. She remains on oxygen at 4 L. Diarrhea has subsided. No significant abdominal pain at this point. 02/04/2025, the patient is sitting up in a chair and the patient remains on oxygen at 4 L. She was seen by radiation oncology and the patient underwent simulation and she is going to receive palliative radiation therapy for pain control. She is feeling quite tired and she has very limited exercise capacity in addition to ongoing edema in lower extremities bilaterally. Doppler was negative for any DVTs and the patient was given IV Lasix and the patient is producing adequate amount of urine output with some limited improvement in lower extremity edema compared to yesterday. Sodium is at 140, potassium is at 3.3, BUN is 22 with a creatinine of 0.6 and a bicarb level of 29. Glucose 93. White cell count is at 17 with a hemoglobin of 9.1. The patient is seen by medical oncology and radiation oncology. On 02/05/2025, the patient reports improvement in lower extremity edema. She responded to Lasix. However, she continues to have significant amount of edema still in her legs. She will proceed with palliative radiation therapy. She feels very tired. She continues to have a congested cough. She continues to have chest wall pain especially with coughing episodes. The white cell count is 18 with a hemoglobin of 8.8 and a platelet count of 165. Sodium is at 141, K is at 2.9, electrolytes were noted and the serum bicarb is at 24. Procalcitonin is at 1.53. The blood cultures been negative. Patient is empirically on IV Zosyn. The patient has Spiriva, Symbicort and DuoNeb neb regiment [id number]. 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 02/06/2025, the patient's condition essentially the same and unchanged. She remains on oxygen at 4 L with a pulse ox of 98%. Afebrile. Main complaint remains pain and the patient is currently receiving p.o. radiation therapy. Remains on IV Zosyn. Remains on Lasix 20 mg IV push every 12 hours. Continues to have lower extremity edema. No altered mentation. Feels quite weak and debilitated. The white cell count is 18 with a hemoglobin 9.2 and a platelet count of 192. Sodium is at 142, potassium is 3.9, BUN is 15 with a creatinine of 0.7. On 02/07/2025, condition remains essentially unchanged. Remains on 4 days of oxygen by nasal cannula. Complaints are essentially the same including ongoing pain involving the chest and the back and throughout the body. Continues to have lower extremity edema. Continues to be on IV Lasix. Continues to have a white cell count of 20 with a hemoglobin 9.3 and a platelet count of 144. Elect rolytes are all within normal limits. Remains on IV Zosyn as an empiric antibiotic coverage. She does have chronic atelectatic changes and consolidation of the right lower lobe related to extensive mediastinal lymphadenopathy/tumor consistent with pulm adenocarcinoma. She is receiving palliative radiation therapy which is currently on hold over the weekend. This is to be resumed in a.m. The patient is seen today February 08, 2025 in follow-up on the regular medical floor. She is currently sitting up in a chair at the bedside. Awake and alert in no acute distress. Maintaining O2 saturations in the 90s on 4 L/min per nasal cannula. She is afebrile. Hemodynamically stable. Blood culture r evealed no growth. She remains on IV diuretics. Continued on DuoNeb inhalations, Symbicort. Antibiotics in the form of Zosyn. The patient is seen today February 09, 2025 in follow-up on the regular medical floor. She is awake and alert in no acute distress. Sitting up at the the bedside. She remains quite weak. She is maintaining O2 saturation in the low 90s on 4 L/min per nasal cannula. She has been afebrile. Hemodynamically stable. She is currently receiving radiation treatments daily. Blood culture revealed no growth. White count 29.2. Hemoglobin 10.3. Sodium 138. Potassium 3.1. Bicarb 30. BUN 18. Creatinine 0.6. Glucose 81. She is continued on DuoNeb inhalations, Symbicort, Zosyn. NicoDerm patch in place. Remains on IV diuretics. The patient is seen today February 10, 2025 in follow-up on the regular medical floor. She is currently sitting up at the bedside. Awake and alert in no acute distress. She is maintaining O2 saturation in the low 90s on 4 L/min per nasal cannula. She has a loose congested cough. No fever or chills. Hemodynamically stable. Received radiation therapy again today. Blood culture revealed no growth. White count 22.1. Hemoglobin 8.6. Platelets 134. Sodium 140. Potassium 3.0. Bicarb 28. BUN 18. Creatinine 0.6. Glucose 88. C-reactive protein 18.1. Procalcitonin 0.43. She is continued on Zosyn and Diflucan. Remains on DuoNeb inhalations and Symbicort. Transitioned to oral diuretics. NicoDerm patch in place. Objective - Vital Signs Vital signs: Vital Signs Temp 97.5 F L 02/10/25 07:11 Pulse 76 02/10/25 10:07 Resp 15 02/10/25 08:05 BP 105/72 02/10/25 07:11 Pulse Ox 90 L 02/10/25 09:56 FiO2 Intake & Output 02/09/25 02/10/25 02/10/25 18:59 06:59 18:59 Intake Total 800 750 Balance 800 750 Weight 71.214 kg Intake: Oral 800 750 Other: Voiding Method Bedside Commode Bedside Commode Bedside Commode # Voids 2 2 # Bowel Movements 1 1 - Exam GENERAL EXAM: Alert, 69-year-old female, sitting up in bed, on 4 L nasal cannula, in no apparent distress. HEAD: Normocephalic. EYES: Normal reaction of pupils, equal size. NOSE: Clear with pink turbinates. THROAT: No erythema or exudates. NECK: No masses, no JVD. CHEST: No chest wall deformity. LUNGS: Equal air entry with few scattered rhonchi. CVS: S1 and S2 normal with no audible murmur, regular rhythm. ABDOMEN: No hepatosplenomegaly, normal bowel sounds, no guarding or rigidity. SPINE: No scoliosis or deformity SKIN: No rashes CENTRAL NERVOUS SYSTEM: No focal deficits, tone is normal in all 4 extremities. EXTREMITIES: There is 1+ peripheral edema. No clubbing, no cyanosis. Peripheral pulses are intact. - Labs CBC & Chem 7: 02/10/25 04:04 02/10/25 04:04 Labs: Abnormal Lab Results - Last 24 Hours (Table) 02/09/25 02/10/25 02/10/25 Range/Units 06:12 04:04 04:04 WBC 22.13 H (4.50-10.00) X 10*3/uL RBC 3.01 L (4.10-5.20) X 10*6/uL Hgb 8.6 L (12.0-15.0) g/dL Hct 28.8 L (37.2-46.3) % MCHC 29.9 L (32.0-37.0) g/dL RDW 16.7 H (11.5-14.5) % Plt Count 134 L (140-440) X 10*3/uL Immature Gran # 0.28 H (0.00-0.04) X 10*3/uL Neutrophils # 20.21 H (1.80-7.70) X 10*3/uL Neutrophils # (Manual) 26.90 H (1.3-7.7) k/uL Lymphocytes # 0.89 L (0.90-5.00) X 10*3/uL Potassium 3.0 L (3.5-5.5) mmol/L Anion Gap 14.70 H (4.00-12.00) mmol/L BUN/Creatinine Ratio 29.33 H (12.00-20.00) Ratio Calcium 8.4 L (8.7-10.3) mg/dL Alkaline Phosphatase 190 H (41-126) U/L C-Reactive Protein 18.10 H (0.00-0.80) mg/dL Total Protein 5.5 L (6.2-8.2) g/dL Albumin 2.4 L (3.8-4.9) g/dL Albumin/Globulin Ratio 0.77 L (1.60-3.17) Ratio Assessment and Plan Assessment: Stage IV non-small cell lung cancer. The patient has extensive lymphadenopathy along the right hemithorax causing mass effect on the right middle lobe and right lower lobe bronchus and the patient has atelectatic changes right lung base along with a small to moderate-sized right-sided pleural effusion. Postobstructive pneumonia is felt to be less likely. This is probably part of the natural progression of her underlying malignancy. Noted the patient has evidence of bilateral adrenal metastases, and skeletal metastases involving the ribs, scapula and spine. PET/CT done on 02/01/2025. The pathology is consistent with pulmonary adenocarcinoma with squamous differentiation Metastatic lesions with expansile hypermetabolic left anterior lateral mid rib lesion and destructive soft tissue mass involving the right posterior 4th and 5th ribs and scattered additional metabolic reactive lytic lesions involving the right scapula and multiple lesions involving the spine and pelvis Abdominal pain/colitis, improving Acute leukocytosis Chronic smoker ongoing chronic tobacco dependence of 50 years Abdominal aortic aneurysm stent placement at [facility] December 2024 Severe chronic obstructive pulmonary disease maintained on Trelegy, albuterol Significant weight loss of over 20 pounds in the past 1 to 2 months Hypertension Lower extremity edema, extensive, currently on Lasix and Doppler lower extremities were negative Plan: The patient was seen and evaluated Labs and medications reviewed Remains on Zosyn and Diflucan Continued on DuoNeb inhalations, Symbicort Continue oral diuretics Plan is to continue with radiation therapy Treatment is palliative in nature Medical oncology plans outpatient follow-up Educated regarding smoking cessation NicoDerm patch in place Treatment plan discussed with the patient and daughters at the bedside Plan is to return home with her daughter once discharged This patient was seen independently by the pulmonary nurse practitioner addressing pulmonary issues I have personally seen and examined the patient, performed the documentation and the assessment and plan as written. Number of minutes spent on the visit: 25 Dictation was produced using [employer] software. Please excuse any grammatical, word or spelling errors.
--- NOTE | 2025-02-11 05:25 | P.PN ---
Subjective Progress Note Date: 02/10/25 69-year-old woman with recent diagnosis of lung cancer, COPD and hypertension. She presents today as she is having right lower quadrant and right groin pain, nausea, vomiting and diarrhea. The patient's family notes that it seemed to come on after she had the injection related to a bone scan. The patient has not had hematemesis. No dark or tarry stools. No fever or chills. Patient had recent endovascular placement of abdominal aortic stent January 08, 2025, 3 weeks ago. Patient does report she has had abdominal pain since her surgery. She reports early satiety. Poor appetite. Family reports that she had poor appetite prior to surgery. CT of the abdomen pelvis with questionable findings of early colitis versus mild diverticulitis. Right lower lobe malignancy. Presence of adrenal gland possible malignancy. T12 compression fracture 25% including sclerotic lesions along the spine highly suspicious for metastatic disease. Blood work reveals WBC of 16.4, hemoglobin of 9.1 and platelet count of 239, sodium 134, potassium 3.6, BUN/creatinine 35/0.79 and alkaline phosphatase of 149 Patient has been admitted for possible ileus/colitis versus diverticulitis; surgery is consulted 02/01/2025 Patient seen and evaluated in follow-up today continues to report significant abdominal pain and general surgery following with no plans of surgical intervention at this time. White count is elevated at 18.85 and hemoglobin remains 9.1, platelets are 183. Sodium is 137 with a potassium of 4.3, BUN 37.1 with a creatinine of 1.0. Patient being started on antibiotics per general surgery for the colitis/diverticulitis and recommends minimum 3 days of IV antibiotics and to continue with clear liquids protein shakes. Patient with significant weakness recommend PT/OT therapy evaluation. Continued poor oral intake and not much of an appetite, consult to dietary. 02/02/2025 Patient evaluated in follow-up today with multiple consultations following including general surgery. Infectious disease has been consulted and patient is continued on antibiotics and white count is elevated with concerns of underlying infection. General surgery following with no immediate plans of surgical in tervention recommending to continue with conservative management and clear liquids. Patient reports has not had a bowel movement today and on assessment there are bowel sounds noted. Patient is tolerating the clear liquids with no reported nausea or vomiting although is asking for an advancing diet. Will await surgical recommendations regarding advancement. Pulmonary has been consulted as well regarding previous endoscopy with biopsy with multiple family members awaiting to speak further with pulmonary. Oncology will also be consulted. 02/03/2025 Patient seen in follow-up today currently obtaining a Doppler assess for DVT as patient has significant lower extremity swelling. Multiple consultations following including told was placed to oncology as recent bronchoscopy was positive for non-small cell lung carcinoma and likely metastasis. Patient white count remains elevated and is maintained on antibiotics. An MRI of the brain was ordered although patient is refusing. Radiation oncology has been consulted and pending to discuss possible palliative radiation. Patient continues to be significantly weak with shortness of breath maintained on oxygen via nasal cannula at 4 L. Encourage incentive spirometer use and wean FiO2 as tolerated. Overall prognosis is extremely poor and guarded. 02/04/2025 Patient is seen in follow-up today currently resting and patient was evaluated by radiation oncology undergoing mapping today to initiate palliative radiation. Patient continues to refuse MRI of the brain and oncology is following and aware. Multiple other consultations following and patient will be continued on current diet not tolerating much oral intake and has no real appetite with continued diffuse abdominal pain. No surgical intervention planned at this time. Patient is afebrile white count remains elevated although slightly improved with infectious disease following maintained on antibiotics and will continue. Continue to wean FiO2 as tolerated although continues on 4 L via nasal cannula. Pulmonary is following. 02/05/2025 Patient is seen in follow-up today remains sitting up in the chair and per patient unable to lie down any further than 30 degrees as patient reports significant shortness of breath and abdominal pain. Patient reports is tolerating current diet and having bowel movements and passing gas. Patient continues with lower extremity edema maintained on Lasix and will continue. Patient did receive mapping on the right chest wall with radiation oncology with plans of starting radiation today. Patient continues with shortness of breath maintained on 4 L. Patient to continue with antibiotics with infectious disease following as white count remains elevated, concerns for postobstructive. Follow-up on repeat labs and replace electrolytes per protocol. 02/06/2025 Patient is seen in follow-up today with multiple consultations following. Patient is status post palliative radiation yesterday with radiation oncology and will resume on Saturday and continue daily as tolerated. Patient continues on 4 L and continues to report shortness of breath. Patient having intermittent diffuse abdominal pain although much improved compared to previous. Patient is not tolerating much diet and is not eating much and needs encouragement and may continue supplements between meals. White count remains elevated and appreciate input and recommendations from infectious disease. Will continue Zosyn for now. Encourage incentive spirometer use and increase activity as tolerated. 02/07/2025 Patient is seen in follow-up today continues to report significant pain and continued on current pain regimen. Plan is for radiation oncology to follow-up for repeat radiation on Saturday throughout the week. Infectious disease following and white count is elevated above 20 and maintained on antibiotics we will follow-up on repeat labs. Encouraged increase activity as tolerated and incentive spirometer use. Continue with breathing treatments. Prognosis guarded at this time 02/08/2025 Patient is seen in follow-up today with multiple consultations following. Patient to resume radiation treatment for palliative therapy today and patient continues to report shortness of breath and difficulty in breathing and maintained on 4 L via nasal cannula. Oxygen saturations are above 95% on oxygen and recommend weaning FiO2 as tolerated and continued incentive spirometer use. Patient white count remains elevated with infectious disease following and is continued on antibiotics. Per nursing staff patient was having some confusion overnight and recommend monitoring closely especially given her medication regimen with narcotics. Encouraged oral intake and will continue current diet. Recommend PT/OT therapy evaluation once respiratory status has improved as patient is significantly weak and has had prolonged hospitalization. 02/09/2025 Patient is seen in follow-up this morning currently sitting up in the chair and extremely weak continuing to report significant pain. Pain medications are being adjusted per oncology and is receiving palliative radiation. Will need to discuss discharge planning with multiple consultations and also with infectious disease as patient is maintained on IV antibiotics and continues to have an elevated white count. Patient continues with shortness of breath maintained on 4 L via nasal cannula. Patient reports is eating some not much of an appetite and did have a bowel movement. Recommend PT/OT therapy evaluation prior to discharge. Prognosis remains guarded. 02/10/2025 Patient is seen in follow-up today underwent radiation treatment and further discussion with radiation oncologist would prefer patient remains hospitalized during treatments as patient continues to be significantly short of breath with ongoing severe pain rating the pain is 8 out of 10. Patient is significantly weak although has been attempting to get up and encouraged patient to continue increasing activity as tolerated and getting up more frequently out of the chair. Patient continues with bilateral lower extremity swelling that is minimally improved and recommend Wale wraps to bilateral lower extremities and/or compression stockings. Recommend PT/OT therapy daily. Patient is afebrile continues to report shortness of breath and denies chest pain or palpitations. White count remains elevated with infectious disease following. Review of systems: Constitutional: No reports of fatigue, no fever, or chills Cardiovascular: No reports of chest pain or palpitations Respiratory: reports of mild shortness of breath , reports continued increased work of breathing with exertion GI: No reports of nausea, vomiting, or diarrhea, reports having bowel movements, continues to report diffuse abdominal pain : No reports of dysuria or retention Neurovascular: reports of generalized weakness and lower extremity swelling All medications have been reviewed Physical exam: Gen: This is a 69-year-old female who is awake although, alert and oriented x 2- 3, well-developed, elderly appearing, ill-appearing HEENT: Head is atraumatic, normocephalic. Pupils equal, round. Sclerae is anicteric. NECK: Supple. No JVD. No lymphadenopathy. No thyromegaly. LUNGS: Diminished breath sounds bilaterally with bronchial congestion noted and patient able to clear with strong cough. No wheezes coarse scattered rhonchi no seble. No intercostal retractions. HEART: S1, S2 are muffled ABDOMEN: Soft. Bowel sounds are present. No masses. Mild tenderness noted on palpation. EXTREMITIES: No pedal edema. No calf tenderness. Bilateral lower extremity edema NEUROLOGICAL: Patient is awake, alert and oriented x3. Cranial nerves 2 through 12 are grossly intact. Diffusely weak Assessment: -Abdominal pain, likely secondary to early colitis with mild diverticulitis as noted on CT image -Leukocytosis, secondary to above -Possible ileus, improving continuing conservative management per surgery, improved, patient is having bowel movements -multiple masses and lesions within the liver highly suspicious for metastatic disease -COPD; not in exacerbation -Hypoxic respiratory failure, recently placed on oxygen since bronchoscopy likely secondary to non-small cell lung carcinoma -Gastroesophageal reflux disease -Anxiety -Chronic back pain -Severe protein calorie malnutrition -History of recent abdominal aortic aneurysm status post endovascular graft -Recently diagnosed metastatic lung cancer from bronchoscopy with BAL and biopsy on 01/22/2025. Pathology is positive for non-small cell lung carcinoma and PET scan showing diffuse metastasis throughout the thorax and osseous metastatic disease and a possible right frontal lobe lesion. On the brain GI prophylaxis DVT prophylaxis; SCDs full code Plan: Patient was admitted with concerns of early colitis and mild diverticulitis with abdominal pain and concerns of possible ileus. Patient evaluated by general surgery with no plans of surgical intervention at this time recommending bowel rest with slowly advancing diet as tolerated. Diet has been advanced and tole rating thus far recommend as needed bowel regimen and increased activity as tolerated Infectious disease following and will continue IV antibiotic therapy. White count remains elevated and will continue current regimen. Continue antibiotics for now and monitor white count, procalcitonin is elevated as well Pulmonary and oncology following as patient's recent bronchoscopy with BAL and biopsy on 01/22/2025 for non-small cell carcinoma and patient also had a recent PET scan concerning for diffuse metastasis throughout the thoracic area with metastatic disease and also noted right frontal brain lesion. Oncology ordered an MRI of the brain although patient is refusing. Radiation oncology following and has undergone mapping and started radiation 02/05/2025, patient to receive radiation therapy for 10 doses and per radiation oncology, patient to remain hospitalized until 10 doses are completed Patient with significant weakness and prolonged hospitalization would recommend physical therapy daily and getting up more frequently and walking as patient's plan is to return home on discharge Continue with Ensure protein shakes in between meals Follow-up on repeat labs, replace electrolytes per protocol monitor white count remains elevated, patient is afebrile Oncology following as well and patient will need outpatient follow-up Due to multiple complex medical issues, overall prognosis is extremely poor and guarded The impression and plan of care has been dictated by Ciarra Machado, Nurse Practitioner as directed. Dr. Dov MD I have performed a history and examination and MDM of this patient, discussed the same with the dictator, and agree with the dictator's assessment and plan as written ,documented as a scribe. Based on total visit time, I have performed more than 50% of the visit. Patient Objective - Vital Signs Vital signs: Vital Signs Temp 97.9 F 02/11/25 02:00 Pulse 110 H 02/11/25 02:00 Resp 16 02/11/25 02:00 BP 110/65 02/11/25 02:00 Pulse Ox 96 02/11/25 02:00 FiO2 Intake & Output 02/10/25 02/10/25 02/11/25 06:59 18:59 06:59 Intake Total 750 Balance 750 Intake: Oral 750 Other: Voiding Method Bedside Commode Bedside Commode Bedside Commode # Voids 2 3 # Bowel Movements 1 1 - Labs CBC & Chem 7: 02/10/25 04:04 02/10/25 04:04 Labs: Abnormal Lab Results - Last 24 Hours (Table) 02/10/25 02/10/25 Range/Units 04:04 04:04 WBC 22.13 H (4.50-10.00) X 10*3/uL RBC 3.01 L (4.10-5.20) X 10*6/uL Hgb 8.6 L (12.0-15.0) g/dL Hct 28.8 L (37.2-46.3) % MCHC 29.9 L (32.0-37.0) g/dL RDW 16.7 H (11.5-14.5) % Plt Count 134 L (140-440) X 10*3/uL Immature Gran # 0.28 H (0.00-0.04) X 10*3/uL Neutrophils # 20.21 H (1.80-7.70) X 10*3/uL Lymphocytes # 0.89 L (0.90-5.00) X 10*3/uL Potassium 3.0 L (3.5-5.5) mmol/L Anion Gap 14.70 H (4.00-12.00) mmol/L BUN/Creatinine Ratio 29.33 H (12.00-20.00) Ratio Calcium 8.4 L (8.7-10.3) mg/dL Alkaline Phosphatase 190 H (41-126) U/L C-Reactive Protein 18.10 H (0.00-0.80) mg/dL Total Protein 5.5 L (6.2-8.2) g/dL Albumin 2.4 L (3.8-4.9) g/dL Albumin/Globulin Ratio 0.77 L (1.60-3.17) Ratio
[2025-02-11 08:15] LABS: Basophils # (A) 0.13 X 10*3/uL (0.00-0.10); Basophils % (A) 0.5 %; Eosinophils # (A) 0.08 X 10*3/uL (0.04-0.35); Eosinophils % (A) 0.3 %; HCT 27.9 % (37.2-46.3); HGB 8.2 g/dL (12.0-15.0); Lymphocytes # (A) 0.72 X 10*3/uL (0.90-5.00); Lymphocytes % (A) 2.9 %; MCH 28.3 pg (27.0-32.0); MCHC 29.4 g/dL (32.0-37.0); MCV 96.2 FL (80.0-97.0); Monocytes # (A) 0.68 X 10*3/uL (0.20-1.00); Monocytes % (A) 2.8 %; NRBC Per 100 WBC 0 X 10*3/uL (0.00-0.01); Neutrophils # (A) 22.56 X 10*3/uL (1.80-7.70); Platelet Count 147 X 10*3/uL (140-440); WBC 24.55 X 10*3/uL (4.50-10.00)
[2025-02-11 08:22] LABS: BUN/Creat Ratio 30.33 Ratio (12.00-20.00); Blood Urea Nitrogen 18.2 mg/dL (9.0-27.0); Calcium 8.3 mg/dL (8.7-10.3); Chloride 98 mmol/L (96-109); Glucose 85 mg/dL (70-110); Magnesium 1.7 mg/dL (1.5-2.4); Potassium 3.7 mmol/L (3.5-5.5); Sodium 140 mmol/L (135-145)
--- NOTE | 2025-02-11 10:34 | P.PN ---
Subjective Progress Note Date: 02/11/25 This is a 69-year-old female patient with known history of COPD and lung cancer, and known history of abdominal aortic aneurysm post endovascular stent placement and the procedure was done on 01/08/2025. The patient presented to the hospital because of right lower quadrant pain, nausea, emesis and diarrhea. No reported GI bleeding. The patient had diminished appetite. CAT scan of the abdomen and pelvis was done and it showed early colitis versus mild diverticulitis. There was T12 compression fraction of the spine with 25% involvement and there was also sclerotic lesion along the spine highly suspicious for metastatic disease. There was also suspected adrenal metastases and ongoing consolidation in the right lung base. As for the infrarenal abdominal aortic aneurysm, this was measuring up to 8 cm in size with at least 2 stent graft present. A small gap between the stent grafts possibly resulting endoleak. Noted, the patient's diagnosis of lung cancer is quite recent. The patient was seen in consultation on 01/21/2025 with worsening shortness of breath, weight loss and CAT scan of the chest was done on 01/21/2025 and a CAT scan showed lymphadenopathy throughout the chest concerning for malignancy and the right lower lobe pulmonary nodule, metastatic left rib lesion and left-sided posterior rib fracture without evidence of pneumothorax and concern of osseous lesions and pathologic fractures seen in the scapula. There was lymphadenopathy seen in the right hilum with narrowing of the adjacent bronchus. Based on that, the patient had a bronchoscopy done and the bronchoscopy showed significant obstruction of the right middle lobe bronchus with endobronchial tumor endobronchial biopsies performed in the involved area was consistent with pulmonary adenocarcinoma with squamous differentiation. The mediastinal lymph node sampling was hypocellular. Subsequently, the patient had a PET/CT that was done on an outpatient basis and the PET scan showed metastatic neoplasm, prominent lymphadenopathy involving the right thorax with osseous metastatic disease present. There was an expansile hypermetabolic left anterior lateral mid rib lesion and destructive soft tissue mass involving the right posterior 4th and 5th ribs and scattered additional metabolic reactive lytic lesions involving the right scapula and multiple lesions involving the spine and pelvis. There was also evidence of bilateral hypermetabolic adrenal masses consistent with metastases. For now, the patient is being seen by general surgery regarding the abdominal pain. The patient is currently on IV Zosyn. Patient is also on Spiriva and Symbicort and inhalers and normal saline at rate of 75 cc an hour. The patient is currently on oxygen at 4 L with a pulse ox of 98%. Hemodynamically stable. On 02/03/2025, patient is being seen for a follow-up. The patient is in poor condition. She continues to have cough and congestion. She continues to be short of breath even at rest. She has developed significant amount of edema in lower extremities bilaterally and there is fluid weeping from the skin surface in the feet bilaterally. There are diminished pulses in the legs and vascular surgery is on the case. I ordered a Doppler of the lower extremity to rule out underlying DVT. Noted the patient has undergone endovascular stent grafting for a large abdominal aortic aneurysm. A CT angiogram of the abdominal aorta and a runoff was recommended. However, the patient declined further testing. The patient's white cell count is at 17.9, hemoglobin of 8.7 and a platelet count of 204. Bicarb is at 21, BUN is 27 with a creatinine of 0.7. LFTs are normal. The lipase at 8, the albumin is at 2.5 with a total protein of 5.4. The patient was seen by hematology oncology and the patient is also to be seen by radiation oncology. Care is a very poor prognosis based on her metastatic pulm katja nocarcinoma. She remains on oxygen at 4 L. Diarrhea has subsided. No significant abdominal pain at this point. 02/04/2025, the patient is sitting up in a chair and the patient remains on oxygen at 4 L. She was seen by radiation oncology and the patient underwent simulation and she is going to receive palliative radiation therapy for pain control. She is feeling quite tired and she has very limited exercise capacity in addition to ongoing edema in lower extremities bilaterally. Doppler was negative for any DVTs and the patient was given IV Lasix and the patient is producing adequate amount of urine output with some limited improvement in lower extremity edema compared to yesterday. Sodium is at 140, potassium is at 3.3, BUN is 22 with a creatinine of 0.6 and a bicarb level of 29. Glucose 93. White cell count is at 17 with a hemoglobin of 9.1. The patient is seen by medical oncology and radiation oncology. On 02/05/2025, the patient reports improvement in lower extremity edema. She responded to Lasix. However, she continues to have significant amount of edema still in her legs. She will proceed with palliative radiation therapy. She feels very tired. She continues to have a congested cough. She continues to have chest wall pain especially with coughing episodes. The white cell count is 18 with a hemoglobin of 8.8 and a platelet count of 165. Sodium is at 141, K is at 2.9, electrolytes were noted and the serum bicarb is at 24. Procalcitonin is at 1.53. The blood cultures been negative. Patient is empirically on IV Zosyn. The patient has Spiriva, Symbicort and DuoNeb neb regiment [id number]. 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 02/06/2025, the patient's condition essentially the same and unchanged. She remains on oxygen at 4 L with a pulse ox of 98%. Afebrile. Main complaint remains pain and the patient is currently receiving p.o. radiation therapy. Remains on IV Zosyn. Remains on Lasix 20 mg IV push every 12 hours. Continues to have lower extremity edema. No altered mentation. Feels quite weak and debilitated. The white cell count is 18 with a hemoglobin 9.2 and a platelet count of 192. Sodium is at 142, potassium is 3.9, BUN is 15 with a creatinine of 0.7. On 02/07/2025, condition remains essentially unchanged. Remains on 4 days of oxygen by nasal cannula. Complaints are essentially the same including ongoing pain involving the chest and the back and throughout the body. Continues to have lower extremity edema. Continues to be on IV Lasix. Continues to have a white cell count of 20 with a hemoglobin 9.3 and a platelet count of 144. Elect rolytes are all within normal limits. Remains on IV Zosyn as an empiric antibiotic coverage. She does have chronic atelectatic changes and consolidation of the right lower lobe related to extensive mediastinal lymphadenopathy/tumor consistent with pulm adenocarcinoma. She is receiving palliative radiation therapy which is currently on hold over the weekend. This is to be resumed in a.m. The patient is seen today February 08, 2025 in follow-up on the regular medical floor. She is currently sitting up in a chair at the bedside. Awake and alert in no acute distress. Maintaining O2 saturations in the 90s on 4 L/min per nasal cannula. She is afebrile. Hemodynamically stable. Blood culture r evealed no growth. She remains on IV diuretics. Continued on DuoNeb inhalations, Symbicort. Antibiotics in the form of Zosyn. The patient is seen today February 09, 2025 in follow-up on the regular medical floor. She is awake and alert in no acute distress. Sitting up at the the bedside. She remains quite weak. She is maintaining O2 saturation in the low 90s on 4 L/min per nasal cannula. She has been afebrile. Hemodynamically stable. She is currently receiving radiation treatments daily. Blood culture revealed no growth. White count 29.2. Hemoglobin 10.3. Sodium 138. Potassium 3.1. Bicarb 30. BUN 18. Creatinine 0.6. Glucose 81. She is continued on DuoNeb inhalations, Symbicort, Zosyn. NicoDerm patch in place. Remains on IV diuretics. The patient is seen today February 10, 2025 in follow-up on the regular medical floor. She is currently sitting up at the bedside. Awake and alert in no acute distress. She is maintaining O2 saturation in the low 90s on 4 L/min per nasal cannula. She has a loose congested cough. No fever or chills. Hemodynamically stable. Received radiation therapy again today. Blood culture revealed no growth. White count 22.1. Hemoglobin 8.6. Platelets 134. Sodium 140. Potassium 3.0. Bicarb 28. BUN 18. Creatinine 0.6. Glucose 88. C-reactive protein 18.1. Procalcitonin 0.43. She is continued on Zosyn and Diflucan. Remains on DuoNeb inhalations and Symbicort. Transitioned to oral diuretics. NicoDerm patch in place. The patient is seen today February 11, 2025 in follow-up on the regular medical floor. She is currently sitting up in a chair. Awake and alert in no acute distress. Maintaining O2 saturations in the 90s on 4 L/min per nasal cannula. Continues with a loose congested cough. No fever or chills. She remains on D uoNeb inhalations, Symbicort. Remains on oral diuretics. Remains on Diflucan. NicoDerm patch in place. Her pain is well-managed currently. White count 24.5. Hemoglobin 8.2. Platelets 147. Sodium 140. Potassium 3.7. Bicarb 27. BUN 18. Creatinine 0.6. Procalcitonin was 0.43. She completed Zosyn. Objective - Vital Signs Vital signs: Vital Signs Temp 97.3 F L 02/11/25 07:32 Pulse 96 02/11/25 08:28 Resp 18 02/11/25 07:32 BP 100/69 02/11/25 08:28 Pulse Ox 95 02/11/25 07:59 FiO2 Intake & Output 02/10/25 02/11/25 02/11/25 18:59 06:59 18:59 Intake Total 240 Balance 240 Intake: Oral 240 Other: Voiding Method Bedside Commode Bedside Commode Bedside Commode # Voids 3 2 # Bowel Movements 1 - Exam GENERAL EXAM: Alert, 69-year-old female, sitting up in a chair, on 4 L nasal cannula, in no apparent distress. HEAD: Normocephalic. EYES: Normal reaction of pupils, equal size. NOSE: Clear with pink turbinates. THROAT: No erythema or exudates. NECK: No masses, no JVD. CHEST: No chest wall deformity. LUNGS: Equal air entry with few scattered rhonchi. CVS: S1 and S2 normal with no audible murmur, regular rhythm. ABDOMEN: No hepatosplenomegaly, normal bowel sounds, no guarding or rigidity. SPINE: No scoliosis or deformity SKIN: No rashes CENTRAL NERVOUS SYSTEM: No focal deficits, tone is normal in all 4 extremities. EXTREMITIES: There is 1+ peripheral edema. No clubbing, no cyanosis. Peripheral pulses are intact. - Labs CBC & Chem 7: 02/11/25 05:07 02/11/25 05:07 Labs: Abnormal Lab Results - Last 24 Hours (Table) 02/10/25 02/11/25 02/11/25 Range/Units 04:04 05:07 05:07 WBC 24.55 H (4.50-10.00) X 10*3/uL RBC 2.90 L (4.10-5.20) X 10*6/uL Hgb 8.2 L (12.0-15.0) g/dL Hct 27.9 L (37.2-46.3) % MCHC 29.4 L (32.0-37.0) g/dL RDW 17.0 H (11.5-14.5) % Immature Gran # 0.28 H 0.38 H (0.00-0.04) X 10*3/uL Neutrophils # 20.21 H 22.56 H (1.80-7.70) X 10*3/uL Lymphocytes # 0.89 L 0.72 L (0.90-5.00) X 10*3/uL Basophils # 0.13 H (0.00-0.10) X 10*3/uL Anion Gap 15.00 H (4.00-12.00) mmol/L BUN/Creatinine Ratio 30.33 H (12.00-20.00) Ratio Calcium 8.3 L (8.7-10.3) mg/dL Assessment and Plan Assessment: Stage IV non-small cell lung cancer. The patient has extensive lymphadenopathy along the right hemithorax causing mass effect on the right middle lobe and right lower lobe bronchus and the patient has atelectatic changes right lung base along with a small to moderate-sized right-sided pleural effusion. Postobstructive pneumonia is felt to be less likely. This is probably part of the natural progression of her underlying malignancy. Noted the patient has evidence of bilateral adrenal metastases, and skeletal metastases involving the ribs, scapula and spine. PET/CT done on 02/01/2025. The pathology is consistent with pulmonary adenocarcinoma with squamous differentiation Metastatic lesions with expansile hypermetabolic left anterior lateral mid rib lesion and destructive soft tissue mass involving the right posterior 4th and 5th ribs and scattered additional metabolic reactive lytic lesions involving the right scapula and multiple lesions involving the spine and pelvis Abdominal pain/colitis, improving Acute leukocytosis Chronic smoker with ongoing chronic tobacco dependence of 50 years Abdominal aortic aneurysm stent placement at [facility] December 2024 Severe chronic obstructive pulmonary disease maintained on Trelegy, albuterol Significant weight loss of over 20 pounds in the past 1 to 2 months Hypertension Lower extremity edema, improving, currently on Lasix and Doppler lower extremities were negative Plan: The patient was seen and evaluated Labs and medications reviewed Completed Zosyn Remains on Diflucan Continued on DuoNeb inhalations, Symbicort Continue oral diuretics Continue with radiation therapy Again educated regarding smoking cessation NicoDerm patch in place Plan is to return home with her daughter once discharged This patient was seen independently by the pulmonary nurse practitioner addressing pulmonary issues I have personally seen and examined the patient, performed the documentation and the assessment and plan as written. Number of minutes spent on the visit: 23 Dictation was produced using [employer] dictation software. Please excuse any grammatical, word or spelling errors.
--- NOTE | 2025-02-11 14:59 | P.PN ---
Subjective Progress Note Date: 02/10/25 Principal diagnosis: Reason for follow-up is pneumonia/colitis Patient is a 69-year-old female with a past medical history significant for COPD hypertension recent diagnosis of metastatic non-small cell lung cancer/pulmonary adenocarcinoma, anxiety patient presenting to the hospital for evaluation of right lower quadrant right groin pain, patient did have a CT concerning for right lower lobe consolidation and with concern for possible colitis/diverticulitis prompted this consultation. On today's evaluation that is 02/10/2025, patient has been afebrile, patient is breathing comfortably and is currently on 4 L nasal cannula oxygen patient denies having any chest pain and no worsening cough, patient denies nausea vomiting or diarrhea and no abdominal pain. Patient white count is down to 22.13, creatinine 0.16 Objective - Vital Signs Vital signs: Vital Signs Temp 97.5 F L 02/10/25 07:11 Pulse 76 02/10/25 10:07 Resp 15 02/10/25 08:05 BP 105/72 02/10/25 07:11 Pulse Ox 90 L 02/10/25 09:56 FiO2 Intake & Output 02/09/25 02/10/25 02/10/25 18:59 06:59 18:59 Intake Total 800 750 Balance 800 750 Weight 71.214 kg Intake: Oral 800 750 Other: Voiding Method Bedside Commode Bedside Commode Bedside Commode # Voids 2 2 # Bowel Movements 1 1 - Exam GENERAL DESCRIPTION: An elderly female up in the chair in no distress RESPIRATORY SYSTEM: Unlabored breathing , breath sounds bilaterally HEART: S1 S2 regular rate and rhythm , ABDOMEN: Soft , no tenderness EXTREMITIES: Bilateral lower extremity currently wrapped in the Wale wrap - Labs CBC & Chem 7: 02/11/25 05:07 02/11/25 05:07 Labs: Abnormal Lab Results - Last 24 Hours (Table) 02/09/25 02/10/25 02/10/25 Range/Units 06:12 04:04 04:04 WBC 22.13 H (4.50-10.00) X 10*3/uL RBC 3.01 L (4.10-5.20) X 10*6/uL Hgb 8.6 L (12.0-15.0) g/dL Hct 28.8 L (37.2-46.3) % MCHC 29.9 L (32.0-37.0) g/dL RDW 16.7 H (11.5-14.5) % Plt Count 134 L (140-440) X 10*3/uL Neutrophils # (Manual) 26.90 H (1.3-7.7) k/uL Potassium 3.0 L (3.5-5.5) mmol/L Anion Gap 14.70 H (4.00-12.00) mmol/L BUN/Creatinine Ratio 29.33 H (12.00-20.00) Ratio Calcium 8.4 L (8.7-10.3) mg/dL Alkaline Phosphatase 190 H (41-126) U/L C-Reactive Protein 18.10 H (0.00-0.80) mg/dL Total Protein 5.5 L (6.2-8.2) g/dL Albumin 2.4 L (3.8-4.9) g/dL Albumin/Globulin Ratio 0.77 L (1.60-3.17) Ratio Assessment and Plan (1) Sepsis Current Visit: No Status: Acute Code(s): A41.9 - SEPSIS, UNSPECIFIED ORGANISM SNOMED Code(s): 53570250 (2) Pneumonia Current Visit: Yes Status: Acute Code(s): J18.9 - PNEUMONIA, UNSPECIFIED ORGANISM SNOMED Code(s): 198437893 (3) Diverticulitis Current Visit: Yes Status: Acute Code(s): K57.92 - DVTRCLI OF INTEST, PART UNSP, W/O PERF OR ABSCESS W/O BLEED SNOMED Code(s): 689329141 Plan: 1patient presented to hospital with lower abdominal discomfort nausea vomiting in this patient who did have a tachycardia elevated white count meeting current ly for SIRS concern for possible sepsis source could be right lower lobe pneumonia and evidence of diverticulitis on the CT and need to cover for the gram-negative aerobes and anaerobes. 2patient did have mild elevated procalcitonin lower extremity Doppler negative for DVT 3patient is afebrile, white count is elevated started post radiation and with a question of possible tumor necrosis, Diflucan was added for possible component of oropharyngeal candidiasis and white count is trending down this morning we will continue to monitor clinical course closely Dictation was produced using [employer] dictation software. please excuse any grammatical, word or spelling errors. Time with Patient: Less than 30
--- NOTE | 2025-02-11 15:01 | P.PN ---
Subjective Progress Note Date: 02/11/25 Principal diagnosis: Reason for follow-up is pneumonia/colitis Patient is a 69-year-old female with a past medical history significant for COPD hypertension recent diagnosis of metastatic non-small cell lung cancer/pulmonary adenocarcinoma, anxiety patient presenting to the hospital for evaluation of right lower quadrant right groin pain, patient did have a CT concerning for right lower lobe consolidation and with concern for possible colitis/diverticulitis prompted this consultation. On today's evaluation that is 02/11/2025, Patient is afebrile this morning rosi ent just came back from her radiation treatment and was sleepy per the daughter at the bedside patient seem to be breathing comfortably and is currently 4 L with no oxygen no vomiting or diarrhea has been reported. Patient white count is 24.55 creatinine 0.6 Objective - Vital Signs Vital signs: Vital Signs Temp 97.3 F L 02/11/25 07:32 Pulse 105 H 02/11/25 12:42 Resp 18 02/11/25 07:32 BP 104/72 02/11/25 12:42 Pulse Ox 100 02/11/25 12:42 FiO2 Intake & Output 02/10/25 02/11/25 02/11/25 18:59 06:59 18:59 Intake Total 240 Balance 240 Weight 71.214 kg Intake: Oral 240 Other: Voiding Method Bedside Commode Bedside Commode Bedside Commode # Voids 3 2 # Bowel Movements 1 - Labs CBC & Chem 7: 02/11/25 05:07 02/11/25 05:07 Labs: Abnormal Lab Results - Last 24 Hours (Table) 02/11/25 02/11/25 Range/Units 05:07 05:07 WBC 24.55 H (4.50-10.00) X 10*3/uL RBC 2.90 L (4.10-5.20) X 10*6/uL Hgb 8.2 L (12.0-15.0) g/dL Hct 27.9 L (37.2-46.3) % MCHC 29.4 L (32.0-37.0) g/dL RDW 17.0 H (11.5-14.5) % Immature Gran # 0.38 H (0.00-0.04) X 10*3/uL Neutrophils # 22.56 H (1.80-7.70) X 10*3/uL Lymphocytes # 0.72 L (0.90-5.00) X 10*3/uL Basophils # 0.13 H (0.00-0.10) X 10*3/uL Anion Gap 15.00 H (4.00-12.00) mmol/L BUN/Creatinine Ratio 30.33 H (12.00-20.00) Ratio Calcium 8.3 L (8.7-10.3) mg/dL Assessment and Plan (1) Sepsis Current Visit: No Status: Acute Code(s): A41.9 - SEPSIS, UNSPECIFIED ORGANISM SNOMED Code(s): 38382415 (2) Pneumonia Current Visit: Yes Status: Acute Code(s): J18.9 - PNEUMONIA, UNSPECIFIED ORGANISM SNOMED Code(s): 566575494 (3) Diverticulitis Current Visit: Yes Status: Acute Code(s): K57.92 - DVTRCLI OF INTEST, PART UNSP, W/O PERF OR ABSCESS W/O BLEED SNOMED Code(s): 429769148 Plan: 1patient presented to hospital with lower abdominal discomfort nausea vomiting in this patient who did have a tachycardia elevated white count meeting currently for SIRS concern for possible sepsis source could be right lower lobe pneumonia and evidence of diverticulitis on the CT and need to cover for the gram-negative aerobes and anaerobes. 2patient did have mild elevated procalcitonin lower extremity Doppler negative for DVT, patient received adequate IV Zosyn for possible component of postobstructive pneumonia 3patient is afebrile, white count is mildly elevated could be related to the tumor necrosis plus minus a component of thrush/oropharyngeal disease to continue with short course of Diflucan Dictation was produced using [employer] software. please excuse any grammatical, word or spelling errors. Time with Patient: Less than 30
--- NOTE | 2025-02-11 19:02 | P.PN ---
Subjective Progress Note Date: 02/11/25 69-year-old woman with recent diagnosis of lung cancer, COPD and hypertension. She presents today as she is having right lower quadrant and right groin pain, nausea, vomiting and diarrhea. The patient's family notes that it seemed to come on after she had the injection related to a bone scan. The patient has not had hematemesis. No dark or tarry stools. No fever or chills. Patient had recent endovascular placement of abdominal aortic stent January 08, 2025, 3 weeks ago. Patient does report she has had abdominal pain since her surgery. She reports early satiety. Poor appetite. Family reports that she had poor appetite prior to surgery. CT of the abdomen pelvis with questionable findings of early colitis versus mild diverticulitis. Right lower lobe malignancy. Presence of adrenal gland possible malignancy. T12 compression fracture 25% including sclerotic lesions along the spine highly suspicious for metastatic disease. Blood work reveals WBC of 16.4, hemoglobin of 9.1 and platelet count of 239, sodium 134, potassium 3.6, BUN/creatinine 35/0.79 and alkaline phosphatase of 149 Patient has been admitted for possible ileus/colitis versus diverticulitis; surgery is consulted 02/01/2025 Patient seen and evaluated in follow-up today continues to report significant abdominal pain and general surgery following with no plans of surgical intervention at this time. White count is elevated at 18.85 and hemoglobin remains 9.1, platelets are 183. Sodium is 137 with a potassium of 4.3, BUN 37.1 with a creatinine of 1.0. Patient being started on antibiotics per general surgery for the colitis/diverticulitis and recommends minimum 3 days of IV antibiotics and to continue with clear liquids protein shakes. Patient with significant weakness recommend PT/OT therapy evaluation. Continued poor oral intake and not much of an appetite, consult to dietary. 02/02/2025 Patient evaluated in follow-up today with multiple consultations following including general surgery. Infectious disease has been consulted and patient is continued on antibiotics and white count is elevated with concerns of underlying infection. General surgery following with no immediate plans of surgical in tervention recommending to continue with conservative management and clear liquids. Patient reports has not had a bowel movement today and on assessment there are bowel sounds noted. Patient is tolerating the clear liquids with no reported nausea or vomiting although is asking for an advancing diet. Will await surgical recommendations regarding advancement. Pulmonary has been consulted as well regarding previous endoscopy with biopsy with multiple family members awaiting to speak further with pulmonary. Oncology will also be consulted. 02/03/2025 Patient seen in follow-up today currently obtaining a Doppler assess for DVT as patient has significant lower extremity swelling. Multiple consultations following including told was placed to oncology as recent bronchoscopy was positive for non-small cell lung carcinoma and likely metastasis. Patient white count remains elevated and is maintained on antibiotics. An MRI of the brain was ordered although patient is refusing. Radiation oncology has been consulted and pending to discuss possible palliative radiation. Patient continues to be significantly weak with shortness of breath maintained on oxygen via nasal cannula at 4 L. Encourage incentive spirometer use and wean FiO2 as tolerated. Overall prognosis is extremely poor and guarded. 02/04/2025 Patient is seen in follow-up today currently resting and patient was evaluated by radiation oncology undergoing mapping today to initiate palliative radiation. Patient continues to refuse MRI of the brain and oncology is following and aware. Multiple other consultations following and patient will be continued on current diet not tolerating much oral intake and has no real appetite with continued diffuse abdominal pain. No surgical intervention planned at this time. Patient is afebrile white count remains elevated although slightly improved with infectious disease following maintained on antibiotics and will continue. Continue to wean FiO2 as tolerated although continues on 4 L via nasal cannula. Pulmonary is following. 02/05/2025 Patient is seen in follow-up today remains sitting up in the chair and per patient unable to lie down any further than 30 degrees as patient reports significant shortness of breath and abdominal pain. Patient reports is tolerating current diet and having bowel movements and passing gas. Patient continues with lower extremity edema maintained on Lasix and will continue. Patient did receive mapping on the right chest wall with radiation oncology with plans of starting radiation today. Patient continues with shortness of breath maintained on 4 L. Patient to continue with antibiotics with infectious disease following as white count remains elevated, concerns for postobstructive. Follow-up on repeat labs and replace electrolytes per protocol. 02/06/2025 Patient is seen in follow-up today with multiple consultations following. Patient is status post palliative radiation yesterday with radiation oncology and will resume on Saturday and continue daily as tolerated. Patient continues on 4 L and continues to report shortness of breath. Patient having intermittent diffuse abdominal pain although much improved compared to previous. Patient is not tolerating much diet and is not eating much and needs encouragement and may continue supplements between meals. White count remains elevated and appreciate input and recommendations from infectious disease. Will continue Zosyn for now. Encourage incentive spirometer use and increase activity as tolerated. 02/07/2025 Patient is seen in follow-up today continues to report significant pain and continued on current pain regimen. Plan is for radiation oncology to follow-up for repeat radiation on Saturday throughout the week. Infectious disease following and white count is elevated above 20 and maintained on antibiotics we will follow-up on repeat labs. Encouraged increase activity as tolerated and incentive spirometer use. Continue with breathing treatments. Prognosis guarded at this time 02/08/2025 Patient is seen in follow-up today with multiple consultations following. Patient to resume radiation treatment for palliative therapy today and patient continues to report shortness of breath and difficulty in breathing and maintained on 4 L via nasal cannula. Oxygen saturations are above 95% on oxygen and recommend weaning FiO2 as tolerated and continued incentive spirometer use. Patient white count remains elevated with infectious disease following and is continued on antibiotics. Per nursing staff patient was having some confusion overnight and recommend monitoring closely especially given her medication regimen with narcotics. Encouraged oral intake and will continue current diet. Recommend PT/OT therapy evaluation once respiratory status has improved as patient is significantly weak and has had prolonged hospitalization. 02/09/2025 Patient is seen in follow-up this morning currently sitting up in the chair and extremely weak continuing to report significant pain. Pain medications are being adjusted per oncology and is receiving palliative radiation. Will need to discuss discharge planning with multiple consultations and also with infectious disease as patient is maintained on IV antibiotics and continues to have an elevated white count. Patient continues with shortness of breath maintained on 4 L via nasal cannula. Patient reports is eating some not much of an appetite and did have a bowel movement. Recommend PT/OT therapy evaluation prior to discharge. Prognosis remains guarded. 02/10/2025 Patient is seen in follow-up today underwent radiation treatment and further discussion with radiation oncologist would prefer patient remains hospitalized during treatments as patient continues to be significantly short of breath with ongoing severe pain rating the pain is 8 out of 10. Patient is significantly weak although has been attempting to get up and encouraged patient to continue increasing activity as tolerated and getting up more frequently out of the chair. Patient continues with bilateral lower extremity swelling that is minimally improved and recommend Wale wraps to bilateral lower extremities and/or compression stockings. Recommend PT/OT therapy daily. Patient is afebrile continues to report shortness of breath and denies chest pain or palpitations. White count remains elevated with infectious disease following. 02/11/2025 Patient is seen in follow-up today continues to undergo radiation treatments and will receive another radiation treatment tomorrow 02/12/2025 with plans on discharging home with continued home care. Case management following making arrangements for discharge planning including a hospital bed as patient will require this on discharge due to significant shortness of breath when laying down as well as pain and needs constant repositioning and head of the bed elevated 45 degrees at all times that cannot be done in a regular bed. Patient continues on 4 L via nasal cannula and will continue and has been using oxygen outpatient. Arrangements will be made for outpatient follow-up with oncology regarding treatment plan as well as radiation oncology next week to continue radiation treatments. Patient has been cleared by consultations once arrangements have been made. Patient will continue on IV antibiotics for now with infectious disease following and will transition to oral antibiotic on discharge. Continue to encourage increase activity as tolerated and home care will be arranged. Overall prognosis is poor and guarded at this time. Review of systems: Constitutional: No reports of fatigue, no fever, or chills Cardiovascular: No reports of chest pain or palpitations Respiratory: reports of mild shortness of breath , reports continued increased work of breathing with exertion although improving and maintaining on 4 L GI: No reports of nausea, vomiting, or diarrhea, reports having bowel movements, continues to report diffuse abdominal pain : No reports of dysuria or retention Neurovascular: reports of generalized weakness and lower extremity swelling All medications have been reviewed Physical exam: Gen: This is a 69-year-old female who is awake although, alert and oriented x 2- 3, well-developed, elderly appearing, ill-appearing HEENT: Head is atraumatic, normocephalic. Pupils equal, round. Sclerae is anicteric. NECK: Supple. No JVD. No lymphadenopathy. No thyromegaly. LUNGS: Diminished breath sounds bilaterally with bronchial congestion noted and patient able to clear with strong cough. No wheezes coarse scattered rhonchi noted. No intercostal retractions. HEART: S1, S2 are muffled ABDOMEN: Soft. Bowel sounds are present. No masses. Mild tenderness noted on palpation. EXTREMITIES: No pedal edema. No calf tenderness. Bilateral lower extremity edema NEUROLOGICAL: Patient is awake, alert and oriented x3. Cranial nerves 2 through 12 are grossly intact. Diffusely weak Assessment: -Abdominal pain, likely secondary to early colitis with mild diverticulitis as noted on CT image -Leukocytosis, secondary to above -Possible ileus, improving continuing conservative management per surgery, improved, patient is having bowel movements -multiple masses and lesions within the liver highly suspicious for metastatic disease, bronchoscopy pathology revealed non-small cell lung carcinoma, currently undergoing palliative radiation -COPD; not in exacerbation -Hypoxic respiratory failure, recently placed on oxygen since bronchoscopy likely secondary to non-small cell lung carcinoma -Gastroesophageal reflux disease -Anxiety -Chronic back pain -Severe protein calorie malnutrition -History of recent abdominal aortic aneurysm status post endovascular graft -Recently diagnosed metastatic lung cancer from bronchoscopy with BAL and biopsy on 01/22/2025. Pathology is positive for non-small cell lung carcinoma and PET scan showing diffuse metastasis throughout the thorax and osseous metastatic disease and a possible right frontal lobe lesion on the brain GI prophylaxis DVT prophylaxis; SCDs full code Plan: Patient was admitted with concerns of early colitis and mild diverticulitis with abdominal pain and concerns of possible ileus. Patient evaluated by general surgery with no plans of surgical intervention at this time recommending bowel rest with slowly advancing diet as tolerated. Diet has been advanced and tolerating thus far recommend as needed bowel regimen and increased activity as tolerated. Tolerating diet thus far although not much of an appetite. Infectious disease following and will continue IV antibiotic therapy. White count remains elevated and will continue current regimen. Continue antibiotics for now and monitor white count, procalcitonin is elevated as well. Will transi tion to oral antibiotics on discharge Pulmonary and oncology following as patient's recent bronchoscopy with BAL and biopsy on 01/22/2025 for non-small cell carcinoma and patient also had a recent PET scan concerning for diffuse metastasis throughout the thoracic area with metastatic disease and also noted right frontal brain lesion. Oncology ordered an MRI of the brain although patient is refusing. Radiation oncology following and has undergone mapping and started radiation 02/05/2025, patient to receive radiation therapy for 10 doses per radiation oncology, will plan for outpatient radiation therapy after the holiday likely starting on Saturday again for remaining 5 doses and has been cleared by consultations once discharge planning has been arranged Patient with significant weakness and prolonged hospitalization would recommend physical therapy daily and getting up more frequently and walking as patient's plan is to return home on discharge. Case management following arranging for d ischarge planning including a hospital bed as patient will require frequent position changes and head of the bed elevated 30 to 45 degrees at all times to manage significant shortness of breath due to non-small cell lung carcinoma as well as continued ongoing pain that cannot normally be done with a regular bed. Patient does have supportive care and family will be helping her on discharge. Will also arrange for home care outpatient. Continue with Ensure protein shakes in between meals Follow-up on repeat labs, replace electrolytes per protocol monitor white count remains elevated, patient is afebrile Oncology following as well and patient will need outpatient follow-up Due to multiple complex medical issues, overall prognosis is extremely poor and guarded Discharge planning to occur on 02/12/2025 post radiation treatment The impression and plan of care has been dictated by Ciarra Machado, Nurse Practitioner as directed. Dr. Dov MD I have performed a history and examination and MDM of this patient, discussed the same with the dictator, and agree with the dictator's assessment and plan as written ,documented as a scribe. Based on total visit time, I have performed more than 50% of the visit. Patient Objective - Vital Signs Vital signs: Vital Signs Temp 98.1 F 02/11/25 14:09 Pulse 100 02/11/25 15:49 Resp 17 02/11/25 14:09 BP 100/68 02/11/25 14:09 Pulse Ox 98 02/11/25 14:09 FiO2 Intake & Output 02/10/25 02/11/25 02/11/25 18:59 06:59 18:59 Intake Total 240 Balance 240 Weight 71.214 kg Intake: Oral 240 Other: Voiding Method Bedside Commode Bedside Commode Bedside Commode # Voids 3 2 # Bowel Movements 1 - Labs CBC & Chem 7: 02/11/25 05:07 02/11/25 05:07 Labs: Abnormal Lab Results - Last 24 Hours (Table) 02/11/25 02/11/25 Range/Units 05:07 05:07 WBC 24.55 H (4.50-10.00) X 10*3/uL RBC 2.90 L (4.10-5.20) X 10*6/uL Hgb 8.2 L (12.0-15.0) g/dL Hct 27.9 L (37.2-46.3) % MCHC 29.4 L (32.0-37.0) g/dL RDW 17.0 H (11.5-14.5) % Immature Gran # 0.38 H (0.00-0.04) X 10*3/uL Neutrophils # 22.56 H (1.80-7.70) X 10*3/uL Lymphocytes # 0.72 L (0.90-5.00) X 10*3/uL Basophils # 0.13 H (0.00-0.10) X 10*3/uL Anion Gap 15.00 H (4.00-12.00) mmol/L BUN/Creatinine Ratio 30.33 H (12.00-20.00) Ratio Calcium 8.3 L (8.7-10.3) mg/dL
[2025-02-12 08:05] LABS: Basophils # (A) 0.13 X 10*3/uL (0.00-0.10); Basophils % (A) 0.5 %; Eosinophils # (A) 0.09 X 10*3/uL (0.04-0.35); Eosinophils % (A) 0.3 %; HCT 27.8 % (37.2-46.3); HGB 8.3 g/dL (12.0-15.0); Lymphocytes # (A) 0.76 X 10*3/uL (0.90-5.00); Lymphocytes % (A) 2.9 %; MCHC 29.9 g/dL (32.0-37.0); MCV 97.2 FL (80.0-97.0); Mean Platelet Volume 10.5 FL (9.5-12.2); Monocytes # (A) 0.94 X 10*3/uL (0.20-1.00); Monocytes % (A) 3.6 %; NRBC Per 100 WBC 0 X 10*3/uL (0.00-0.01); Neutrophils # (A) 23.55 X 10*3/uL (1.80-7.70); Neutrophils % (A) 90.5 %; Platelet Count 142 X 10*3/uL (140-440); RBC 2.86 X 10*6/uL (4.10-5.20); RDW 16.9 % (11.5-14.5); WBC 26.04 X 10*3/uL (4.50-10.00)
[2025-02-12 08:23] LABS: Blood Urea Nitrogen 17.4 mg/dL (9.0-27.0); Calcium 8.5 mg/dL (8.7-10.3); Carbon Dioxide 27.4 mmol/L (21.6-31.8); Chloride 97 mmol/L (96-109); Glucose 76 mg/dL (70-110); Potassium 4.2 mmol/L (3.5-5.5); Sodium 138 mmol/L (135-145)
--- NOTE | 2025-02-12 11:04 | P.PN ---
Subjective Progress Note Date: 02/12/25 This is a 69-year-old female patient with known history of COPD and lung cancer, and known history of abdominal aortic aneurysm post endovascular stent placement and the procedure was done on 01/08/2025. The patient presented to the hospital because of right lower quadrant pain, nausea, emesis and diarrhea. No reported GI bleeding. The patient had diminished appetite. CAT scan of the abdomen and pelvis was done and it showed early colitis versus mild diverticulitis. There was T12 compression fraction of the spine with 25% involvement and there was also sclerotic lesion along the spine highly suspicious for metastatic disease. There was also suspected adrenal metastases and ongoing consolidation in the right lung base. As for the infrarenal abdominal aortic aneurysm, this was measuring up to 8 cm in size with at least 2 stent graft present. A small gap between the stent grafts possibly resulting endoleak. Noted, the patient's diagnosis of lung cancer is quite recent. The patient was seen in consultation on 01/21/2025 with worsening shortness of breath, weight loss and CAT scan of the chest was done on 01/21/2025 and a CAT scan showed lymphadenopathy throughout the chest concerning for malignancy and the right lower lobe pulmonary nodule, metastatic left rib lesion and left-sided posterior rib fracture without evidence of pneumothorax and concern of osseous lesions and pathologic fractures seen in the scapula. There was lymphadenopathy seen in the right hilum with narrowing of the adjacent bronchus. Based on that, the patient had a bronchoscopy done and the bronchoscopy showed significant obstruction of the right middle lobe bronchus with endobronchial tumor endobronchial biopsies performed in the involved area was consistent with pulmonary adenocarcinoma with squamous differentiation. The mediastinal lymph node sampling was hypocellular. Subsequently, the patient had a PET/CT that was done on an outpatient basis and the PET scan showed metastatic neoplasm, prominent lymphadenopathy involving the right thorax with osseous metastatic disease present. There was an expansile hypermetabolic left anterior lateral mid rib lesion and destructive soft tissue mass involving the right posterior 4th and 5th ribs and scattered additional metabolic reactive lytic lesions involving the right scapula and multiple lesions involving the spine and pelvis. There was also evidence of bilateral hypermetabolic adrenal masses consistent with metastases. For now, the patient is being seen by general surgery regarding the abdominal pain. The patient is currently on IV Zosyn. Patient is also on Spiriva and Symbicort and inhalers and normal saline at rate of 75 cc an hour. The patient is currently on oxygen at 4 L with a pulse ox of 98%. Hemodynamically stable. On 02/03/2025, patient is being seen for a follow-up. The patient is in poor condition. She continues to have cough and congestion. She continues to be short of breath even at rest. She has developed significant amount of edema in lower extremities bilaterally and there is fluid weeping from the skin surface in the feet bilaterally. There are diminished pulses in the legs and vascular surgery is on the case. I ordered a Doppler of the lower extremity to rule out underlying DVT. Noted the patient has undergone endovascular stent grafting for a large abdominal aortic aneurysm. A CT angiogram of the abdominal aorta and a runoff was recommended. However, the patient declined further testing. The patient's white cell count is at 17.9, hemoglobin of 8.7 and a platelet count of 204. Bicarb is at 21, BUN is 27 with a creatinine of 0.7. LFTs are normal. The lipase at 8, the albumin is at 2.5 with a total protein of 5.4. The patient was seen by hematology oncology and the patient is also to be seen by radiation oncology. Care is a very poor prognosis based on her metastatic pulm katja nocarcinoma. She remains on oxygen at 4 L. Diarrhea has subsided. No significant abdominal pain at this point. 02/04/2025, the patient is sitting up in a chair and the patient remains on oxygen at 4 L. She was seen by radiation oncology and the patient underwent simulation and she is going to receive palliative radiation therapy for pain control. She is feeling quite tired and she has very limited exercise capacity in addition to ongoing edema in lower extremities bilaterally. Doppler was negative for any DVTs and the patient was given IV Lasix and the patient is producing adequate amount of urine output with some limited improvement in lower extremity edema compared to yesterday. Sodium is at 140, potassium is at 3.3, BUN is 22 with a creatinine of 0.6 and a bicarb level of 29. Glucose 93. White cell count is at 17 with a hemoglobin of 9.1. The patient is seen by medical oncology and radiation oncology. On 02/05/2025, the patient reports improvement in lower extremity edema. She responded to Lasix. However, she continues to have significant amount of edema still in her legs. She will proceed with palliative radiation therapy. She feels very tired. She continues to have a congested cough. She continues to have chest wall pain especially with coughing episodes. The white cell count is 18 with a hemoglobin of 8.8 and a platelet count of 165. Sodium is at 141, K is at 2.9, electrolytes were noted and the serum bicarb is at 24. Procalcitonin is at 1.53. The blood cultures been negative. Patient is empirically on IV Zosyn. The patient has Spiriva, Symbicort and DuoNeb neb regiment [id number]. 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 02/06/2025, the patient's condition essentially the same and unchanged. She remains on oxygen at 4 L with a pulse ox of 98%. Afebrile. Main complaint remains pain and the patient is currently receiving p.o. radiation therapy. Remains on IV Zosyn. Remains on Lasix 20 mg IV push every 12 hours. Continues to have lower extremity edema. No altered mentation. Feels quite weak and debilitated. The white cell count is 18 with a hemoglobin 9.2 and a platelet count of 192. Sodium is at 142, potassium is 3.9, BUN is 15 with a creatinine of 0.7. On 02/07/2025, condition remains essentially unchanged. Remains on 4 days of oxygen by nasal cannula. Complaints are essentially the same including ongoing pain involving the chest and the back and throughout the body. Continues to have lower extremity edema. Continues to be on IV Lasix. Continues to have a white cell count of 20 with a hemoglobin 9.3 and a platelet count of 144. Elect rolytes are all within normal limits. Remains on IV Zosyn as an empiric antibiotic coverage. She does have chronic atelectatic changes and consolidation of the right lower lobe related to extensive mediastinal lymphadenopathy/tumor consistent with pulm adenocarcinoma. She is receiving palliative radiation therapy which is currently on hold over the weekend. This is to be resumed in a.m. The patient is seen today February 08, 2025 in follow-up on the regular medical floor. She is currently sitting up in a chair at the bedside. Awake and alert in no acute distress. Maintaining O2 saturations in the 90s on 4 L/min per nasal cannula. She is afebrile. Hemodynamically stable. Blood culture r evealed no growth. She remains on IV diuretics. Continued on DuoNeb inhalations, Symbicort. Antibiotics in the form of Zosyn. The patient is seen today February 09, 2025 in follow-up on the regular medical floor. She is awake and alert in no acute distress. Sitting up at the the bedside. She remains quite weak. She is maintaining O2 saturation in the low 90s on 4 L/min per nasal cannula. She has been afebrile. Hemodynamically stable. She is currently receiving radiation treatments daily. Blood culture revealed no growth. White count 29.2. Hemoglobin 10.3. Sodium 138. Potassium 3.1. Bicarb 30. BUN 18. Creatinine 0.6. Glucose 81. She is continued on DuoNeb inhalations, Symbicort, Zosyn. NicoDerm patch in place. Remains on IV diuretics. The patient is seen today February 10, 2025 in follow-up on the regular medical floor. She is currently sitting up at the bedside. Awake and alert in no acute distress. She is maintaining O2 saturation in the low 90s on 4 L/min per nasal cannula. She has a loose congested cough. No fever or chills. Hemodynamically stable. Received radiation therapy again today. Blood culture revealed no growth. White count 22.1. Hemoglobin 8.6. Platelets 134. Sodium 140. Potassium 3.0. Bicarb 28. BUN 18. Creatinine 0.6. Glucose 88. C-reactive protein 18.1. Procalcitonin 0.43. She is continued on Zosyn and Diflucan. Remains on DuoNeb inhalations and Symbicort. Transitioned to oral diuretics. NicoDerm patch in place. The patient is seen today February 11, 2025 in follow-up on the regular medical floor. She is currently sitting up in a chair. Awake and alert in no acute distress. Maintaining O2 saturations in the 90s on 4 L/min per nasal cannula. Continues with a loose congested cough. No fever or chills. She remains on D uoNeb inhalations, Symbicort. Remains on oral diuretics. Remains on Diflucan. NicoDerm patch in place. Her pain is well-managed currently. White count 24.5. Hemoglobin 8.2. Platelets 147. Sodium 140. Potassium 3.7. Bicarb 27. BUN 18. Creatinine 0.6. Procalcitonin was 0.43. She completed Zosyn. The patient is seen today February 12, 2025 in follow-up on the regular medical floor. She is awake and alert in no acute distress. Sitting up in a chair at the bedside. Maintaining O2 saturations in the 90s on 4 L/min per nasal cannula. Current saturation 99%. She is afebrile. Hemodynamically stable. Blood culture revealed no growth. White count 26.0. Hemoglobin 8.3. Platelets 142. Sodium 138. Potassium 4.2. Bicarb 27. BUN 17. Creatinine 0.6. Glucose 76. She remains on Diflucan. Continued on DuoNeb inhalations, Symbicort. NicoDerm patch in place. Her pain is well-managed with oral medications. Objective - Vital Signs Vital signs: Vital Signs Temp 97.6 F 02/12/25 07:24 Pulse 106 H 02/12/25 09:00 Resp 18 02/12/25 07:24 BP 98/65 02/12/25 07:24 Pulse Ox 99 02/12/25 08:51 FiO2 Intake & Output 02/11/25 02/12/25 02/12/25 18:59 06:59 18:59 Weight 71.214 kg Other: Voiding Method Bedside Commode Bedside Commode Bedside Commode # Voids 3 1 # Bowel Movements 1 - Exam GENERAL EXAM: Alert, pleasant 69-year-old female, sitting up in a chair, comfortable, on 4 L nasal cannula, in no apparent distress. HEAD: Normocephalic. EYES: Normal reaction of pupils, equal size. NOSE: Clear with pink turbinates. THROAT: No erythema or exudates. NECK: No masses, no JVD. CHEST: No chest wall deformity. LUNGS: Equal air entry with few scattered rhonchi. CVS: S1 and S2 normal with no audible murmur, regular rhythm. ABDOMEN: No hepatosplenomegaly, normal bowel sounds, no guarding or rigidity. SPINE: No scoliosis or deformity SKIN: No rashes CENTRAL NERVOUS SYSTEM: No focal deficits, tone is normal in all 4 extremities. EXTREMITIES: There is 1+ peripheral edema. No clubbing, no cyanosis. Peripheral pulses are intact. - Labs CBC & Chem 7: 02/12/25 04:35 02/12/25 04:35 Labs: Abnormal Lab Results - Last 24 Hours (Table) 02/12/25 02/12/25 Range/Units 04:35 04:35 WBC 26.04 H (4.50-10.00) X 10*3/uL RBC 2.86 L (4.10-5.20) X 10*6/uL Hgb 8.3 L (12.0-15.0) g/dL Hct 27.8 L (37.2-46.3) % MCV 97.2 H (80.0-97.0) FL MCHC 29.9 L (32.0-37.0) g/dL RDW 16.9 H (11.5-14.5) % Immature Gran # 0.57 H (0.00-0.04) X 10*3/uL Neutrophils # 23.55 H (1.80-7.70) X 10*3/uL Lymphocytes # 0.76 L (0.90-5.00) X 10*3/uL Basophils # 0.13 H (0.00-0.10) X 10*3/uL Anion Gap 13.60 H (4.00-12.00) mmol/L BUN/Creatinine Ratio 29.00 H (12.00-20.00) Ratio Calcium 8.5 L (8.7-10.3) mg/dL Assessment and Plan Assessment: Stage IV non-small cell lung cancer. The patient has extensive lymphadenopathy along the right hemithorax causing mass effect on the right middle lobe and right lower lobe bronchus and the patient has atelectatic changes right lung base along with a small to moderate-sized right-sided pleural effusion. Postobstructive pneumonia is felt to be less likely. This is probably part of the natural progression of her underlying malignancy. Noted the patient has evidence of bilateral adrenal metastases, and skeletal metastases involving the ribs, scapula and spine. PET/CT done on 02/01/2025. The pathology is consistent with pulmonary adenocarcinoma with squamous differentiation. Currently receiving radiation treatments Metastatic lesions with expansile hypermetabolic left anterior lateral mid rib lesion and destructive soft tissue mass involving the right posterior 4th and 5th ribs and scattered additional metabolic reactive lytic lesions involving the right scapula and multiple lesions involving the spine and pelvis Abdominal pain/colitis, improving Acute leukocytosis Chronic smoker with ongoing chronic tobacco dependence of 50 years Abdominal aortic aneurysm stent placement at [facility] December 2024 Severe chronic obstructive pulmonary disease maintained on Trelegy, albuterol Significant weight loss of over 20 pounds in the past 1 to 2 months Hypertension Lower extremity edema, improving, currently on Lasix and Doppler lower extremities were negative Plan: The patient was seen and evaluated Labs and medications reviewed Cleared for discharge Continue her home pulmonary medications/oxygen NicoDerm patch in place Again educated regarding complete smoking cessation Continue with radiation therapy per schedule To follow closely with medical oncology Plan is to return home with her daughters today This patient was seen independently by the pulmonary nurse practitioner addressing pulmonary issues I have personally seen and examined the patient, performed the documentation and the assessment and plan as written. Number of minutes spent on the visit: 24 Dictation was produced using [employer] dictation software. Please excuse any grammatical, word or spelling errors.
--- NOTE | 2025-02-12 15:02 | P.PN ---
Subjective Progress Note Date: 02/12/25 Principal diagnosis: Reason for follow-up is pneumonia/colitis Patient is a 69-year-old female with a past medical history significant for COPD hypertension recent diagnosis of metastatic non-small cell lung cancer/pulmonary adenocarcinoma, anxiety patient presenting to the hospital for evaluation of right lower quadrant right groin pain, patient did have a CT concerning for right lower lobe consolidation and with concern for possible colitis/diverticulitis prompted this consultation. On today's evaluation that is 02/12/2025,the patient denies any fever or any ch ills, patient is breathing slightly comfortably on 4 L nasal cannula oxygen, the patient denies chest pain shortness of breath and no worsening cough, patient denies abdominal pain, no nausea vomiting or diarrhea. Patient white count is 26.04 today, creatinine 0.6 blood culture have been negative Objective - Vital Signs Vital signs: Vital Signs Temp 98.2 F 02/12/25 13:40 Pulse 119 H 02/12/25 13:40 Resp 20 02/12/25 13:40 BP 99/58 02/12/25 13:40 Pulse Ox 97 02/12/25 13:40 FiO2 Intake & Output 02/11/25 02/12/25 02/12/25 18:59 06:59 18:59 Weight 71.214 kg Other: Voiding Method Bedside Commode Bedside Commode Bedside Commode # Voids 3 1 # Bowel Movements 1 - Exam GENERAL DESCRIPTION: An elderly female up in the chair in no distress RESPIRATORY SYSTEM: Unlabored breathing , breath sounds bilaterally HEART: S1 S2 regular rate and rhythm , ABDOMEN: Soft , no tenderness EXTREMITIES: Bilateral lower extremity currently wrapped in the Wale wrap - Labs CBC & Chem 7: 02/12/25 04:35 02/12/25 04:35 Labs: Abnormal Lab Results - Last 24 Hours (Table) 02/12/25 02/12/25 Range/Units 04:35 04:35 WBC 26.04 H (4.50-10.00) X 10*3/uL RBC 2.86 L (4.10-5.20) X 10*6/uL Hgb 8.3 L (12.0-15.0) g/dL Hct 27.8 L (37.2-46.3) % MCV 97.2 H (80.0-97.0) FL MCHC 29.9 L (32.0-37.0) g/dL RDW 16.9 H (11.5-14.5) % Immature Gran # 0.57 H (0.00-0.04) X 10*3/uL Neutrophils # 23.55 H (1.80-7.70) X 10*3/uL Lymphocytes # 0.76 L (0.90-5.00) X 10*3/uL Basophils # 0.13 H (0.00-0.10) X 10*3/uL Anion Gap 13.60 H (4.00-12.00) mmol/L BUN/Creatinine Ratio 29.00 H (12.00-20.00) Ratio Calcium 8.5 L (8.7-10.3) mg/dL Assessment and Plan (1) Sepsis Current Visit: No Status: Acute Code(s): A41.9 - SEPSIS, UNSPECIFIED ORGANISM SNOMED Code(s): 23898207 (2) Pneumonia Current Visit: Yes Status: Acute Code(s): J18.9 - PNEUMONIA, UNSPECIFIED ORGANISM SNOMED Code(s): 383612146 (3) Diverticulitis Current Visit: Yes Status: Acute Code(s): K57.92 - DVTRCLI OF INTEST, PART UNSP, W/O PERF OR ABSCESS W/O BLEED SNOMED Code(s): 244434849 Plan: 1patient presented to hospital with lower abdominal discomfort nausea vomiting in this patient who did have a tachycardia elevated white count meeting currently for SIRS concern for possible sepsis source could be right lower lobe pneumonia and evidence of diverticulitis on the CT and need to cover for the gram-negative aerobes and anaerobes. 2patient did have mild elevated procalcitonin lower extremity Doppler negative for DVT, patient received adequate IV Zosyn for possible component of postobstructive pneumonia 3patient is afebrile, leukocytosis questionably related to the tumor necrosis plus minus a component of thrush/oropharyngeal candidiasis, procalcitonin is reported normal for now to continue with short course of Diflucan Dictation was produced using [email or web address]ation software. please excuse any grammatical, word or spelling errors. Time with Patient: Less than 30
--- NOTE | 2025-02-13 06:06 | P.PN ---
Subjective Progress Note Date: 02/12/25 69-year-old woman with recent diagnosis of lung cancer, COPD and hypertension. She presents today as she is having right lower quadrant and right groin pain, nausea, vomiting and diarrhea. The patient's family notes that it seemed to come on after she had the injection related to a bone scan. The patient has not had hematemesis. No dark or tarry stools. No fever or chills. Patient had recent endovascular placement of abdominal aortic stent January 08, 2025, 3 weeks ago. Patient does report she has had abdominal pain since her surgery. She reports early satiety. Poor appetite. Family reports that she had poor appetite prior to surgery. CT of the abdomen pelvis with questionable findings of early colitis versus mild diverticulitis. Right lower lobe malignancy. Presence of adrenal gland possible malignancy. T12 compression fracture 25% including sclerotic lesions along the spine highly suspicious for metastatic disease. Blood work reveals WBC of 16.4, hemoglobin of 9.1 and platelet count of 239, sodium 134, potassium 3.6, BUN/creatinine 35/0.79 and alkaline phosphatase of 149 Patient has been admitted for possible ileus/colitis versus diverticulitis; surgery is consulted 02/01/2025 Patient seen and evaluated in follow-up today continues to report significant abdominal pain and general surgery following with no plans of surgical intervention at this time. White count is elevated at 18.85 and hemoglobin remains 9.1, platelets are 183. Sodium is 137 with a potassium of 4.3, BUN 37.1 with a creatinine of 1.0. Patient being started on antibiotics per general surgery for the colitis/diverticulitis and recommends minimum 3 days of IV antibiotics and to continue with clear liquids protein shakes. Patient with significant weakness recommend PT/OT therapy evaluation. Continued poor oral intake and not much of an appetite, consult to dietary. 02/02/2025 Patient evaluated in follow-up today with multiple consultations following including general surgery. Infectious disease has been consulted and patient is continued on antibiotics and white count is elevated with concerns of underlying infection. General surgery following with no immediate plans of surgical in tervention recommending to continue with conservative management and clear liquids. Patient reports has not had a bowel movement today and on assessment there are bowel sounds noted. Patient is tolerating the clear liquids with no reported nausea or vomiting although is asking for an advancing diet. Will await surgical recommendations regarding advancement. Pulmonary has been consulted as well regarding previous endoscopy with biopsy with multiple family members awaiting to speak further with pulmonary. Oncology will also be consulted. 02/03/2025 Patient seen in follow-up today currently obtaining a Doppler assess for DVT as patient has significant lower extremity swelling. Multiple consultations following including told was placed to oncology as recent bronchoscopy was positive for non-small cell lung carcinoma and likely metastasis. Patient white count remains elevated and is maintained on antibiotics. An MRI of the brain was ordered although patient is refusing. Radiation oncology has been consulted and pending to discuss possible palliative radiation. Patient continues to be significantly weak with shortness of breath maintained on oxygen via nasal cannula at 4 L. Encourage incentive spirometer use and wean FiO2 as tolerated. Overall prognosis is extremely poor and guarded. 02/04/2025 Patient is seen in follow-up today currently resting and patient was evaluated by radiation oncology undergoing mapping today to initiate palliative radiation. Patient continues to refuse MRI of the brain and oncology is following and aware. Multiple other consultations following and patient will be continued on current diet not tolerating much oral intake and has no real appetite with continued diffuse abdominal pain. No surgical intervention planned at this time. Patient is afebrile white count remains elevated although slightly improved with infectious disease following maintained on antibiotics and will continue. Continue to wean FiO2 as tolerated although continues on 4 L via nasal cannula. Pulmonary is following. 02/05/2025 Patient is seen in follow-up today remains sitting up in the chair and per patient unable to lie down any further than 30 degrees as patient reports significant shortness of breath and abdominal pain. Patient reports is tolerating current diet and having bowel movements and passing gas. Patient continues with lower extremity edema maintained on Lasix and will continue. Patient did receive mapping on the right chest wall with radiation oncology with plans of starting radiation today. Patient continues with shortness of breath maintained on 4 L. Patient to continue with antibiotics with infectious disease following as white count remains elevated, concerns for postobstructive. Follow-up on repeat labs and replace electrolytes per protocol. 02/06/2025 Patient is seen in follow-up today with multiple consultations following. Patient is status post palliative radiation yesterday with radiation oncology and will resume on Saturday and continue daily as tolerated. Patient continues on 4 L and continues to report shortness of breath. Patient having intermittent diffuse abdominal pain although much improved compared to previous. Patient is not tolerating much diet and is not eating much and needs encouragement and may continue supplements between meals. White count remains elevated and appreciate input and recommendations from infectious disease. Will continue Zosyn for now. Encourage incentive spirometer use and increase activity as tolerated. 02/07/2025 Patient is seen in follow-up today continues to report significant pain and continued on current pain regimen. Plan is for radiation oncology to follow-up for repeat radiation on Saturday throughout the week. Infectious disease following and white count is elevated above 20 and maintained on antibiotics we will follow-up on repeat labs. Encouraged increase activity as tolerated and incentive spirometer use. Continue with breathing treatments. Prognosis guarded at this time 02/08/2025 Patient is seen in follow-up today with multiple consultations following. Patient to resume radiation treatment for palliative therapy today and patient continues to report shortness of breath and difficulty in breathing and maintained on 4 L via nasal cannula. Oxygen saturations are above 95% on oxygen and recommend weaning FiO2 as tolerated and continued incentive spirometer use. Patient white count remains elevated with infectious disease following and is continued on antibiotics. Per nursing staff patient was having some confusion overnight and recommend monitoring closely especially given her medication regimen with narcotics. Encouraged oral intake and will continue current diet. Recommend PT/OT therapy evaluation once respiratory status has improved as patient is significantly weak and has had prolonged hospitalization. 02/09/2025 Patient is seen in follow-up this morning currently sitting up in the chair and extremely weak continuing to report significant pain. Pain medications are being adjusted per oncology and is receiving palliative radiation. Will need to discuss discharge planning with multiple consultations and also with infectious disease as patient is maintained on IV antibiotics and continues to have an elevated white count. Patient continues with shortness of breath maintained on 4 L via nasal cannula. Patient reports is eating some not much of an appetite and did have a bowel movement. Recommend PT/OT therapy evaluation prior to discharge. Prognosis remains guarded. 02/10/2025 Patient is seen in follow-up today underwent radiation treatment and further discussion with radiation oncologist would prefer patient remains hospitalized during treatments as patient continues to be significantly short of breath with ongoing severe pain rating the pain is 8 out of 10. Patient is significantly weak although has been attempting to get up and encouraged patient to continue increasing activity as tolerated and getting up more frequently out of the chair. Patient continues with bilateral lower extremity swelling that is minimally improved and recommend Wale wraps to bilateral lower extremities and/or compression stockings. Recommend PT/OT therapy daily. Patient is afebrile continues to report shortness of breath and denies chest pain or palpitations. White count remains elevated with infectious disease following. 02/11/2025 Patient is seen in follow-up today continues to undergo radiation treatments and will receive another radiation treatment tomorrow 02/12/2025 with plans on discharging home with continued home care. Case management following making arrangements for discharge planning including a hospital bed as patient will require this on discharge due to significant shortness of breath when laying down as well as pain and needs constant repositioning and head of the bed elevated 45 degrees at all times that cannot be done in a regular bed. Patient continues on 4 L via nasal cannula and will continue and has been using oxygen outpatient. Arrangements will be made for outpatient follow-up with oncology regarding treatment plan as well as radiation oncology next week to continue radiation treatments. Patient has been cleared by consultations once arrangements have been made. Patient will continue on IV antibiotics for now with infectious disease following and will transition to oral antibiotic on discharge. Continue to encourage increase activity as tolerated and home care will be arranged. Overall prognosis is poor and guarded at this time. 02/12/2025 Patient seen in follow-up today continuing to undergo radiation therapy and will receive another dose today as patient continues to have significant shortness of breath and pain in the upper chest. Patient is continued through the next week with radiation therapy to complete a 10-day course per radiation oncology. Discharge planning was discussed and patient to follow-up on Saturday to resume additional radiation treatments although patient continues to report significant shortness of breath and pain and generalized weakness and radiation oncology is persistent that she stay hospitalized to complete treatment course. Patient is afebrile white count remains elevated with infectious disease following maintained on antibiotics. Patient has been encouraged to continue using incentive spirometer and increase activity as tolerated. Patient plans on going home on discharge and patient is relatively weak. Review of systems: Constitutional: No reports of fatigue, no fever, or chills Cardiovascular: No reports of chest pain or palpitations Respiratory: reports of mild shortness of breath , reports continued increased work of breathing with exertion although improving and maintaining on 4 L GI: No reports of nausea, vomiting, or diarrhea, reports having bowel movements, continues to report diffuse abdominal pain : No reports of dysuria or retention Neurovascular: reports of generalized weakness and lower extremity swelling All medications have been reviewed Physical exam: Gen: This is a 69-year-old female who is awake, alert and oriented x 2-3, well- developed, elderly appearing, ill-appearing HEENT: Head is atraumatic, normocephalic. Pupils equal, round. Sclerae is anic teric. NECK: Supple. No JVD. No lymphadenopathy. No thyromegaly. LUNGS: Diminished breath sounds bilaterally with bronchial congestion noted and patient able to clear with strong cough. No wheezes coarse scattered rhonchi noted. No intercostal retractions. HEART: S1, S2 are muffled ABDOMEN: Soft. Bowel sounds are present. No masses. Mild tenderness noted on palpation. EXTREMITIES: No pedal edema. No calf tenderness. Bilateral lower extremity edema NEUROLOGICAL: Patient is awake, alert and oriented x3. Cranial nerves 2 through 12 are grossly intact. Diffusely weak Assessment: -Abdominal pain, likely secondary to early colitis with mild diverticulitis as noted on CT image -Leukocytosis, secondary to above -Possible ileus, improving continuing conservative management per surgery, improved, patient is having bowel movements -multiple masses and lesions within the liver highly suspicious for metastatic disease, bronchoscopy pathology revealed non-small cell lung carcinoma, curr ently undergoing palliative radiation -COPD; not in exacerbation -Hypoxic respiratory failure, recently placed on oxygen since bronchoscopy likely secondary to non-small cell lung carcinoma -Gastroesophageal reflux disease -Anxiety -Chronic back pain -Severe protein calorie malnutrition -History of recent abdominal aortic aneurysm status post endovascular graft -Recently diagnosed metastatic lung cancer from bronchoscopy with BAL and biopsy on 01/22/2025. Pathology is positive for non-small cell lung carcinoma and PET scan showing diffuse metastasis throughout the thorax and osseous metastatic disease and a possible right frontal lobe lesion on the brain GI prophylaxis DVT prophylaxis; SCDs full code Plan: Patient was admitted with concerns of early colitis and mild diverticulitis with abdominal pain and concerns of possible ileus. Patient evaluated by general surgery with no plans of surgical intervention at this time recommending bowel rest with slowly advancing diet as tolerated. Diet has been advanced and tolerating thus far recommend as needed bowel regimen and increased activity as tolerated. Tolerating diet thus far although not much of an appetite. Infectious disease following and will continue IV antibiotic therapy. White count remains elevated and will continue current regimen. Continue antibiotics for now and monitor white count, procalcitonin is elevated as well. Will transition to oral antibiotics on discharge Pulmonary and oncology following as patient's recent bronchoscopy with BAL and biopsy on 01/22/2025 for non-small cell carcinoma and patient also had a recent PET scan concerning for diffuse metastasis throughout the thoracic area with metastatic disease and also noted right frontal brain lesion. Oncology ordered an MRI of the brain although patient is refusing. Radiation oncology following and has undergone mapping and started radiation , patient to receive radiation therapy for 10 doses per radiation oncology, initially planning for outpatient radiation therapy after the holiday to resume starting on Saturday again for remaining 5 doses and was to be discharged with return in the outpatient setting to complete the radiation although radiation oncology is persistent she stays hospitalized as she continues to have pain and high concerns for obstruction of her airway due to the significance of the mass. Radiation will resume on Saturday next week. Patient with significant weakness and prolonged hospitalization would recommend physical therapy daily and getting up more frequently and walking as patient's plan is to return home on discharge. Case management following arranging for discharge planning including a hospital bed as patient will require frequent position changes and head of the bed elevated 30 to 45 degrees at all times to manage significant shortness of breath due to non-small cell lung carcinoma as well as continued ongoing pain that cannot normally be done with a regular bed. Patient does have supportive care and family will be helping her on discharge. Will also arrange for home care outpatient. Continue with Ensure protein shakes in between meals Follow-up on repeat labs, replace electrolytes per protocol monitor white count remains elevated, patient is afebrile Oncology following as well and patient will need outpatient follow-up Due to multiple complex medical issues, overall prognosis is extremely poor and guarded Apparently patient will remain hospitalized for radiation oncology until 10 treatments are completed The impression and plan of care has been dictated by Ciarra Machado, Nurse Practitioner as directed. Dr. Dov MD I have performed a history and examination and MDM of this patient, discussed the same with the dictator, and agree with the dictator's assessment and plan as written ,documented as a scribe. Based on total visit time, I have performed more than 50% of the visit. Patient Objective - Vital Signs Vital signs: Vital Signs Temp 98.0 F 02/13/25 02:00 Pulse 113 H 05/24/25 02:00 Resp 15 02/13/25 02:00 BP 94/63 02/13/25 02:00 Pulse Ox 97 02/13/25 02:00 FiO2 Intake & Output 02/12/25 02/12/25 02/13/25 06:59 18:59 06:59 Other: Voiding Method Bedside Commode Bedside Commode # Voids 1 2 # Bowel Movements 1 1 - Labs CBC & Chem 7: 02/12/25 04:35 02/12/25 04:35 Labs: Abnormal Lab Results - Last 24 Hours (Table) 02/12/25 02/12/25 Range/Units 04:35 04:35 WBC 26.04 H (4.50-10.00) X 10*3/uL RBC 2.86 L (4.10-5.20) X 10*6/uL Hgb 8.3 L (12.0-15.0) g/dL Hct 27.8 L (37.2-46.3) % MCV 97.2 H (80.0-97.0) FL MCHC 29.9 L (32.0-37.0) g/dL RDW 16.9 H (11.5-14.5) % Immature Gran # 0.57 H (0.00-0.04) X 10*3/uL Neutrophils # 23.55 H (1.80-7.70) X 10*3/uL Lymphocytes # 0.76 L (0.90-5.00) X 10*3/uL Basophils # 0.13 H (0.00-0.10) X 10*3/uL Anion Gap 13.60 H (4.00-12.00) mmol/L BUN/Creatinine Ratio 29.00 H (12.00-20.00) Ratio Calcium 8.5 L (8.7-10.3) mg/dL
[2025-02-13 08:01] LABS: Basophils # (A) 0.12 10*3/uL (0.00-0.10); Basophils % (A) 0.4 %; Eosinophils # (A) 0.09 10*3/uL (0.04-0.35); Eosinophils % (A) 0.3 %; HCT 31.5 % (37.2-46.3); HGB 9.4 g/dL (12.0-15.0); Lymphocytes # (A) 0.94 10*3/uL (0.90-5.00); Lymphocytes % (A) 3.3 %; MCH 28.8 pg (27.0-32.0); MCHC 29.8 g/dL (32.0-37.0); Mean Platelet Volume 10.9 fL (9.5-12.2); Monocytes # (A) 0.98 10*3/uL (0.20-1.00); Monocytes % (A) 3.4 %; Neutrophils # (A) 26.16 10*3/uL (1.80-7.70); Neutrophils % (A) 90.8 %; Platelet Count 182 10*3/uL (140-440); RBC 3.26 10*6/uL (4.10-5.20); RDW 17.5 % (11.5-14.5); WBC 28.81 10*3/uL (4.50-10.00)
[2025-02-13 08:02] LABS: MCV 96.6 fL (80.0-97.0)
--- NOTE | 2025-02-13 11:46 | P.PN ---
Subjective 69-year-old woman with recent diagnosis of lung cancer, COPD and hypertension. She presents today as she is having right lower quadrant and right groin pain, nausea, vomiting and diarrhea. The patient's family notes that it seemed to come on after she had the injection related to a bone scan. The patient has not had hematemesis. No dark or tarry stools. No fever or chills. Patient had recent endovascular placement of abdominal aortic stent January 08, 2025, 3 weeks ago. Patient does report she has had abdominal pain since her surgery. She reports early satiety. Poor appetite. Family reports that she had poor appetite prior to surgery. CT of the abdomen pelvis with questionable findings of early colitis versus mild diverticulitis. Right lower lobe malignancy. Presence of adrenal gland possible malignancy. T12 compression fracture 25% including sclerotic lesions along the spine highly suspicious for metastatic disease. Blood work reveals WBC of 16.4, hemoglobin of 9.1 and platelet count of 239, sodium 134, potassium 3.6, BUN/creatinine 35/0.79 and alkaline phosphatase of 149 Patient has been admitted for possible ileus/colitis versus diverticulitis; surgery is consulted 02/01/2025 Patient seen and evaluated in follow-up today continues to report significant abdominal pain and general surgery following with no plans of surgical intervention at this time. White count is elevated at 18.85 and hemoglobin remains 9.1, platelets are 183. Sodium is 137 with a potassium of 4.3, BUN 37.1 with a creatinine of 1.0. Patient being started on antibiotics per general surgery for the colitis/diverticulitis and recommends minimum 3 days of IV antibiotics and to continue with clear liquids protein shakes. Patient with significant weakness recommend PT/OT therapy evaluation. Continued poor oral intake and not much of an appetite, consult to dietary. 02/02/2025 Patient evaluated in follow-up today with multiple consultations following including general surgery. Infectious disease has been consulted and patient is continued on antibiotics and white count is elevated with concerns of underlying infection. General surgery following with no immediate plans of surgical intervention recommending to continue with conservative management and clear liquids. Patient reports has not had a bowel movement today and on assessment there are bowel sounds noted. Patient is tolerating the clear liquids with no reported nausea or vomiting although is asking for an advancing diet. Will await surgical recommendations regarding advancement. Pulmonary has been consulted as well regarding previous endoscopy with biopsy with multiple family members awaiting to speak further with pulmonary. Oncology will also be consulted. 02/03/2025 Patient seen in follow-up today currently obtaining a Doppler assess for DVT as patient has significant lower extremity swelling. Multiple consultations following including told was placed to oncology as recent bronchoscopy was positive for non-small cell lung carcinoma and likely metastasis. Patient white count remains elevated and is maintained on antibiotics. An MRI of the brain was ordered although patient is refusing. Radiation oncology has been consulted and pending to discuss possible palliative radiation. Patient continues to be significantly weak with shortness of breath maintained on oxygen via nasal cannula at 4 L. Encourage incentive spirometer use and wean FiO2 as tolerated. Overall prognosis is extremely poor and guarded. 02/04/2025 Patient is seen in follow-up today currently resting and patient was evaluated by radiation oncology undergoing mapping today to initiate palliative radiation. Patient continues to refuse MRI of the brain and oncology is following and aware. Multiple other consultations following and patient will be continued on current diet not tolerating much oral intake and has no real appetite with continued diffuse abdominal pain. No surgical intervention planned at this time. Patient is afebrile white count remains elevated although slightly improved with infectious disease following maintained on antibiotics and will continue. Continue to wean FiO2 as tolerated although continues on 4 L via nasal cannula. Pulmonary is following. 02/05/2025 Patient is seen in follow-up today remains sitting up in the chair and per gage sherman unable to lie down any further than 30 degrees as patient reports significant shortness of breath and abdominal pain. Patient reports is tolerating current diet and having bowel movements and passing gas. Patient continues with lower extremity edema maintained on Lasix and will continue. Gage sherman did receive mapping on the right chest wall with radiation oncology with plans of starting radiation today. Patient continues with shortness of breath maintained on 4 L. Patient to continue with antibiotics with infectious disease following as white count remains elevated, concerns for postobstructive. Follow-up on repeat labs and replace electrolytes per protocol. 02/06/2025 Patient is seen in follow-up today with multiple consultations following. Patient is status post palliative radiation yesterday with radiation oncology and will resume on Saturday and continue daily as tolerated. Patient continues on 4 L and continues to report shortness of breath. Patient having intermittent diffuse abdominal pain although much improved compared to previous. Patient is not tolerating much diet and is not eating much and needs encouragement and may continue supplements between meals. White count remains elevated and appreciate input and recommendations from infectious disease. Will continue Zosyn for now. Encourage incentive spirometer use and increase activity as tolerated. 02/07/2025 Patient is seen in follow-up today continues to report significant pain and continued on current pain regimen. Plan is for radiation oncology to follow-up for repeat radiation on Saturday throughout the week. Infectious disease following and white count is elevated above 20 and maintained on antibiotics we will follow-up on repeat labs. Encouraged increase activity as tolerated and incentive spirometer use. Continue with breathing treatments. Prognosis guarded at this time 02/08/2025 Patient is seen in follow-up today with multiple consultations following. Patient to resume radiation treatment for palliative therapy today and patient continues to report shortness of breath and difficulty in breathing and maintained on 4 L via nasal cannula. Oxygen saturations are above 95% on oxygen and recommend weaning FiO2 as tolerated and continued incentive spirometer use. Patient white count remains elevated with infectious disease following and is continued on antibiotics. Per nursing staff patient was having some confusion overnight and recommend monitoring closely especially given her medication regimen with narcotics. Encouraged oral intake and will continue current diet. Recommend PT/OT therapy evaluation once respiratory status has improved as patient is significantly weak and has had prolonged hospitalization. 02/09/2025 Patient is seen in follow-up this morning currently sitting up in the chair and extremely weak continuing to report significant pain. Pain medications are being adjusted per oncology and is receiving palliative radiation. Will need to discuss discharge planning with multiple consultations and also with infectious disease as patient is maintained on IV antibiotics and continues to have an elevated white count. Patient continues with shortness of breath maintained on 4 L via nasal cannula. Patient reports is eating some not much of an appetite and did have a bowel movement. Recommend PT/OT therapy evaluation prior to discharge. Prognosis remains guarded. 02/10/2025 Patient is seen in follow-up today underwent radiation treatment and further discussion with radiation oncologist would prefer patient remains hospitalized during treatments as patient continues to be significantly short of breath with ongoing severe pain rating the pain is 8 out of 10. Patient is significantly weak although has been attempting to get up and encouraged patient to continue increasing activity as tolerated and getting up more frequently out of the chair. Patient continues with bilateral lower extremity swelling that is minimally improved and recommend Wale wraps to bilateral lower extremities and/or compression stockings. Recommend PT/OT therapy daily. Patient is afebrile continues to report shortness of breath and denies chest pain or palpitations. White count remains elevated with infectious disease following. 02/11/2025 Patient is seen in follow-up today continues to undergo radiation treatments and will receive another radiation treatment tomorrow 02/12/2025 with plans on discharging home with continued home care. Case management following making arrangements for discharge planning including a hospital bed as patient will require this on discharge due to significant shortness of breath when laying down as well as pain and needs constant repositioning and head of the bed elevated 45 degrees at all times that cannot be done in a regular bed. Patient continues on 4 L via nasal cannula and will continue and has been using oxygen outpatient. Arrangements will be made for outpatient follow-up with oncology regarding treatment plan as well as radiation oncology next week to continue radiation treatments. Patient has been cleared by consultations once arrangements have been made. Patient will continue on IV antibiotics for now with infectious disease following and will transition to oral antibiotic on discharge. Continue to encourage increase activity as tolerated and home care will be arranged. Overall prognosis is poor and guarded at this time. 02/12/2025 Patient seen in follow-up today continuing to undergo radiation therapy and will receive another dose today as patient continues to have significant shortness of breath and pain in the upper chest. Patient is continued through the next week with radiation therapy to complete a 10-day course per radiation oncology. Discharge planning was discussed and patient to follow-up on Saturday to resume additional radiation treatments although patient continues to report significant shortness of breath and pain and generalized weakness and radiation oncology is persistent that she stay hospitalized to complete treatment course. Patient is afebrile white count remains elevated with infectious disease following maintained on antibiotics. Patient has been encouraged to continue using incentive spirometer and increase activity as tolerated. Patient plans on going home on discharge and patient is relatively weak. 02/13 I am resuming the care of the patient today This is a pleasant 69 years old female with stage IV lung cancer, non-small cell lung cancer with evidence of metastasis to the bones including ribs spine and scapula Presents also with abdominal pain suspected secondary to colitis Currently kept on Diflucan She is eating little bit but no vomiting, currently no abdominal pain. She is having loose bowel movement about twice per day. She has shortness of breath or coughing but she is not bringing up phlegm On examination she has bilateral crepitation and she is saturating 90s on 4.5 L/min She feels her mouth is dry but this is chronic Patient feels weak and staying in chair most of the time. As per staff she did not get her treatment of radiotherapy for her lung cancer last 2 days because the machine was down, she is supposed to get 4-6 cycles pending as per patient oncology they prefer her to stay in the hospital for now to getting more radiotherapy Objective - Vital Signs Vital signs: Vital Signs Temp 97.4 F L 02/13/25 08:00 Pulse 120 H 02/13/25 09:01 Resp 17 02/13/25 08:00 BP 114/71 02/13/25 08:00 Pulse Ox 97 02/13/25 08:00 FiO2 Intake & Output 02/12/25 02/13/25 02/13/25 18:59 06:59 18:59 Intake Total 940 Balance 940 Intake: Intake, IV Titration 240 Amount Sodium Chloride 0.9% 1, 240 000 ml @ 20 mls/hr IV . Q24H [facility] Rx#:[id number] Oral 700 Other: Voiding Method Bedside Commode Bedside Commode # Voids 2 2 # Bowel Movements 1 1 - Exam -GENERAL: The patient is alert and oriented x3, not in any acute distress. Well developed, well nourished. Generally weak HEENT: Pupils are round and equally reacting to light. EOMI. No scleral icterus. No conjunctival pallor. Normocephalic, atraumatic. No pharyngeal erythema. No thyromegaly. CARDIOVASCULAR: S1 and S2 present. No murmurs, rubs, or gallops. -PULMONARY: Chest is clear to auscultation, no wheezing , bilateral expiratory crepitation ABDOMEN: Soft, nontender, nondistended, normoactive bowel sounds. No palpable organomegaly. MUSCULOSKELETAL: No joint swelling or deformity. EXTREMITIES: No cyanosis, clubbing, or pedal edema. NEUROLOGICAL: Gross neurological examination did not reveal any focal deficits. SKIN: No rashes. no petechiae. - Labs CBC & Chem 7: 02/13/25 07:33 02/12/25 04:35 Labs: Abnormal Lab Results - Last 24 Hours (Table) 02/13/25 Range/Units 07:33 WBC 28.81 H (4.50-10.00) 10*3/uL RBC 3.26 L (4.10-5.20) 10*6/uL Hgb 9.4 L (12.0-15.0) g/dL Hct 31.5 L (37.2-46.3) % MCHC 29.8 L (32.0-37.0) g/dL RDW 17.5 H (11.5-14.5) % Immature Gran # 0.52 H (0.00-0.04) 10*3/uL Neutrophils # 26.16 H (1.80-7.70) 10*3/uL Basophils # 0.12 H (0.00-0.10) 10*3/uL Assessment and Plan Assessment: -Abdominal pain, likely secondary to early colitis with mild diverticulitis as noted on CT image -Leukocytosis, secondary to above -Possible ileus, improving continuing conservative management per surgery, improved, patient is having bowel movements -multiple masses and lesions within the liver highly suspicious for metastatic disease, bronchoscopy pathology revealed non-small cell lung carcinoma, currently undergoing palliative radiation -COPD; not in exacerbation -Hypoxic respiratory failure, recently placed on oxygen since bronchoscopy likely secondary to non-small cell lung carcinoma -Gastroesophageal reflux disease -Anxiety -Chronic back pain -Severe protein calorie malnutrition -History of recent abdominal aortic aneurysm status post endovascular graft -Recently diagnosed metastatic lung cancer from bronchoscopy with BAL and biopsy on 01/22/2025. Pathology is positive for non-small cell lung carcinoma and PET scan showing diffuse metastasis throughout the thorax and osseous metastatic disease and a possible right frontal lobe lesion on the brain Plan: Patient still needs to get more radiotherapy Add Robitussin Continue with Diflucan Continue with the current medication Several consultants of dyspnea pulm infectious disease Labs and medication were reviewed.. Continue same treatment. Continue with symptomatic treatment. Resume home medication. Monitor labs and vitals. DVT and GI prophylaxis. Further recommendations as per clinical course of the patient DVT prophylaxis: Subcutaneous heparin GI Prophylaxis: Pepcid PT/OT: Pending Prognosis is guarded
--- NOTE | 2025-02-13 12:37 | P.PN ---
Subjective Progress Note Date: 02/13/25 This is a 69-year-old female patient with known history of COPD and lung cancer, and known history of abdominal aortic aneurysm post endovascular stent placement and the procedure was done on 01/08/2025. The patient presented to the hospital because of right lower quadrant pain, nausea, emesis and diarrhea. No reported GI bleeding. The patient had diminished appetite. CAT scan of the abdomen and pelvis was done and it showed early colitis versus mild diverticulitis. There was T12 compression fraction of the spine with 25% involvement and there was also sclerotic lesion along the spine highly suspicious for metastatic disease. There was also suspected adrenal metastases and ongoing consolidation in the right lung base. As for the infrarenal abdominal aortic aneurysm, this was measuring up to 8 cm in size with at least 2 stent graft present. A small gap between the stent grafts possibly resulting endoleak. Noted, the patient's diagnosis of lung cancer is quite recent. The patient was seen in consultation on 01/21/2025 with worsening shortness of breath, weight loss and CAT scan of the chest was done on 01/21/2025 and a CAT scan showed lymphadenopathy throughout the chest concerning for malignancy and the right lower lobe pulmonary nodule, metastatic left rib lesion and left-sided posterior rib fracture without evidence of pneumothorax and concern of osseous lesions and pathologic fractures seen in the scapula. There was lymphadenopathy seen in the right hilum with narrowing of the adjacent bronchus. Based on that, the patient had a bronchoscopy done and the bronchoscopy showed significant obstruction of the right middle lobe bronchus with endobronchial tumor endobronchial biopsies performed in the involved area was consistent with pulmonary adenocarcinoma with squamous differentiation. The mediastinal lymph node sampling was hypocellular. Subsequently, the patient had a PET/CT that was done on an outpatient basis and the PET scan showed metastatic neoplasm, prominent lymphadenopathy involving the right thorax with osseous metastatic disease present. There was an expansile hypermetabolic left anterior lateral mid rib lesion and destructive soft tissue mass involving the right posterior 4th and 5th ribs and scattered additional metabolic reactive lytic lesions involving the right scapula and multiple lesions involving the spine and pelvis. There was also evidence of bilateral hypermetabolic adrenal masses consistent with metastases. For now, the patient is being seen by general surgery regarding the abdominal pain. The patient is currently on IV Zosyn. Patient is also on Spiriva and Symbicort and inhalers and normal saline at rate of 75 cc an hour. The patient is currently on oxygen at 4 L with a pulse ox of 98%. Hemodynamically stable. On 02/03/2025, patient is being seen for a follow-up. The patient is in poor condition. She continues to have cough and congestion. She continues to be short of breath even at rest. She has developed significant amount of edema in lower extremities bilaterally and there is fluid weeping from the skin surface in the feet bilaterally. There are diminished pulses in the legs and vascular surgery is on the case. I ordered a Doppler of the lower extremity to rule out underlying DVT. Noted the patient has undergone endovascular stent grafting for a large abdominal aortic aneurysm. A CT angiogram of the abdominal aorta and a runoff was recommended. However, the patient declined further testing. The patient's white cell count is at 17.9, hemoglobin of 8.7 and a platelet count of 204. Bicarb is at 21, BUN is 27 with a creatinine of 0.7. LFTs are normal. The lipase at 8, the albumin is at 2.5 with a total protein of 5.4. The patient was seen by hematology oncology and the patient is also to be seen by radiation oncology. Care is a very poor prognosis based on her metastatic pulm katja nocarcinoma. She remains on oxygen at 4 L. Diarrhea has subsided. No significant abdominal pain at this point. 02/04/2025, the patient is sitting up in a chair and the patient remains on oxygen at 4 L. She was seen by radiation oncology and the patient underwent simulation and she is going to receive palliative radiation therapy for pain control. She is feeling quite tired and she has very limited exercise capacity in addition to ongoing edema in lower extremities bilaterally. Doppler was negative for any DVTs and the patient was given IV Lasix and the patient is producing adequate amount of urine output with some limited improvement in lower extremity edema compared to yesterday. Sodium is at 140, potassium is at 3.3, BUN is 22 with a creatinine of 0.6 and a bicarb level of 29. Glucose 93. White cell count is at 17 with a hemoglobin of 9.1. The patient is seen by medical oncology and radiation oncology. On 02/05/2025, the patient reports improvement in lower extremity edema. She responded to Lasix. However, she continues to have significant amount of edema still in her legs. She will proceed with palliative radiation therapy. She feels very tired. She continues to have a congested cough. She continues to have chest wall pain especially with coughing episodes. The white cell count is 18 with a hemoglobin of 8.8 and a platelet count of 165. Sodium is at 141, K is at 2.9, electrolytes were noted and the serum bicarb is at 24. Procalcitonin is at 1.53. The blood cultures been negative. Patient is empirically on IV Zosyn. The patient has Spiriva, Symbicort and DuoNeb neb regiment [id number]. 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 02/06/2025, the patient's condition essentially the same and unchanged. She remains on oxygen at 4 L with a pulse ox of 98%. Afebrile. Main complaint remains pain and the patient is currently receiving p.o. radiation therapy. Remains on IV Zosyn. Remains on Lasix 20 mg IV push every 12 hours. Continues to have lower extremity edema. No altered mentation. Feels quite weak and debilitated. The white cell count is 18 with a hemoglobin 9.2 and a platelet count of 192. Sodium is at 142, potassium is 3.9, BUN is 15 with a creatinine of 0.7. On 02/07/2025, condition remains essentially unchanged. Remains on 4 days of oxygen by nasal cannula. Complaints are essentially the same including ongoing pain involving the chest and the back and throughout the body. Continues to have lower extremity edema. Continues to be on IV Lasix. Continues to have a white cell count of 20 with a hemoglobin 9.3 and a platelet count of 144. Elect rolytes are all within normal limits. Remains on IV Zosyn as an empiric antibiotic coverage. She does have chronic atelectatic changes and consolidation of the right lower lobe related to extensive mediastinal lymphadenopathy/tumor consistent with pulm adenocarcinoma. She is receiving palliative radiation therapy which is currently on hold over the weekend. This is to be resumed in a.m. The patient is seen today February 08, 2025 in follow-up on the regular medical floor. She is currently sitting up in a chair at the bedside. Awake and alert in no acute distress. Maintaining O2 saturations in the 90s on 4 L/min per nasal cannula. She is afebrile. Hemodynamically stable. Blood culture r evealed no growth. She remains on IV diuretics. Continued on DuoNeb inhalations, Symbicort. Antibiotics in the form of Zosyn. The patient is seen today February 09, 2025 in follow-up on the regular medical floor. She is awake and alert in no acute distress. Sitting up at the the bedside. She remains quite weak. She is maintaining O2 saturation in the low 90s on 4 L/min per nasal cannula. She has been afebrile. Hemodynamically stable. She is currently receiving radiation treatments daily. Blood culture revealed no growth. White count 29.2. Hemoglobin 10.3. Sodium 138. Potassium 3.1. Bicarb 30. BUN 18. Creatinine 0.6. Glucose 81. She is continued on DuoNeb inhalations, Symbicort, Zosyn. NicoDerm patch in place. Remains on IV diuretics. The patient is seen today February 10, 2025 in follow-up on the regular medical floor. She is currently sitting up at the bedside. Awake and alert in no acute distress. She is maintaining O2 saturation in the low 90s on 4 L/min per nasal cannula. She has a loose congested cough. No fever or chills. Hemodynamically stable. Received radiation therapy again today. Blood culture revealed no growth. White count 22.1. Hemoglobin 8.6. Platelets 134. Sodium 140. Potassium 3.0. Bicarb 28. BUN 18. Creatinine 0.6. Glucose 88. C-reactive protein 18.1. Procalcitonin 0.43. She is continued on Zosyn and Diflucan. Remains on DuoNeb inhalations and Symbicort. Transitioned to oral diuretics. NicoDerm patch in place. The patient is seen today February 11, 2025 in follow-up on the regular medical floor. She is currently sitting up in a chair. Awake and alert in no acute distress. Maintaining O2 saturations in the 90s on 4 L/min per nasal cannula. Continues with a loose congested cough. No fever or chills. She remains on D uoNeb inhalations, Symbicort. Remains on oral diuretics. Remains on Diflucan. NicoDerm patch in place. Her pain is well-managed currently. White count 24.5. Hemoglobin 8.2. Platelets 147. Sodium 140. Potassium 3.7. Bicarb 27. BUN 18. Creatinine 0.6. Procalcitonin was 0.43. She completed Zosyn. The patient is seen today February 12, 2025 in follow-up on the regular medical floor. She is awake and alert in no acute distress. Sitting up in a chair at the bedside. Maintaining O2 saturations in the 90s on 4 L/min per nasal cannula. Current saturation 99%. She is afebrile. Hemodynamically stable. Blood culture revealed no growth. White count 26.0. Hemoglobin 8.3. Platelets 142. Sodium 138. Potassium 4.2. Bicarb 27. BUN 17. Creatinine 0.6. Glucose 76. She remains on Diflucan. Continued on DuoNeb inhalations, Symbicort. NicoDerm patch in place. Her pain is well-managed with oral medications. The patient is seen today February 13, 2025 in follow-up on the regular medical floor. She is sitting up in a chair. Awake and alert no acute distress. Her daughter is at the bedside. She denies any worsening shortness of breath, cough or congestion. No chills or night sweats. Maintaining O2 saturations in the upper 90s on 4 L/min per nasal cannula. She is afebrile. Hemodynamically stable. White count 28.8. Hemoglobin 9.4. Platelets 182. She remains on Diflucan. Completed Zosyn. Remains on oral diuretics. Remains on DuoNeb inhalations, Symbicort. NicoDerm patch in place. Follow-up chest x-ray pending. Objective - Vital Signs Vital signs: Vital Signs Temp 97.4 F L 02/13/25 08:00 Pulse 120 H 02/13/25 09:01 Resp 17 02/13/25 08:00 BP 114/71 02/13/25 08:00 Pulse Ox 97 02/13/25 08:00 FiO2 Intake & Output 02/12/25 02/13/25 02/13/25 18:59 06:59 18:59 Intake Total 940 Balance 940 Intake: Intake, IV Titration 240 Amount Sodium Chloride 0.9% 1, 240 000 ml @ 20 mls/hr IV . Q24H COUNTS INCLUDE 234 BEDS AT THE [facility] Rx#:[id number] Oral 700 Other: Voiding Method Bedside Commode Bedside Commode # Voids 2 2 # Bowel Movements 1 1 - Exam GENERAL EXAM: Alert, weak 69-year-old female, up in a chair, comfortable, on 4 L nasal cannula, in no apparent distress. HEAD: Normocephalic. EYES: Normal reaction of pupils, equal size. NOSE: Clear with pink turbinates. THROAT: No erythema or exudates. NECK: No masses, no JVD. CHEST: No chest wall deformity. LUNGS: Equal air entry with few scattered rhonchi, crackles in the posterior bases greater than left. CVS: S1 and S2 normal with no audible murmur, regular rhythm. ABDOMEN: No hepatosplenomegaly, normal bowel sounds, no guarding or rigidity. SPINE: No scoliosis or deformity SKIN: No rashes CENTRAL NERVOUS SYSTEM: No focal deficits, tone is normal in all 4 extremities. EXTREMITIES: There is 1+ peripheral edema. No clubbing, no cyanosis. Peripheral pulses are intact. - Labs CBC & Chem 7: 02/13/25 07:33 02/12/25 04:35 Labs: Abnormal Lab Results - Last 24 Hours (Table) 02/13/25 Range/Units 07:33 WBC 28.81 H (4.50-10.00) 10*3/uL RBC 3.26 L (4.10-5.20) 10*6/uL Hgb 9.4 L (12.0-15.0) g/dL Hct 31.5 L (37.2-46.3) % MCHC 29.8 L (32.0-37.0) g/dL RDW 17.5 H (11.5-14.5) % Immature Gran # 0.52 H (0.00-0.04) 10*3/uL Neutrophils # 26.16 H (1.80-7.70) 10*3/uL Basophils # 0.12 H (0.00-0.10) 10*3/uL Assessment and Plan Assessment: Stage IV non-small cell lung cancer. The patient has extensive lymphadenopathy along the right hemithorax causing mass effect on the right middle lobe and right lower lobe bronchus and the patient has atelectatic changes right lung bas e along with a small to moderate-sized right-sided pleural effusion. Postobstructive pneumonia is felt to be less likely. This is probably part of the natural progression of her underlying malignancy. Noted the patient has evidence of bilateral adrenal metastases, and skeletal metastases involving the ribs, scapula and spine. PET/CT done on 02/01/2025. The pathology is consistent with pulmonary adenocarcinoma with squamous differentiation. Currently receiving radiation treatments Metastatic lesions with expansile hypermetabolic left anterior lateral mid rib lesion and destructive soft tissue mass involving the right posterior 4th and 5th ribs and scattered additional metabolic reactive lytic lesions involving the right scapula and multiple lesions involving the spine and pelvis Bilateral pleural effusions right greater than left Abdominal pain/colitis, improving Acute leukocytosis Chronic smoker with ongoing chronic tobacco dependence of 50 years Abdominal aortic aneurysm stent placement at [facility] December 2024 Severe chronic obstructive pulmonary disease maintained on Trelegy, albuterol Significant weight loss of over 20 pounds in the past 1 to 2 months Hypertension Lower extremity edema, improving, currently on Lasix and Doppler lower extremities were negative Plan: The patient was seen and evaluated Labs and medications reviewed Continue DuoNeb and elations Continue Symbicort Remains on Diflucan NicoDerm patch in place Again educated regarding complete smoking cessation Continue with radiation therapy per schedule Increase her activity as tolerated Titrate down the FiO2 as tolerated Diminished right lung base Follow-up chest x-ray pending This patient was seen independently by the pulmonary nurse practitioner addressing pulmonary issues I have personally seen and examined the patient, performed the documentation and the assessment and plan as written. Number of minutes spent on the visit: 25 Dictation was produced using [employer] dictation software. Please excuse any grammatical, word or spelling errors.
--- NOTE | 2025-02-13 14:07 | XR ---
EXAMINATION TYPE: XR chest 1V portable DATE OF EXAM: 02/13/2025 1:52 PM COMPARISON: Chest radiographs from 02/03/2025, PET/CT 01/29/2025, CTA chest 01/21/2025 TECHNIQUE: XR chest 1V portable Portable AP radiograph of the chest. CLINICAL INDICATION:Female, 69 years old with history of Lung cancer, hypoxemia; FINDINGS: Patient is rotated which limits evaluation. Lungs/Pleura: No pneumothorax. Left basilar linear atelectasis. Marginal increase in size of small ri ght pleural effusion with right basilar atelectasis and/or consolidation. Background emphysematous ch anges with hyperinflation. Pulmonary vascularity: Unremarkable. Heart/mediastinum: Heart size is prominent with a slightly widened mediastinum redemonstrated. Ather osclerotic calcifications are seen in the aorta. Musculoskeletal: No acute osseous pathology. Bilateral AC joint arthropathy. Known anterior left rib lesions are not well visualized. Other findings: Partial visualization of abdominal aortic stent graft. IMPRESSION: COPD changes with marginal increase in small right pleural effusion with adjacent atelectasis and/or consolidation. Slight mediastinal widening related to known patient's adenopathy again. [facility], , 02/13/2025 2:05 PM
--- NOTE | 2025-02-13 16:11 | US ---
EXAMINATION TYPE: US chest DATE OF EXAM: 02/13/2025 COMPARISON: Xray today CLINICAL INDICATION: Female, 69 years old with history of Markings for thoracentesis by pulmonary sta ff; thora TECHNIQUE: Grayscale imaging of the chest. Targeted ultrasound of the posterior lower bilateral esperanza thoraces FINDINGS: EXAM MEASUREMENTS: Right Pleural Effusion pocket size: 3.6 cm Right skin surface to fluid distance: 2.4 cm Left Pleural Effusion pocket size: 0 cm Right side marked for possible thoracentesis outside the dept. Lung tissue seen close to skin Left side NOT marked for possible thoracentesis outside the dept. Pulmonologists are able to review the images in the patient?s EMR. IMPRESSIONS: Small right pleural effusion. [facility], , 02/13/2025 4:08 PM
--- NOTE | 2025-02-13 16:26 | P.PN ---
Subjective Progress Note Date: 02/13/25 Principal diagnosis: Reason for follow-up is pneumonia/colitis Patient is a 69-year-old female with a past medical history significant for COPD hypertension recent diagnosis of metastatic non-small cell lung cancer/pulmonary adenocarcinoma, anxiety patient presenting to the hospital for evaluation of right lower quadrant right groin pain, patient did have a CT concerning for right lower lobe consolidation and with concern for possible colitis/diverticulitis prompted this consultation. On today's evaluation that is 02/13/2025,the patient remains to be afebrile, amira lane is on 4 L nasal cannula supplemental oxygen and seems to be breathing slightly comfortably no worsening cough nausea vomiting or diarrhea reported by the family at the bedside. Patient white count is 28.81 chest x-ray small right effusion slight mediastinal widening CT of the chest right-sided marked for thoracocentesis Objective - Vital Signs Vital signs: Vital Signs Temp 97.6 F 02/13/25 14:00 Pulse 114 H 02/13/25 14:00 Resp 18 02/13/25 14:00 BP 106/71 02/13/25 14:00 Pulse Ox 97 02/13/25 14:00 FiO2 Intake & Output 02/12/25 02/13/25 02/13/25 18:59 06:59 18:59 Intake Total 940 Balance 940 Intake: Intake, IV Titration 240 Amount Sodium Chloride 0.9% 1, 240 000 ml @ 20 mls/hr IV . Q24H [facility] Rx#:[id number] Oral 700 Other: Voiding Method Bedside Commode Bedside Commode # Voids 2 2 # Bowel Movements 1 1 - Exam GENERAL DESCRIPTION: An elderly female up in the chair in no distress RESPIRATORY SYSTEM: Unlabored breathing , breath sounds bilaterally HEART: S1 S2 regular rate and rhythm , ABDOMEN: Soft , no tenderness EXTREMITIES: Bilateral lower extremity currently wrapped in the Wale wrap - Labs CBC & Chem 7: 02/13/25 07:33 02/12/25 04:35 Labs: Abnormal Lab Results - Last 24 Hours (Table) 02/13/25 Range/Units 07:33 WBC 28.81 H (4.50-10.00) 10*3/uL RBC 3.26 L (4.10-5.20) 10*6/uL Hgb 9.4 L (12.0-15.0) g/dL Hct 31.5 L (37.2-46.3) % MCHC 29.8 L (32.0-37.0) g/dL RDW 17.5 H (11.5-14.5) % Immature Gran # 0.52 H (0.00-0.04) 10*3/uL Neutrophils # 26.16 H (1.80-7.70) 10*3/uL Basophils # 0.12 H (0.00-0.10) 10*3/uL Assessment and Plan (1) Sepsis Current Visit: No Status: Acute Code(s): A41.9 - SEPSIS, UNSPECIFIED ORGANISM SNOMED Code(s): 13137055 (2) Pneumonia Current Visit: Yes Status: Acute Code(s): J18.9 - PNEUMONIA, UNSPECIFIED ORGANISM SNOMED Code(s): 380445731 (3) Diverticulitis Current Visit: Yes Status: Acute Code(s): K57.92 - DVTRCLI OF INTEST, PART UNSP, W/O PERF OR ABSCESS W/O BLEED SNOMED Code(s): 917124434 Plan: 1patient presented to hospital with lower abdominal discomfort nausea vomiting in this patient who did have a tachycardia elevated white count meeting currently for SIRS concern for possible sepsis source could be right lower lobe pneumonia and evidence of diverticulitis on the CT and need to cover for the gram-negative aerobes and anaerobes. 2patient did have mild elevated procalcitonin lower extremity Doppler negative for DVT, patient received adequate IV Zosyn for possible component of post obstructive pneumonia 3patient is afebrile, however persistent leukocytosis a question of possible tumor necrosis versus component of pneumonia/empyema he did have right-sided effusion await possible thoracocentesis and fluid analysis Family the bedside question answered Dictation was produced using [employer] dictation software. please excuse any grammatical, word or spelling errors. Time with Patient: Less than 30
[2025-02-13] MEDS: HEPARIN SODIUM,PORCINE 5,000 UNIT/ML 1 ML VIAL SQ SCH (20:04)
[2025-02-13] MEDS: FAMOTIDINE 20 MG/2 ML VIAL IV SCH (20:06)
[2025-02-13 23:46] LABS: Glucose,Whole Blood 143 mg/dL (70-110)
[2025-02-14] MEDS: clonazePAM 0.5 MG TAB PO STA (00:49)
[2025-02-14 07:56] LABS: African American GFR (CKD) >90 (>60 ml/min/1.73 sqM); Anion Gap 14 mmol/L; Blood Urea Nitrogen 25 mg/dL (7-17); Calcium 9.5 mg/dL (8.4-10.2); Carbon Dioxide 24 mmol/L (22-30); Chloride 94 mmol/L (98-107); Glucose 81 mg/dL (74-99); Magnesium 1.8 mg/dL (1.6-2.3); Non-African American GFR(CKD) 87 (>60 ml/min/1.73 sqM); Potassium 4.8 mmol/L (3.5-5.1); Sodium 132 mmol/L (137-145)
--- NOTE | 2025-02-14 11:30 | P.PN ---
Subjective Progress Note Date: 02/14/25 This is a 69-year-old female patient with known history of COPD and lung cancer, and known history of abdominal aortic aneurysm post endovascular stent placement and the procedure was done on 01/08/2025. The patient presented to the hospital because of right lower quadrant pain, nausea, emesis and diarrhea. No reported GI bleeding. The patient had diminished appetite. CAT scan of the abdomen and pelvis was done and it showed early colitis versus mild diverticulitis. There was T12 compression fraction of the spine with 25% involvement and there was also sclerotic lesion along the spine highly suspicious for metastatic disease. There was also suspected adrenal metastases and ongoing consolidation in the right lung base. As for the infrarenal abdominal aortic aneurysm, this was measuring up to 8 cm in size with at least 2 stent graft present. A small gap between the stent grafts possibly resulting endoleak. Noted, the patient's diagnosis of lung cancer is quite recent. The patient was seen in consultation on 01/21/2025 with worsening shortness of breath, weight loss and CAT scan of the chest was done on 01/21/2025 and a CAT scan showed lymphadenopathy throughout the chest concerning for malignancy and the right lower lobe pulmonary nodule, metastatic left rib lesion and left-sided posterior rib fracture without evidence of pneumothorax and concern of osseous lesions and pathologic fractures seen in the scapula. There was lymphadenopathy seen in the right hilum with narrowing of the adjacent bronchus. Based on that, the patient had a bronchoscopy done and the bronchoscopy showed significant obstruction of the right middle lobe bronchus with endobronchial tumor endobronchial biopsies performed in the involved area was consistent with pulmonary adenocarcinoma with squamous differentiation. The mediastinal lymph node sampling was hypocellular. Subsequently, the patient had a PET/CT that was done on an outpatient basis and the PET scan showed metastatic neoplasm, prominent lymphadenopathy involving the right thorax with osseous metastatic disease present. There was an expansile hypermetabolic left anterior lateral mid rib lesion and destructive soft tissue mass involving the right posterior 4th and 5th ribs and scattered additional metabolic reactive lytic lesions involving the right scapula and multiple lesions involving the spine and pelvis. There was also evidence of bilateral hypermetabolic adrenal masses consistent with metastases. For now, the patient is being seen by general surgery regarding the abdominal pain. The patient is currently on IV Zosyn. Patient is also on Spiriva and Symbicort and inhalers and normal saline at rate of 75 cc an hour. The patient is currently on oxygen at 4 L with a pulse ox of 98%. Hemodynamically stable. On 02/03/2025, patient is being seen for a follow-up. The patient is in poor condition. She continues to have cough and congestion. She continues to be short of breath even at rest. She has developed significant amount of edema in lower extremities bilaterally and there is fluid weeping from the skin surface in the feet bilaterally. There are diminished pulses in the legs and vascular surgery is on the case. I ordered a Doppler of the lower extremity to rule out underlying DVT. Noted the patient has undergone endovascular stent grafting for a large abdominal aortic aneurysm. A CT angiogram of the abdominal aorta and a runoff was recommended. However, the patient declined further testing. The patient's white cell count is at 17.9, hemoglobin of 8.7 and a platelet count of 204. Bicarb is at 21, BUN is 27 with a creatinine of 0.7. LFTs are normal. The lipase at 8, the albumin is at 2.5 with a total protein of 5.4. The patient was seen by hematology oncology and the patient is also to be seen by radiation oncology. Care is a very poor prognosis based on her metastatic pulm katja nocarcinoma. She remains on oxygen at 4 L. Diarrhea has subsided. No significant abdominal pain at this point. 02/04/2025, the patient is sitting up in a chair and the patient remains on oxygen at 4 L. She was seen by radiation oncology and the patient underwent simulation and she is going to receive palliative radiation therapy for pain control. She is feeling quite tired and she has very limited exercise capacity in addition to ongoing edema in lower extremities bilaterally. Doppler was negative for any DVTs and the patient was given IV Lasix and the patient is producing adequate amount of urine output with some limited improvement in lower extremity edema compared to yesterday. Sodium is at 140, potassium is at 3.3, BUN is 22 with a creatinine of 0.6 and a bicarb level of 29. Glucose 93. White cell count is at 17 with a hemoglobin of 9.1. The patient is seen by medical oncology and radiation oncology. On 02/05/2025, the patient reports improvement in lower extremity edema. She responded to Lasix. However, she continues to have significant amount of edema still in her legs. She will proceed with palliative radiation therapy. She feels very tired. She continues to have a congested cough. She continues to have chest wall pain especially with coughing episodes. The white cell count is 18 with a hemoglobin of 8.8 and a platelet count of 165. Sodium is at 141, K is at 2.9, electrolytes were noted and the serum bicarb is at 24. Procalcitonin is at 1.53. The blood cultures been negative. Patient is empirically on IV Zosyn. The patient has Spiriva, Symbicort and DuoNeb neb regiment [id number]. 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 02/06/2025, the patient's condition essentially the same and unchanged. She remains on oxygen at 4 L with a pulse ox of 98%. Afebrile. Main complaint remains pain and the patient is currently receiving p.o. radiation therapy. Remains on IV Zosyn. Remains on Lasix 20 mg IV push every 12 hours. Continues to have lower extremity edema. No altered mentation. Feels quite weak and debilitated. The white cell count is 18 with a hemoglobin 9.2 and a platelet count of 192. Sodium is at 142, potassium is 3.9, BUN is 15 with a creatinine of 0.7. On 02/07/2025, condition remains essentially unchanged. Remains on 4 days of oxygen by nasal cannula. Complaints are essentially the same including ongoing pain involving the chest and the back and throughout the body. Continues to have lower extremity edema. Continues to be on IV Lasix. Continues to have a white cell count of 20 with a hemoglobin 9.3 and a platelet count of 144. Elect rolytes are all within normal limits. Remains on IV Zosyn as an empiric antibiotic coverage. She does have chronic atelectatic changes and consolidation of the right lower lobe related to extensive mediastinal lymphadenopathy/tumor consistent with pulm adenocarcinoma. She is receiving palliative radiation therapy which is currently on hold over the weekend. This is to be resumed in a.m. The patient is seen today February 08, 2025 in follow-up on the regular medical floor. She is currently sitting up in a chair at the bedside. Awake and alert in no acute distress. Maintaining O2 saturations in the 90s on 4 L/min per nasal cannula. She is afebrile. Hemodynamically stable. Blood culture r evealed no growth. She remains on IV diuretics. Continued on DuoNeb inhalations, Symbicort. Antibiotics in the form of Zosyn. The patient is seen today February 09, 2025 in follow-up on the regular medical floor. She is awake and alert in no acute distress. Sitting up at the the bedside. She remains quite weak. She is maintaining O2 saturation in the low 90s on 4 L/min per nasal cannula. She has been afebrile. Hemodynamically stable. She is currently receiving radiation treatments daily. Blood culture revealed no growth. White count 29.2. Hemoglobin 10.3. Sodium 138. Potassium 3.1. Bicarb 30. BUN 18. Creatinine 0.6. Glucose 81. She is continued on DuoNeb inhalations, Symbicort, Zosyn. NicoDerm patch in place. Remains on IV diuretics. The patient is seen today February 10, 2025 in follow-up on the regular medical floor. She is currently sitting up at the bedside. Awake and alert in no acute distress. She is maintaining O2 saturation in the low 90s on 4 L/min per nasal cannula. She has a loose congested cough. No fever or chills. Hemodynamically stable. Received radiation therapy again today. Blood culture revealed no growth. White count 22.1. Hemoglobin 8.6. Platelets 134. Sodium 140. Potassium 3.0. Bicarb 28. BUN 18. Creatinine 0.6. Glucose 88. C-reactive protein 18.1. Procalcitonin 0.43. She is continued on Zosyn and Diflucan. Remains on DuoNeb inhalations and Symbicort. Transitioned to oral diuretics. NicoDerm patch in place. The patient is seen today February 11, 2025 in follow-up on the regular medical floor. She is currently sitting up in a chair. Awake and alert in no acute distress. Maintaining O2 saturations in the 90s on 4 L/min per nasal cannula. Continues with a loose congested cough. No fever or chills. She remains on D uoNeb inhalations, Symbicort. Remains on oral diuretics. Remains on Diflucan. NicoDerm patch in place. Her pain is well-managed currently. White count 24.5. Hemoglobin 8.2. Platelets 147. Sodium 140. Potassium 3.7. Bicarb 27. BUN 18. Creatinine 0.6. Procalcitonin was 0.43. She completed Zosyn. The patient is seen today February 12, 2025 in follow-up on the regular medical floor. She is awake and alert in no acute distress. Sitting up in a chair at the bedside. Maintaining O2 saturations in the 90s on 4 L/min per nasal cannula. Current saturation 99%. She is afebrile. Hemodynamically stable. Blood culture revealed no growth. White count 26.0. Hemoglobin 8.3. Platelets 142. Sodium 138. Potassium 4.2. Bicarb 27. BUN 17. Creatinine 0.6. Glucose 76. She remains on Diflucan. Continued on DuoNeb inhalations, Symbicort. NicoDerm patch in place. Her pain is well-managed with oral medications. The patient is seen today February 13, 2025 in follow-up on the regular medical floor. She is sitting up in a chair. Awake and alert no acute distress. Her daughter is at the bedside. She denies any worsening shortness of breath, cough or congestion. No chills or night sweats. Maintaining O2 saturations in the upper 90s on 4 L/min per nasal cannula. She is afebrile. Hemodynamically stable. White count 28.8. Hemoglobin 9.4. Platelets 182. She remains on Diflucan. Completed Zosyn. Remains on oral diuretics. Remains on DuoNeb inhalations, Symbicort. NicoDerm patch in place. Follow-up chest x-ray pending. The patient is seen today February 14, 2025 in follow-up on the regular medical floor. She is awake and alert in no acute distress. Sitting up in a chair. Having some issues with shortness of breath however her chest x-ray is showing improvement. No significant pleural effusion. Only a 3.6 cm pocket on the right. No fluid on the left. Sodium 132. Potassium 4.8. Bicarb 24. BUN 25. Creatinine 0.72. Glucose 81. She remains on DuoNeb inhalations, Symbicort. Continued on oral diuretics. Heparin for DVT prophylaxis. NicoDerm patch in place. Objective - Vital Signs Vital signs: Vital Signs Temp 98.2 F 02/14/25 07:46 Pulse 119 H 02/14/25 09:07 Resp 18 02/14/25 07:46 BP 110/70 05/25/25 07:46 Pulse Ox 98 02/14/25 08:59 FiO2 Intake & Output 02/13/25 02/14/25 02/14/25 18:59 06:59 18:59 Output Total 1 2 Balance -1 -2 Output: Urine 2 Stool 1 Other: Voiding Method Bedside Commode Bedside Commode # Voids 3 1 # Bowel Movements 1 - Exam GENERAL EXAM: Alert, weak 69-year-old female, up in a chair, on 4 L nasal cannula, in no apparent distress. HEAD: Normocephalic. EYES: Normal reaction of pupils, equal size. NOSE: Clear with pink turbinates. THROAT: No erythema or exudates. NECK: No masses, no JVD. CHEST: No chest wall deformity. LUNGS: Equal air entry with few scattered rhonchi, crackles in the posterior right base. CVS: S1 and S2 normal with no audible murmur, regular rhythm. ABDOMEN: No hepatosplenomegaly, normal bowel sounds, no guarding or rigidity. SPINE: No scoliosis or deformity SKIN: No rashes CENTRAL NERVOUS SYSTEM: No focal deficits, tone is normal in all 4 extremities. EXTREMITIES: There is 1+ peripheral edema. No clubbing, no cyanosis. Peripheral pulses are intact. - Labs CBC & Chem 7: 02/13/25 07:33 02/14/25 06:50 Labs: Abnormal Lab Results - Last 24 Hours (Table) 02/13/25 02/14/25 Range/Units 23:43 06:50 Sodium 132 L (137-145) mmol/L Chloride 94 L (98-107) mmol/L BUN 25 H (7-17) mg/dL POC Glucose (mg/dL) 143 H (70-110) mg/dL Assessment and Plan Assessment: Stage IV non-small cell lung cancer. The patient has extensive lymphadenopathy along the right hemithorax causing mass effect on the right middle lobe and right lower lobe bronchus and the patient has atelectatic changes right lung base along with a small to moderate-sized right-sided pleural effusion. Postobstructive pneumonia is felt to be less likely. This is probably part of the natural progression of her underlying malignancy. Noted the patient has evidence of bilateral adrenal metastases, and skeletal metastases involving the ribs, scapula and spine. PET/CT done on 02/01/2025. The pathology is consistent with pulmonary adenocarcinoma with squamous differentiation. Currently receiving radiation treatments Metastatic lesions with expansile hypermetabolic left anterior lateral mid rib lesion and destructive soft tissue mass involving the right posterior 4th and 5th ribs and scattered additional metabolic reactive lytic lesions involving the right scapula and multiple lesions involving the spine and pelvis Bilateral pleural effusions right greater than left Abdominal pain/colitis, improving Acute leukocytosis Chronic smoker with ongoing chronic tobacco dependence of 50 years Abdominal aortic aneurysm stent placement at [facility] December 2024 Severe chronic obstructive pulmonary disease maintained on Trelegy, albuterol Significant weight loss of over 20 pounds in the past 1 to 2 months Hypertension Lower extremity edema, improving, currently on Lasix and Doppler lower ext remities were negative Plan: The patient was seen and evaluated Labs and medications reviewed Chest x-ray, ultrasound of the chest reviewed No significant pleural effusion No plans for thoracentesis Continue DuoNeb inhalations Continue Symbicort Continue prednisone Remains on Diflucan NicoDerm patch in place Continue with radiation therapy per schedule Increase her activity as tolerated Titrate down the FiO2 as tolerated I have personally seen and examined the patient, performed the documentation and the assessment and plan as written. Number of minutes spent on the visit: 10 Dictation was produced using [employer] dictation software. Please excuse any grammatical, word or spelling errors.
--- NOTE | 2025-02-14 11:51 | P.PN ---
Subjective 69-year-old woman with recent diagnosis of lung cancer, COPD and hypertension. She presents today as she is having right lower quadrant and right groin pain, nausea, vomiting and diarrhea. The patient's family notes that it seemed to come on after she had the injection related to a bone scan. The patient has not had hematemesis. No dark or tarry stools. No fever or chills. Patient had recent endovascular placement of abdominal aortic stent January 08, 2025, 3 weeks ago. Patient does report she has had abdominal pain since her surgery. She reports early satiety. Poor appetite. Family reports that she had poor appetite prior to surgery. CT of the abdomen pelvis with questionable findings of early colitis versus mild diverticulitis. Right lower lobe malignancy. Presence of adrenal gland possible malignancy. T12 compression fracture 25% including sclerotic lesions along the spine highly suspicious for metastatic disease. Blood work reveals WBC of 16.4, hemoglobin of 9.1 and platelet count of 239, sodium 134, potassium 3.6, BUN/creatinine 35/0.79 and alkaline phosphatase of 149 Patient has been admitted for possible ileus/colitis versus diverticulitis; surgery is consulted 02/01/2025 Patient seen and evaluated in follow-up today continues to report significant abdominal pain and general surgery following with no plans of surgical intervention at this time. White count is elevated at 18.85 and hemoglobin remains 9.1, platelets are 183. Sodium is 137 with a potassium of 4.3, BUN 37.1 with a creatinine of 1.0. Patient being started on antibiotics per general surgery for the colitis/diverticulitis and recommends minimum 3 days of IV antibiotics and to continue with clear liquids protein shakes. Patient with significant weakness recommend PT/OT therapy evaluation. Continued poor oral intake and not much of an appetite, consult to dietary. 02/02/2025 Patient evaluated in follow-up today with multiple consultations following including general surgery. Infectious disease has been consulted and patient is continued on antibiotics and white count is elevated with concerns of underlying infection. General surgery following with no immediate plans of surgical intervention recommending to continue with conservative management and clear liquids. Patient reports has not had a bowel movement today and on assessment there are bowel sounds noted. Patient is tolerating the clear liquids with no reported nausea or vomiting although is asking for an advancing diet. Will await surgical recommendations regarding advancement. Pulmonary has been consulted as well regarding previous endoscopy with biopsy with multiple family members awaiting to speak further with pulmonary. Oncology will also be consulted. 02/03/2025 Patient seen in follow-up today currently obtaining a Doppler assess for DVT as patient has significant lower extremity swelling. Multiple consultations following including told was placed to oncology as recent bronchoscopy was positive for non-small cell lung carcinoma and likely metastasis. Patient white count remains elevated and is maintained on antibiotics. An MRI of the brain was ordered although patient is refusing. Radiation oncology has been consulted and pending to discuss possible palliative radiation. Patient continues to be significantly weak with shortness of breath maintained on oxygen via nasal cannula at 4 L. Encourage incentive spirometer use and wean FiO2 as tolerated. Overall prognosis is extremely poor and guarded. 02/04/2025 Patient is seen in follow-up today currently resting and patient was evaluated by radiation oncology undergoing mapping today to initiate palliative radiation. Patient continues to refuse MRI of the brain and oncology is following and aware. Multiple other consultations following and patient will be continued on current diet not tolerating much oral intake and has no real appetite with continued diffuse abdominal pain. No surgical intervention planned at this time. Patient is afebrile white count remains elevated although slightly improved with infectious disease following maintained on antibiotics and will continue. Continue to wean FiO2 as tolerated although continues on 4 L via nasal cannula. Pulmonary is following. 02/05/2025 Patient is seen in follow-up today remains sitting up in the chair and per gage sherman unable to lie down any further than 30 degrees as patient reports significant shortness of breath and abdominal pain. Patient reports is tolerating current diet and having bowel movements and passing gas. Patient continues with lower extremity edema maintained on Lasix and will continue. Gage sherman did receive mapping on the right chest wall with radiation oncology with plans of starting radiation today. Patient continues with shortness of breath maintained on 4 L. Patient to continue with antibiotics with infectious disease following as white count remains elevated, concerns for postobstructive. Follow-up on repeat labs and replace electrolytes per protocol. 02/06/2025 Patient is seen in follow-up today with multiple consultations following. Patient is status post palliative radiation yesterday with radiation oncology and will resume on Saturday and continue daily as tolerated. Patient continues on 4 L and continues to report shortness of breath. Patient having intermittent diffuse abdominal pain although much improved compared to previous. Patient is not tolerating much diet and is not eating much and needs encouragement and may continue supplements between meals. White count remains elevated and appreciate input and recommendations from infectious disease. Will continue Zosyn for now. Encourage incentive spirometer use and increase activity as tolerated. 02/07/2025 Patient is seen in follow-up today continues to report significant pain and continued on current pain regimen. Plan is for radiation oncology to follow-up for repeat radiation on Saturday throughout the week. Infectious disease following and white count is elevated above 20 and maintained on antibiotics we will follow-up on repeat labs. Encouraged increase activity as tolerated and incentive spirometer use. Continue with breathing treatments. Prognosis guarded at this time 02/08/2025 Patient is seen in follow-up today with multiple consultations following. Patient to resume radiation treatment for palliative therapy today and patient continues to report shortness of breath and difficulty in breathing and maintained on 4 L via nasal cannula. Oxygen saturations are above 95% on oxygen and recommend weaning FiO2 as tolerated and continued incentive spirometer use. Patient white count remains elevated with infectious disease following and is continued on antibiotics. Per nursing staff patient was having some confusion overnight and recommend monitoring closely especially given her medication regimen with narcotics. Encouraged oral intake and will continue current diet. Recommend PT/OT therapy evaluation once respiratory status has improved as patient is significantly weak and has had prolonged hospitalization. 02/09/2025 Patient is seen in follow-up this morning currently sitting up in the chair and extremely weak continuing to report significant pain. Pain medications are being adjusted per oncology and is receiving palliative radiation. Will need to discuss discharge planning with multiple consultations and also with infectious disease as patient is maintained on IV antibiotics and continues to have an elevated white count. Patient continues with shortness of breath maintained on 4 L via nasal cannula. Patient reports is eating some not much of an appetite and did have a bowel movement. Recommend PT/OT therapy evaluation prior to discharge. Prognosis remains guarded. 02/10/2025 Patient is seen in follow-up today underwent radiation treatment and further discussion with radiation oncologist would prefer patient remains hospitalized during treatments as patient continues to be significantly short of breath with ongoing severe pain rating the pain is 8 out of 10. Patient is significantly weak although has been attempting to get up and encouraged patient to continue increasing activity as tolerated and getting up more frequently out of the chair. Patient continues with bilateral lower extremity swelling that is minimally improved and recommend Wale wraps to bilateral lower extremities and/or compression stockings. Recommend PT/OT therapy daily. Patient is afebrile continues to report shortness of breath and denies chest pain or palpitations. White count remains elevated with infectious disease following. 02/11/2025 Patient is seen in follow-up today continues to undergo radiation treatments and will receive another radiation treatment tomorrow 02/12/2025 with plans on discharging home with continued home care. Case management following making arrangements for discharge planning including a hospital bed as patient will require this on discharge due to significant shortness of breath when laying down as well as pain and needs constant repositioning and head of the bed elevated 45 degrees at all times that cannot be done in a regular bed. Patient continues on 4 L via nasal cannula and will continue and has been using oxygen outpatient. Arrangements will be made for outpatient follow-up with oncology regarding treatment plan as well as radiation oncology next week to continue radiation treatments. Patient has been cleared by consultations once arrangements have been made. Patient will continue on IV antibiotics for now with infectious disease following and will transition to oral antibiotic on discharge. Continue to encourage increase activity as tolerated and home care will be arranged. Overall prognosis is poor and guarded at this time. 02/12/2025 Patient seen in follow-up today continuing to undergo radiation therapy and will receive another dose today as patient continues to have significant shortness of breath and pain in the upper chest. Patient is continued through the next week with radiation therapy to complete a 10-day course per radiation oncology. Discharge planning was discussed and patient to follow-up on Saturday to resume additional radiation treatments although patient continues to report significant shortness of breath and pain and generalized weakness and radiation oncology is persistent that she stay hospitalized to complete treatment course. Patient is afebrile white count remains elevated with infectious disease following maintained on antibiotics. Patient has been encouraged to continue using incentive spirometer and increase activity as tolerated. Patient plans on going home on discharge and patient is relatively weak. 02/13 This is a pleasant 69 years old female with stage IV lung cancer, non-small cell lung cancer with evidence of metastasis to the bones including ribs spine and scapula Presents also with abdominal pain suspected secondary to colitis Currently kept on Diflucan She is eating little bit but no vomiting, currently no abdominal pain. She is having loose bowel movement about twice per day. She has shortness of breath or coughing but she is not bringing up phlegm On examination she has bilateral crepitation and she is saturating 90s on 4.5 L/min She feels her mouth is dry but this is chronic Patient feels weak and staying in chair most of the time. As per staff she did not get her treatment of radiotherapy for her lung cancer last 2 days because the machine was down, she is supposed to get 4-6 cycles pending as per patient oncology they prefer her to stay in the hospital for now to getting more radiotherapy 02/14 Patient awake alert sitting in chair stating her breathing is worse today Also patient has bilateral leg edema 2+ Patient drinking water from the large cup continuously. I counseled the patient for fluid restriction and she agrees but she declines IV Lasix stating it makes her pee even after we offered a urine catheter or external catheter system declines. Patient is on oral Lasix 20 mg added 4 days ago by pulmonary service will going to increase it to 40 mg from tomorrow and patient agrees with fluid restriction Continued on prednisone 40 mg Labs stable today Objective - Vital Signs Vital signs: Vital Signs Temp 98.2 F 02/14/25 07:46 Pulse 119 H 02/14/25 09:07 Resp 18 02/14/25 07:46 BP 110/70 02/14/25 07:46 Pulse Ox 98 02/14/25 08:59 FiO2 Intake & Output 02/13/25 02/14/25 02/14/25 18:59 06:59 18:59 Output Total 1 2 Balance -1 -2 Output: Urine 2 Stool 1 Other: Voiding Method Bedside Commode Bedside Commode # Voids 3 1 # Bowel Movements 1 - Exam -GENERAL: The patient is alert and oriented x3, not in any acute distress. Well developed, well nourished. Generally weak HEENT: Pupils are round and equally reacting to light. EOMI. No scleral icterus. No conjunctival pallor. Normocephalic, atraumatic. No pharyngeal erythema. No thyromegaly. CARDIOVASCULAR: S1 and S2 present. No murmurs, rubs, or gallops. -PULMONARY: Chest is clear to auscultation, no wheezing , bilateral expiratory crepitation ABDOMEN: Soft, nontender, nondistended, normoactive bowel sounds. No palpable organomegaly. MUSCULOSKELETAL: No joint swelling or deformity. EXTREMITIES: No cyanosis, clubbing, or pedal edema. NEUROLOGICAL: Gross neurological examination did not reveal any focal deficits. SKIN: No rashes. no petechiae. - Labs CBC & Chem 7: 02/13/25 07:33 02/14/25 06:50 Labs: Abnormal Lab Results - Last 24 Hours (Table) 02/13/25 02/14/25 Range/Units 23:43 06:50 Sodium 132 L (137-145) mmol/L Chloride 94 L (98-107) mmol/L BUN 25 H (7-17) mg/dL POC Glucose (mg/dL) 143 H (70-110) mg/dL Assessment and Plan Assessment: -Abdominal pain, likely secondary to early colitis with mild diverticulitis as noted on CT image -Leukocytosis, secondary to above -Possible ileus, improving continuing conservative management per surgery, improved, patient is having bowel movements -multiple masses and lesions within the liver highly suspicious for metastatic disease, bronchoscopy pathology revealed non-small cell lung carcinoma, currently undergoing palliative radiation -COPD; not in exacerbation -Hypoxic respiratory failure, recently placed on oxygen since bronchoscopy kash sheikh secondary to non-small cell lung carcinoma -Gastroesophageal reflux disease -Anxiety -Chronic back pain -Severe protein calorie malnutrition -History of recent abdominal aortic aneurysm status post endovascular graft -Recently diagnosed metastatic lung cancer from bronchoscopy with BAL and biopsy on 01/22/2025. Pathology is positive for non-small cell lung carcinoma and PET scan showing diffuse metastasis throughout the thorax and osseous metastatic disease and a possible right frontal lobe lesion on the brain Plan: Patient still needs to get more radiotherapy Add Robitussin Continue with Diflucan Increase Lasix to 40 mg daily Continue with the current medication Several consultants of dyspnea pulm infectious disease Labs and medication were reviewed.. Continue same treatment. Continue with symptomatic treatment. Resume home medication. Monitor labs and vitals. DVT and GI prophylaxis. Further recommendations as per clinical course of the patient DVT prophylaxis: Subcutaneous heparin GI Prophylaxis: Pepcid PT/OT: Pending Prognosis is guarded
[2025-02-14] MEDS: predniSONE 20 MG TAB PO SCH (11:57)
--- NOTE | 2025-02-14 15:15 | P.PN ---
Subjective Progress Note Date: 02/14/25 Principal diagnosis: Reason for follow-up is pneumonia/colitis Patient is a 69-year-old female with a past medical history significant for COPD hypertension recent diagnosis of metastatic non-small cell lung cancer/pulmonary adenocarcinoma, anxiety patient presenting to the hospital for evaluation of right lower quadrant right groin pain, patient did have a CT concerning for right lower lobe consolidation and with concern for possible colitis/diverticulitis prompted this consultation. On today's evaluation that is 02/14/2025, the patient continues to be afebrile, the patient seem to have issues with shortness of breath and lethargy last night she is currently on 4 L nasal oxygen lethargic but arousable denies any chest pain or worsening cough no abdominal pain or diarrhea. Patient did have a creatinine 0.72 no CBC was done today Objective - Vital Signs Vital signs: Vital Signs Temp 97.3 F L 02/14/25 14:00 Pulse 125 H 02/14/25 14:00 Resp 18 02/14/25 14:00 BP 100/70 02/14/25 14:00 Pulse Ox 95 02/14/25 14:00 FiO2 Intake & Output 02/13/25 02/14/25 02/14/25 18:59 06:59 18:59 Output Total 1 2 Balance -1 -2 Output: Urine 2 Stool 1 Other: Voiding Method Bedside Commode Bedside Commode # Voids 3 1 # Bowel Movements 1 - Exam GENERAL DESCRIPTION: An elderly female up in the chair in no distress RESPIRATORY SYSTEM: Unlabored breathing , breath sounds bilaterally HEART: S1 S2 regular rate and rhythm , ABDOMEN: Soft , no tenderness EXTREMITIES: Bilateral lower extremity currently wrapped in the Wale wrap - Labs CBC & Chem 7: 02/13/25 07:33 02/14/25 06:50 Labs: Abnormal Lab Results - Last 24 Hours (Table) 02/13/25 02/14/25 Range/Units 23:43 06:50 Sodium 132 L (137-145) mmol/L Chloride 94 L (98-107) mmol/L BUN 25 H (7-17) mg/dL POC Glucose (mg/dL) 143 H (70-110) mg/dL Assessment and Plan (1) Sepsis Current Visit: No Status: Acute Code(s): A41.9 - SEPSIS, UNSPECIFIED ORGANISM SNOMED Code(s): 56448672 (2) Pneumonia Current Visit: Yes Status: Acute Code(s): J18.9 - PNEUMONIA, UNSPECIFIED ORGANISM SNOMED Code(s): 717873224 (3) Diverticulitis Current Visit: Yes Status: Acute Code(s): K57.92 - DVTRCLI OF INTEST, PART UNSP, W/O PERF OR ABSCESS W/O BLEED SNOMED Code(s): 981989749 Plan: 1patient presented to hospital with lower abdominal discomfort nausea vomiting in this patient who did have a tachycardia elevated white count meeting currently for SIRS concern for possible sepsis source could be right lower lobe pneumonia and evidence of diverticulitis on the CT and need to cover for the gram-negative aerobes and anaerobes. 2patient did have mild elevated procalcitonin lower extremity Doppler negative for DVT, patient received adequate IV Zosyn for possible component of postobstructive pneumonia 3patient is afebrile, however persistent leukocytosis a question of possible tumor necrosis less likely pneumonia or empyema as the patient does not look toxic did have overall poor prognosis hospice may be a better option Family the bedside question answered Dictation was produced using [employer] dictation software. please excuse any gramma tical, word or spelling errors. Time with Patient: Less than 30
[2025-02-14 16:03] LABS: Basophils # (A) 0.13 X 10*3/uL (0.00-0.10); Basophils % (A) 0.5 %; Eosinophils % (A) 0.4 %; HGB 8.5 g/dL (12.0-15.0); Lymphocytes # (A) 0.99 X 10*3/uL (0.90-5.00); Lymphocytes % (A) 3.7 %; MCH 29.4 pg (27.0-32.0); MCHC 30.4 g/dL (32.0-37.0); MCV 96.9 FL (80.0-97.0); Mean Platelet Volume 11.1 FL (9.5-12.2); Monocytes % (A) 4.2 %; NRBC Per 100 WBC 0.02 X 10*3/uL (0.00-0.01); Neutrophils # (A) 23.61 X 10*3/uL (1.80-7.70); Neutrophils % (A) 89.3 %; Platelet Count 145 X 10*3/uL (140-440); RBC 2.89 X 10*6/uL (4.10-5.20); RDW 17.1 % (11.5-14.5); WBC 26.43 X 10*3/uL (4.50-10.00)
[2025-02-14 16:28] LABS: Glucose,Whole Blood 113 mg/dL (70-110)
[2025-02-14 16:57] LABS: Glucose,Whole Blood 108 mg/dL (70-110)
[2025-02-14 17:17] LABS: ABG HCO3 25 mmol/L (21-25); ABG PCO2 43 mmHg (35-45); ABG PH 7.38 (7.35-7.45); ABG TCO2 27 mmol/L (19-24); Allen Test Performed? Yes
[2025-02-14 17:24] LABS: ABG PO2 39 mmHg (83-108)
[2025-02-14] MEDS: FUROSEMIDE 10 MG/ML 4 ML VIAL IV STA (17:38)
[2025-02-14] MEDS ORDERED: ACETAMINOPHEN SUPPOSITORY 650 MG SUPP RECTAL PRN (21:09)
[2025-02-14 21:22] VITALS: TEMP 98.2
[2025-02-14] MEDS ORDERED: DRY MOUTH SPRAY 59 SPRAY/59 ML SPRAY MUCOUS MEM PRN (21:30)
[2025-02-14] MEDS: MORPHINE SULFATE 2 MG/ML SYRINGE IVP PRN (21:31)
[2025-02-14] MEDS: MORPHINE SULFATE 100 MG in SODIUM CHLORIDE 0.9% 90 ML IV SCH (21:33)
[2025-02-14] MEDS: SCOPOLAMINE 1 MG/72 HR PATCH TRANSDERM SCH (21:37)
[2025-02-15 00:16] VITALS: BP 88/55
[2025-02-15] MEDS: ATROPINE OPHTH SOLN 1% 5ML BTL SUBLINGUAL PRN (02:41)
[2025-02-15] MEDS: LORazepam 1 MG/0.5 ML VIAL IV PRN ×2 (02:45→11:45)
[2025-02-15] MEDS: FUROSEMIDE 40 MG TAB PO SCH (07:47)
[2025-02-15 11:39] VITALS: PULSE 117
--- NOTE | 2025-02-15 14:47 | P.PN ---
Subjective Progress Note Date: 02/15/25 Principal diagnosis: Reason for follow-up is pneumonia/colitis Patient is a 69-year-old female with a past medical history significant for COPD hypertension recent diagnosis of metastatic non-small cell lung cancer/pulmonary adenocarcinoma, anxiety patient presenting to the hospital for evaluation of right lower quadrant right groin pain, patient did have a CT concerning for right lower lobe consolidation and with concern for possible colitis/diverticulitis prompted this consultation. On today's evaluation that is 02/15/2025, Patient is afebrile patient is curren tly on 2 L nasal cannula oxygen CMP breathing comfortably the patient is currently sleepy lethargic in no distress as the family has decided to go for hospice no vomiting or diarrhea has been reported. No new labs obtained today Objective - Vital Signs Vital signs: Vital Signs Temp 98.2 F 02/14/25 21:09 Pulse 117 H 02/15/25 08:00 Resp 10 L 02/15/25 08:00 BP 88/55 02/15/25 00:14 Pulse Ox 98 02/14/25 21:09 FiO2 50 02/14/25 21:09 Intake & Output 02/14/25 02/15/25 02/15/25 18:59 06:59 18:59 Intake Total 27.317 Output Total 0 0 1 Balance 0 27.317 -1 Intake: Intake, IV Titration 27.317 Amount Morphine Sulfate 100 mg 27.317 In Sodium Chloride 0.9% 90 ml @ 2 MG/HR 2 mls/hr IV .Q24H [facility] Rx#: [id number] Output: Urine 0 0 Stool 1 Other: Voiding Method Bedside Commode Bedside Commode - Exam Elderly female lying in bed in no distress Unlabored breathing Sleepy/lethargic - Labs CBC & Chem 7: 02/14/25 07:00 02/14/25 06:50 Labs: Abnormal Lab Results - Last 24 Hours (Table) 02/14/25 02/14/25 02/14/25 Range/Units 07:00 16:26 17:14 WBC 26.43 H (4.50-10.00) X 10*3/uL RBC 2.89 L (4.10-5.20) X 10*6/uL Hgb 8.5 L (12.0-15.0) g/dL Hct 28.0 L (37.2-46.3) % MCHC 30.4 L (32.0-37.0) g/dL RDW 17.1 H (11.5-14.5) % Immature Gran # 0.50 H (0.00-0.04) X 10*3/uL Neutrophils # 23.61 H (1.80-7.70) X 10*3/uL Monocytes # 1.10 H (0.20-1.00) X 10*3/uL Basophils # 0.13 H (0.00-0.10) X 10*3/uL NRBC/100 WBC Diff 0.02 H (0.00-0.01) X 10*3/uL ABG pO2 39 L* (83-108) mmHg ABG Total CO2 27 H (19-24) mmol/L ABG O2 Saturation 73.0 L (94-97) % Hemoglobin 8.4 L (11.4-16.0) gm/dL POC Glucose (mg/dL) 113 H (70-110) mg/dL Assessment and Plan (1) Sepsis Current Visit: No Status: Acute Code(s): A41.9 - SEPSIS, UNSPECIFIED ORGANISM SNOMED Code(s): 81668304 (2) Pneumonia Current Visit: Yes Status: Acute Code(s): J18.9 - PNEUMONIA, UNSPECIFIED ORGANISM SNOMED Code(s): 621134222 (3) Diverticulitis Current Visit: Yes Status: Acute Code(s): K57.92 - DVTRCLI OF INTEST, PART UNSP, W/O PERF OR ABSCESS W/O BLEED SNOMED Code(s): 441861416 Plan: 1patient presented to hospital with lower abdominal discomfort nausea vomiting in this patient who did have a tachycardia elevated white count meeting cur rently for SIRS concern for possible sepsis source could be right lower lobe pneumonia and evidence of diverticulitis on the CT and need to cover for the gram-negative aerobes and anaerobes. 2patient did have mild elevated procalcitonin lower extremity Doppler negative for DVT, patient received adequate IV Zosyn for possible component of postobstructive pneumonia 3patient is afebrile, however persistent leukocytosis a question of possible tumor necrosis less likely pneumonia or empyema, family has decided to go hospice which is appropriate keeping in mind her metastatic lung cancer will discontinue Diflucan, ID will sign off, family bedside question answered Dictation was produced using [email or web address] dictation software. please excuse any grammatical, word or spelling errors. Time with Patient: Less than 30
--- NOTE | 2025-02-15 18:47 | P.PN ---
Subjective 69-year-old woman with recent diagnosis of lung cancer, COPD and hypertension. She presents today as she is having right lower quadrant and right groin pain, nausea, vomiting and diarrhea. The patient's family notes that it seemed to come on after she had the injection related to a bone scan. The patient has not had hematemesis. No dark or tarry stools. No fever or chills. Patient had recent endovascular placement of abdominal aortic stent January 08, 2025, 3 weeks ago. Patient does report she has had abdominal pain since her surgery. She reports early satiety. Poor appetite. Family reports that she had poor appetite prior to surgery. CT of the abdomen pelvis with questionable findings of early colitis versus mild diverticulitis. Right lower lobe malignancy. Presence of adrenal gland possible malignancy. T12 compression fracture 25% including sclerotic lesions along the spine highly suspicious for metastatic disease. Blood work reveals WBC of 16.4, hemoglobin of 9.1 and platelet count of 239, sodium 134, potassium 3.6, BUN/creatinine 35/0.79 and alkaline phosphatase of 149 Patient has been admitted for possible ileus/colitis versus diverticulitis; surgery is consulted 02/01/2025 Patient seen and evaluated in follow-up today continues to report significant abdominal pain and general surgery following with no plans of surgical intervention at this time. White count is elevated at 18.85 and hemoglobin remains 9.1, platelets are 183. Sodium is 137 with a potassium of 4.3, BUN 37.1 with a creatinine of 1.0. Patient being started on antibiotics per general surgery for the colitis/diverticulitis and recommends minimum 3 days of IV antibiotics and to continue with clear liquids protein shakes. Patient with significant weakness recommend PT/OT therapy evaluation. Continued poor oral intake and not much of an appetite, consult to dietary. 02/02/2025 Patient evaluated in follow-up today with multiple consultations following including general surgery. Infectious disease has been consulted and patient is continued on antibiotics and white count is elevated with concerns of underlying infection. General surgery following with no immediate plans of surgical intervention recommending to continue with conservative management and clear liquids. Patient reports has not had a bowel movement today and on assessment there are bowel sounds noted. Patient is tolerating the clear liquids with no reported nausea or vomiting although is asking for an advancing diet. Will await surgical recommendations regarding advancement. Pulmonary has been consulted as well regarding previous endoscopy with biopsy with multiple family members awaiting to speak further with pulmonary. Oncology will also be consulted. 02/03/2025 Patient seen in follow-up today currently obtaining a Doppler assess for DVT as patient has significant lower extremity swelling. Multiple consultations following including told was placed to oncology as recent bronchoscopy was positive for non-small cell lung carcinoma and likely metastasis. Patient white count remains elevated and is maintained on antibiotics. An MRI of the brain was ordered although patient is refusing. Radiation oncology has been consulted and pending to discuss possible palliative radiation. Patient continues to be significantly weak with shortness of breath maintained on oxygen via nasal cannula at 4 L. Encourage incentive spirometer use and wean FiO2 as tolerated. Overall prognosis is extremely poor and guarded. 02/04/2025 Patient is seen in follow-up today currently resting and patient was evaluated by radiation oncology undergoing mapping today to initiate palliative radiation. Patient continues to refuse MRI of the brain and oncology is following and aware. Multiple other consultations following and patient will be continued on current diet not tolerating much oral intake and has no real appetite with continued diffuse abdominal pain. No surgical intervention planned at this time. Patient is afebrile white count remains elevated although slightly improved with infectious disease following maintained on antibiotics and will continue. Continue to wean FiO2 as tolerated although continues on 4 L via nasal cannula. Pulmonary is following. 02/05/2025 Patient is seen in follow-up today remains sitting up in the chair and per gage sherman unable to lie down any further than 30 degrees as patient reports significant shortness of breath and abdominal pain. Patient reports is tolerating current diet and having bowel movements and passing gas. Patient continues with lower extremity edema maintained on Lasix and will continue. Gage sherman did receive mapping on the right chest wall with radiation oncology with plans of starting radiation today. Patient continues with shortness of breath maintained on 4 L. Patient to continue with antibiotics with infectious disease following as white count remains elevated, concerns for postobstructive. Follow-up on repeat labs and replace electrolytes per protocol. 02/06/2025 Patient is seen in follow-up today with multiple consultations following. Patient is status post palliative radiation yesterday with radiation oncology and will resume on Saturday and continue daily as tolerated. Patient continues on 4 L and continues to report shortness of breath. Patient having intermittent diffuse abdominal pain although much improved compared to previous. Patient is not tolerating much diet and is not eating much and needs encouragement and may continue supplements between meals. White count remains elevated and appreciate input and recommendations from infectious disease. Will continue Zosyn for now. Encourage incentive spirometer use and increase activity as tolerated. 02/07/2025 Patient is seen in follow-up today continues to report significant pain and continued on current pain regimen. Plan is for radiation oncology to follow-up for repeat radiation on Saturday throughout the week. Infectious disease following and white count is elevated above 20 and maintained on antibiotics we will follow-up on repeat labs. Encouraged increase activity as tolerated and incentive spirometer use. Continue with breathing treatments. Prognosis guarded at this time 02/08/2025 Patient is seen in follow-up today with multiple consultations following. Patient to resume radiation treatment for palliative therapy today and patient continues to report shortness of breath and difficulty in breathing and maintained on 4 L via nasal cannula. Oxygen saturations are above 95% on oxygen and recommend weaning FiO2 as tolerated and continued incentive spirometer use. Patient white count remains elevated with infectious disease following and is continued on antibiotics. Per nursing staff patient was having some confusion overnight and recommend monitoring closely especially given her medication regimen with narcotics. Encouraged oral intake and will continue current diet. Recommend PT/OT therapy evaluation once respiratory status has improved as patient is significantly weak and has had prolonged hospitalization. 02/09/2025 Patient is seen in follow-up this morning currently sitting up in the chair and extremely weak continuing to report significant pain. Pain medications are being adjusted per oncology and is receiving palliative radiation. Will need to discuss discharge planning with multiple consultations and also with infectious disease as patient is maintained on IV antibiotics and continues to have an elevated white count. Patient continues with shortness of breath maintained on 4 L via nasal cannula. Patient reports is eating some not much of an appetite and did have a bowel movement. Recommend PT/OT therapy evaluation prior to discharge. Prognosis remains guarded. 02/10/2025 Patient is seen in follow-up today underwent radiation treatment and further discussion with radiation oncologist would prefer patient remains hospitalized during treatments as patient continues to be significantly short of breath with ongoing severe pain rating the pain is 8 out of 10. Patient is significantly weak although has been attempting to get up and encouraged patient to continue increasing activity as tolerated and getting up more frequently out of the chair. Patient continues with bilateral lower extremity swelling that is minimally improved and recommend Wale wraps to bilateral lower extremities and/or compression stockings. Recommend PT/OT therapy daily. Patient is afebrile continues to report shortness of breath and denies chest pain or palpitations. White count remains elevated with infectious disease following. 02/11/2025 Patient is seen in follow-up today continues to undergo radiation treatments and will receive another radiation treatment tomorrow 02/12/2025 with plans on discharging home with continued home care. Case management following making arrangements for discharge planning including a hospital bed as patient will require this on discharge due to significant shortness of breath when laying down as well as pain and needs constant repositioning and head of the bed elevated 45 degrees at all times that cannot be done in a regular bed. Patient continues on 4 L via nasal cannula and will continue and has been using oxygen outpatient. Arrangements will be made for outpatient follow-up with oncology regarding treatment plan as well as radiation oncology next week to continue radiation treatments. Patient has been cleared by consultations once arrangements have been made. Patient will continue on IV antibiotics for now with infectious disease following and will transition to oral antibiotic on discharge. Continue to encourage increase activity as tolerated and home care will be arranged. Overall prognosis is poor and guarded at this time. 02/12/2025 Patient seen in follow-up today continuing to undergo radiation therapy and will receive another dose today as patient continues to have significant shortness of breath and pain in the upper chest. Patient is continued through the next week with radiation therapy to complete a 10-day course per radiation oncology. Discharge planning was discussed and patient to follow-up on Saturday to resume additional radiation treatments although patient continues to report significant shortness of breath and pain and generalized weakness and radiation oncology is persistent that she stay hospitalized to complete treatment course. Patient is afebrile white count remains elevated with infectious disease following maintained on antibiotics. Patient has been encouraged to continue using incentive spirometer and increase activity as tolerated. Patient plans on going home on discharge and patient is relatively weak. 02/13 This is a pleasant 69 years old female with stage IV lung cancer, non-small cell lung cancer with evidence of metastasis to the bones including ribs spine and scapula Presents also with abdominal pain suspected secondary to colitis Currently kept on Diflucan She is eating little bit but no vomiting, currently no abdominal pain. She is having loose bowel movement about twice per day. She has shortness of breath or coughing but she is not bringing up phlegm On examination she has bilateral crepitation and she is saturating 90s on 4.5 L/min She feels her mouth is dry but this is chronic Patient feels weak and staying in chair most of the time. As per staff she did not get her treatment of radiotherapy for her lung cancer last 2 days because the machine was down, she is supposed to get 4-6 cycles pending as per patient oncology they prefer her to stay in the hospital for now to getting more radiotherapy 02/14 Patient awake alert sitting in chair stating her breathing is worse today Also patient has bilateral leg edema 2+ Patient drinking water from the large cup continuously. I counseled the patient for fluid restriction and she agrees but she declines IV Lasix stating it makes her pee even after we offered a urine catheter or external catheter system declines. Patient is on oral Lasix 20 mg added 4 days ago by pulmonary service will going to increase it to 40 mg from tomorrow and patient agrees with fluid restriction Continued on prednisone 40 mg Labs stable today 02/15 Last night patient felt more respiratory distress and she was transferred to the ICU This morning I went to see the patient in the ICU and the nurse stated family decided for comfort care measures and she was transferred to room 521 Patient is mildly tachypneic looks comfortable, nonverbal. Multiple family members at bedside. Patient is getting morphine drip. She is does not look in pain. Patient also with scopolamine patch for secretions. She does not need more medication as of now as per family members. Objective - Vital Signs Vital signs: Vital Signs Temp 98.2 F 02/14/25 21:09 Pulse 117 H 02/15/25 08:00 Resp 10 L 02/15/25 08:00 BP 88/55 02/15/25 00:14 Pulse Ox 98 02/14/25 21:09 FiO2 50 02/14/25 21:09 Intake & Output 02/14/25 02/15/25 02/15/25 18:59 06:59 18:59 Intake Total 27.317 62.9 Output Total 0 0 1 Balance 0 27.317 61.9 Intake: Intake, IV Titration 27.317 62.9 Amount Morphine Sulfate 100 mg 27.317 62.9 In Sodium Chloride 0.9% 90 ml @ 2 MG/HR 2 mls/hr IV .Q24H [facility] Rx#: [id number] Output: Urine 0 0 Stool 1 Other: Voiding Method Bedside Commode Bedside Commode - Exam -GENERAL: The patient is nonverbal, resting, HEENT: Pupils are round and equally reacting to light. EOMI. No scleral icterus. No conjunctival pallor. Normocephalic, atraumatic. No pharyngeal erythema. No thyromegaly. CARDIOVASCULAR: S1 and S2 present. No murmurs, rubs, or gallops. -PULMONARY: Chest is clear to auscultation, no wheezing , bilateral expiratory crepitation ABDOMEN: Soft, nontender, nondistended, normoactive bowel sounds. No palpable organomegaly. MUSCULOSKELETAL: No joint swelling or deformity. EXTREMITIES: No cyanosis, clubbing, or pedal edema. NEUROLOGICAL: Gross neurological examination did not reveal any focal deficits. SKIN: No rashes. no petechiae. - Labs CBC & Chem 7: 02/14/25 07:00 02/14/25 06:50 Assessment and Plan Assessment: -Abdominal pain, likely secondary to early colitis with mild diverticulitis as noted on CT image -Leukocytosis, secondary to above -Possible ileus, improving continuing conservative management per surgery, improved, patient is having bowel movements -multiple masses and lesions within the liver highly suspicious for metastatic disease, bronchoscopy pathology revealed non-small cell lung carcinoma, currently undergoing palliative radiation -COPD; not in exacerbation -Hypoxic respiratory failure, recently placed on oxygen since bronchoscopy likely secondary to non-small cell lung carcinoma -Gastroesophageal reflux disease -Anxiety -Chronic back pain -Severe protein calorie malnutrition -History of recent abdominal aortic aneurysm status post endovascular graft -Recently diagnosed metastatic lung cancer from bronchoscopy with BAL and biopsy on 01/22/2025. Pathology is positive for non-small cell lung carcinoma and PET scan showing diffuse metastasis throughout the thorax and osseous metastatic disease and a possible right frontal lobe lesion on the brain Plan: Family decided for comfort care measures This looks appropriate Continue with comfort care measures medication and palliative care Continue the morphine drip Continue with scopolamine Nausea medicine as needed Discussed with family Prognosis is very poor
--- NOTE | 2025-02-16 06:10 | P.DS ---
Providers Date of admission: 02/02/25 08:30 Attending physician: Sue Monae Consults: 02/02/25 09:20 Consult Physician Routine Consulting Provider: Bree Mchugh Consult Reason/Comments: Lung cancer and pneumonia, COPD Do you want consulting provider notified?: Yes Consult Physician Urgent Consulting Provider: Julio Chahal Consult Reason/Comments: Sepsis Do you want consulting provider notified?: Yes 02/02/25 13:01 Consult Physician Urgent Consulting Provider: Tera Mustafa Consult Reason/Comments: lung cancer Do you want consulting provider notified?: Yes 02/03/25 12:16 Consult Physician Routine Consulting Provider: Alyse Meraz Consult Reason/Comments: painful mets, poss obstruction, suspicious brain mass-pend CT head Do you want consulting provider notified?: Yes Primary care physician: Bernie Olivier Hospital Course: Diagnoses: -Abdominal pain, likely secondary to early colitis with mild diverticulitis as noted on CT image -Leukocytosis, secondary to above -Possible ileus, improving continuing conservative management per surgery, improved, patient is having bowel movements -multiple masses and lesions within the liver highly suspicious for metastatic disease, bronchoscopy pathology revealed non-small cell lung carcinoma, currently undergoing palliative radiation -COPD; not in exacerbation -Hypoxic respiratory failure, recently placed on oxygen since bronchoscopy l ikely secondary to non-small cell lung carcinoma -Gastroesophageal reflux disease -Anxiety -Chronic back pain -Severe protein calorie malnutrition -History of recent abdominal aortic aneurysm status post endovascular graft -Recently diagnosed metastatic lung cancer from bronchoscopy with BAL and biopsy on 01/22/2025. Pathology is positive for non-small cell lung carcinoma and PET scan showing diffuse metastasis throughout the thorax and osseous metastatic disease and a possible right frontal lobe lesion on the brain hospital course: 9-year-old woman with recent diagnosis of lung cancer, COPD and hypertension. She presents today as she is having right lower quadrant and right groin pain, nausea, vomiting and diarrhea. The patient's family notes that it seemed to come on after she had the injection related to a bone scan. The patient has not had hematemesis. No dark or tarry stools. No fever or chills. Patient had recent endovascular placement of abdominal aortic stent January 08, 2025, 3 weeks ago. Patient does report she has had abdominal pain since her surgery. She reports early satiety. Poor appetite. Family reports that she had poor appetite prior to surgery. CT of the abdomen pelvis with questionable findings of early colitis versus mild diverticulitis. Right lower lobe malignancy. Presence of adrenal gland possible malignancy. T12 compression fracture 25% including sclerotic lesions along the spine highly suspicious for metastatic disease. Blood work reveals WBC of 16.4, hemoglobin of 9.1 and platelet count of 239, sodium 134, potassium 3.6, BUN/creatinine 35/0.79 and alkaline phosphatase of 149 Patient has been admitted for possible ileus/colitis versus diverticulitis; surgery is consulted 02/01/2025 Patient seen and evaluated in follow-up today continues to report significant abdominal pain and general surgery following with no plans of surgical intervention at this time. White count is elevated at 18.85 and hemoglobin remains 9.1, platelets are 183. Sodium is 137 with a potassium of 4.3, BUN 37.1 with a creatinine of 1.0. Patient being started on antibiotics per general surgery for the colitis/diverticulitis and recommends minimum 3 days of IV antibiotics and to continue with clear liquids protein shakes. Patient with significant weakness recommend PT/OT therapy evaluation. Continued poor oral intake and not much of an appetite, consult to dietary. 02/02/2025 Patient evaluated in follow-up today with multiple consultations following including general surgery. Infectious disease has been consulted and patient is continued on antibiotics and white count is elevated with concerns of underlying infection. General surgery following with no immediate plans of surgical intervention recommending to continue with conservative management and clear liquids. Patient reports has not had a bowel movement today and on assessment there are bowel sounds noted. Patient is tolerating the clear liquids with no reported nausea or vomiting although is asking for an advancing diet. Will await surgical recommendations regarding advancement. Pulmonary has been consulted as well regarding previous endoscopy with biopsy with multiple family members awaiting to speak further with pulmonary. Oncology will also be consulted. 02/03/2025 Patient seen in follow-up today currently obtaining a Doppler assess for DVT as patient has significant lower extremity swelling. Multiple consultations following including told was placed to oncology as recent bronchoscopy was positive for non-small cell lung carcinoma and likely metastasis. Patient white count remains elevated and is maintained on antibiotics. An MRI of the brain was ordered although patient is refusing. Radiation oncology has been consulted and pending to discuss possible palliative radiation. Patient continues to be significantly weak with shortness of breath maintained on oxygen via nasal cannula at 4 L. Encourage incentive spirometer use and wean FiO2 as tolerated. Overall prognosis is extremely poor and guarded. 02/04/2025 Patient is seen in follow-up today currently resting and patient was evaluated by radiation oncology undergoing mapping today to initiate palliative radiation. Patient continues to refuse MRI of the brain and oncology is following and aware. Multiple other consultations following and patient will be continued on current diet not tolerating much oral intake and has no real appetite with continued diffuse abdominal pain. No surgical intervention planned at this time. Patient is afebrile white count remains elevated although slightly improved with infectious disease following maintained on antibiotics and will continue. Continue to wean FiO2 as tolerated although continues on 4 L via nasal cannula. Pulmonary is following. 02/05/2025 Patient is seen in follow-up today remains sitting up in the chair and per patient unable to lie down any further than 30 degrees as patient reports significant shortness of breath and abdominal pain. Patient reports is tolerating current diet and having bowel movements and passing gas. Patient continues with lower extremity edema maintained on Lasix and will continue. Patient did receive mapping on the right chest wall with radiation oncology with plans of starting radiation today. Patient continues with shortness of breath maintained on 4 L. Patient to continue with antibiotics with infectious disease following as white count remains elevated, concerns for postobstructive. Follow-up on repeat labs and replace electrolytes per protocol. 02/06/2025 Patient is seen in follow-up today with multiple consultations following. Patient is status post palliative radiation yesterday with radiation oncology and will resume on Saturday and continue daily as tolerated. Patient continues on 4 L and continues to report shortness of breath. Patient having intermittent diffuse abdominal pain although much improved compared to previous. Patient is not tolerating much diet and is not eating much and needs encouragement and may continue supplements between meals. White count remains elevated and appreciate input and recommendations from infectious disease. Will continue Zosyn for now. Encourage incentive spirometer use and increase activity as tolerated. 02/07/2025 Patient is seen in follow-up today continues to report significant pain and continued on current pain regimen. Plan is for radiation oncology to follow-up for repeat radiation on Saturday throughout the week. Infectious disease following and white count is elevated above 20 and maintained on antibiotics we will follow-up on repeat labs. Encouraged increase activity as tolerated and incentive spirometer use. Continue with breathing treatments. Prognosis guarded at this time 02/08/2025 Patient is seen in follow-up today with multiple consultations following. Patient to resume radiation treatment for palliative therapy today and patient continues to report shortness of breath and difficulty in breathing and maintained on 4 L via nasal cannula. Oxygen saturations are above 95% on oxygen and recommend weaning FiO2 as tolerated and continued incentive spirometer use. Patient white count remains elevated with infectious disease following and is continued on antibiotics. Per nursing staff patient was having some confusion overnight and recommend monitoring closely especially given her medication regimen with narcotics. Encouraged oral intake and will continue current diet. Recommend PT/OT therapy evaluation once respiratory status has improved as patient is significantly weak and has had prolonged hospitalization. 02/09/2025 Patient is seen in follow-up this morning currently sitting up in the chair and extremely weak continuing to report significant pain. Pain medications are aayush ng adjusted per oncology and is receiving palliative radiation. Will need to discuss discharge planning with multiple consultations and also with infectious disease as patient is maintained on IV antibiotics and continues to have an elevated white count. Patient continues with shortness of breath maintained on 4 L via nasal cannula. Patient reports is eating some not much of an appetite and did have a bowel movement. Recommend PT/OT therapy evaluation prior to discharge. Prognosis remains guarded. 02/10/2025 Patient is seen in follow-up today underwent radiation treatment and further dis cussion with radiation oncologist would prefer patient remains hospitalized during treatments as patient continues to be significantly short of breath with ongoing severe pain rating the pain is 8 out of 10. Patient is significantly weak although has been attempting to get up and encouraged patient to continue increasing activity as tolerated and getting up more frequently out of the chair. Patient continues with bilateral lower extremity swelling that is minimally improved and recommend Wale wraps to bilateral lower extremities and/or compression stockings. Recommend PT/OT therapy daily. Patient is afebrile continues to report shortness of breath and denies chest pain or palpitations. White count remains elevated with infectious disease following. 02/11/2025 Patient is seen in follow-up today continues to undergo radiation treatments and will receive another radiation treatment tomorrow 02/12/2025 with plans on discharging home with continued home care. Case management following making arrangements for discharge planning including a hospital bed as patient will require this on discharge due to significant shortness of breath when laying down as well as pain and needs constant repositioning and head of the bed elevated 45 degrees at all times that cannot be done in a regular bed. Patient continues on 4 L via nasal cannula and will continue and has been using oxygen outpatient. Arrangements will be made for outpatient follow-up with oncology regarding treatment plan as well as radiation oncology next week to continue radiation treatments. Patient has been cleared by consultations once arrangements have been made. Patient will continue on IV antibiotics for now with infectious disease following and will transition to oral antibiotic on discharge. Continue to encourage increase activity as tolerated and home care will be arranged. Overall prognosis is poor and guarded at this time. 02/12/2025 Patient seen in follow-up today continuing to undergo radiation therapy and will receive another dose today as patient continues to have significant shortness of breath and pain in the upper chest. Patient is continued through the next week with radiation therapy to complete a 10-day course per radiation oncology. Discharge planning was discussed and patient to follow-up on Saturday to resume additional radiation treatments although patient continues to report significant shortness of breath and pain and generalized weakness and radiation oncology is persistent that she stay hospitalized to complete treatment course. Patient is afebrile white count remains elevated with infectious disease following maintained on antibiotics. Patient has been encouraged to continue using incentive spirometer and increase activity as tolerated. Patient plans on going home on discharge and patient is relatively weak. 02/13 This is a pleasant 69 years old female with stage IV lung cancer, non-small cell lung cancer with evidence of metastasis to the bones including ribs spine and scapula Presents also with abdominal pain suspected secondary to colitis Currently kept on Diflucan She is eating little bit but no vomiting, currently no abdominal pain. She is having loose bowel movement about twice per day. She has shortness of breath or coughing but she is not bringing up phlegm On examination she has bilateral crepitation and she is saturating 90s on 4.5 L/min She feels her mouth is dry but this is chronic Patient feels weak and staying in chair most of the time. As per staff she did not get her treatment of radiotherapy for her lung cancer last 2 days because the machine was down, she is supposed to get 4-6 cycles pending as per patient oncology they prefer her to stay in the hospital for now to getting more radiotherapy 02/14 Patient awake alert sitting in chair stating her breathing is worse today Also patient has bilateral leg edema 2+ Patient drinking water from the large cup continuously. I counseled the patient for fluid restriction and she agrees but she declines IV Lasix stating it makes her pee even after we offered a urine catheter or external catheter system declines. Patient is on oral Lasix 20 mg added 4 days ago by pulmonary service will going to increase it to 40 mg from tomorrow and patient agrees with fluid restriction Continued on prednisone 40 mg Labs stable today 02/15 Last night patient felt more respiratory distress and she was transferred to the ICU This morning I went to see the patient in the ICU and the nurse stated family decided for comfort care measures and she was transferred to room 521 Patient is mildly tachypneic looks comfortable, nonverbal. Multiple family members at bedside. Patient is getting morphine drip. She is does not look in pain. Patient also with scopolamine patch for secretions. She does not need more medication as of now as per family members. 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 Patient Condition at Discharge: Fair Plan - Discharge Summary Discharge Rx Participant: No New Discharge Prescriptions: No Action Cyclobenzaprine [Flexeril] 5 - 10 mg PO Q8H PRN PRN Reason: Muscle Spasm Aspirin EC [Ecotrin Low Dose] 81 mg PO DAILY Fluticasone/Umeclidin/Vilanter [Trelegy Ellipta 200-62.5-25] 1 puff INHALATION RT-DAILY Nicotine 14Mg/24Hr Patch [Habitrol] 1 patch TRANSDERM DAILY #10 patch Pantoprazole [Protonix] 40 mg PO AC-BRKFST #30 Lidocaine 5% Patch [Lidoderm] 1 patch TRANSDERM DAILY PRN PRN Reason: Pain Diclofenac Sodium [Voltaren] 75 mg PO BID PRN PRN Reason: Pain Ondansetron [Zofran] 4 mg PO Q8H PRN PRN Reason: Nausea clonazePAM [KlonoPIN ODT] 0.25 mg PO DAILY PRN PRN Reason: Anxiety HYDROcodone/APAP 7.5-325MG [[place] 7.5-325] 1 tab PO Q6H PRN PRN Reason: Severe Pain (Scale 7 To 10) Discharge Medication List Aspirin EC [Ecotrin Low Dose] 81 mg PO DAILY 01/21/25 [History] Cyclobenzaprine [Flexeril] 5 - 10 mg PO Q8H PRN 01/21/25 [History] Fluticasone/Umeclidin/Vilanter [Trelegy Ellipta 200-62.5-25] 1 puff INHALATION RT-DAILY 01/21/25 [History] Nicotine 14Mg/24Hr Patch [Habitrol] 1 patch TRANSDERM DAILY #10 patch 01/23/25 [Rx] Pantoprazole [Protonix] 40 mg PO AC-BRKFST #30 01/23/25 [Rx] Diclofenac Sodium [Voltaren] 75 mg PO BID PRN 01/31/25 [History] HYDROcodone/APAP 7.5-325MG [[place] 7.5-325] 1 tab PO Q6H PRN 01/31/25 [History] Lidocaine 5% Patch [Lidoderm] 1 patch TRANSDERM DAILY PRN 01/31/25 [History] Ondansetron [Zofran] 4 mg PO Q8H PRN 01/31/25 [History] clonazePAM [KlonoPIN ODT] 0.25 mg PO DAILY PRN 01/31/25 [History] Follow up Appointment(s)/Referral(s): Tera Mustafa [STAFF PHYSICIAN] - 02/24/25 4:15 pm Bernie Olivier DO [Primary Care Provider] - 1-2 days Discharge/Stand Alone Forms: Community Resources, Help In The Home, Personal Baby Counselor
[2025-02-16 06:17] VITALS: RESP 8
== END 2025-02-16 08:22 | disposition expired | DRG 871 ==
LOC: EC 01:14 → 4SSUR 07:09 → OBSVTOIN 02-02 08:30 → 2SICU 02-14 17:07 → 5NMEDONC 02-15 06:11
PROVIDERS: ADMIT Hospitalist; ATTEND Hospitalist
PROC: DB022ZZ Beam Radiation of Lung using Photons >10 MeV (ICD-10-PCS; principal; 2025-02-05)
PROC: 5A09357 Assistance with Respiratory Ventilation, Less than 24 Consecutive Hours, Continuous Positive Airway Pressure (ICD-10-PCS; 2025-02-14)
DX: A40.9 Streptococcal sepsis, unspecified (principal); E43 Unspecified severe protein-calorie malnutrition; J96.21 Acute and chronic respiratory failure with hypoxia; J15.4 Pneumonia due to other streptococci; J91.8 Pleural effusion in other conditions classified elsewhere; C79.51 Secondary malignant neoplasm of bone; C79.31 Secondary malignant neoplasm of brain; C78.7 Secondary malignant neoplasm of liver and intrahepatic bile duct; K56.7 Ileus, unspecified; C79.71 Secondary malignant neoplasm of right adrenal gland; C79.72 Secondary malignant neoplasm of left adrenal gland; C34.31 Malignant neoplasm of lower lobe, right bronchus or lung; J44.0 Chronic obstructive pulmonary disease with (acute) lower respiratory infection; I10 Essential (primary) hypertension; Z95.828 Presence of other vascular implants and grafts; D63.0 Anemia in neoplastic disease; J44.1 Chronic obstructive pulmonary disease with (acute) exacerbation; M48.54XA Collapsed vertebra, not elsewhere classified, thoracic region, initial encounter for fracture; K57.32 Diverticulitis of large intestine without perforation or abscess without bleeding; Z51.5 Encounter for palliative care; Z66 Do not resuscitate; E88.09 Other disorders of plasma-protein metabolism, not elsewhere classified; Z99.81 Dependence on supplemental oxygen; K52.9 Noninfective gastroenteritis and colitis, unspecified; K21.9 Gastro-esophageal reflux disease without esophagitis; F41.9 Anxiety disorder, unspecified; G89.3 Neoplasm related pain (acute) (chronic); I95.89 Other hypotension; R60.0 Localized edema; R53.81 Other malaise; Z79.82 Long term (current) use of aspirin; Z80.0 Family history of malignant neoplasm of digestive organs; Z86.79 Personal history of other diseases of the circulatory system; Z79.51 Long term (current) use of inhaled steroids; Z87.891 Personal history of nicotine dependence
CPT/HCPCS: 36410; 36415; 36600; 71045; 74176; 76604; 76937; 77280; 77387; 77412; 80048; 80053; 82805; 83690; 83735; 84132; 84145; 85025; 86140; 87040; 93005; 93970; 94640; 94660; 94760; 96361; 96374; 96376; 99285